=== PATIENT | female | born 1970 | race Two or more races ===

== ENCOUNTER → 2020-01-19 12:42 | Outpatient (REF) | payer OTHER, SELFPAY | LOC: HO.SL 12:42 | PROVIDERS: PCP Internal Medicine; Visit Provider Internal Medicine | DX: R40.0 Somnolence (principal); R53.83 Other fatigue | CPT/HCPCS: 95806 ==

== ENCOUNTER → 2020-03-28 13:47 | Outpatient (BNVA) | payer OTHER, SELFPAY | PROVIDERS: PCP Internal Medicine; Visit Provider Nurse Practitioner | DX: Z76.89 Persons encountering health services in other specified circumstances (principal) ==

== ENCOUNTER 2020-04-11 14:21 | Outpatient (REF) | payer OTHER, SELFPAY ==
--- NOTE | 2020-04-11 14:26 | MM_ITS ---
EXAMINATION: MM SCREENING DIGITAL BREAST TOMOSYNTHESIS, BILATERAL CLINICAL INFORMATION: Screening. Asymptomatic. The lifetime risk of breast cancer based on the Tyrer-Cuzick Model is 9%. COMPARISON: Mammography: 09/10/2018, 08/28/2017, 08/20/2016 TECHNIQUE: Digital breast tomosynthesis is performed in both the craniocaudal and mediolateral oblique views along with computer-aided detection (CAD). Synthesized 2D images are generated from the tomosynthesis. Additional right CC view is provided. FINDINGS: The breasts are heterogeneously dense, which may obscure small masses (ACR BI-RADS breast composition Category c). There are no significant masses, abnormal calcifications, or other abnormalities. Breast tissue composition borders on average fibroglandular. There is no developing density. No significant changes. MM/MM tomosynthesis screening BI IMPRESSION: No mammographic evidence of malignancy. ASSESSMENT: BI-RADS 1: Negative RECOMMENDATION: Routine annual mammography screening. This patient's information was entered into a reminder system with a target due date for their next mammogram.
== END 2020-04-11 14:22 | disposition home or self-care (01) ==
LOC: HO.MAMMO 14:21
PROVIDERS: PCP Internal Medicine; Visit Provider Internal Medicine
DX: Z12.31 Encounter for screening mammogram for malignant neoplasm of breast (principal)
CPT/HCPCS: 77063; 77067

== ENCOUNTER 2020-05-16 16:50 | Emergency (ER) | payer OTHER, SELFPAY ==
[2020-05-16 19:27] VITALS: BP 148/67; PULSE 80; RESP 20; TEMP 37.7; O2SAT 97; BMI 38.4
[2020-05-16 19:42] LABS: MANUAL DIFF FLAG NO
[2020-05-16 19:44] LABS: Basophils Percent Auto 0.3 % (0-2); Eosinophils Percent Auto 0.1 % (0-4); Hematocrit 39.9 % (37-47); Hemoglobin 13.1 g/dl (12.0-16.0); Imm Gran Abs Auto 0.01 X10*3/uL (0.00-0.03); Imm Gran Pct Auto 0.1 % (0.0-0.4); Lymphocytes Absolute Auto 2.1 X10*3/uL (1.2-4.9); Lymphocytes Percent Auto 29.3 % (20-40); Mean Corpuscular HGB Conc 32.8 g/dl (31.0-35.0); Mean Corpuscular Hemoglobin 31.1 pg (27.0-33.0); Mean Corpuscular Volume 94.8 fL (80-98); Mean Platelet Volume 10.3 fL (9.4-12.3); Monocytes Absolute Auto 0.4 X10*3/uL (0.1-1.2); Monocytes Percent Auto 5.7 % (2-11); Neutrophils Absolute Auto 4.5 X10*3/uL (2.0-8.3); Neutrophils Percent Auto 64.5 % (45-73); Platelet Count 222 X10*3/uL (160-400); Red Blood Count 4.21 X10*6/uL (4.20-5.50); Red Cell Distribution Width 12.5 % (11.0-16.0)
[2020-05-16 20:11] LABS: Glucose Urine UA NEG (NEG); Leukocyte Esterase Urine NEG (NEG); Nitrite Urine NEG (NEG); Specific Gravity - Urine >= 1.030 (1.005-1.025); Urine Blood NEG (NEG); Urine Ketones NEG (NEG); Urine Protein NEG (NEG-TRACE)
[2020-05-16 20:12] LABS: Appearance Urine HAZY; Color Urine YELLOW
[2020-05-16 20:13] LABS: Anion Gap 13 (12-20); Blood Urea Nitrogen 7 mg/dL (9-16); Calcium 8.6 mg/dL (8.4-10.2); Carbon Dioxide 27 mmol/L (22-29); Chloride 105 mmol/L (96-108); Creatinine Clr Calc Pharmacy 97.2; Estimated Glomerular Filt Rate > 60; Glucose Random 96 mg/dL (60-115); Potassium 3.7 mmol/L (3.3-5.1); Sodium 141 mmol/L (135-145)
--- NOTE | 2020-05-16 21:48 | ED_ITS ---
HPI - Headache General Chief Complaint: Headache Stated Complaint: headache Source: patient Mode of arrival: ambulatory Limitations: language barrier History of Present Illness HPI Narrative: 50-year-old female with past medical history of depression, anxiety, insomnia, GERD, hypercholesterolemia, IBS, somnolence, presents 3 weeks of headache, neck pain, and eye pain. States that this is the worst headache of her life, and the medications she has home not helped her she does take Klonopin, dicyclomine gabapentin, sumatriptan, and Topamax. She did not report any other symptoms. MD elicited complaint: headache and migraine Pertinent past history: migraines Onset (ago): week(s) (3) Onset description: gradually Location: down into neck Severity: severe Pain scale (0-10): 10 Quality & Timing: throbbing, steady, constant, progressively worsening, different than previous headaches and worst headache of life Exacerbating factors: exertion, movement of head/neck, light and noise Relieving factors: nothing Associated symptoms: neck stiffness, photophobia, sensitivity to sound, eye pain and weakness Treatments prior to arrival: acetaminophen, ibuprofen, prescription analgesic and migraine medication Related Data Home Medications Medication Instructions Recorded Confirmed clonazepam 1 mg tablet 1 mg PO BID PRN 04/04/20 04/04/20 duloxetine 60 mg capsule,delayed 60 mg PO QAM 04/04/20 04/04/20 release gabapentin 100 mg capsule 100 mg PO TID 04/04/20 04/04/20 ibuprofen 800 mg tablet 800 mg PO TID PRN tab 04/04/20 04/04/20 imipramine HCl 10 mg tablet 10 mg PO BEDTIME 04/04/20 04/04/20 oxybutynin chloride 10 mg 10 mg PO DAILY 04/04/20 04/04/20 tablet,extended release 24 hr sumatriptan succinate 100 mg tablet 100 mg PO PRN tab 04/04/20 04/04/20 topiramate 100 mg tablet 100 mg PO BEDTIME tab 04/04/20 04/04/20 trazodone 100 mg tablet 100 mg PO BEDTIME 04/04/20 04/04/20 Previous Rx's Medication Instructions Recorded dicyclomine 20 mg tablet 20 mg PO QID 90 Days #360 tab 02/17/20 dexlansoprazole 60 mg 60 mg PO DAILY 30 Days #30 cap 03/28/20 capsule,biphase delayed release loperamide 2 mg capsule 2 mg PO QID PRN #90 cap 03/28/20 simethicone 180 mg capsule 180 mg PO QID 30 Days #120 cap 03/28/20 sucralfate 1 gram tablet 2 g PO BEDTIME #60 tab 04/03/20 baclofen 20 mg tablet 20 mg PO TID PRN 30 Days #90 tab 04/04/20 cholecalciferol (vitamin D3) 25 25 mcg PO DAILY 90 Days #90 cap 04/04/20 mcg (1,000 unit) capsule meloxicam 15 mg tablet 15 mg PO DAILY PRN #30 tab 04/08/20 titmhuhgpo-xiruhgnfyjrmc-yxtg 1 cap PO Q8H PRN #7 cap 05/16/20 [Fioricet] Allergies Allergy/AdvReac Type Severity Reaction Status Date / Time morphine [MORPHINE] Allergy Intermediate TACHYCARDIA Verified 05/16/20 19:27 codeine [Tylenol-Codeine] Allergy Unknown with Verified 05/16/20 19:27 tylenol oxycodone [Percocet] Allergy Unknown unknown Verified 05/16/20 19:27 From PERCOCET AdvReac Mild STOMACH Uncoded 04/04/20 14:44 UPSET From Tylenol-Codeine #3 AdvReac Mild STOMACH Uncoded 04/04/20 14:44 UPSET Review of Systems Review of Systems: Constitutional: Positive headache, No Fever, no Chills, positive fatigue, positive Malaise ENT/Mouth: Known sore throat, no runny nose Eyes: No Discharge Cardiovascular: No Chest Pain, No SOB Respiratory: No Cough, No Sputum, No Wheezing, No Smoke Exposure, No Dyspnea Gastrointestinal: No Nausea, No Vomiting, No Diarrhea Genitourinary: no irregular bleeding, No Dysuria, No Urinary Frequency, No Hematuria, No Urinary Incontinence, No Urgency, No Flank Pain, Musculoskeletal: positive Myalgia Skin: No rash Neuro: Positive Headache Yes all other systems are reviewed and are negative PMFSH Past Medical History Attestation statement: The following information was validated with the patient. Source: old records reviewed Medical History Allergic rhinitis Anxiety Bilateral low back pain without sciatica Carpal tunnel syndrome Daytime somnolence Depression GERD without esophagitis Insomnia Obesity (BMI 30-39.9) Pure hypercholesterolemia Vitamin D deficiency Surgical History History of cholecystectomy History of esophagogastroduodenoscopy Family History Family History Mother No problems noted. Maternal Aunt Breast cancer Social History Social History Alcohol intake: current Alcohol intake frequency: does not drink Smoking Status: Never smoker Advance Directives: No Advance Directives Information Provided: No Physical Exam Vital Signs: Vital Signs: Last Vital Signs Temp 98.8 F 05/16/20 22:00 Pulse 75 05/16/20 22:00 Resp 17 05/16/20 22:00 BP 119/76 05/16/20 22:00 Pulse Ox 97 05/16/20 19:27 Body Mass Index 38.4 Appearance: Alert. Oriented X3. Moderate distress. Eyes: PERRLA, EOMI, photophobic ENT: Pharynx normal. Cranial nerves 2-12 intact Neck: Normal inspection. Neck supple. Tender to palpation to the cervical spine and trapezius bilaterally CVS: Normal heart rate and rhythm. Pulses normal. Respiratory: No respiratory distress. Breath sounds normal. Abdomen: Soft and nontender. Skin: Skin warm and dry. Normal skin color. Normal skin turgor. Extremities: No lower extremity edema. Strength 5/5 to all extremities, pulses equal, no edema, brisk capillary refill Neuro: No motor deficit. No sensory deficit. No focal neural deficits Course Course Course Narrative: 50-year-old female with past medical history depression, anxiety insomnia, GERD, hyperlipidemia, irritable bowel disease presents with 3 weeks of progressively worsening headache that has not been resolved with medications that have been prescribed to her. She does complain of eye pain, neck pain, photophobia and nausea. As this is the worst headache of her life, we will order CT scan and neck, and COVID swab. Labs are unremarkable. No indication of meningitis, negative Kernig and Brudzinski sign. Afebrile. COVID test is positive. Patient states headache is better with Fioricet. Plan of care is to discharge home with Fioricet and supportive measures for COVID-19. Patient verbalized understanding of and agrees to plan of care discharge home. americanization teacher utilized for all correspondence. Google translate utilized for discharge instructions. MDM - Headache MDM Narrative Medical decision making narrative: Influenza, COVID-19 Differential Diagnosis Differential diagnosis: Likely migraine, tension headache, subarachnoid hemorrhage, headache, meningitis and sinusitis Medical Records Attestation: I reviewed the patient's medical records. Lab Data Attestation: I reviewed the patient's lab results. Result diagrams: 05/16/20 19:36 05/16/20 19:36 Labs: Lab Results 05/16/20 05/16/20 05/16/20 Range/Units 19:36 19:36 19:36 WBC 7.0 (4.8-10.8) X10*3/uL RBC 4.21 (4.20-5.50) X10*6/uL Hgb 13.1 (12.0-16.0) g/dl Hct 39.9 (37-47) % MCV 94.8 (80-98) fL MCH 31.1 (27.0-33.0) pg MCHC 32.8 (31.0-35.0) g/dl RDW 12.5 (11.0-16.0) % Plt Count 222 (160-400) X10*3/uL MPV 10.3 (9.4-12.3) fL Immature Gran % (Auto) 0.1 (0.0-0.4) % Neut % (Auto) 64.5 (45-73) % Lymph % (Auto) 29.3 (20-40) % Crawford % (Auto) 5.7 (2-11) % Eos % (Auto) 0.1 (0-4) % Baso % (Auto) 0.3 (0-2) % Lymph # (Auto) 2.1 (1.2-4.9) X10*3/uL Crawford # (Auto) 0.4 (0.1-1.2) X10*3/uL Eos # (Auto) 0.0 (0.0-0.4) X10*3/uL Baso # (Auto) 0.0 (0.0-0.2) X10*3/uL Abs Immat Gran (auto) 0.01 (0.00-0.03) X10*3/uL Absolute Neuts (auto) 4.5 (2.0-8.3) X10*3/uL Absolute Nucleated RBC 0.000 (0.0-0.012) X10*3/uL Nucleated RBC % (auto) 0.0 (0.0-0.2) /100WBC Hold Blue Top SEE NOTE Sodium 141 (135-145) mmol/L Potassium 3.7 (3.3-5.1) mmol/L Chloride 105 (96-108) mmol/L Carbon Dioxide 27 (22-29) mmol/L Anion Gap 13 (12-20) BUN 7 L (9-16) mg/dL Creatinine 0.77 (0.5-1.4) mg/dL Estim Creat Clear Calc 97.2 Estimated GFR > 60 Random Glucose 96 (60-115) mg/dL Calcium 8.6 (8.4-10.2) mg/dL Urine Color Urine Appearance Urine pH (5.0-8.0) Ur Specific [place] (1.005-1.025) Urine Protein (NEG-TRACE) MG/DL Urine Glucose (UA) (NEG) MG/DL Urine Ketones (NEG) MG/DL Urine Blood (NEG) Urine Nitrite (NEG) Ur Leukocyte Esterase (NEG) Coronavirus (PCR) (Negative) Influenza Type A (PCR) (Negative) Influenza Type B (PCR) (Negative) RSV RNA Qual (PCR) (Negative) 05/16/20 05/16/20 Range/Units 19:51 22:25 WBC (4.8-10.8) X10*3/uL RBC (4.20-5.50) X10*6/uL Hgb (12.0-16.0) g/dl Hct (37-47) % MCV (80-98) fL MCH (27.0-33.0) pg MCHC (31.0-35.0) g/dl RDW (11.0-16.0) % Plt Count (160-400) X10*3/uL MPV (9.4-12.3) fL Immature Gran % (Auto) (0.0-0.4) % Neut % (Auto) (45-73) % Lymph % (Auto) (20-40) % Crawford % (Auto) (2-11) % Eos % (Auto) (0-4) % Baso % (Auto) (0-2) % Lymph # (Auto) (1.2-4.9) X10*3/uL Crawford # (Auto) (0.1-1.2) X10*3/uL Eos # (Auto) (0.0-0.4) X10*3/uL Baso # (Auto) (0.0-0.2) X10*3/uL Abs Immat Gran (auto) (0.00-0.03) X10*3/uL Absolute Neuts (auto) (2.0-8.3) X10*3/uL Absolute Nucleated RBC (0.0-0.012) X10*3/uL Nucleated RBC % (auto) (0.0-0.2) /100WBC Hold Blue Top Sodium (135-145) mmol/L Potassium (3.3-5.1) mmol/L Chloride (96-108) mmol/L Carbon Dioxide (22-29) mmol/L Anion Gap (12-20) BUN (9-16) mg/dL Creatinine (0.5-1.4) mg/dL Estim Creat Clear Calc Estimated GFR Random Glucose (60-115) mg/dL Calcium (8.4-10.2) mg/dL Urine Color YELLOW Urine Appearance HAZY Urine pH 5.0 (5.0-8.0) Ur Specific [place] >= 1.030 H (1.005-1.025) Urine Protein NEG (NEG-TRACE) MG/DL Urine Glucose (UA) NEG (NEG) MG/DL Urine Ketones NEG (NEG) MG/DL Urine Blood NEG (NEG) Urine Nitrite NEG (NEG) Ur Leukocyte Esterase NEG (NEG) Coronavirus (PCR) POSITIVE A (Negative) Influenza Type A (PCR) NEGATIVE (Negative) Influenza Type B (PCR) NEGATIVE (Negative) RSV RNA Qual (PCR) NEGATIVE (Negative) Imaging Data CT scan of head and neck: Attestation: I personally reviewed and interpreted this imaging study as follows: Radiologist's impression: EXAMINATION: CT HEAD WITHOUT CONTRAST CT CERVICAL SPINE WITHOUT CONTRAST CLINICAL INFORMATION: Headache for 2 weeks. Worst headache ever. Neck pain for 4 weeks. COMPARISON: CT head 04/22/2011 TECHNIQUE: Imaging was performed from the skull base to vertex without intravenous administration of contrast. In addition, helical noncontrast CT imaging was acquired through the cervical spine and source images were reviewed along with axial reconstructions and sagittal and coronal MPRs. [This CT examination was performed using dose optimization techniques as appropriate, variously including the following: *Automated exposure control *Adjustment of mA and/or kV according to patient size (this includes techniques or standardized protocols for targeted exams where dose is matched to indication/reason for exam; i.e. extremities or head) *Use of iterative reconstruction technique] DLP: 1187 mGy-cm FINDINGS: HEAD: No intracranial mass, hemorrhage, or midline shift is visualized. The ventricles and sulci are age-appropriate. No extra-axial collections are identified. The paranasal sinuses and mastoid air cells are well aerated. CERVICAL SPINE: There is no evidence of acute cervical spine fracture. Vertebral bodies remain normal in height. Cervical vertebrae have normal alignment. There is degenerative cervical disc height narrowing with anterior and posterior vertebral endplate spur C5-C6. The remainder the cervical disc heights are maintained. Facet joints are normal. No pre- or paravertebral soft tissue abnormality is identified. Limited assessment of the lung apices is unremarkable. CT/CT head/brain wo con IMPRESSION: 1. No acute intracranial pathology. 2. No CT evidence of acute cervical spine fracture or traumatic subluxation Discharge Plan Discharge Clinical Impression: Headache, COVID-19 Patient Disposition: Home, Self-Care Instructions: Acute Headache (ED), COVID-19 (Coronavirus Disease 2019) (ED) Additional Instructions: Se le evalu? para el dolor de morales intratable y el layla. La tomograf?a computarizada de la morales y el layla es negativa para los hallazgos agudos que requieren pastora intervenci?n emergente. Segura dado positivo en COVID-19. Por favor, mantenga el aislamiento social seg?n las pautas estatales y federales. Es sandoval responsabilidad mantener estas pautas. Le recetamos a Fioricet para jose de morales. Por favor, tome alex medicamento zoe se indica. Homero por elegir alex departamento de emergencias para la evaluaci?n. Por favor, donna un seguimiento con el m?dico de atenci?n primaria seg?n sea nece sario. Regrese al servicio de urgencias para cualquier s?ntoma nuevo, preocupante o que empeore. You were evaluated for intractable headache and neck pain. CT scan of head and neck are negative for acute findings requiring emergent intervention. You tested positive for COVID-19. Please maintain social isolation per State and Federal guidelines. Is your responsibility to maintain these guidelines. We prescribed Fioricet for headaches. Please take this medication as directed. Thank you for choosing this emergency department for evaluation. Please follow-up with primary care physician as needed. Return to the emergency department for any new, concerning, or worsening symptoms. Prescriptions: New vtqyqaxyma-gqzpogklkxpfu-ldey [Fioricet] 50-300-40 mg capsule 1 cap PO Q8H PRN (Reason: pain) Qty: 7 RF: 0 No Action dicyclomine 20 mg tablet 20 mg PO QID 90 Days Qty: 360 RF: 1 sucralfate 1 gram tablet 2 g PO BEDTIME Qty: 60 RF: 5 meloxicam 15 mg tablet 15 mg PO DAILY PRN (Reason: for pain) Qty: 30 RF: 2 duloxetine 60 mg capsule,delayed release(DR/EC) 60 mg PO QAM RF: 0 gabapentin 100 mg capsule 100 mg PO TID RF: 0 trazodone 100 mg tablet 100 mg PO BEDTIME RF: 0 oxybutynin chloride 10 mg tablet extended release 24hr 10 mg PO DAILY RF: 0 clonazepam 1 mg tablet 1 mg PO BID PRNRF: 0 imipramine HCl 10 mg tablet 10 mg PO BEDTIME RF: 0 ibuprofen 800 mg tablet 800 mg PO TID PRN (Reason: pain) RF: 0 topiramate 100 mg tablet 100 mg PO BEDTIME RF: 0 sumatriptan succinate 100 mg tablet 100 mg PO PRN (Reason: migraine headache) RF: 0 cholecalciferol (vitamin D3) 25 mcg (1,000 unit) capsule 25 mcg PO DAILY 90 Days Qty: 90 RF: 3 baclofen 20 mg tablet 20 mg PO TID PRN (Reason: muscle spasm/back pain) 30 Days Qty: 90 RF: 3 loperamide [Anti-Diarrheal (loperamide)] 2 mg capsule 2 mg PO QID PRN (Reason: loose stool) Qty: 90 RF: 6 simethicone 180 mg capsule 180 mg PO QID 30 Days Qty: 120 RF: 3 Dexilant 60 mg capsule,biphase delayed releas 60 mg PO DAILY 30 Days Qty: 30 RF: 6 Interventions: ED Discharge Assessment Last Done: 05/16/20 23:49 Discharge Date/Time: 05/16/20 23:53 Print Language: [place]araguan
[2020-05-16 22:00] VITALS: BP 119/76; PULSE 75; RESP 17; TEMP 37.1
--- NOTE | 2020-05-16 22:10 | CT_ITS ---
EXAMINATION: CT HEAD WITHOUT CONTRAST CT CERVICAL SPINE WITHOUT CONTRAST CLINICAL INFORMATION: Headache for 2 weeks. Worst headache ever. Neck pain for 4 weeks. COMPARISON: CT head 04/22/2011 TECHNIQUE: Imaging was performed from the skull base to vertex without intravenous administration of contrast. In addition, helical noncontrast CT imaging was acquired through the cervical spine and source images were reviewed along with axial reconstructions and sagittal and coronal MPRs. [This CT examination was performed using dose optimization techniques as appropriate, variously including the following: *Automated exposure control *Adjustment of mA and/or kV according to patient size (this includes techniques or standardized protocols for targeted exams where dose is matched to indication/reason for exam; i.e. extremities or head) *Use of iterative reconstruction technique] DLP: 1187 mGy-cm FINDINGS: HEAD: No intracranial mass, hemorrhage, or midline shift is visualized. The ventricles and sulci are age-appropriate. No extra-axial collections are identified. The paranasal sinuses and mastoid air cells are well aerated. CERVICAL SPINE: There is no evidence of acute cervical spine fracture. Vertebral bodies remain normal in height. Cervical vertebrae have normal alignment. There is degenerative cervical disc height narrowing with anterior and posterior vertebral endplate spur C5-C6. The remainder the cervical disc heights are maintained. Facet joints are normal. No pre- or paravertebral soft tissue abnormality is identified. Limited assessment of the lung apices is unremarkable. CT/CT cervical spine wo con IMPRESSION: 1. No acute intracranial pathology. 2. No CT evidence of acute cervical spine fracture or traumatic subluxation
[2020-05-16] MEDS: Butalb/Acetamin/Caff 50/325/40 TABLET 1 TAB PO (22:55)
[2020-05-16 23:11] LABS: Influenza A PCR NEGATIVE (Negative); Influenza B PCR NEGATIVE (Negative); Resp Syncy Virus RNA Qual PCR NEGATIVE (Negative)
[2020-05-16 23:22] LABS: SARS COV2 PCR INHOUSE POSITIVE (Negative)
== END 2020-05-16 23:53 | disposition home or self-care (01) ==
PROVIDERS: Nurse Practitioner Family; Emergency Provider Emergency Medicine; PCP Internal Medicine
DX: U07.1 COVID-19 (principal); R51.9 Headache, unspecified
CPT/HCPCS: 0241U; 36415; 70450; 72125; 80048; 81003; 85025; 99283; 99284

== ENCOUNTER 2020-06-26 12:24 | Outpatient (REF) | payer OTHER, SELFPAY ==
[2020-06-26 13:25] LABS: MANUAL DIFF FLAG NO
[2020-06-26 13:33] LABS: Basophils Absolute Auto 0.1 X10*3/uL (0.0-0.2); Basophils Percent Auto 0.7 % (0-2); Eosinophils Absolute Auto 0.2 X10*3/uL (0.0-0.4); Eosinophils Percent Auto 2.4 % (0-4); Hematocrit 39.6 % (37-47); Hemoglobin 12.5 g/dl (12.0-16.0); Imm Gran Abs Auto 0.02 X10*3/uL (0.00-0.03); Imm Gran Pct Auto 0.2 % (0.0-0.4); Lymphocytes Absolute Auto 3.2 X10*3/uL (1.2-4.9); Lymphocytes Percent Auto 39.1 % (20-40); Mean Corpuscular HGB Conc 31.6 g/dl (31.0-35.0); Mean Corpuscular Hemoglobin 29.9 pg (27.0-33.0); Mean Corpuscular Volume 94.7 fL (80-98); Monocytes Absolute Auto 0.6 X10*3/uL (0.1-1.2); Monocytes Percent Auto 7.1 % (2-11); Neutrophils Absolute Auto 4.1 X10*3/uL (2.0-8.3); Neutrophils Percent Auto 50.5 % (45-73); Platelet Count 301 X10*3/uL (160-400); Red Blood Count 4.18 X10*6/uL (4.20-5.50); Red Cell Distribution Width 13.3 % (11.0-16.0); White Blood Count 8.2 X10*3/uL (4.8-10.8)
[2020-06-26 14:02] LABS: Alanine Aminotransferase 14 U/L (0-31); Albumin Level 4.2 g/dL (3.5-5.0); Alkaline Phosphatase 57 U/L (39-117); Anion Gap 14 (12-20); Aspartate Amino Transferase 22 U/L (5-31); Bilirubin Total 0.6 mg/dL (0.0-1.0); Blood Urea Nitrogen 10 mg/dL (9-16); Calcium 9.4 mg/dL (8.4-10.2); Carbon Dioxide 26 mmol/L (22-29); Chloride 106 mmol/L (96-108); Cholesterol 255 mg/dL; Estimated Glomerular Filt Rate > 60; Glucose Fasting 83 mg/dL (60-99); HDL Cholesterol 52 mg/dL; LDL Cholesterol Calculated 163 mg/dl; Potassium 4.3 mmol/L (3.3-5.1); Sodium 142 mmol/L (135-145); Total Protein 7.7 g/dL (6.5-8.0); Triglycerides 203 mg/dL
[2020-06-26 14:16] LABS: Glucose Urine UA NEG (NEG); Leukocyte Esterase Urine 1+ (NEG); Nitrite Urine NEG (NEG); Specific Gravity - Urine 1.015 (1.005-1.025); UACC Culture Trigger YES; Urine Blood NEG (NEG); Urine Ketones NEG (NEG); Urine Protein NEG (NEG-TRACE)
[2020-06-26 14:18] LABS: Appearance Urine CLOUDY; Color Urine YELLOW
[2020-06-26 14:22] LABS: TSH reflex Free T4 2.21 uIU/mL (0.32-4.0); Vitamin D 25-OH Total 23.3 ng/mL (>30)
[2020-06-26 14:38] LABS: Bacteria Urine 1+ /LPF; RBC Urine 0-2 /HPF (0); Squamous Epithelial Cell Urine 3+ /LPF
== END 2020-06-26 12:25 | disposition home or self-care (01) ==
LOC: HO.LAB 12:24
PROVIDERS: PCP Internal Medicine; Visit Provider Internal Medicine
DX: J30.9 Allergic rhinitis, unspecified (principal); K21.9 Gastro-esophageal reflux disease without esophagitis; K58.0 Irritable bowel syndrome with diarrhea; E78.00 Pure hypercholesterolemia, unspecified; E66.9 Obesity, unspecified; E55.9 Vitamin D deficiency, unspecified; M54.5 Low back pain
CPT/HCPCS: 36415; 80053; 80061; 81001; 81003; 82306; 84443; 85025; 87086

== ENCOUNTER → 2020-09-27 09:26 | Outpatient (BNVA) | payer OTHER, SELFPAY | PROVIDERS: PCP Internal Medicine; Visit Provider Nurse Practitioner | DX: K58.0 Irritable bowel syndrome with diarrhea (principal); K21.9 Gastro-esophageal reflux disease without esophagitis ==

== ENCOUNTER 2020-11-17 18:03 | Emergency (ER) | payer OTHER, SELFPAY ==
[2020-11-17 18:11] VITALS: BP 133/70; PULSE 90; RESP 20; TEMP 37.2; O2SAT 96; BMI 40.2
--- NOTE | 2020-11-17 18:27 | ED_ITS ---
HPI - Dizziness General Chief Complaint: Syncope Stated Complaint: syncope Time Seen by Provider: 11/17/20 18:06 Source: patient Mode of arrival: EMS Limitations: no limitations and language barrier History of Present Illness HPI Narrative: Patient history of anxiety and depression was sitting had near- syncope episode season dizzy but she tearful when she came to the ER denying any other complaints patient with flat expressions not expressing any anxiety or depression not suicidal speaking only few words Related Data Home Medications Medication Instructions Recorded Confirmed clonazepam 1 mg tablet 1 mg PO BID PRN 04/04/20 06/28/20 duloxetine 60 mg capsule,delayed 60 mg PO QAM 04/04/20 06/28/20 release gabapentin 100 mg capsule 100 mg PO TID 04/04/20 06/28/20 ibuprofen 800 mg tablet 800 mg PO TID PRN tab 04/04/20 06/28/20 oxybutynin chloride 10 mg 10 mg PO DAILY 04/04/20 06/28/20 tablet,extended release 24 hr sumatriptan succinate 100 mg tablet 100 mg PO PRN tab 04/04/20 06/28/20 topiramate 100 mg tablet 100 mg PO BEDTIME tab 04/04/20 06/28/20 trazodone 100 mg tablet 100 mg PO BEDTIME 04/04/20 06/28/20 Previous Rx's Medication Instructions Recorded cholecalciferol (vitamin D3) 25 25 mcg PO DAILY 90 Days #90 cap 04/04/20 mcg (1,000 unit) capsule dtiowxhufa-jugrbjvogical-nihcayhb 1 cap PO Q8H PRN 30 Days #90 cap 05/25/20 50 mg-300 mg-40 mg capsule (Fioricet) ondansetron 4 mg disintegrating 4 mg PO Q8H PRN 10 Days #30 tab 05/25/20 tablet dicyclomine 20 mg tablet 20 mg PO QID 90 Days #360 tab 06/28/20 meloxicam 15 mg tablet 15 mg PO DAILY PRN #30 tab 06/28/20 baclofen 20 mg tablet 20 mg PO TID PRN #270 tab 09/02/20 dexlansoprazole 60 mg 60 mg PO DAILY 30 Days #30 cap 09/27/20 capsule,biphase delayed release (Dexilant) imipramine HCl 10 mg tablet 10 mg PO BEDTIME 30 Days #30 tab 06/17/21 loperamide 2 mg capsule 2 mg PO QID PRN #90 cap 09/27/20 (Anti-Diarrheal (loperamide)) simethicone 180 mg capsule 180 mg PO QID 30 Days #120 cap 09/27/20 sucralfate 1 gram tablet 2 g PO BEDTIME #60 tab 09/27/20 calcium polycarbophil 625 mg 1,250 mg PO BID 30 Days #120 tab 10/19/20 tablet (Fiber Laxative (calcium polycarbophil)) Allergies Allergy/AdvReac Type Severity Reaction Status Date / Time morphine [MORPHINE] Allergy Intermediate TACHYCARDIA Verified 09/27/20 09:27 codeine [Tylenol-Codeine] Allergy Unknown with Verified 09/27/20 09:27 tylenol oxycodone [Percocet] Allergy Unknown unknown Verified 09/27/20 09:27 From PERCOCET AdvReac Mild STOMACH Uncoded 06/28/20 11:51 UPSET From Tylenol-Codeine #3 AdvReac Mild STOMACH Uncoded 06/28/20 11:51 UPSET Review of Systems Review of Systems: Yes all other systems are reviewed and are negative [facility] Past Medical History Medical History Allergic rhinitis Anxiety Bilateral low back pain without sciatica Carpal tunnel syndrome Daytime somnolence Depression GERD without esophagitis Insomnia Obesity (BMI 30-39.9) Pure hypercholesterolemia Vitamin D deficiency Surgical History History of cholecystectomy History of esophagogastroduodenoscopy Family History Family History Mother No problems noted. Maternal Aunt Breast cancer Social History Social History Alcohol intake: current Alcohol intake frequency: does not drink Advance Directives: No Advance Directives Information Provided: No Physical Exam Vital Signs: Vital Signs: Last Vital Signs Temp 99.0 F 11/17/20 18:11 Pulse 90 11/17/20 18:11 Resp 20 11/17/20 18:11 BP 133/70 11/17/20 18:11 Pulse Ox 96 11/17/20 18:11 Body Mass Index 40.2 Appearance: Alert. Oriented X3. No acute distress. Eyes: PERRLA, No Nystagmus tearful ENT: Pharynx normal. Oral Mucosa moist Neck: Normal inspection. Neck supple. CVS: Normal heart rate and rhythm. Pulses normal. Respiratory: No respiratory distress. Equal air entry bilateral, no wheezing/rales/rhonchi Abdomen: Soft and nontender. Bowel sounds are present, no mass palpable, no CVA tenderness Skin: Skin warm and dry. Normal skin color. Normal skin turgor. Extremities: No lower extremity edema. No calf tenderness Neuro: Oriented X 3. No motor deficit. No sensory deficit.No cerebellar signs , cranial nerves II-XII intact MDM - Dizziness Lab Data Attestation: I reviewed the patient's lab results. ECG Data Attestation: I personally reviewed and interpreted this ECG as follows: Interpretation: Normal sinus rhythm heart rate 87 beats per minute normal axis normal intervals no acute ST wave changes impression normal EKG Discharge Plan Discharge Clinical Impression: Dizziness Patient Disposition: Home, Self-Care Instructions: Dizziness (ED) Additional Instructions: Drink plenty of fluids take medication for anxiety and follow with PCP Prescriptions: No Action eyznwktbuw-fpittirazkypv-slcn [Fioricet] 50-300-40 mg capsule 1 cap PO Q8H PRN (Reason: headaches) 30 Days Qty: 90 RF: 0 ondansetron 4 mg tablet,disintegrating 4 mg PO Q8H PRN (Reason: nausea and vomiting) 10 Days Qty: 30 RF: 0 baclofen 20 mg tablet 20 mg PO TID PRN (Reason: for muscle spasm) Qty: 270 RF: 1 calcium polycarbophil [Fiber Laxative (ca polycarbo)] 625 mg tablet 1,250 mg PO BID 30 Days Qty: 120 RF: 6 duloxetine 60 mg capsule,delayed release(DR/EC) 60 mg PO QAM RF: 0 gabapentin 100 mg capsule 100 mg PO TID RF: 0 trazodone 100 mg tablet 100 mg PO BEDTIME RF: 0 oxybutynin chloride 10 mg tablet extended release 24hr 10 mg PO DAILY RF: 0 clonazepam 1 mg tablet 1 mg PO BID PRNRF: 0 ibuprofen 800 mg tablet 800 mg PO TID PRN (Reason: pain) RF: 0 topiramate 100 mg tablet 100 mg PO BEDTIME RF: 0 sumatriptan succinate 100 mg tablet 100 mg PO PRN (Reason: migraine headache) RF: 0 cholecalciferol (vitamin D3) 25 mcg (1,000 unit) capsule 25 mcg PO DAILY 90 Days Qty: 90 RF: 3 dicyclomine 20 mg tablet 20 mg PO QID 90 Days Qty: 360 RF: 1 meloxicam 15 mg tablet 15 mg PO DAILY PRN (Reason: for pain) Qty: 30 RF: 2 Dexilant 60 mg capsule,biphase delayed releas 60 mg PO DAILY 30 Days Qty: 30 RF: 6 imipramine HCl 10 mg tablet 10 mg PO BEDTIME 30 Days Qty: 30 RF: 6 loperamide [Anti-Diarrheal (loperamide)] 2 mg capsule 2 mg PO QID PRN (Reason: loose stool) Qty: 90 RF: 6 simethicone 180 mg capsule 180 mg PO QID 30 Days Qty: 120 RF: 3 sucralfate 1 gram tablet 2 g PO BEDTIME Qty: 60 RF: 6
--- NOTE | 2020-11-17 18:27 | ECG_ITS ---
Test Reason : DIZZINESS Blood Pressure : / mmHG Vent. Rate : 087 BPM Atrial Rate : 087 BPM P-R Int : 160 ms QRS Dur : 092 ms QT Int : 378 ms P-R-T Axes : 043 022 020 degrees QTc Int : 454 ms Normal sinus rhythm Normal ECG When compared with ECG of 05-SEP-2016 18:28, No significant change was found Referred By: Mane Martinez Electronically Signed By:Pablo Miller
[2020-11-17] MEDS: 0.9 % Sodium Chloride 1,000 ML 999 ML IVCONT (18:33)
[2020-11-17] MEDS: LORazepam 2 MG/ML VIAL 1 MG IVPUSH (18:39)
--- NOTE | 2020-11-17 19:21 | PC.NURSE ---
Call Erin [phone] with updates when available.
[2020-11-17 20:00] VITALS: BP 120/68; PULSE 64; RESP 18; O2SAT 98
== END 2020-11-17 21:03 | disposition home or self-care (01) ==
PROVIDERS: Emergency Provider Internal Medicine; PCP Internal Medicine
DX: R42 Dizziness and giddiness (principal); F41.9 Anxiety disorder, unspecified; Z79.899 Other long term (current) drug therapy
CPT/HCPCS: 93005; 96361; 96374; 99284; J2060

== ENCOUNTER 2020-11-22 11:45 | Outpatient (REF) | payer OTHER, SELFPAY ==
[2020-11-22 12:35] LABS: MANUAL DIFF FLAG NO
[2020-11-22 12:43] LABS: Basophils Absolute Auto 0.1 X10*3/uL (0.0-0.2); Basophils Percent Auto 0.6 % (0-2); Eosinophils Absolute Auto 0.1 X10*3/uL (0.0-0.4); Eosinophils Percent Auto 1.4 % (0-4); Hematocrit 37.4 % (37-47); Imm Gran Abs Auto 0.03 X10*3/uL (0.00-0.03); Imm Gran Pct Auto 0.4 % (0.0-0.4); Lymphocytes Absolute Auto 3.3 X10*3/uL (1.2-4.9); Lymphocytes Percent Auto 41.5 % (20-40); Mean Corpuscular HGB Conc 32.1 g/dl (31.0-35.0); Mean Corpuscular Hemoglobin 30.2 pg (27.0-33.0); Mean Platelet Volume 11.2 fL (9.4-12.3); Monocytes Absolute Auto 0.6 X10*3/uL (0.1-1.2); Neutrophils Absolute Auto 3.9 X10*3/uL (2.0-8.3); Neutrophils Percent Auto 49.1 % (45-73); Platelet Count 300 X10*3/uL (160-400); Red Blood Count 3.98 X10*6/uL (4.20-5.50); Red Cell Distribution Width 12.4 % (11.0-16.0)
[2020-11-22 13:10] LABS: Alanine Aminotransferase 12 U/L (0-31); Albumin Level 4.3 g/dL (3.5-5.0); Alkaline Phosphatase 62 U/L (39-117); Anion Gap 11 (12-20); Aspartate Amino Transferase 14 U/L (5-31); Bilirubin Total 0.5 mg/dL (0.0-1.0); Blood Urea Nitrogen 11 mg/dL (9-16); Calcium 9.3 mg/dL (8.4-10.2); Carbon Dioxide 26 mmol/L (22-29); Chloride 106 mmol/L (96-108); Cholesterol 213 mg/dL; Estimated Glomerular Filt Rate > 60; Glucose Fasting 84 mg/dL (60-99); HDL Cholesterol 49 mg/dL; LDL Cholesterol Calculated 135 mg/dl; Potassium 4.2 mmol/L (3.3-5.1); Sodium 139 mmol/L (135-145); Total Protein 7.4 g/dL (6.5-8.0); Triglycerides 147 mg/dL
[2020-11-22 13:35] LABS: TSH reflex Free T4 1.54 uIU/mL (0.32-4.0)
== END 2020-11-22 11:46 | disposition home or self-care (01) ==
LOC: HO.LAB 11:45
PROVIDERS: PCP Internal Medicine; Visit Provider Internal Medicine
DX: E78.00 Pure hypercholesterolemia, unspecified (principal); E66.9 Obesity, unspecified; K58.0 Irritable bowel syndrome with diarrhea; J30.9 Allergic rhinitis, unspecified; K21.9 Gastro-esophageal reflux disease without esophagitis
CPT/HCPCS: 36415; 80053; 80061; 84443; 85025

== ENCOUNTER 2021-01-04 08:24 | Outpatient (REF) | payer OTHER, SELFPAY ==
--- NOTE | ~2021-01-04 | XR_ITS ---
EXAMINATION: X-RAY RIGHT KNEE X-RAY BILATERAL STANDING AP VIEW OF BOTH KNEES CLINICAL INFORMATION: Pain. COMPARISON: Radiograph of the left knee dated from 02/17/2018. TECHNIQUE: Lateral and sunrise views of the right knee. AP standing view of both knees. FINDINGS: No evidence of acute fractures or malalignment. There is mild disc space narrowing in the medial compartment of both knees with subcortical sclerosis. No chondrocalcinosis or erosions. In the lateral view there is a small joint effusion in the right knee. XR/XR knee RT 2V IMPRESSION: Mild degenerative osteoarthritis in both knees. Small joint effusion in the right knee. No acute fractures.
--- NOTE | ~2021-01-04 | XR_ITS ---
EXAMINATION: X-RAY RIGHT KNEE X-RAY BILATERAL STANDING AP VIEW OF BOTH KNEES CLINICAL INFORMATION: Pain. COMPARISON: Radiograph of the left knee dated from 02/17/2018. TECHNIQUE: Lateral and sunrise views of the right knee. AP standing view of both knees. FINDINGS: No evidence of acute fractures or malalignment. There is mild disc space narrowing in the medial compartment of both knees with subcortical sclerosis. No chondrocalcinosis or erosions. In the lateral view there is a small joint effusion in the right knee. XR/XR knee standing BI IMPRESSION: Mild degenerative osteoarthritis in both knees. Small joint effusion in the right knee. No acute fractures.
== END 2021-01-04 08:25 | disposition home or self-care (01) ==
LOC: HO.HOSX 08:24
PROVIDERS: Visit Provider Physician Assistant
DX: M54.16 Radiculopathy, lumbar region (principal); M25.561 Pain in right knee
CPT/HCPCS: 73560; 73565; 99202

== ENCOUNTER → 2021-02-04 11:28 | Outpatient (BNVA) | payer OTHER, SELFPAY | PROVIDERS: PCP Internal Medicine; Visit Provider Anesthesiology | DX: M54.16 Radiculopathy, lumbar region (principal); M47.816 Spondylosis without myelopathy or radiculopathy, lumbar region; E78.00 Pure hypercholesterolemia, unspecified; E55.9 Vitamin D deficiency, unspecified; E66.9 Obesity, unspecified; R40.0 Somnolence; Z68.38 Body mass index [BMI] 38.0-38.9, adult; Z88.6 Allergy status to analgesic agent; Z88.5 Allergy status to narcotic agent | CPT/HCPCS: 99212 ==

== ENCOUNTER 2021-02-08 09:45 | Outpatient (REF) | payer OTHER, SELFPAY ==
--- NOTE | ~2021-02-08 | MR_ITS ---
EXAMINATION: MR BRAIN WITHOUT AND WITH CONTRAST CLINICAL INFORMATION: Brain lesion. COMPARISON: CT head from 05/16/2020. Brain MRI from 12/16/2012. TECHNIQUE: MRI of the brain was obtained using routine sequences without and following the administration of 10 mL of Gadavist intravenous contrast. FINDINGS: No focal restricted diffusion is demonstrated to suggest acute or subacute cerebral ischemia. No evidence of acute or chronic hemorrhagic products on heme-sensitive imaging. Mild nonspecific scattered periventricular and deep white matter T2 FLAIR hyperintensities. 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 Otherwise, the ventricles are normal in morphology and size. No abnormal mass effect. No midline shift. The sella turcica is mildly expanded with flattening of the pituitary gland. The cerebellar tonsils are positioned at the level the foramen magnum. Normal arterial and venous vascular flow voids are present. No abnormal contrast enhancement. Normal, homogeneous marrow signal. Prominent mucosal thickening of the paranasal sinuses. Multiple mucus retention cyst within the left greater than right maxillary sinuses. No signal abnormalities within the mastoids. MR/MR head/brain wo/w con IMPRESSION: 1. No acute intracranial abnormalities. No abnormal intracranial enhancement. 2. Mild nonspecific white matter changes, similar in distribution and degree compared to 2013. 3. Prominent sinonasal mucosal disease.
== END 2021-02-08 09:46 | disposition home or self-care (01) ==
LOC: HO.MRI 09:45
PROVIDERS: Visit Provider Psychiatry & Neurology Neurology
DX: G93.9 Disorder of brain, unspecified (principal)
CPT/HCPCS: 70553; A9585

== ENCOUNTER → 2021-02-11 13:29 | Outpatient (BNVA) | payer OTHER, SELFPAY | PROVIDERS: PCP Internal Medicine; Referring Provider Internal Medicine; Visit Provider Nurse Practitioner | DX: K58.0 Irritable bowel syndrome with diarrhea (principal); K21.9 Gastro-esophageal reflux disease without esophagitis; R10.13 Epigastric pain | CPT/HCPCS: 99212 ==

== ENCOUNTER 2021-02-22 09:41 | Outpatient (REF) | payer OTHER, SELFPAY ==
--- NOTE | ~2021-02-22 | MR_ITS ---
EXAMINATION: MR LUMBAR SPINE WITHOUT CONTRAST CLINICAL INFORMATION: Bilateral foot pain. Low back pain. COMPARISON: X-ray dated 04/24/2014. TECHNIQUE: MRI of the lumbar spine was obtained using routine sequences without contrast. FINDINGS: VERTEBRAL BODIES AND PARASPINAL STRUCTURES: The marrow signal is within normal limits. No compression fractures or subluxations identified. No marrow or soft tissue edema is seen. The paraspinal soft tissues appear normal. The imaged bony pelvis is unremarkable. Rightward curvature of the lumbar spine evident. CONUS MEDULLARIS AND CAUDA EQUINA: Normal, terminating at the level of T12. No lower cord signal abnormality is seen. The cauda equina nerve roots are normal. SPINAL LEVELS: T12-L1: Minimal annular bulge and anterior endplate spurring without central canal stenosis or foraminal narrowing. L1-L2: Mild disc bulge and mild facet arthropathy without central canal stenosis or foraminal narrowing. L2-L3: Well-hydrated normal appearance of the disc. Mild facet arthropathy. No central canal stenosis or foraminal narrowing. L3-L4: Very mild disc bulge and facet arthropathy without central canal stenosis or foraminal encroachment. L4-L5: No disc pathology. Mild facet arthropathy. Patent foramina. L5-S1: Minimal annular bulge and mild facet arthropathy. MR/MR lumbar spine wo con IMPRESSION: Very mild lumbar spondylosis. No focal disc protrusion. No distal cord or conus tip abnormality. Rightward curvature of the upper lumbar spine.
== END 2021-02-22 09:42 | disposition home or self-care (01) ==
LOC: HO.MRI 09:41
PROVIDERS: Visit Provider Anesthesiology
DX: M47.816 Spondylosis without myelopathy or radiculopathy, lumbar region (principal); M54.16 Radiculopathy, lumbar region
CPT/HCPCS: 72148

== ENCOUNTER 2021-02-25 08:35 | Outpatient (REF) | payer OTHER, SELFPAY ==
[2021-02-25 13:41] LABS: CT PCR NOT DETECTED (Not Detect.); NG PCR NOT DETECTED (Not Detect.)
[2021-02-26 09:16] LABS: BV Int Neg Control Negative (Negative); BV Int Pos Control Positive (Positive)
== END 2021-02-25 08:36 | disposition home or self-care (01) ==
LOC: HO.LAB 08:35
PROVIDERS: PCP Internal Medicine; Visit Provider Advanced Practice Midwife
DX: Z01.419 Encounter for gynecological examination (general) (routine) without abnormal findings (principal); R10.2 Pelvic and perineal pain; N89.8 Other specified noninflammatory disorders of vagina; Z20.2 Contact with and (suspected) exposure to infections with a predominantly sexual mode of transmission
CPT/HCPCS: 87480; 87491; 87510; 87591; 87660; 99212

== ENCOUNTER → 2021-03-11 13:07 | Outpatient (BNVA) | payer OTHER, SELFPAY | PROVIDERS: PCP Internal Medicine; Visit Provider Physician Assistant | DX: M54.16 Radiculopathy, lumbar region (principal) | CPT/HCPCS: 99212 ==

== ENCOUNTER → 2021-03-13 15:07 | Outpatient (BNVA) | payer OTHER, SELFPAY | PROVIDERS: PCP Internal Medicine; Visit Provider Anesthesiology | DX: M54.16 Radiculopathy, lumbar region (principal); M47.816 Spondylosis without myelopathy or radiculopathy, lumbar region | CPT/HCPCS: 99212 ==

== ENCOUNTER → 2021-03-19 10:06 | Outpatient (BNVA) | payer OTHER, SELFPAY | PROVIDERS: PCP Internal Medicine; Visit Provider Advanced Practice Midwife ==

== ENCOUNTER 2021-04-18 11:16 | Outpatient (REF) | payer OTHER, SELFPAY ==
--- NOTE | ~2021-04-18 | US_ITS ---
EXAMINATION: US PELVIS CLINICAL INFORMATION: Acute vaginitis, pelvic pain. History of hysterectomy. COMPARISON: 08/20/2016 pelvic ultrasound TECHNIQUE: Ultrasound of the pelvis is performed using both transabdominal and transvaginal transducers along with Doppler. Transvaginal imaging is performed due to inadequate visualization transabdominally. FINDINGS: Uterus: Hysterectomy. Nabothian cysts in the cervix. Adnexa: The right ovary is not seen. The left ovary is not seen. A 1.9 x 1.4 x 1.6 cm elongated anechoic cystic structure is seen in the region of the right adnexum. A 6.7 x 2.9 x 2.8 cm elongated anechoic cystic structures seen in the region of the left adnexum. US/US pelvic and transvaginal IMPRESSION: Hysterectomy. Neither ovary is seen discretely. Elongated cystic structures in the adnexal regions bilaterally, left greater than right may reflect hydrosalpinx.
== END 2021-04-18 11:17 | disposition home or self-care (01) ==
LOC: HO.US 11:16
PROVIDERS: Visit Provider Advanced Practice Midwife
DX: R10.2 Pelvic and perineal pain (principal); B96.89 Other specified bacterial agents as the cause of diseases classified elsewhere; N76.0 Acute vaginitis; Z90.711 Acquired absence of uterus with remaining cervical stump
CPT/HCPCS: 76830; 76856

== ENCOUNTER → 2021-04-23 10:07 | Outpatient (BNVA) | payer OTHER, SELFPAY | PROVIDERS: PCP Internal Medicine; Visit Provider Advanced Practice Midwife ==

== ENCOUNTER 2021-04-25 09:55 | Outpatient (REF) | payer OTHER, SELFPAY ==
[2021-04-26 14:20] LABS: BV Int Neg Control Negative (Negative); BV Int Pos Control Positive (Positive)
[2021-04-26 14:41] LABS: CT PCR NOT DETECTED (Not Detect.); NG PCR NOT DETECTED (Not Detect.)
== END 2021-04-25 09:56 | disposition home or self-care (01) ==
LOC: HO.LAB 09:55
PROVIDERS: Visit Provider Advanced Practice Midwife
DX: N89.8 Other specified noninflammatory disorders of vagina (principal); B37.3 Candidiasis of vulva and vagina; Z20.2 Contact with and (suspected) exposure to infections with a predominantly sexual mode of transmission
CPT/HCPCS: 87480; 87491; 87510; 87591; 87660; 99212

== ENCOUNTER 2021-04-30 | Outpatient (REF) | payer OTHER, SELFPAY | END 2021-04-30 00:01 | LOC: CF | PROVIDERS: PCP Internal Medicine; Visit Provider Nurse Practitioner Family | DX: R40.0 Somnolence (principal); E66.9 Obesity, unspecified; G47.00 Insomnia, unspecified | CPT/HCPCS: 99202 ==

== ENCOUNTER 2021-05-03 09:41 | Outpatient (REF) | payer OTHER, SELFPAY ==
[2021-05-03 09:53] LABS: MANUAL DIFF FLAG NO
[2021-05-03 10:33] LABS: Basophils Absolute Auto 0.1 X10*3/uL (0.0-0.2); Basophils Percent Auto 0.7 % (0-2); Eosinophils Absolute Auto 0.1 X10*3/uL (0.0-0.4); Eosinophils Percent Auto 1.4 % (0-4); Hematocrit 38.1 % (37.0-47.0); Hemoglobin 12.5 g/dl (12.0-16.0); Imm Gran Abs Auto 0.04 X10*3/uL (0.00-0.03); Imm Gran Pct Auto 0.5 % (0.0-0.4); Lymphocytes Absolute Auto 2.8 X10*3/uL (1.2-4.9); Lymphocytes Percent Auto 33.2 % (20-40); Mean Corpuscular HGB Conc 32.8 g/dl (31.0-35.0); Mean Corpuscular Hemoglobin 30.7 pg (27.0-33.0); Mean Corpuscular Volume 93.6 fL (80.0-98.0); Mean Platelet Volume 10.7 fL (9.4-12.3); Monocytes Absolute Auto 0.5 X10*3/uL (0.1-1.2); Monocytes Percent Auto 5.6 % (2-11); Neutrophils Percent Auto 58.6 % (45-73); Platelet Count 292 X10*3/uL (160-400); Red Blood Count 4.07 X10*6/uL (4.20-5.50); Red Cell Distribution Width 12.6 % (11.0-16.0); White Blood Count 8.6 X10*3/uL (4.8-10.8)
[2021-05-03 10:44] LABS: Appearance Urine CLEAR; Color Urine STRAW; Glucose Urine UA 100 MG/DL (NEG); Leukocyte Esterase Urine TRACE (NEG); Nitrite Urine NEG (NEG); PH 5.5 (5.0-8.0); Specific Gravity - Urine <= 1.005 (1.005-1.025); UACC Culture Trigger YES; Urine Blood NEG (NEG); Urine Ketones NEG (NEG); Urine Protein NEG (NEG-TRACE)
[2021-05-03 11:05] LABS: Bacteria Urine TRACE /LPF; RBC Urine 0-2 /HPF (0); Squamous Epithelial Cell Urine 2+ /LPF
[2021-05-03 11:46] LABS: Alanine Aminotransferase 25 U/L (0-31); Albumin Level 4.3 g/dL (3.5-5.0); Alkaline Phosphatase 66 U/L (39-117); Anion Gap 12 (12-20); Aspartate Amino Transferase 21 U/L (5-31); Bilirubin Total 0.3 mg/dL (0.0-1.0); Blood Urea Nitrogen 11 mg/dL (9-16); Calcium 9.7 mg/dL (8.4-10.2); Carbon Dioxide 30 mmol/L (22-29); Chloride 103 mmol/L (96-108); Cholesterol 248 mg/dL; Estimated Glomerular Filt Rate > 60; Glucose Fasting 90 mg/dL (60-99); HDL Cholesterol 57 mg/dL; LDL Cholesterol Calculated 150 mg/dl; Potassium 4.3 mmol/L (3.3-5.1); Sodium 141 mmol/L (135-145); Total Protein 7.4 g/dL (6.5-8.0); Triglycerides 206 mg/dL
[2021-05-03 12:25] LABS: TSH reflex Free T4 2.14 uIU/mL (0.32-4.0); Vitamin D 25-OH Total 20.6 ng/mL (>30)
== END 2021-05-03 09:42 | disposition home or self-care (01) ==
LOC: HO.LAB 09:41
PROVIDERS: PCP Internal Medicine; Visit Provider Internal Medicine
DX: I10 Essential (primary) hypertension (principal); E78.00 Pure hypercholesterolemia, unspecified; E55.9 Vitamin D deficiency, unspecified
CPT/HCPCS: 36415; 80053; 80061; 81001; 82306; 84443; 85025; 87086

== ENCOUNTER → 2021-06-13 10:24 | Outpatient (BNVA) | payer OTHER, SELFPAY | PROVIDERS: PCP Internal Medicine; Referring Provider Internal Medicine; Visit Provider Nurse Practitioner | DX: K21.9 Gastro-esophageal reflux disease without esophagitis (principal); K58.0 Irritable bowel syndrome with diarrhea; R10.13 Epigastric pain | CPT/HCPCS: 99212 ==

== ENCOUNTER 2021-06-17 11:30 | Outpatient (REF) | payer OTHER, SELFPAY | END 2021-06-17 11:31 | disposition home or self-care (01) | LOC: HO.LNP 11:30 | PROVIDERS: Visit Provider Nurse Practitioner | DX: R10.13 Epigastric pain (principal) | CPT/HCPCS: 87338 ==

== ENCOUNTER → 2021-06-21 20:41 | Outpatient (REF) | payer OTHER, SELFPAY | LOC: HO.SL 20:41 | PROVIDERS: Visit Provider Nurse Practitioner Family | DX: G47.00 Insomnia, unspecified (principal); G47.9 Sleep disorder, unspecified; R06.83 Snoring; R40.0 Somnolence; E66.9 Obesity, unspecified | CPT/HCPCS: 95810 ==

== ENCOUNTER → 2021-07-05 11:40 | Outpatient (BNVA) | payer OTHER, SELFPAY | PROVIDERS: PCP Internal Medicine; Referring Provider Internal Medicine; Visit Provider Nurse Practitioner | DX: K21.9 Gastro-esophageal reflux disease without esophagitis (principal); K58.0 Irritable bowel syndrome with diarrhea | CPT/HCPCS: 99212 ==

== ENCOUNTER → 2021-08-13 09:48 | Outpatient (BNVA) | payer OTHER, SELFPAY | PROVIDERS: PCP Internal Medicine; Visit Provider Nurse Practitioner Family | DX: G47.33 Obstructive sleep apnea (adult) (pediatric) (principal); R40.0 Somnolence; G43.909 Migraine, unspecified, not intractable, without status migrainosus; Z79.899 Other long term (current) drug therapy | CPT/HCPCS: 99212 ==

== ENCOUNTER 2021-08-15 11:46 | Day surgery (SDC) | payer OTHER, SELFPAY ==
[2021-08-09 12:03] VITALS: BMI 39.3
--- NOTE | 2021-08-14 12:56 | P.CONAN_ITS ---
Documented by User: Any Linares NP 08/14/21 12:57 HPI - Anesthesia Eval Consult details Narrative: 51yo F for Upper Endoscopy PMFSH Active Problems Active Problems: All Active Problems (Updated 08/13/21 @ 10:38 by SOLIS Rubio) Mild obstructive sleep apnea (Acute) GERD (gastroesophageal reflux disease) (Acute) Irritable bowel syndrome with diarrhea (Acute) COVID-19 (Acute) Lumbar radiculopathy (Acute) Inflammatory lesion of eyelid (Acute) Epigastric pain (Acute) Pelvic pain (Acute) Problematic vaginal discharge (Acute) Potential exposure to STD (Acute) History of hysterectomy, supracervical (Acute) Bacterial vaginosis (Acute) Vaginal irritation (Acute) Yeast infection involving the vagina and surrounding area (Acute) Sleep disorder, unspecified (Acute) Migraine (Acute) Lumbar spondylosis (Acute) Spondylosis of lumbar spine (Acute) Daytime somnolence (Acute) Obesity (BMI 30-39.9) (Acute) Depression (Acute) Anxiety (Acute) Insomnia (Acute) Vitamin D deficiency (Acute) Carpal tunnel syndrome (Acute) Bilateral low back pain without sciatica (Acute) Allergic rhinitis (Acute) Pure hypercholesterolemia (Acute) Past Medical History Medical History (Updated 08/13/21 @ 10:38 by SOLIS Rubio) Allergic rhinitis Anxiety Bilateral low back pain without sciatica Carpal tunnel syndrome Daytime somnolence Depression GERD without esophagitis Insomnia Lumbar spondylosis Migraine Obesity (BMI 30-39.9) Pure hypercholesterolemia Spondylosis of lumbar spine Vitamin D deficiency Family History Family History Mother No problems noted. Maternal Aunt Breast cancer Surgical History Surgical History History of bunionectomy History of cholecystectomy History of dilatation and curettage History of esophagogastroduodenoscopy Hx of carpal tunnel repair Hx of hysterectomy Social History Social History Housing: Apartment Alcohol intake: current Alcohol intake frequency: holidays/special occasions only Patient Tobacco Use Status: Never used Tobacco Second Hand Smoke Exposure: Yes Use of substances other than those prescribed or required for medical reasons: No Are you DNR?: No Advance Directives: No Advance Directives Information Provided: Yes Recently lost weight without trying: No Nutrition Risks: No Nutritional Risk service: No Current occupational status: disabled Cognitive needs: No Hearing needs: No Vision needs: No Meds Allergies Allergy/AdvReac Type Severity Reaction Status Date / Time morphine [MORPHINE] Allergy Intermediate TACHYCARDIA Verified 08/13/21 09:50 codeine [Tylenol-Codeine] Allergy Unknown Unknown Verified 08/13/21 09:50 oxycodone [Percocet] Allergy Unknown unknown Verified 08/13/21 09:50 Home Medications Medication Instructions Recorded Confirmed Last Taken Type duloxetine 60 mg capsule,delayed 60 mg PO QAM 04/04/20 08/13/21 Unknown History release gabapentin 100 mg capsule 100 mg PO TID 04/04/20 08/13/21 Unknown History oxybutynin chloride 10 mg 10 mg PO DAILY 04/04/20 08/13/21 Unknown History tablet,extended release 24 hr sumatriptan succinate 100 mg tablet 100 mg PO ONCE tab 04/04/20 08/13/21 Unknown History trazodone 100 mg tablet 100 mg PO BEDTIME 04/04/20 08/13/21 Unknown History propranolol 20 mg tablet 20 mg PO DAILY tab 08/06/21 08/13/21 Unknown History rizatriptan 10 mg tablet 10 mg PO ONCE PRN tab 08/06/21 08/13/21 Unknown History clotrimazole 1 % vaginal cream 1 appl VAGINAL BEDTIME 08/09/21 08/13/21 Unknown History Exam Exam Date and Time: August 14, 2021 1256 Height,Weight and Vital Signs: Height 5 ft 2 in Weight 97.522 kg Pertinent Lab Results Pertinent Lab Results: Laboratory Tests 05/03/21 05/03/21 09:51 09:51 WBC 8.6 Hgb 12.5 Hct 38.1 Plt Count 292 Sodium 141 Potassium 4.3 Chloride 103 Carbon Dioxide 30 H BUN 11 Creatinine 0.76 Narrative Narrative: EKG 11/2020 Vent. Rate : 087 BPM ? ? Atrial Rate : 087 BPM ?? P-R Int : 160 ms? QRS Dur : 092 ms ? ? QT Int : 378 ms ? ? ? P-R-T Axes : 043 022 020 degrees ?? QTc Int : 454 ms ? Normal sinus rhythm Normal ECG When compared with ECG of 05-SEP-2016 18:28, No significant change was found Assessment and Plan Assessment Anesthesia Assessment: Chart Reviewed Documented by User: Mariano Hope MD 08/15/21 13:37 [facility] Past Medical History Medical History (Updated 08/13/21 @ 10:38 by SOLIS Rubio) Allergic rhinitis Anxiety Bilateral low back pain without sciatica Carpal tunnel syndrome Daytime somnolence Depression GERD without esophagitis Insomnia Lumbar spondylosis Migraine Obesity (BMI 30-39.9) Pure hypercholesterolemia Spondylosis of lumbar spine Vitamin D deficiency Functional capacity: independent ambulation Family History Family History Mother No problems noted. Maternal Aunt Breast cancer Family history of problems with anesthesia: No Surgical History Surgical History History of bunionectomy History of cholecystectomy History of dilatation and curettage History of esophagogastroduodenoscopy Hx of carpal tunnel repair Hx of hysterectomy History of Problems with Anesthesia: No Social History Social History Housing: Apartment Alcohol intake: current Alcohol intake frequency: holidays/special occasions only Patient Tobacco Use Status: Never used Tobacco Second Hand Smoke Exposure: Yes Use of substances other than those prescribed or required for medical reasons: No Are you DNR?: No Advance Directives: No Advance Directives Information Provided: Yes Recently lost weight without trying: No Nutrition Risks: No Nutritional Risk service: No Current occupational status: disabled Cognitive needs: No Hearing needs: No Vision needs: No Meds Allergies Allergy/AdvReac Type Severity Reaction Status Date / Time morphine [MORPHINE] Allergy Intermediate TACHYCARDIA Verified 08/13/21 09:50 codeine [Tylenol-Codeine] Allergy Unknown Unknown Verified 08/13/21 09:50 oxycodone [Percocet] Allergy Unknown unknown Verified 08/13/21 09:50 Home Medications Medication Instructions Recorded Confirmed Last Taken Type duloxetine 60 mg capsule,delayed 60 mg PO QAM 12/23/20 05/03/22 Unknown History release gabapentin 100 mg capsule 100 mg PO TID 04/04/20 08/13/21 Unknown History oxybutynin chloride 10 mg 10 mg PO DAILY 04/04/20 08/13/21 Unknown History tablet,extended release 24 hr sumatriptan succinate 100 mg tablet 100 mg PO ONCE tab 04/04/20 08/13/21 Unknown History trazodone 100 mg tablet 100 mg PO BEDTIME 04/04/20 08/13/21 Unknown History propranolol 20 mg tablet 20 mg PO DAILY tab 08/06/21 08/13/21 Unknown History rizatriptan 10 mg tablet 10 mg PO ONCE PRN tab 08/06/21 08/13/21 Unknown History clotrimazole 1 % vaginal cream 1 appl VAGINAL BEDTIME 08/09/21 08/13/21 Unknown History Exam Airway Mallampati Class: III TM Dist: >3cm Neck ROM: Full Denture: Upper and Lower Loose/Missing/Broken Teeth: Yes Heart: S1, S2 Lungs: b/l breath sounds Assessment and Plan Assessment Anesthesia Assessment: Anesthesia Plan Discussed Final Anesthetic Review Family History of Problems with Anesthesia: No History of Problems with Anesthesia: No NPO: Yes ASA Class: III Final Preanesthetic Review: Meds/Allgs Chart Reviewed, Consent Obtained/Reviewed and Anes Risks/Benef Reviewed Patient Risk: Intermediate Procedure Risk: Intermediate Anesthetic Plan Anesthetic Plan: MAC: Disposition: Standard PACU
--- NOTE | 2021-08-15 11:56 | P.HPSUR_ITS ---
Pre-Procedural Eval Section A Date of Service: 08/15/21 Section B Chief Complaint: reflux,epi pain Details of Present Illness: sx currently controlled Relevant Family History (Specify if Yes): No Relevant Social History: None Present Medications: see Short Stay Collaborative assessment Medical History: Significant History (Allergic rhinitis Anxiety Bilateral low back pain without sciatica Carpal tunnel syndrome Daytime somnolence Depression GERD without esophagitis Insomnia Lumbar spondylosis Migraine Obesity (BMI 30- 39.9) Pure hypercholesterolemia Spondylosis of lumbar spine Vitamin D deficiency) History of Previous Operations: Relevant previous surgery/procedure and date(s) (History of bunionectomy History of cholecystectomy History of dilatation and curettage History of esophagogastroduodenoscopy Hx of carpal tunnel repair Hx of hysterectomy) Allergies: Allergies Allergy/AdvReac Type Severity Reaction Status Date / Time morphine [MORPHINE] Allergy Intermediate TACHYCARDIA Verified 08/13/21 09:50 codeine [Tylenol-Codeine] Allergy Unknown Unknown Verified 08/13/21 09:50 oxycodone [Percocet] Allergy Unknown unknown Verified 08/13/21 09:50 Review of Systems Sugical H&P ROS: Negative: Constitution, Cardiovascular, Respiratory, Neurological, Psychiatric, Hem-Onc, Allergic/Immunologic, Gastrointestinal, Genitourinary, Musculoskeletal, Integumentary, Endocrine and Eyes/Ears/Nose/Throat Exam Surgical H&P Exam: Normal: HEENT, Normal: Heart, Normal: Lungs, Normal: Extremities, Normal: Abdomen, Normal: Skin and Normal: Neurological Plan Diagnosis/Plan: Unchanged I have reviewed the history and physical and performed a pertinent physical examination on my patient. No changes have occurred unless specified.
[2021-08-15 12:05] VITALS: BMI 38.4
[2021-08-15 12:22] VITALS: BP 141/63; PULSE 49; RESP 16; TEMP 36.2; O2SAT 98
[2021-08-15] MEDS: Lactated Ringers 1,000 ML 100 ML IVCONT (12:31)
--- NOTE | 2021-08-15 12:36 | PM.OP ---
Brief Operative Note Date of Service: 08/15/21 Pre-op diagnosis: reflux, epigastric pain Post-op diagnosis: same Procedure: see op note Surgeon: Diallo Cm MD Anesthesia: MAC Was an Seafood Harvester used for this Procedure?: No Estimated blood loss (mL): 0 Condition: stable Disposition: PACU
--- NOTE | 2021-08-15 13:15 | W.PM.OPN ---
Operative Note Operative Note Date of Service: 08/15/21 Narrative: Procedure Description: EGD Indication: GERD, epigastric pain Anesthesia: MAC FLEXIBLE TRANSORAL UPPER GASTROINTESTINAL ENDOSCOPY UPPER ENDOSCOPY Consent: Indications for the procedure and potential complications of bleeding, perforation, reaction to medications and missed diagnosis were discussed with the patient and informed consent was obtained. Instrument: Olympus GIF H 190 J mid size upper endoscope Monitoring: Vital signs and clinical assessment, continuous EKG monitoring, Pulse oximetry, Carbon Dioxide monitoring and blood pressure monitoring were done throughout the procedure. Procedure: The patient was placed in the left lateral decubitis position and pre-procedure medications were administered and a bite block was placed. The endoscope was inserted into the mouth and advanced under direct vision to the third part of duodenum. A careful inspection was made as the upper endoscope was withdrawn including a retroflexed examination of the proximal stomach; Findings and interventions are described below. Findings: Larynx:normal Esophagus: GE junction at 35 cm, diaphragm hiatus at 35 cm, irregular Z line, bx taken from GEJ and random esophagus in separate containers Stomach: streaky linear and stellate shaped erosions with erythema and swelling in the antrum . Biopsies were obtained. Grade 2 flap valve on retroflexed examination of the cardia. Duodenum: Normal bulb and descending duodenum, bx taken Intervention: Biopsies as noted above Impression/Findings: erosive gastritis PLAN: await BX check compliance with treatment plan
[2021-08-15 13:20] VITALS: BP 158/95; PULSE 103; RESP 16; TEMP 36.6; O2SAT 95
[2021-08-15 13:35] VITALS: BP 141/80; PULSE 81; RESP 16; TEMP 36.4; O2SAT 98
== END 2021-08-15 13:50 | disposition home or self-care (01) ==
PROVIDERS: PCP Internal Medicine; Visit Provider Internal Medicine Gastroenterology
PROC: 0DJ08ZZ Inspection of Upper Intestinal Tract, Via Natural or Artificial Opening Endoscopic (ICD-10-PCS; CPT 43235; principal; 2021-08-15 13:30)
DX: K21.9 Gastro-esophageal reflux disease without esophagitis (principal); K29.60 Other gastritis without bleeding; K20.80 Other esophagitis without bleeding; K44.9 Diaphragmatic hernia without obstruction or gangrene; K58.0 Irritable bowel syndrome with diarrhea; E78.00 Pure hypercholesterolemia, unspecified; E55.9 Vitamin D deficiency, unspecified; E66.9 Obesity, unspecified; J30.9 Allergic rhinitis, unspecified; R40.0 Somnolence; Z68.39 Body mass index [BMI] 39.0-39.9, adult; F41.1 Generalized anxiety disorder; Z79.899 Other long term (current) drug therapy; Z88.8 Allergy status to other drugs, medicaments and biological substances; Z90.49 Acquired absence of other specified parts of digestive tract
CPT/HCPCS: 43239; 88305; 88342; J2250; J3010

== ENCOUNTER → 2021-08-29 09:22 | Outpatient (BNVA) | payer OTHER, SELFPAY | PROVIDERS: PCP Internal Medicine; Visit Provider Nurse Practitioner | DX: K21.9 Gastro-esophageal reflux disease without esophagitis (principal); K58.0 Irritable bowel syndrome with diarrhea; K29.60 Other gastritis without bleeding | CPT/HCPCS: 99212 ==

== ENCOUNTER → 2021-09-27 09:39 | Outpatient (BNVA) | payer OTHER, SELFPAY | PROVIDERS: PCP Internal Medicine; Visit Provider Nurse Practitioner | DX: K29.60 Other gastritis without bleeding (principal); K21.9 Gastro-esophageal reflux disease without esophagitis; K58.0 Irritable bowel syndrome with diarrhea; Z79.899 Other long term (current) drug therapy | CPT/HCPCS: 99212 ==

== ENCOUNTER 2021-10-01 11:24 | Outpatient (REF) | payer OTHER, SELFPAY ==
--- NOTE | ~2021-10-01 | MM_ITS ---
EXAMINATION: MM SCREENING DIGITAL BREAST TOMOSYNTHESIS, BILATERAL CLINICAL INFORMATION: Screening. Asymptomatic. The lifetime risk of breast cancer based on the Tyrer-Cuzick Model is 6%. COMPARISON: Mammography: 04/11/2020, 09/10/2018, 08/28/2017 TECHNIQUE: Digital breast tomosynthesis is performed in both the craniocaudal and mediolateral oblique views along with computer-aided detection (CAD). Synthesized 2D images are generated from the tomosynthesis. FINDINGS: The breasts are heterogeneously dense, which may obscure small masses (ACR BI-RADS breast composition Category c). There are no significant masses, abnormal calcifications, or other abnormalities. Breast tissue composition borders on average fibroglandular. The axilla and skin contours are unremarkable. No significant changes from prior exams. MM/MM tomosynthesis screening BI IMPRESSION: No mammographic evidence of malignancy. ASSESSMENT: BI-RADS 1: Negative RECOMMENDATION: Routine annual mammography screening. This patient's information was entered into a reminder system with a target due date for their next mammogram.
== END 2021-10-01 11:25 | disposition home or self-care (01) ==
LOC: HO.MAMMO 11:24
PROVIDERS: PCP Internal Medicine; Visit Provider Internal Medicine
DX: Z12.31 Encounter for screening mammogram for malignant neoplasm of breast (principal)
CPT/HCPCS: 77063; 77067

== ENCOUNTER 2021-11-19 11:23 | Outpatient (REF) | payer OTHER, SELFPAY ==
[2021-11-20 11:52] LABS: CT PCR NOT DETECTED (Not Detect.); NG PCR NOT DETECTED (Not Detect.)
[2021-11-20 14:19] LABS: BV Int Neg Control Negative (Negative); BV Int Pos Control Positive (Positive)
[2021-11-26 06:51] LABS: HPV mRNA E6/E7 rflx Not Detected (Not Detected)
== END 2021-11-19 11:24 | disposition home or self-care (01) ==
LOC: HO.LAB 11:23
PROVIDERS: Visit Provider Advanced Practice Midwife
DX: Z01.411 Encounter for gynecological examination (general) (routine) with abnormal findings (principal); Z11.51 Encounter for screening for human papillomavirus (HPV); Z20.2 Contact with and (suspected) exposure to infections with a predominantly sexual mode of transmission; Z87.42 Personal history of other diseases of the female genital tract; Z90.711 Acquired absence of uterus with remaining cervical stump
CPT/HCPCS: 87480; 87491; 87510; 87591; 87624; 87660; 88142; 99212

== ENCOUNTER 2021-11-20 14:09 | Outpatient (REF) | payer OTHER, SELFPAY ==
[2021-11-20 15:27] LABS: Syphilis Screen Nonreactive (Nonreactive)
[2021-11-21 07:59] LABS: HBsAGNum1 1.64 S/CO (0.00-0.99); HIV AB/AG Nonreactive (Nonreactive); HIV Num 1 0.09 S/CO (0.00-0.99); ~HepC Num1 0.13 S/CO (0.00-0.79); ~Hepatitis C Antibody Nonreactive (Nonreactive)
[2021-11-21 08:59] LABS: HBsAGNum2 Nonreactive; HBsAGNum3 Nonreactive; Hepatitis B Surface Antigen NEGATIVE (Negative)
== END 2021-11-20 14:10 | disposition home or self-care (01) ==
LOC: HO.LAB 14:09
PROVIDERS: PCP Internal Medicine; Visit Provider Advanced Practice Midwife
DX: Z11.4 Encounter for screening for human immunodeficiency virus [HIV] (principal); Z20.2 Contact with and (suspected) exposure to infections with a predominantly sexual mode of transmission; Z87.42 Personal history of other diseases of the female genital tract; Z90.711 Acquired absence of uterus with remaining cervical stump
CPT/HCPCS: 36415; 86780; 86803; 87340; 87389

== ENCOUNTER 2022-01-16 08:24 | Outpatient (REF) | payer OTHER, SELFPAY ==
[2022-01-16 08:40] LABS: MANUAL DIFF FLAG NO
[2022-01-16 09:32] LABS: Basophils Absolute Auto 0.1 X10*3/uL (0.0-0.2); Basophils Percent Auto 0.6 % (0-2); Eosinophils Absolute Auto 0.2 X10*3/uL (0.0-0.4); Eosinophils Percent Auto 2.3 % (0-4); Hematocrit 38.5 % (37.0-47.0); Hemoglobin 12.4 g/dl (12.0-16.0); Imm Gran Abs Auto 0.03 X10*3/uL (0.00-0.03); Imm Gran Pct Auto 0.3 % (0.0-0.4); Lymphocytes Absolute Auto 3.4 X10*3/uL (1.2-4.9); Mean Corpuscular HGB Conc 32.2 g/dl (31.0-35.0); Mean Corpuscular Hemoglobin 29.8 pg (27.0-33.0); Mean Corpuscular Volume 92.5 fL (80.0-98.0); Mean Platelet Volume 11.2 fL (9.4-12.3); Monocytes Absolute Auto 0.5 X10*3/uL (0.1-1.2); Monocytes Percent Auto 5.4 % (2-11); Neutrophils Absolute Auto 5.7 x10*3/uL (2.0-8.3); Neutrophils Percent Auto 57.4 % (45-73); Platelet Count 336 X10*3/uL (160-400); Red Blood Count 4.16 X10*6/uL (4.20-5.50); Red Cell Distribution Width 12.8 % (11.0-16.0); White Blood Count 9.9 X10*3/uL (4.8-10.8)
[2022-01-16 09:37] LABS: Appearance Urine Clear; Color Urine Dark Yellow; Glucose Urine UA Negative (Negative); Leukocyte Esterase Urine Small (1+) (Negative); Nitrite Urine Negative (Negative); Specific Gravity - Urine 1.015 (1.005-1.025); UMIC TRIGGER UACC YES; Urine Blood Negative (Negative); Urine Ketones Negative (Negative); Urine Protein Negative (Neg-Trace)
[2022-01-16 09:39] LABS: Bacteria Urine 1+ (None Seen); Hyaline Casts Urine 0-2 /LPF (0-2); RBC Urine 0-2 /HPF (0-2); UACC Culture Trigger YES
[2022-01-16 10:20] LABS: Alanine Aminotransferase 14 U/L (0-31); Albumin Level 4.5 g/dL (3.5-5.0); Alkaline Phosphatase 66 U/L (39-117); Anion Gap 17 (12-20); Aspartate Amino Transferase 18 U/L (5-31); Bilirubin Total 0.5 mg/dL (0.0-1.0); Blood Urea Nitrogen 11 mg/dL (9-16); Calcium 9.6 mg/dL (8.4-10.2); Carbon Dioxide 27 mmol/L (22-29); Chloride 102 mmol/L (96-108); Cholesterol 221 mg/dL; Estimated Glomerular Filt Rate > 60; Glucose Fasting 89 mg/dL (60-99); HDL Cholesterol 52 mg/dL; LDL Cholesterol Calculated 129 mg/dl; Potassium 4.5 mmol/L (3.3-5.1); Sodium 141 mmol/L (135-145); Total Protein 7.7 g/dL (6.5-8.0); Triglycerides 202 mg/dL
[2022-01-16 10:48] LABS: TSH reflex Free T4 2.08 uIU/mL (0.32-4.0); Vitamin D 25-OH Total 27.7 ng/mL (>30)
== END 2022-01-16 08:25 | disposition home or self-care (01) ==
LOC: HO.LAB 08:24
PROVIDERS: PCP Internal Medicine; Visit Provider Internal Medicine
DX: I10 Essential (primary) hypertension (principal); E78.00 Pure hypercholesterolemia, unspecified; E55.9 Vitamin D deficiency, unspecified
CPT/HCPCS: 36415; 80053; 80061; 81001; 82306; 84443; 85025; 87086

== ENCOUNTER → 2022-01-22 09:31 | Outpatient (BNVA) | payer OTHER, SELFPAY | PROVIDERS: PCP Internal Medicine; Visit Provider Anesthesiology | DX: M54.16 Radiculopathy, lumbar region (principal); M47.816 Spondylosis without myelopathy or radiculopathy, lumbar region | CPT/HCPCS: 99212 ==

== ENCOUNTER 2022-02-14 12:17 | Outpatient (REF) | payer OTHER, SELFPAY ==
[2022-02-14 14:05] LABS: Appearance Urine Clear; Color Urine Dark Yellow; Glucose Urine UA Negative (Negative); Leukocyte Esterase Urine Negative (Negative); Nitrite Urine Negative (Negative); Specific Gravity - Urine 1.015 (1.005-1.025); Urine Blood Negative (Negative); Urine Ketones Negative (Negative); Urine Protein Negative (Neg-Trace)
== END 2022-02-14 12:18 | disposition home or self-care (01) ==
LOC: HO.LAB 12:17
PROVIDERS: PCP Internal Medicine; Visit Provider Nurse Practitioner
DX: R10.9 Unspecified abdominal pain (principal); K21.9 Gastro-esophageal reflux disease without esophagitis; K58.0 Irritable bowel syndrome with diarrhea; K29.60 Other gastritis without bleeding
CPT/HCPCS: 81003; 99212

== ENCOUNTER 2022-02-18 12:43 | Outpatient (REF) | payer OTHER, SELFPAY ==
[2022-02-18 14:13] LABS: CDiff Gene PCR NEGATIVE (Negative)
[2022-02-18 14:47] LABS: Adenovirus F 40/41 Not Detected (Not Detect.); Astrovirus Not Detected (Not Detect.); Campylobacter Not Detected (Not Detect.); Cryptosporidium Not Detected (Not Detect.); Cyclospora cayetanensis Not Detected (Not Detect.); E. coli EAEC Not Detected (Not Detect.); E. coli EPEC Not Detected (Not Detect.); E. coli ETEC Not Detected (Not Detect.); E. coli STEC Not Detected (Not Detect.); Entamoeba histolytica Not Detected (Not Detect.); Giardia lamblia Not Detected (Not Detect.); Norovirus GI/GII Not Detected (Not Detect.); Plesiomonas shigelloides Not Detected (Not Detect.); Rotavirus A Not Detected (Not Detect.); Salmonella Not Detected (Not Detect.); Sapovirus Not Detected (Not Detect.); Shigella sp./EIEC Not Detected (Not Detect.); Vibrio Not Detected (Not Detect.); Vibrio Cholerae Not Detected (Not Detect.); Yersinia enterocolitica Not Detected (Not Detect.)
[2022-02-24 18:11] LABS: Calprotectin, Fecal 109 mcg/g
== END 2022-02-18 12:44 | disposition home or self-care (01) ==
LOC: HO.LNP 12:43
PROVIDERS: Visit Provider Nurse Practitioner
DX: R10.13 Epigastric pain (principal); K21.9 Gastro-esophageal reflux disease without esophagitis; K58.0 Irritable bowel syndrome with diarrhea
CPT/HCPCS: 83993; 87493; 87507

== ENCOUNTER → 2022-02-28 15:21 | Outpatient (BNVA) | payer OTHER, SELFPAY | PROVIDERS: PCP Internal Medicine; Visit Provider Nurse Practitioner | DX: K58.0 Irritable bowel syndrome with diarrhea (principal); K21.9 Gastro-esophageal reflux disease without esophagitis; K29.60 Other gastritis without bleeding; R10.9 Unspecified abdominal pain | CPT/HCPCS: 99212 ==

== ENCOUNTER 2022-03-11 06:11 | Outpatient (REF) | payer OTHER, SELFPAY ==
--- NOTE | ~2022-03-11 | FL_ITS ---
EXAMINATION: XR FLUOROSCOPY WITH IMAGES CLINICAL INFORMATION: M47.816 - Spondylosis without myelopathy or radiculopathy, lumbar region COMPARISON: MR lumbar spine 02/22/2021 TECHNIQUE: Fluoroscopy Supervised By: Dr. Inocente Tran. Fluoroscopy Time: 0.5 minutes. Cumulative Dose: 27.3 mGy. DAP: 7.46 Gycm2. Images: 6. FINDINGS: There are spinal needles overlying the bilateral outer L3, L4, and L5 neural foramen. There is contrast seen in the respective nerve sheaths. Some early transforaminal epidural extension is suggested. No visible vascular communication. FL/FL guidance in treatment room IMPRESSION: Fluoroscopy for pain management procedures.
== END 2022-03-11 06:12 | disposition home or self-care (01) ==
LOC: CF 06:11
PROVIDERS: Visit Provider Anesthesiology
DX: M47.816 Spondylosis without myelopathy or radiculopathy, lumbar region (principal); M54.16 Radiculopathy, lumbar region
CPT/HCPCS: 64493; J2795

== ENCOUNTER → 2022-03-14 13:43 | Outpatient (BNVA) | payer OTHER, SELFPAY | PROVIDERS: PCP Internal Medicine; Referring Provider Internal Medicine; Visit Provider Nurse Practitioner | DX: K58.0 Irritable bowel syndrome with diarrhea (principal); K21.9 Gastro-esophageal reflux disease without esophagitis; K29.60 Other gastritis without bleeding | CPT/HCPCS: 99212 ==

== ENCOUNTER → 2022-03-19 09:29 | Outpatient (BNVA) | payer OTHER, SELFPAY | PROVIDERS: PCP Internal Medicine; Visit Provider Anesthesiology | DX: M47.26 Other spondylosis with radiculopathy, lumbar region (principal) | CPT/HCPCS: 99212 ==

== ENCOUNTER → 2022-04-11 12:58 | Outpatient (BNVA) | payer OTHER, SELFPAY | PROVIDERS: PCP Internal Medicine; Visit Provider Nurse Practitioner | DX: K58.0 Irritable bowel syndrome with diarrhea (principal); K21.9 Gastro-esophageal reflux disease without esophagitis; K29.60 Other gastritis without bleeding; R11.2 Nausea with vomiting, unspecified | CPT/HCPCS: 99212 ==

== ENCOUNTER 2022-04-22 12:19 | Day surgery (SDC) | payer OTHER, SELFPAY ==
--- NOTE | ~2022-04-22 | FL_ITS ---
EXAMINATION: XR FLUOROSCOPY WITH IMAGES CLINICAL INFORMATION: L5, L4 S1 Sprint Peripheral Nerve Stimulator COMPARISON: Fluoroscopic spot views 03/11/2022 TECHNIQUE: Fluoroscopy Supervised By: Dr. Inocente Tran. Fluoroscopy Time: 0.2 minutes. Cumulative Dose: 3.42 mGy. DAP: 0.932 Gycm2. Images: 2. FINDINGS: There are needles/electrodes overlying the left and right lamina L5. FL/FL guidance in OR IMPRESSION: Fluoroscopy for pain management procedure.
--- NOTE | 2022-04-22 11:25 | MHC.SHP ---
Pre-Procedural Eval Section A Date of Service: 04/22/22 The patient is an INPATIENT: No Changes since office visit: Yes Patient answered all questions The History & Physical has been completed within 30 days and I have reviewed it.: No Section B Chief Complaint: Spondylosis without myelopathy or radiculopathy, l Details of Present Illness: as above Relevant Family History (Specify if Yes): No Relevant Social History: None Present Medications: None Medical History: No relevant PMH History of Previous Operations: No relevant previous surgery Allergies: Allergies Allergy/AdvReac Type Severity Reaction Status Date / Time morphine [MORPHINE] Allergy Intermediate TACHYCARDIA Verified 03/19/22 09:39 codeine [Tylenol-Codeine] Allergy Unknown Unknown Verified 03/19/22 09:39 oxycodone [Percocet] Allergy Unknown unknown Verified 03/19/22 09:39 Review of Systems Sugical H&P ROS: Negative: Constitution, Cardiovascular, Respiratory, Neurological, Psychiatric, Hem-Onc, Allergic/Immunologic, Gastrointestinal, Genitourinary, Musculoskeletal, Integumentary, Endocrine and Eyes/Ears/Nose/Throat Exam Surgical H&P Exam: Normal: HEENT, Normal: Heart, Normal: Lungs, Normal: Extremities, Normal: Abdomen, Normal: Skin and Normal: Neurological Plan Diagnosis/Plan: Unchanged I have reviewed the history and physical and performed a pertinent physical examination on my patient. No changes have occurred unless specified. Time Spent With Patient Time: Total time managing care of this patient today ___5_ minutes.
[2022-04-22 12:29] VITALS: BMI 41.8
[2022-04-22 12:33] VITALS: BP 147/91; PULSE 81; RESP 16; TEMP 36.8; O2SAT 99
--- NOTE | 2022-04-22 13:26 | PM.OP ---
Brief Operative Note Date of Service: 04/22/22 Pre-op diagnosis: spondylosis lumbar spine without myelopathy or radiculopathy Post-op diagnosis: same Procedure: SPRINT PNS Implants: none permanent Surgeon: Inocente Tran MD Anesthesia: local Was an Swimming Pool Attendant used for this Procedure?: No Estimated blood loss (mL): 1 Condition: stable Disposition: PACU
--- NOTE | 2022-04-22 13:27 | W.PM.OPN ---
Operative Note Operative Note Date of Service: 04/22/22 Narrative: Percutaneous implantation of peripheral nerve stimulation Sprint system L5 bilateral. After the risks, benefits and alternatives were discussed with the patient and informed consent was obtained, patient was placed in the prone position and padded to foster comfort. Time out was performed delineating correct site and side of the procedure , name and of the patient, patient participated in time out procedure. Sterily draped C-arm was brought over the operating field and clear picture of the L5 lamina on the right was delineated on the screen. The upper central portion of the lamina was chosen as a target of the neetle tip incertion . After identifying and marking the intended target, the skin around the planned entry point and the subcutaneous tissues were injected with local anesthetic forming skin wheal.. A percutaneous sleeve and stimulating probe lead introduction system were assembled, inserted and advanced through the skin wheal to the point of interest under C-arm view in tunnel vision fashion, the introducer needle was delivered to a location in proximity to the nerve. Multiple stimulation parameters were used to deliver stimulation to the nerve in concert with stimulating at multiple positions around the nerve. Target aqusition was confirmed by patient reporting stimulation at the appropriate level. Here nerve target acquisition was confirmed noting generation of in the corresponding to the nerve being stimulated. Various electrical parameter combinations were tested, and the lead location was adjusted (physically relocated) until the patient indicated overlapping the distribution of the patient?s typical region of pain. The stimulating probe was removed from the introducer and a percutaneous lead was guided through the needle and delivered to a location in similar proximity to the nerve. Final location was verified with electrical stimulation. The introducer needle was removed, and the exposed end of the percutaneous lead was attached to an external stimulator unit. After that the procedure was repeated in the mirroring fashion at left L5 level. At the end of the case various electrical parameter combinations were again tested until the patient indicated paresthesia or muscle tension overlapping the distribution of the patient?s typical region of pain. After confirming that lead impedance was in the normal range, the external unit was detached, the needle was removed, and the lead was anchored at the skin. The lead was threaded into the connector block and electrical continuity and desired patient response was confirmed. The connector block was attached to the external stimulator unit. The site was covered with a sterile occlusive dressing and a image was taken to document final placement. Upon completion of the procedure the patient was taken outside the OR where she recovered uneventfully she went home without immediate complications.
[2022-04-22 13:30] VITALS: BP 137/72; PULSE 70; RESP 16; TEMP 36.9; O2SAT 100
[2022-04-22 13:45] VITALS: BP 143/87; PULSE 77; RESP 16; TEMP 36.9; O2SAT 100
[2022-04-22 14:00] VITALS: BP 133/83; PULSE 75; RESP 16; TEMP 36.9; O2SAT 100
[2023-09-23 14:55] VITALS: BMI 38.4
== END 2022-04-22 14:00 | disposition home or self-care (01) ==
PROVIDERS: PCP Internal Medicine; Visit Provider Anesthesiology
PROC: (CPT 64555; principal; 2022-04-22 13:00)
DX: M47.816 Spondylosis without myelopathy or radiculopathy, lumbar region (principal); M54.50 Low back pain, unspecified; E78.00 Pure hypercholesterolemia, unspecified; E55.9 Vitamin D deficiency, unspecified
CPT/HCPCS: 64555 ×2; C1778; J2795

== ENCOUNTER → 2022-04-28 16:29 | Outpatient (BNVA) | payer OTHER, SELFPAY | PROVIDERS: PCP Internal Medicine; Visit Provider Anesthesiology | DX: M54.16 Radiculopathy, lumbar region (principal); M47.816 Spondylosis without myelopathy or radiculopathy, lumbar region | CPT/HCPCS: 99212 ==

== ENCOUNTER → 2022-04-29 08:33 | Outpatient (BNVA) | payer OTHER, SELFPAY | PROVIDERS: PCP Internal Medicine; Visit Provider Nurse Practitioner Family | DX: G47.33 Obstructive sleep apnea (adult) (pediatric) (principal); G43.909 Migraine, unspecified, not intractable, without status migrainosus | CPT/HCPCS: 99212 ==

== ENCOUNTER → 2022-05-05 13:11 | Outpatient (BNVA) | payer OTHER, SELFPAY | PROVIDERS: PCP Internal Medicine; Visit Provider Anesthesiology | DX: Z48.00 Encounter for change or removal of nonsurgical wound dressing (principal); Z96.89 Presence of other specified functional implants | CPT/HCPCS: 99211 ==

== ENCOUNTER → 2022-05-12 10:36 | Outpatient (BNVA) | payer OTHER, SELFPAY | PROVIDERS: PCP Internal Medicine; Visit Provider Anesthesiology | DX: Z13.89 Encounter for screening for other disorder (principal) ==

== ENCOUNTER → 2022-05-19 10:33 | Outpatient (BNVA) | payer OTHER, SELFPAY | PROVIDERS: PCP Internal Medicine; Visit Provider Anesthesiology | DX: Z13.89 Encounter for screening for other disorder (principal) ==

== ENCOUNTER → 2022-05-27 11:11 | Outpatient (BNVA) | payer OTHER, SELFPAY | PROVIDERS: PCP Internal Medicine; Visit Provider Anesthesiology | DX: Z97.8 Presence of other specified devices (principal) | CPT/HCPCS: 99211 ==

== ENCOUNTER → 2022-06-03 09:08 | Outpatient (BNVA) | payer OTHER, SELFPAY | PROVIDERS: PCP Internal Medicine; Visit Provider Anesthesiology | DX: Z97.8 Presence of other specified devices (principal) | CPT/HCPCS: 99211 ==

== ENCOUNTER → 2022-07-03 10:51 | Outpatient (BNVA) | payer OTHER, SELFPAY | PROVIDERS: PCP Internal Medicine; Visit Provider Nurse Practitioner | DX: K21.9 Gastro-esophageal reflux disease without esophagitis (principal); K58.0 Irritable bowel syndrome with diarrhea | CPT/HCPCS: 99212 ==

== ENCOUNTER → 2022-08-20 15:10 | Outpatient (BNVA) | payer OTHER, SELFPAY | PROVIDERS: PCP Internal Medicine; Visit Provider Anesthesiology | DX: M54.16 Radiculopathy, lumbar region (principal); M47.816 Spondylosis without myelopathy or radiculopathy, lumbar region | CPT/HCPCS: 99212 ==

== ENCOUNTER 2022-09-05 12:43 | Day surgery (SDC) | payer OTHER, SELFPAY ==
[2022-09-03 08:51] VITALS: BMI 40.2
--- NOTE | 2022-09-04 12:59 | HO.ANESPROP2 ---
Documented by User: Any Linares NP 09/04/22 13:00 HPI - Anesthesia Eval Consult details Narrative: 52yo F for Bilateral Therapeutic L3-L4-L5 Medial Branch Blocks PMFSH Active Problems Active Problems: All Active Problems (Updated 04/11/22 @ 13:49 by VASYL Potter) GERD (gastroesophageal reflux disease) (Acute) Irritable bowel syndrome with diarrhea (Acute) COVID-19 (Acute) Lumbar radiculopathy (Acute) Inflammatory lesion of eyelid (Acute) Epigastric pain (Acute) Pelvic pain (Acute) Problematic vaginal discharge (Acute) Potential exposure to STD (Acute) History of hysterectomy, supracervical (Acute) Bacterial vaginosis (Acute) Vaginal irritation (Acute) Yeast infection involving the vagina and surrounding area (Acute) Sleep disorder, unspecified (Acute) Mild obstructive sleep apnea (Acute) Erosive gastritis (Acute) Potential exposure to STD (Acute) Hx of abnormal cervical Pap smear (Acute) Abdominal pain (Acute) Nausea and vomiting (Acute) Migraine (Acute) Lumbar spondylosis (Acute) Spondylosis of lumbar spine (Acute) Daytime somnolence (Acute) Obesity (BMI 30-39.9) (Acute) Depression (Acute) Anxiety (Acute) Insomnia (Acute) Vitamin D deficiency (Acute) Carpal tunnel syndrome (Acute) Bilateral low back pain without sciatica (Acute) Allergic rhinitis (Acute) Pure hypercholesterolemia (Acute) Past Medical History Medical History Allergic rhinitis Anxiety Bilateral low back pain without sciatica Carpal tunnel syndrome Daytime somnolence Depression GERD without esophagitis Hx of sleep apnea Insomnia Lumbar spondylosis Migraine Obesity (BMI 30-39.9) Pure hypercholesterolemia Spondylosis of lumbar spine Vitamin D deficiency Family History Family History Mother No problems noted. Maternal Aunt Breast cancer Family history of problems with anesthesia: No Surgical History Surgical History History of bunionectomy History of cholecystectomy History of dilatation and curettage History of esophagogastroduodenoscopy History of surgery Hx of carpal tunnel repair Hx of hysterectomy History of Problems with Anesthesia: No Social History Social History Housing: Apartment Alcohol intake: current Alcohol intake frequency: does not drink Patient Tobacco Use Status: Never used Tobacco Second Hand Smoke Exposure: Yes service: No Current occupational status: disabled Cognitive needs: No Hearing needs: No Vision needs: No Meds Allergies Allergy/AdvReac Type Severity Reaction Status Date / Time morphine [MORPHINE] Allergy Intermediate TACHYCARDIA Verified 09/05/22 12:54 codeine [Tylenol-Codeine] Allergy Unknown Unknown Verified 09/05/22 12:54 oxycodone [Percocet] Allergy Unknown unknown Verified 09/05/22 12:54 Home Medications Medication Instructions Recorded Confirmed Last Taken Type duloxetine 60 mg capsule,delayed 60 mg PO QAM 04/04/20 09/05/22 Unknown History release gabapentin 100 mg capsule 100 mg PO TID 04/04/20 09/05/22 Unknown History oxybutynin chloride 10 mg 10 mg PO DAILY 04/04/20 09/05/22 Unknown History tablet,extended release 24 hr trazodone 100 mg tablet 100 mg PO BEDTIME 04/04/20 09/05/22 Unknown History propranolol 20 mg tablet 20 mg PO DAILY 08/06/21 09/05/22 Unknown History rizatriptan 10 mg tablet 10 mg PO ONCE PRN Migraine Headache 08/06/21 09/05/22 Unknown History mirabegron 50 mg tablet,extended 50 mg PO DAILY 03/14/22 09/05/22 Unknown History release 24 hr (Myrbetriq) cetirizine 10 mg capsule 10 mg PO DAILY PRN Allergy Symptoms 04/29/22 09/05/22 Unknown History loperamide 2 mg capsule 4 mg PO DAILY PRN loose stool 04/29/22 09/05/22 Unknown History lorazepam 1 mg tablet 2 mg PO BID PRN Anxiety 04/29/22 09/05/22 Unknown History Exam Exam Date and Time: September 04, 2022 1259 Height,Weight and Vital Signs: Height 5 ft 2 in Weight 99.79 kg Assessment and Plan Assessment Anesthesia Assessment: Chart Reviewed Final Anesthetic Review Family History of Problems with Anesthesia: No History of Problems with Anesthesia: No Documented by User: Louisa Funez MD 09/05/22 15:17 [facility] Active Problems Active Problems: All Active Problems (Updated 04/11/22 @ 13:49 by VASYL Potter) GERD (gastroesophageal reflux disease) (Acute) Irritable bowel syndrome with diarrhea (Acute) COVID-19 (Acute) Lumbar radiculopathy (Acute) Inflammatory lesion of eyelid (Acute) Epigastric pain (Acute) Pelvic pain (Acute) Problematic vaginal discharge (Acute) Potential exposure to STD (Acute) History of hysterectomy, supracervical (Acute) Bacterial vaginosis (Acute) Vaginal irritation (Acute) Yeast infection involving the vagina and surrounding area (Acute) Sleep disorder, unspecified (Acute) Obstructive sleep apnea (Acute). Uses CPAP machine Erosive gastritis (Acute) Potential exposure to STD (Acute) Hx of abnormal cervical Pap smear (Acute) Abdominal pain (Acute) Nausea and vomiting (Acute) Migraine (Acute) Lumbar spondylosis (Acute) Spondylosis of lumbar spine (Acute) Daytime somnolence (Acute) Obesity (BMI 30-39.9) (Acute) Depression (Acute) Anxiety (Acute) Insomnia (Acute) Vitamin D deficiency (Acute) Carpal tunnel syndrome (Acute) Bilateral low back pain without sciatica (Acute) Allergic rhinitis (Acute) Pure hypercholesterolemia (Acute) Increased BMI Past Medical History Medical History Allergic rhinitis Anxiety Bilateral low back pain without sciatica Carpal tunnel syndrome Daytime somnolence Depression GERD without esophagitis Hx of sleep apnea Insomnia Lumbar spondylosis Migraine Obesity (BMI 30-39.9) Pure hypercholesterolemia Spondylosis of lumbar spine Vitamin D deficiency Family History Family History Mother No problems noted. Maternal Aunt Breast cancer Surgical History Surgical History History of bunionectomy History of cholecystectomy History of dilatation and curettage History of esophagogastroduodenoscopy History of surgery Hx of carpal tunnel repair Hx of hysterectomy Social History Social History Housing: Apartment Alcohol intake: current Alcohol intake frequency: does not drink Patient Tobacco Use Status: Never used Tobacco Second Hand Smoke Exposure: Yes service: No Current occupational status: disabled Cognitive needs: No Hearing needs: No Vision needs: No Meds Allergies Allergy/AdvReac Type Severity Reaction Status Date / Time morphine [MORPHINE] Allergy Intermediate TACHYCARDIA Verified 09/05/22 12:54 codeine [Tylenol-Codeine] Allergy Unknown Unknown Verified 09/05/22 12:54 oxycodone [Percocet] Allergy Unknown unknown Verified 09/05/22 12:54 Home Medications Medication Instructions Recorded Confirmed Last Taken Type duloxetine 60 mg capsule,delayed 60 mg PO QAM 04/04/20 09/05/22 Unknown History release gabapentin 100 mg capsule 100 mg PO TID 04/04/20 09/05/22 Unknown History oxybutynin chloride 10 mg 10 mg PO DAILY 04/04/20 09/05/22 Unknown History tablet,extended release 24 hr trazodone 100 mg tablet 100 mg PO BEDTIME 04/04/20 09/05/22 Unknown History propranolol 20 mg tablet 20 mg PO DAILY 08/06/21 09/05/22 Unknown History rizatriptan 10 mg tablet 10 mg PO ONCE PRN Migraine Headache 08/06/21 09/05/22 Unknown History mirabegron 50 mg tablet,extended 50 mg PO DAILY 03/14/22 09/05/22 Unknown History release 24 hr (Myrbetriq) cetirizine 10 mg capsule 10 mg PO DAILY PRN Allergy Symptoms 04/29/22 09/05/22 Unknown History loperamide 2 mg capsule 4 mg PO DAILY PRN loose stool 04/29/22 09/05/22 Unknown History lorazepam 1 mg tablet 2 mg PO BID PRN Anxiety 04/29/22 09/05/22 Unknown History Exam Height,Weight and Vital Signs: Height 5 ft 2 in Weight 99.79 kg Vital Signs Temp Pulse Resp BP Pulse Ox O2 Del Method 97.7 F 62 16 144/63 H 96 Room Air 09/05/22 13:00 09/05/22 13:00 09/05/22 13:00 09/05/22 13:00 09/05/22 13:00 09/05/22 13:00 Airway Mallampati Class: II TM Dist: >3cm Neck ROM: Full Denture: Upper and Lower Heart: RRR Lungs: CTAB Assessment and Plan Assessment Anesthesia Assessment: Anesthesia Plan Discussed Final Anesthetic Review NPO: Yes ASA Class: III Final Preanesthetic Review: No Changes in Pt Med Stat, Meds/Allgs Chart Reviewed, Consent Obtained/Reviewed and Anes Risks/Benef Reviewed Patient Risk: Intermediate Procedure Risk: Low Assessment/Block/Sedation in SS: Assess/Block/Sedation-SS Anesthetic Plan Anesthetic Plan: MAC: Disposition: Standard PACU
--- NOTE | ~2022-09-05 | FL_ITS ---
EXAMINATION: XR FLUOROSCOPY WITH IMAGES CLINICAL INFORMATION: Medial branch block, pain management COMPARISON: MR lumbar spine 02/22/2021. TECHNIQUE: Fluoroscopy Supervised By: Dr. Inocente Tran. Fluoroscopy Time: 0.5 minutes. Cumulative Dose: 9.91 mGy. DAP: 2.70 Gycm2. Images: 7. FINDINGS: There are spinal needles overlying the bilateral outer L3, L4, and L5 neural foramen. There is contrast seen in the respective nerve sheaths. Some early transforaminal epidural extension is suggested. No visible vascular communication. FL/FL guidance in OR IMPRESSION: Fluoroscopy for pain management procedures.
[2022-09-05 13:00] VITALS: BP 144/63; PULSE 62; RESP 16; TEMP 36.5; O2SAT 96
[2022-09-05] MEDS: Lactated Ringers 1,000 ML 100 ML IVCONT (13:16)
[2022-09-05 14:28] VITALS: BP 152/77; PULSE 63; RESP 16; TEMP 37; O2SAT 99
--- NOTE | 2022-09-05 14:34 | W.PM.OPN ---
Operative Note Operative Note Date of Service: 09/05/22 Narrative: therapeutic lumbar bilateral MBB. Informed consent was explained to the patient. All questions were explained and? answered.? The patient was taken inside the operating room where he was positioned prone on the operating table.? Time-out was performed delineating correct site, side, the nature of the procedure, patient's allergy, preoperative antibiotic if needed.? All operating room staff was participating in OR time-out procedure. [place] [employer] monitors were applied and patient was sedated. The lower back was prepped with ChloraPrep and draped with sterile towels.? Sterilely draped C-arm was brought over the operating field and sq picture of L4-and L5 vertebra and S1 AREA were delineated on the screen.? Point of interest were delineated as connection of superior articular process of L4 and L5 vertebra bilaterally with corresponding transverse processes as well as connection of the sacral alae bilaterally with superior articular process of S1.? The projection of the point of interest to the skin were injected with the small amount of local anesthetic lidocaine 2% 1-1.5 cc.? After that 22 gauge 3-1/2 inch spinal needle was driven sequentially to the points of interest in tunnel vision fashion. After needles gently contacted the bone at the point of interests the needle was injected with small amount of the contrast.? The injection of the contrast did not demonstrate any intravascular or intrathecal spread of the contrast.? After that injection of the? ropivacaine 0.5%-1cc Mixed with Kenalog was performed at each needle location.? total dose of Kenalog was 80 mg. Upon completion of the injections? needle was? removed and sterile Band-Aids were applied.? The? patient was? taken outside of the operating room to recovery room where she recovered uneventfully.?
--- NOTE | 2022-09-05 14:36 | P.BOP_ITS ---
Brief Operative Note Date of Service: 09/05/22 Pre-op diagnosis: Spondylosis lumbar without myelopathy or radiculopathy Post-op diagnosis: same Procedure: bilateral L3 L4 dorsal ramus L5 therapeutic medial branch block Surgeon: Inocente Tran MD Was an Threading Machine Feeder Automatic used for this Procedure?: No Estimated blood loss (mL): 1 Condition: stable Disposition: PACU
[2022-09-05 14:43] VITALS: BP 141/68; PULSE 60; RESP 14; TEMP 36.3; O2SAT 98
--- NOTE | 2022-09-05 15:03 | PC.NURSE ---
Pt declined interprter for dc teaching
== END 2022-09-05 15:02 | disposition home or self-care (01) ==
PROVIDERS: PCP Internal Medicine; Visit Provider Anesthesiology
PROC: (CPT 64493; principal; 2022-09-05 14:00)
DX: M47.816 Spondylosis without myelopathy or radiculopathy, lumbar region (principal); M54.16 Radiculopathy, lumbar region; M54.50 Low back pain, unspecified; E66.9 Obesity, unspecified; Z68.41 Body mass index [BMI] 40.0-44.9, adult; R40.0 Somnolence; J30.9 Allergic rhinitis, unspecified; G43.909 Migraine, unspecified, not intractable, without status migrainosus; E78.00 Pure hypercholesterolemia, unspecified; E55.9 Vitamin D deficiency, unspecified; F32.A Depression, unspecified; F41.1 Generalized anxiety disorder; Z88.8 Allergy status to other drugs, medicaments and biological substances; Z98.890 Other specified postprocedural states; Z87.891 Personal history of nicotine dependence
CPT/HCPCS: 64493; 64494; J2250; J2795; J3010; J3301; Q9967

== ENCOUNTER → 2022-10-03 10:44 | Outpatient (BNVA) | payer OTHER, SELFPAY | LOC: CF 11:38 | PROVIDERS: PCP Internal Medicine; Visit Provider Nurse Practitioner | DX: Z01.818 Encounter for other preprocedural examination (principal); K21.9 Gastro-esophageal reflux disease without esophagitis; K58.0 Irritable bowel syndrome with diarrhea | CPT/HCPCS: 99212 ==

== ENCOUNTER 2022-10-13 09:28 | Outpatient (REF) | payer OTHER, SELFPAY ==
--- NOTE | ~2022-10-13 | MM_ITS ---
EXAMINATION: MM SCREENING DIGITAL BREAST TOMOSYNTHESIS, BILATERAL CLINICAL INFORMATION: Screening. Asymptomatic. The lifetime risk of breast cancer based on the Tyrer-Cuzick Model is 6%. COMPARISON: Mammography: This study is compared to prior mammograms dating back to 2018. TECHNIQUE: Digital breast tomosynthesis is performed in both the craniocaudal and mediolateral oblique views along with computer-aided detection (CAD). Synthesized 2D images are generated from the tomosynthesis. FINDINGS: The breasts are heterogeneously dense, which may obscure small masses (ACR BI-RADS breast composition Category c). There are no significant masses, abnormal calcifications, or other abnormalities. MM/MM tomosynthesis screening BI IMPRESSION: No mammographic evidence of malignancy. ASSESSMENT: BI-RADS BI-RADS 1 - Negative RECOMMENDATION: Routine annual mammography screening. 1 year F/U This patient's information was entered into a reminder system with a target due date for their next mammogram.
== END 2022-10-13 09:29 | disposition home or self-care (01) ==
LOC: HO.MAMMO 09:28
PROVIDERS: PCP Internal Medicine; Visit Provider Internal Medicine
DX: Z12.31 Encounter for screening mammogram for malignant neoplasm of breast (principal)
CPT/HCPCS: 77063; 77067

== ENCOUNTER → 2022-10-13 09:45 | Outpatient (BNV) | payer OTHER, SELFPAY | PROVIDERS: PCP Internal Medicine; Visit Provider Radiology Diagnostic Radiology | DX: Z12.31 Encounter for screening mammogram for malignant neoplasm of breast (principal) | CPT/HCPCS: 77063; 77067 ==

== ENCOUNTER → 2022-10-15 10:31 | Outpatient (BNVA) | payer OTHER, SELFPAY | PROVIDERS: PCP Internal Medicine; Visit Provider Anesthesiology | DX: M54.16 Radiculopathy, lumbar region (principal); M47.816 Spondylosis without myelopathy or radiculopathy, lumbar region | CPT/HCPCS: 99212 ==

== ENCOUNTER 2022-10-22 13:39 | Outpatient (REF) | payer OTHER, SELFPAY ==
[2022-10-23 11:08] LABS: CT PCR NOT DETECTED (Not Detect.); NG PCR NOT DETECTED (Not Detect.)
[2022-10-23 12:38] LABS: BV Int Neg Control Negative (Negative); BV Int Pos Control Positive (Positive)
== END 2022-10-22 13:40 | disposition home or self-care (01) ==
LOC: HO.LNP 13:39
PROVIDERS: PCP Internal Medicine; Visit Provider Advanced Practice Midwife
DX: Z01.419 Encounter for gynecological examination (general) (routine) without abnormal findings (principal); K58.0 Irritable bowel syndrome with diarrhea; B37.31 Acute candidiasis of vulva and vagina; L25.8 Unspecified contact dermatitis due to other agents; R33.9 Retention of urine, unspecified; E66.9 Obesity, unspecified; Z90.711 Acquired absence of uterus with remaining cervical stump; Z87.42 Personal history of other diseases of the female genital tract; Z79.899 Other long term (current) drug therapy; Z20.2 Contact with and (suspected) exposure to infections with a predominantly sexual mode of transmission
CPT/HCPCS: 0353U; 87480; 87510; 87660

== ENCOUNTER 2022-10-28 09:26 | Outpatient (AMB) | payer OTHER, SELFPAY ==
--- NOTE | 2022-10-28 09:27 | A.OFFVIS_ITS ---
Intake Vital Signs 10/28/22 09:28 Height 5 ft 2 in Weight 211 lb 4 oz BMI 38.6 BP 126/78 Blood Pressure Location Lt brachial Position Sitting Pulse 70 Pulse Source Pulse Oximeter Pulse Oximetry (%) 98 Oxygen Delivery Method Room Air Intake Visit Reasons: 6 mnts f/u appt Intake Note: pt is here for 6 month f/i for migraines and FAHAD, patient states she is doing a little better and has been using cpap Pharmacy Technician Trainee Required: Yes Pharmacy Technician Trainee Name: [id number] Information Interpreted: non-clinical & clinical Accompanied by: Self / Same As Patient Allergies morphine [MORPHINE] Allergy (Intermediate, Verified 10/28/22 09:27) TACHYCARDIA codeine [Tylenol-Codeine] Allergy (Unknown, Verified 10/28/22 09:27) Unknown oxycodone [Percocet] Allergy (Unknown, Verified 10/28/22 09:27) unknown Medication List - Last Reconciled 10/28/22 by SOLIS Rubio alosetron (Lotronex) 0.5 mg PO BID baclofen 20 mg PO TID PRN calcium polycarbophil (Fiber Laxative (calcium polycarbophil)) 1,250 mg (2 x 625 mg) PO BID 30 days cetirizine 10 mg PO DAILY PRN cholecalciferol (vitamin D3) 25 mcg PO DAILY 90 days clotrimazole-betamethasone 1-0.05 % 1 appl topical BID 2 weeks duloxetine 60 mg PO QAM famotidine 40 mg PO BID gabapentin 100 mg PO TID ibuprofen 800 mg PO TID PRN loperamide 4 mg PO DAILY PRN lorazepam 2 mg PO BID PRN magnesium oxide 400 mg PO DAILY 30 days metoclopramide HCl 5 mg PO QIDACHS metronidazole 500 mg PO BID 7 days mirabegron ER (Myrbetriq) 50 mg PO DAILY oxybutynin chloride ER 10 mg PO DAILY promethazine 25 mg PO DAILY PRN propranolol 20 mg PO DAILY rabeprazole (AcipHex) 20 mg PO DAILY 90 days riboflavin (vitamin B2) 400 mg PO DAILY 30 days rizatriptan 10 mg PO ONCE PRN simethicone 180 mg PO TID 90 days sucralfate 2 grams (2 x 1 gram) PO BEDTIME trazodone 100 mg PO BEDTIME triamcinolone acetonide intranasal Do you need a note to return to daycare/school/sports/work: Yes HPI HPI Comments History of Present Illness Details 52-yr-old female presents for f/u visit. Pt denies any significant interval medical changes. Pt reports she tries to use her APAP nightly, however she is prone to sinus congestion. Her mask also sometimes moves and slips which is bothersome. She is treated for sinus s/s/- has Flonase, Zyrtec- per pt managed by Dr Pedraza at [facility]. Her 90 day PAP compliance shows: APAP 5-09olH41, 65.6% usage > 4 hrs, avergae use on days used 7 hrs 25 min, residual AHI 0.5/hr. Pt reports her migraines are well-controlled. Toelrating, mag, B2, Propranolol. Using Rizatriptan- which helps. [facility] Medical History Allergic rhinitis Anxiety Bilateral low back pain without sciatica Carpal tunnel syndrome Daytime somnolence Depression GERD without esophagitis Hx of sleep apnea Insomnia Lumbar spondylosis Migraine Obesity (BMI 30-39.9) Pure hypercholesterolemia Spondylosis of lumbar spine Vitamin D deficiency Surgical History History of bunionectomy History of cholecystectomy History of dilatation and curettage History of esophagogastroduodenoscopy History of surgery Hx of carpal tunnel repair Hx of hysterectomy Hx of tubal ligation Family History Mother No problems noted. Maternal Aunt Breast cancer Social History Housing: Apartment Alcohol intake: current Alcohol intake frequency: does not drink Patient Tobacco Use Status: Never used Tobacco Second Hand Smoke Exposure: Yes service: No Current occupational status: disabled Cognitive needs: No Hearing needs: No Vision needs: No Female Reproductive History Menstrual Age of Menarche: 16 Review of Systems Const All systems reviewed & are unremarkable except as noted in HPI and below Physical Exam Vital Signs: Last Vital Signs Pulse 70 10/28/22 09:28 BP 126/78 10/28/22 09:28 Pulse Ox 98 10/28/22 09:28 Oxygen Delivery Method Room Air 10/28/22 09:28 BMI result Body Mass Index 38.6 Const General: cooperative and no acute distress Orientation/consciousness: patient oriented x3 HEENT Head: Yes normocephalic Resp Effort & Inspection: normal respiratory effort and able to speak in complete sentences Neuro General: patient oriented x3, gait normal and CN's II-XI intact bilaterally Cognition (Neuro): normal cognition Motor exam (neuro): 5/5 motor strength present throughout Psych Appearance: grossly normal Mental Status: mental status grossly normal Speech and movement: Normal speech and movement present Affect: normal affect Attitude: cooperative Thought process: Normal thought process present Thought content: Normal thought content present Insight: Good insight present (Psych) Judgement: Good judgement present (Psych) Assessment & Plan Assessment & Plan (1) Mild obstructive sleep apnea: Code(s): G47.33 - Obstructive sleep apnea (adult) (pediatric) (2) Migraine: Comment: taking propranolol for migraine prophylaxis Code(s): G43.909 - Migraine, unspecified, not intractable, without status migrainosus Qualifiers: Intractability: not intractable Migraine type: unspecified Status migrainosus presence: without status migrainosus Qualified Code(s): G43.909 - Migraine, unspecified, not intractable, without status migrainosus Plan For FAHAD- Continue Esther APAP 5-20 cmH2O. Pt encouraged to try saline nasal rinse- such as Neti-Pot- info given to tp. Xylimelts prn for dry nose/mouth. Hang tubing up in am- to allow any residual water to drain. Will request new mask fitting. Clean machine and supplies routinely. For migraines and headaches- Continue Riboflavin and Magnesium Continue Propranolol. Continue Rizatriptan prn. Coding Level of Care Code Est Pt Level 4 (06129) Diagnoses Mild obstructive sleep apnea G47.33 Migraine G43.909 Intractability: not intractable Migraine type: unspecified Status migrainosus presence: without status migrainosus
[2022-10-28 09:28] VITALS: BP 126/78; PULSE 70; O2SAT 98; BMI 38.6
== END 2022-10-28 09:55 | disposition home or self-care (01) ==
PROVIDERS: Visit Provider Nurse Practitioner Family
DX: G47.33 Obstructive sleep apnea (adult) (pediatric) (principal); G43.909 Migraine, unspecified, not intractable, without status migrainosus
CPT/HCPCS: 99214

== ENCOUNTER → 2022-10-28 09:26 | Outpatient (BNVA) | payer OTHER, SELFPAY | PROVIDERS: Visit Provider Nurse Practitioner Family | DX: G47.33 Obstructive sleep apnea (adult) (pediatric) (principal); G43.909 Migraine, unspecified, not intractable, without status migrainosus | CPT/HCPCS: 99212 ==

== ENCOUNTER 2022-11-11 10:30 | Outpatient (REF) | payer OTHER, SELFPAY ==
[2022-11-11 12:25] LABS: HBsAGNum1 0.37 S/CO (0.00-0.99); HIV AB/AG Nonreactive (Nonreactive); HIV Num 1 0.05 S/CO (0.00-0.99); Hepatitis B Surface Antigen Negative (Negative); ~HepC Num1 0.15 S/CO (0.00-0.79); ~Hepatitis C Antibody Nonreactive (Nonreactive)
[2022-11-12 04:22] LABS: Syphilis Screen Nonreactive (Nonreactive)
== END 2022-11-11 10:31 | disposition home or self-care (01) ==
LOC: HO.LAB 10:30
PROVIDERS: Absent Provider Advanced Practice Midwife; PCP Internal Medicine; Visit Provider Internal Medicine
DX: Z20.2 Contact with and (suspected) exposure to infections with a predominantly sexual mode of transmission (principal)
CPT/HCPCS: 36415; 86780; 86803; 87340; 87389

== ENCOUNTER 2022-11-18 07:24 | Emergency (ER) | payer OTHER, SELFPAY ==
[2022-11-18 07:30] VITALS: BP 153/85; PULSE 61; RESP 18; TEMP 36.7; O2SAT 97; BMI 38.4
--- NOTE | 2022-11-18 09:06 | ED.BACK ---
HPI - Back Pain/Injury General Chief Complaint: Back Pain/Injury Stated Complaint: Neck Back Pain No Injury Time Seen by Provider: 11/18/22 09:05 Source: patient, RN notes reviewed and old records reviewed Mode of arrival: ambulatory History of Present Illness HPI Narrative: 52-year-old female with a past medical history of obesity, GERD, IBS, FAHAD, gastritis, presenting to the ED c/o right-sided neck pain radiating to upper back since Thursday morning. Admits woke up with pain. Admits to heavy lifting on Thursday preceding symptoms, denies direct injury/trauma or fall, radiation of pain down upper or lower extremities, numbness/tingling, weakness, CP/SOB, headache, dizziness, incontinence. Initially should Motrin for pain, denies taking anything today Related Data Home Medications Medication Instructions Recorded Confirmed duloxetine 60 mg capsule,delayed 60 mg PO QAM 04/04/20 10/28/22 release gabapentin 100 mg capsule 100 mg PO TID 04/04/20 10/28/22 oxybutynin chloride 10 mg 10 mg PO DAILY 04/04/20 10/28/22 tablet,extended release 24 hr trazodone 100 mg tablet 100 mg PO BEDTIME 04/04/20 10/28/22 rizatriptan 10 mg tablet 10 mg PO ONCE PRN Migraine Headache 08/06/21 10/28/22 mirabegron 50 mg tablet,extended 50 mg PO DAILY 03/14/22 10/28/22 release 24 hr (Myrbetriq) cetirizine 10 mg capsule 10 mg PO DAILY PRN Allergy Symptoms 04/29/22 10/28/22 loperamide 2 mg capsule 4 mg PO DAILY PRN loose stool 04/29/22 10/28/22 lorazepam 1 mg tablet 2 mg PO BID PRN Anxiety 04/29/22 10/28/22 promethazine 25 mg tablet 25 mg PO DAILY PRN nausea 10/22/22 10/28/22 triamcinolone acetonide 55 mcg intranasal 10/22/22 10/28/22 nasal spray aerosol Previous Rx's Medication Instructions Recorded cholecalciferol (vitamin D3) 25 25 mcg PO DAILY 90 days #90 caps 01/20/22 mcg (1,000 unit) capsule alosetron 0.5 mg tablet (Lotronex) 0.5 mg PO BID #60 tabs 03/14/22 magnesium oxide 400 mg (241.3 mg 400 mg PO DAILY 30 days #30 tabs 03/25/22 magnesium) tablet riboflavin (vitamin B2) 400 mg 400 mg PO DAILY 30 days #30 tabs 03/25/22 tablet famotidine 40 mg tablet 40 mg PO BID #180 tabs 07/03/22 propranolol 20 mg tablet 20 mg PO DAILY #90 tabs 09/09/22 metoclopramide HCl 5 mg tablet 5 mg PO QIDACHS #360 tabs 10/03/22 rabeprazole 20 mg tablet,delayed 20 mg PO DAILY 90 days #90 tabs 10/03/22 release (AcipHex) simethicone 180 mg capsule 180 mg PO TID 90 days #270 caps 10/03/22 clotrimazole-betamethasone 1 1 appl topical BID 2 weeks #45 10/22/22 %-0.05 % topical cream grams metronidazole 500 mg tablet 500 mg PO BID 7 days #14 tabs 10/27/22 baclofen 20 mg tablet 20 mg PO TID PRN for muscle spasm 11/07/22 #270 tabs calcium polycarbophil 625 mg 1,250 mg PO BID 30 days #120 tabs 11/07/22 tablet (Fiber Laxative (calcium polycarbophil)) ibuprofen 800 mg tablet 800 mg PO TID PRN for pain #90 tabs 11/07/22 acetaminophen 500 mg tablet 500 mg PO Q6H PRN fever or pain 11/18/22 (Tylenol Extra Strength) #14 tabs cyclobenzaprine 5 mg tablet 5 mg PO Q8H PRN pain (scale score 11/18/22 7-10) 5 days #14 tabs lidocaine 5 % topical patch 1 patch topical DAILY PRN pain #30 11/18/22 (Lidoderm) ea naproxen 500 mg tablet 500 mg PO BID PRN pain 10 days #20 11/18/22 tabs sucralfate 1 gram tablet 2 g PO BEDTIME #180 tabs 11/18/22 Allergies Allergy/AdvReac Type Severity Reaction Status Date / Time morphine [MORPHINE] Allergy Intermediate TACHYCARDIA Verified 10/28/22 09:27 codeine [Tylenol-Codeine] Allergy Unknown Unknown Verified 10/28/22 09:27 oxycodone [Percocet] Allergy Unknown unknown Verified 10/28/22 09:27 Review of Systems Review of Systems: Constitutional: No Fever, No Chills ENT/Mouth: No Ear Pain, No sore throat, No Rhinorrhea, No Swallowing Difficulty Cardiovascular: No Chest Pain, No SOB Respiratory: No Cough Gastrointestinal: No Nausea, No Vomiting, No Diarrhea, No Constipation, No Abdominal pain Genitourinary: No Dysuria, No Hematuria, No Urinary Incontinence/retention Musculoskeletal: +joint pain, No Myalgias, No Joint Swelling Skin: No Skin Lesions, No rash Neuro: No Weakness, No Numbness, No Paresthesias Yes all other systems are reviewed and are negative Constitutional: Constitutional: Reports as per [facility] Past Medical History Attestation statement: The following information was validated with the patient. Source: old records reviewed Medical History Allergic rhinitis Anxiety Bilateral low back pain without sciatica Carpal tunnel syndrome Daytime somnolence Depression GERD without esophagitis Hx of sleep apnea Insomnia Lumbar spondylosis Migraine Obesity (BMI 30-39.9) Pure hypercholesterolemia Spondylosis of lumbar spine Vitamin D deficiency Surgical History History of bunionectomy History of cholecystectomy History of dilatation and curettage History of esophagogastroduodenoscopy History of surgery Hx of carpal tunnel repair Hx of hysterectomy Hx of tubal ligation Family History Family History Mother No problems noted. Maternal Aunt Breast cancer Social History Social History Housing: Apartment Alcohol intake: current Alcohol intake frequency: does not drink Patient Tobacco Use Status: Never used Tobacco Second Hand Smoke Exposure: Yes Advance Directives: No service: No Current occupational status: disabled Cognitive needs: No Hearing needs: No Vision needs: No Physical Exam Vital Signs: Vital Signs: Last Vital Signs Temp 98.0 F 11/18/22 07:30 Pulse 61 11/18/22 07:30 Resp 18 11/18/22 07:30 BP 153/85 H 11/18/22 07:30 Pulse Ox 97 11/18/22 07:30 O2 Del Method Room Air 08/08/23 07:30 BMI result Body Mass Index 38.4 Const: General: cooperative, healthy appearing, no acute distress, alert and awake Orientation/consciousness: patient oriented x3 Limitations: no limitations HEENT: Head: Yes normal to inspection and Yes atraumatic Ears: hearing grossly normal bilaterally, external ears normal, TM's normal bilaterally and mastoids normal General nose exam: Normal external nose present Face and sinus: Yes normal facial exam Mouth: Normal oral and palatal mucosa present Eyes: General: appearance normal, both eyes and all related structures Pupils: Equal, round and reactive pupils present EOM: EOMs intact bilaterally Neck: Other: No midline cervical spinous tenderness. + right-sided paraspinal tenderness/palpable muscle spasming extending to right trapezius muscle. Pain elicited with leftward movement of neck Neck: Yes normal visual inspection, Yes no meningeal signs and No anterior neck swelling Chest: Chest palpation & inspection: normal inspection of the chest Resp: Effort & Inspection: normal respiratory effort and no respiratory distress Cardio: Rate: regular rate Heart sounds: S1 normal heart sound present and S2 normal heart sound present Peripheral pulses: Peripheral pulses 2+ throughout : General: Yes no CVA tenderness Back/Spine/Pelvis: Other: No midline cervical/thoracic/lumbar spinous tenderness/step-off or deformity Back: no CVA tenderness Skin: Rashes: no rashes Wounds: no wounds Neuro: General: patient oriented x3, gait normal, tone normal, moves all extremities, no meningeal signs, no focal motor deficits and CN's II-XI intact bilaterally Cranial nerves: Yes CN's II-XII intact bilaterally and Yes Equal, round and reactive pupils present Gait exam (Neuro): Normal gait present Motor exam (neuro): 5/5 motor strength present throughout Extrem: General: Yes normal to inspection Course Course Course Narrative: -1020--patient reports symptomatic improvement after medications given in the ED Results discussed with patient including worrisome signs and symptoms and strict return precautions, and when to return to the emergency department. They verbalized understanding and feel safe for discharge at this time. Medications Administered Discontinued Medications Generic Name Dose Route Start Last Admin Trade Name Puneetq PRN Reason Stop Dose Admin Diazepam 5 mg 11/18/22 09:20 11/18/22 09:36 Diazepam 2 Mg Tablet PO 11/18/22 09:21 5 mg ONCE ONE Administration Ketorolac Tromethamine 30 mg 11/18/22 09:20 11/18/22 09:36 Ketorolac Tromethamine 30 Mg/Ml Vial IM 11/18/22 09:21 30 mg ONCE ONE Administration Lidocaine 1 patch 11/18/22 09:20 11/18/22 09:36 Lidocaine 4 % Patch Adh..Patch TRANSDERMA 11/18/22 09:21 1 patch ONCE ONE Administration Protocol Medical Decision Making Medical Decision Making MDM Narrative: 52-year-old female with a past medical history of obesity, GERD, IBS, FAHAD, gastritis, presenting to the ED c/o right-sided neck pain radiating to upper back since Thursday morning. On exam VSS, NAD, no midline cervical spinous ttp, +palpable muscle spasming, no focal neuro deficits, CN's intact, concern for MSK pain/spasming. Low suspicion for CVA/TIA, cervical dissection, cord compression/radiculopathy or ACS Plan: PO Valium, IM Toradol, Lidoderm patch, re-evaluate Please refer to course for remaining clinical decision making, interpretation of labs/imaging results, and discussions with consultants and/or family members. Differential Diagnosis Differential Diagnoses: The differential diagnosis associated with the presentation includes As above Radiology Impression Discussion of test interpretation with radiology: I have reviewed the radiologist's reading. External Record Review External record reviewed: Inpatient record, Office record, Outpatient record, Prior outpatient labs, Prior outpatient radiology, Primary care record and Outside ED record Tests considered The following testing was considered but not selected: As above Prescription Management I considered prescription management with: Pain Medication Discharge Plan Discharge Clinical Impression: Neck muscle spasm Patient Disposition: Home, Self-Care Instructions: Muscle Spasm (ED) Additional Instructions: Your pain is likely musculoskeletal Flexeril is a muscle relaxer, take at night as it makes you drowsy, do not drive, drink alcohol, or operate machinery while taking it Naproxen as an anti-inflammatory / pain medication, take with food Lidoderm patches are numbing patches, apply to painful area In addition take Tylenol at home If symptoms persist or worsen, pain becomes unbearable, you developed urinary retention or incontinence, or weakness return to the ED Es probable que sandoval dolor sea musculoesquel?jody Flexeril es un relajante muscular, t?johnny por la noche ya que te adormece, no conduzcas, bebas alcohol ni operes maquinaria mientras lo shabnam. Naproxeno zoe medicamento antiinflamatorio/analg?sico, t?hanna con alimentos Los parches de Lidoderm son parches anest?sicos, se aplican en el ?judah dolorida Adem?s cecilia Tylenol en casa Si los s?ntomas persisten o empeoran, el dolor se vuelve insoportable, desarroll? retenci?n urinaria o incontinencia, o debilidad, regrese al servicio de urgencias. Prescriptions: New acetaminophen [Tylenol Extra Strength] 500 mg tablet 500 mg PO Q6H PRN (Reason: fever or pain) Qty: 14 0RF lidocaine [Lidoderm] 5 % adhesive patch,medicated 1 patch topical DAILY MDD remove after 12 hours PRN (Reason: pain) Qty: 30 0RF Rx Instructions: leave on most painful area for up to 12 hrs naproxen 500 mg tablet 500 mg PO BID PRN (Reason: pain) 10 Days Qty: 20 0RF cyclobenzaprine 5 mg tablet 5 mg PO Q8H PRN (Reason: pain (scale score 7-10)) 5 Days Qty: 14 0RF No Action magnesium oxide 400 mg (241.3 mg magnesium) tablet 400 mg PO DAILY 30 Days Qty: 30 6RF Rx Instructions: may hold for loose stools riboflavin (vitamin B2) 400 mg tablet 400 mg PO DAILY 30 Days Qty: 30 6RF propranolol 20 mg tablet 20 mg PO DAILY Qty: 90 1RF metronidazole 500 mg tablet 500 mg PO BID 7 Days Qty: 14 0RF Rx Instructions: Take with food, Avoid alcohol and vinegar products calcium polycarbophil [Fiber Laxative (ca polycarbo)] 625 mg tablet 1,250 mg PO BID 30 Days Qty: 120 6RF baclofen 20 mg tablet 20 mg PO TID PRN (Reason: for muscle spasm) Qty: 270 1RF ibuprofen 800 mg tablet 800 mg PO TID PRN (Reason: for pain) Qty: 90 3RF sucralfate 1 gram tablet 2 g PO BEDTIME Qty: 180 0RF duloxetine 60 mg capsule,delayed release(DR/EC) 60 mg PO QAM gabapentin 100 mg capsule 100 mg PO TID trazodone 100 mg tablet 100 mg PO BEDTIME oxybutynin chloride 10 mg tablet extended release 24hr 10 mg PO DAILY cholecalciferol (vitamin D3) 25 mcg (1,000 unit) capsule 25 mcg PO DAILY 90 Days Qty: 90 3RF lorazepam 1 mg tablet 2 mg PO BID PRN (Reason: Anxiety) cetirizine 10 mg capsule 10 mg PO DAILY PRN (Reason: Allergy Symptoms) loperamide 2 mg capsule 4 mg PO DAILY PRN (Reason: loose stool) Myrbetriq 50 mg tablet extended release 24 hr 50 mg PO DAILY alosetron [Lotronex] 0.5 mg tablet 0.5 mg PO BID Qty: 60 3RF Hold Instructions: Doctor's Order famotidine 40 mg tablet 40 mg PO BID Qty: 180 2RF rizatriptan 10 mg tablet 10 mg PO ONCE PRN (Reason: Migraine Headache) metoclopramide HCl 5 mg tablet 5 mg PO QIDACHS Qty: 360 1RF rabeprazole [AcipHex] 20 mg tablet,delayed release (DR/EC) 20 mg PO DAILY 90 Days Qty: 90 2RF simethicone 180 mg capsule 180 mg PO TID 90 Days Qty: 270 1RF Rx Instructions: after meals promethazine 25 mg tablet 25 mg PO DAILY PRN (Reason: nausea) triamcinolone acetonide 55 mcg aerosol,spray intranasal clotrimazole-betamethasone 1-0.05 % cream 1 appl topical BID 14 Days Qty: 45 1RF Referrals: Dc Bennett MD [Primary Care Provider] - 1 week Interventions: ED Discharge Assessment Last Done: 11/18/22 10:48 Discharge Date/Time: 11/18/22 10:48 Print Language: Nauruan
[2022-11-18] MEDS: Ketorolac Tromethamine 30 MG/ML VIAL IM (09:36)
[2022-11-18] MEDS: diazePAM 2 MG TABLET 5 MG PO (09:36)
[2022-11-18] MEDS: Lidocaine 4 % Patch ADH..PATCH 1 PATCH TRANSDERMA (09:36)
== END 2022-11-18 10:48 | disposition home or self-care (01) ==
PROVIDERS: Emergency Provider Emergency Medicine; PCP Internal Medicine
DX: M54.2 Cervicalgia (principal); M54.50 Low back pain, unspecified; Z79.899 Other long term (current) drug therapy
CPT/HCPCS: 96372; 99284; J1885

== ENCOUNTER 2022-12-03 10:27 | Outpatient (AMB) | payer OTHER, SELFPAY ==
--- NOTE | 2022-12-03 10:45 | MHC.OFFVIS ---
Intake Vital Signs 12/03/22 10:50 Height 5 ft 2 in Weight 210 lb BMI 38.4 BP 140/76 H Blood Pressure Location Rt brachial Position Sitting Respiration 17 Pulse 42 L Pulse Source Pulse Oximeter Pulse Oximetry (%) 100 Oxygen Delivery Method Room Air Intake Visit Reasons: follow up to discuss RFA Intake Note: patient comes in to discuss procedure. Allergies morphine [MORPHINE] Allergy (Intermediate, Verified 12/03/22 10:50) TACHYCARDIA codeine [Tylenol-Codeine] Allergy (Unknown, Verified 12/03/22 10:50) Unknown oxycodone [Percocet] Allergy (Unknown, Verified 12/03/22 10:50) unknown HPI HPI Comments History of Present Illness Details Candelaria is very pleasant 52 years old female who is back in my office with complains on pain in lower back starting to get worse. She is suffering from spondylosis lumbar spine without myelopathy or radiculopathy. In the past she received diagnostic bilateral medial branch block L3-L4 does ramus L5 for very short but very profound pain relief. She was a subject of sprint PNS which did not help her pain. After that we decided to perform bilateral therapeutic L3-L4 dorsal ramus L5 medial branch block which resulted in 45 days of significant pain reduction. She requests me to repeat this injection. However her insurance company denied repeat of the injection. However the insurance company during the peer to peer review agree to cover the cost of the radiofrequency ablation. I invited patient today to discuss the situation : She may go for radiofrequency ablation with her insurance covering the procedure or she would need to have medial branch block therapeutic paid out of pocket. The patient decided to go for radiofrequency ablation with insurance coverage. PFS Medical History Allergic rhinitis Anxiety Bilateral low back pain without sciatica Carpal tunnel syndrome Daytime somnolence Depression GERD without esophagitis Hx of sleep apnea Insomnia Lumbar spondylosis Migraine Obesity (BMI 30-39.9) Pure hypercholesterolemia Spondylosis of lumbar spine Vitamin D deficiency Surgical History History of bunionectomy History of cholecystectomy History of dilatation and curettage History of esophagogastroduodenoscopy History of surgery Hx of carpal tunnel repair Hx of hysterectomy Hx of tubal ligation Family History Mother No problems noted. Maternal Aunt Breast cancer Social History Housing: Apartment Alcohol intake: current Alcohol intake frequency: does not drink Patient Tobacco Use Status: Never used Tobacco Second Hand Smoke Exposure: Yes service: No Current occupational status: disabled Cognitive needs: No Hearing needs: No Vision needs: No Female Reproductive History Menstrual Age of Menarche: 16 Review of Systems Const All systems reviewed & are unremarkable except as noted in HPI and below ENT Reports Normal hearing present Neuro Reports Normal hearing present and Denies Abnormal speech present Physical Exam Vital Signs: Last Vital Signs Pulse 42 L 12/03/22 10:50 Resp 17 12/03/22 10:50 BP 140/76 H 12/03/22 10:50 Pulse Ox 100 12/03/22 10:50 Oxygen Delivery Method Room Air 12/03/22 10:50 BMI result Body Mass Index 38.4 Const General: cooperative, no acute distress, well developed and well groomed Nutritional Appearance: well nourished and obese Orientation/consciousness: oriented to person, oriented to place and oriented to time Limitations: language barrier HEENT Head: Yes normocephalic and Yes atraumatic Eyes General: appearance normal, both eyes and all related structures Pupils: Equal, round and reactive pupils present Neck Neck: Yes normal visual inspection and Yes no lymphadenopathy Thyroid: Thyroid normal Resp Effort & Inspection: normal respiratory effort and able to speak in complete sentences Auscultation: clear to auscultation bilaterally Cardio Rate: regular rate Rhythm: regular rhythm Heart sounds: Normal, physiologic split S2 sound present Peripheral pulses: radial pulses present and posterior tibial pulses present GI Inspection: No distended, Yes Abdominal panniculus present and Yes obesity Palpation (GI): Soft to palpation, nontender, no guarding, not rigid and No hepatosplenomegaly present Percussion: Yes normal to percussion Auscultation: normal bowel sounds Rectal Exam - Female: deferred Skin General skin exam: no rashes or lesions noted, turgor normal, skin not dry, no jaundice, No spider nevi and no striae Rashes: no rashes Nails: normal Neuro General: oriented to person, oriented to place and oriented to time Cranial nerves: Yes Equal, round and reactive pupils present and Yes Normal hearing present Speech: No Abnormal speech present Extrem General: Yes normal to inspection, No clubbing, No cyanosis and No edema Psych Appearance: grossly normal and well kempt Mental Status: mental status grossly normal Speech and movement: Normal speech and movement present Affect: normal affect Attitude: cooperative Thought process: Normal thought process present and not confabulating Thought content: Normal thought content present Insight: Limited insight present (Psych) Judgement: Limited judgement present (Psych) Assessment & Plan Assessment & Plan (1) Lumbar radiculopathy: Code(s): M54.16 - Radiculopathy, lumbar region (2) Spondylosis of lumbar spine: Code(s): M47.816 - Spondylosis without myelopathy or radiculopathy, lumbar region Plan MRI of this patient is positive for arthritis and some disc bulging on physical exam Sadiq test is negative and all these signs are pointing to facet joint arthropathy. diagnostic medial branch block resulted in mild soreness in the skin injections side however she reported 100% pain improvement postoperatively. Her pain improvement lasted for about 6 hours. She went for PNS sprint but it did not work for the patient. She reported no pain improvement on this procedure. She went for therapeutic medial branch block and received 45 days of pain improvement. She wanted to repeat this procedure however her insurance company denied coverage. The insurance wanted us to perform RFA. I will schedule her for L3-L4 does ramus L5 bilateral radiofrequency ablation. Coding Level of Care Code Est Pt Level 3 (40032) Diagnoses Lumbar radiculopathy M54.16 Spondylosis of lumbar spine M47.816
[2022-12-03 10:50] VITALS: BP 140/76; PULSE 42; RESP 17; O2SAT 100; BMI 38.4
== END 2022-12-03 11:05 | disposition home or self-care (01) ==
PROVIDERS: PCP Internal Medicine; Visit Provider Anesthesiology
DX: M54.16 Radiculopathy, lumbar region (principal); M47.816 Spondylosis without myelopathy or radiculopathy, lumbar region
CPT/HCPCS: 99213

== ENCOUNTER → 2022-12-03 10:27 | Outpatient (BNVA) | payer OTHER, SELFPAY | PROVIDERS: PCP Internal Medicine; Visit Provider Anesthesiology | DX: M54.16 Radiculopathy, lumbar region (principal); M47.816 Spondylosis without myelopathy or radiculopathy, lumbar region | CPT/HCPCS: 99212 ==

== ENCOUNTER 2022-12-20 13:37 | Emergency (ER) | payer OTHER, SELFPAY ==
--- NOTE | ~2022-12-20 | CT_ITS ---
EXAMINATION: CT CERVICAL SPINE WITHOUT CONTRAST; UNENHANCED CT OF THE HEAD. CLINICAL INFORMATION: Headache. Neck pain. COMPARISON: MRI brain 02/08/2021. CT head and cervical spine 05/16/2020. TECHNIQUE: Routine unenhanced CT of the head with multiple coronal and sagittal reformatted images; routine unenhanced CT of the cervical spine with multiple coronal and sagittal reformatted images. This CT examination was performed using dose optimization techniques as appropriate, variously including the following: *Automated exposure control *Adjustment of mA and/or kV according to patient size (this includes techniques or standardized protocols for targeted exams where dose is matched to indication/reason for exam; i.e. extremities or head) *Use of iterative reconstruction technique DLP: 1086 mGy-cm FINDINGS: CT head: No intracranial hemorrhage, tumors or acute infarcts noted. 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 Hyperostosis frontalis interna is noted. The orbits and globes are normal in appearance. Mild mucosal thickening is noted within the visualized components of the left right maxillary sinuses decreased in prominence compared with 02/08/2021 CT cervical spine: No fractures or acute appearing subluxations are noted. Moderate endplate osteophytosis and intervertebral disc space narrowing is present at C5-C6. No prevertebral fluid collections or soft tissue inflammatory changes noted. The visualized lung apices are clear. CT/CT head/brain wo IV con IMPRESSION: CT head: *No acute intercranial abnormalities. CT cervical spine: *No acute abnormalities. *Chronic spondylosis at C5-C6.
--- NOTE | ~2022-12-20 | CT_ITS ---
EXAMINATION: CT CERVICAL SPINE WITHOUT CONTRAST; UNENHANCED CT OF THE HEAD. CLINICAL INFORMATION: Headache. Neck pain. COMPARISON: MRI brain 02/08/2021. CT head and cervical spine 05/16/2020. TECHNIQUE: Routine unenhanced CT of the head with multiple coronal and sagittal reformatted images; routine unenhanced CT of the cervical spine with multiple coronal and sagittal reformatted images. This CT examination was performed using dose optimization techniques as appropriate, variously including the following: *Automated exposure control *Adjustment of mA and/or kV according to patient size (this includes techniques or standardized protocols for targeted exams where dose is matched to indication/reason for exam; i.e. extremities or head) *Use of iterative reconstruction technique DLP: 1086 mGy-cm FINDINGS: CT head: No intracranial hemorrhage, tumors or acute infarcts noted. 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 Hyperostosis frontalis interna is noted. The orbits and globes are normal in appearance. Mild mucosal thickening is noted within the visualized components of the left right maxillary sinuses decreased in prominence compared with 02/08/2021 CT cervical spine: No fractures or acute appearing subluxations are noted. Moderate endplate osteophytosis and intervertebral disc space narrowing is present at C5-C6. No prevertebral fluid collections or soft tissue inflammatory changes noted. The visualized lung apices are clear. CT/CT cervical spine wo IV con IMPRESSION: CT head: *No acute intercranial abnormalities. CT cervical spine: *No acute abnormalities. *Chronic spondylosis at C5-C6.
[2022-12-20 14:46] VITALS: BP 151/75; PULSE 57; RESP 19; TEMP 36.6; O2SAT 98; BMI 39.1
--- NOTE | 2022-12-20 14:48 | ED.GENADULT ---
HPI - General Adult General Stated complaint: back of head pain Related Data Home Medications Medication Instructions Recorded Confirmed duloxetine 60 mg capsule,delayed 60 mg PO QAM 04/04/20 10/28/22 release gabapentin 100 mg capsule 100 mg PO TID 04/04/20 10/28/22 oxybutynin chloride 10 mg 10 mg PO DAILY 04/04/20 10/28/22 tablet,extended release 24 hr trazodone 100 mg tablet 100 mg PO BEDTIME 04/04/20 10/28/22 rizatriptan 10 mg tablet 10 mg PO ONCE PRN Migraine Headache 08/06/21 10/28/22 mirabegron 50 mg tablet,extended 50 mg PO DAILY 03/14/22 10/28/22 release 24 hr (Myrbetriq) cetirizine 10 mg capsule 10 mg PO DAILY PRN Allergy Symptoms 04/29/22 10/28/22 loperamide 2 mg capsule 4 mg PO DAILY PRN loose stool 04/29/22 10/28/22 lorazepam 1 mg tablet 2 mg PO BID PRN Anxiety 04/29/22 10/28/22 promethazine 25 mg tablet 25 mg PO DAILY PRN nausea 10/22/22 10/28/22 triamcinolone acetonide 55 mcg intranasal 10/22/22 10/28/22 nasal spray aerosol Previous Rx's Medication Instructions Recorded alosetron 0.5 mg tablet (Lotronex) 0.5 mg PO BID #60 tabs 03/14/22 riboflavin (vitamin B2) 400 mg 400 mg PO DAILY 30 days #30 tabs 03/25/22 tablet famotidine 40 mg tablet 40 mg PO BID #180 tabs 07/03/22 metoclopramide HCl 5 mg tablet 5 mg PO QIDACHS #360 tabs 10/03/22 rabeprazole 20 mg tablet,delayed 20 mg PO DAILY 90 days #90 tabs 10/03/22 release (AcipHex) simethicone 180 mg capsule 180 mg PO TID 90 days #270 caps 10/03/22 clotrimazole-betamethasone 1 1 appl topical BID 2 weeks #45 10/22/22 %-0.05 % topical cream grams metronidazole 500 mg tablet 500 mg PO BID 7 days #14 tabs 10/27/22 baclofen 20 mg tablet 20 mg PO TID PRN for muscle spasm 11/07/22 #270 tabs calcium polycarbophil 625 mg 1,250 mg (2 x 625 mg) PO BID 30 11/07/22 tablet (Fiber Laxative (calcium days #120 tabs polycarbophil)) ibuprofen 800 mg tablet 800 mg PO TID PRN for pain #90 tabs 11/07/22 acetaminophen 500 mg tablet 500 mg PO Q6H PRN fever or pain 11/18/22 (Tylenol Extra Strength) #14 tabs cyclobenzaprine 5 mg tablet 5 mg PO Q8H PRN pain (scale score 11/18/22 7-10) 5 days #14 tabs lidocaine 5 % topical patch 1 patch topical DAILY PRN pain #30 11/18/22 (Lidoderm) ea naproxen 500 mg tablet 500 mg PO BID PRN pain 10 days #20 11/18/22 tabs sucralfate 1 gram tablet 2 g (2 x 1 gram) PO BEDTIME #180 11/18/22 tabs propranolol 20 mg tablet 20 mg PO DAILY #90 tabs 11/25/22 magnesium oxide 400 mg (241.3 mg 400 mg PO DAILY 30 days #30 tabs 11/28/22 magnesium) tablet cholecalciferol (vitamin D3) 25 25 mcg PO DAILY 90 days #90 caps 12/05/22 mcg (1,000 unit) capsule Allergies Allergy/AdvReac Type Severity Reaction Status Date / Time morphine [MORPHINE] Allergy Intermediate TACHYCARDIA Verified 12/20/22 14:46 codeine [Tylenol-Codeine] Allergy Unknown Unknown Verified 12/20/22 14:46 oxycodone [Percocet] Allergy Unknown unknown Verified 12/20/22 14:46 [facility] Past Medical History Medical History Allergic rhinitis Anxiety Bilateral low back pain without sciatica Carpal tunnel syndrome Daytime somnolence Depression GERD without esophagitis Hx of sleep apnea Insomnia Lumbar spondylosis Migraine Obesity (BMI 30-39.9) Pure hypercholesterolemia Spondylosis of lumbar spine Vitamin D deficiency Surgical History History of bunionectomy History of cholecystectomy History of dilatation and curettage History of esophagogastroduodenoscopy History of surgery Hx of carpal tunnel repair Hx of hysterectomy Hx of tubal ligation Family History Family History Mother No problems noted. Maternal Aunt Breast cancer Social History Social History Housing: Apartment Alcohol intake: current Alcohol intake frequency: does not drink Patient Tobacco Use Status: Never used Tobacco Second Hand Smoke Exposure: Yes service: No Current occupational status: disabled Cognitive needs: No Hearing needs: No Vision needs: No Course Course Course Narrative: Patient complains of pain in the back of her neck and some pain in her back as well, no injury and it is been hurting for several days, no numbness no weakness, no headache now This rapid medical exam in triage, pending full evaluation by ER provider for full H and P and dispo Discharge Plan Discharge Prescriptions: No Action riboflavin (vitamin B2) 400 mg tablet 400 mg PO DAILY 30 Days Qty: 30 6RF metronidazole 500 mg tablet 500 mg PO BID 7 Days Qty: 14 0RF Rx Instructions: Take with food, Avoid alcohol and vinegar products calcium polycarbophil [Fiber Laxative (ca polycarbo)] 625 mg tablet 1,250 mg PO BID 30 Days Qty: 120 6RF baclofen 20 mg tablet 20 mg PO TID PRN (Reason: for muscle spasm) Qty: 270 1RF ibuprofen 800 mg tablet 800 mg PO TID PRN (Reason: for pain) Qty: 90 3RF sucralfate 1 gram tablet 2 g PO BEDTIME Qty: 180 0RF propranolol 20 mg tablet 20 mg PO DAILY Qty: 90 1RF magnesium oxide 400 mg (241.3 mg magnesium) tablet 400 mg PO DAILY 30 Days Qty: 30 6RF Rx Instructions: may hold for loose stools cholecalciferol (vitamin D3) 25 mcg (1,000 unit) capsule 25 mcg PO DAILY 90 Days Qty: 90 3RF acetaminophen [Tylenol Extra Strength] 500 mg tablet 500 mg PO Q6H PRN (Reason: fever or pain) Qty: 14 0RF lidocaine [Lidoderm] 5 % adhesive patch,medicated 1 patch topical DAILY MDD remove after 12 hours PRN (Reason: pain) Qty: 30 0RF Rx Instructions: leave on most painful area for up to 12 hrs naproxen 500 mg tablet 500 mg PO BID PRN (Reason: pain) 10 Days Qty: 20 0RF cyclobenzaprine 5 mg tablet 5 mg PO Q8H PRN (Reason: pain (scale score 7-10)) 5 Days Qty: 14 0RF duloxetine 60 mg capsule,delayed release(DR/EC) 60 mg PO QAM gabapentin 100 mg capsule 100 mg PO TID trazodone 100 mg tablet 100 mg PO BEDTIME oxybutynin chloride 10 mg tablet extended release 24hr 10 mg PO DAILY lorazepam 1 mg tablet 2 mg PO BID PRN (Reason: Anxiety) cetirizine 10 mg capsule 10 mg PO DAILY PRN (Reason: Allergy Symptoms) loperamide 2 mg capsule 4 mg PO DAILY PRN (Reason: loose stool) Myrbetriq 50 mg tablet extended release 24 hr 50 mg PO DAILY alosetron [Lotronex] 0.5 mg tablet 0.5 mg PO BID Qty: 60 3RF Hold Instructions: Doctor's Order famotidine 40 mg tablet 40 mg PO BID Qty: 180 2RF rizatriptan 10 mg tablet 10 mg PO ONCE PRN (Reason: Migraine Headache) metoclopramide HCl 5 mg tablet 5 mg PO QIDACHS Qty: 360 1RF rabeprazole [AcipHex] 20 mg tablet,delayed release (DR/EC) 20 mg PO DAILY 90 Days Qty: 90 2RF simethicone 180 mg capsule 180 mg PO TID 90 Days Qty: 270 1RF Rx Instructions: after meals promethazine 25 mg tablet 25 mg PO DAILY PRN (Reason: nausea) triamcinolone acetonide 55 mcg aerosol,spray intranasal clotrimazole-betamethasone 1-0.05 % cream 1 appl topical BID 14 Days Qty: 45 1RF
[2022-12-20 18:46] VITALS: BP 146/61; PULSE 45; RESP 14; O2SAT 99
--- NOTE | 2022-12-20 19:07 | ECG_ITS ---
Test Reason : HEADACHE Blood Pressure : / mmHG Vent. Rate : 043 BPM Atrial Rate : 043 BPM P-R Int : 154 ms QRS Dur : 078 ms QT Int : 464 ms P-R-T Axes : 032 040 031 degrees QTc Int : 392 ms Marked sinus bradycardia Abnormal ECG When compared with ECG of 17-NOV-2020 18:38, Vent. rate has decreased BY 44 BPM QT has shortened Referred By: Generic ED Physician Electronically Signed By:DAIANA FORD
[2022-12-20 19:08] VITALS: TEMP 36.9
--- NOTE | 2022-12-20 19:20 | PC.NURSE ---
Pt c/o 9/10 headache(back of head/R-side) and neck pain and leg soreness and nausea. No sensitivity to light or sound. HR 40's , all other VSS. Discussed with Natalia SHANNON. Ordered EKG, CBC, CMP, RPP and UA.
[2022-12-20 19:24] LABS: Hemoglobin 13.9 g/dl (12.0-16.0); Mean Corpuscular HGB Conc 33.1 g/dl (31.0-35.0); Mean Corpuscular Hemoglobin 30.4 pg (27.0-33.0); Mean Corpuscular Volume 91.9 fL (80.0-98.0); Platelet Count 292 X10*3/uL (160-400); Red Blood Count 4.57 X10*6/uL (4.20-5.50); Red Cell Distribution Width 12.9 % (11.0-16.0)
[2022-12-20 19:43] LABS: Alanine Aminotransferase 14 U/L (0-31); Albumin Level 4.5 g/dL (3.5-5.0); Alkaline Phosphatase 62 U/L (39-117); Anion Gap 16 (12-20); Aspartate Amino Transferase 19 U/L (5-31); Bilirubin Total 0.5 mg/dL (0.0-1.0); Blood Urea Nitrogen 6 mg/dL (9-16); Calcium 9.9 mg/dL (8.4-10.2); Carbon Dioxide 24 mmol/L (22-29); Chloride 105 mmol/L (96-108); Creatinine Clr Calc Pharmacy 90.3; Estimated Glomerular Filt Rate > 60; Glucose Random 87 mg/dL (60-115); Sodium 141 mmol/L (135-145); Total Protein 8.1 g/dL (6.5-8.0)
[2022-12-20 20:00] VITALS: BP 151/66; PULSE 46; RESP 14; TEMP 36.9; O2SAT 100
--- NOTE | 2022-12-20 20:33 | ED.HA ---
HPI - Headache General Chief Complaint: Headache Stated Complaint: back of head pain Time Seen by Provider: 12/20/22 19:26 History of Present Illness HPI Narrative: Patient is a 52-year-old female presents today with having headache mainly on the right side. The pain is dull. It is associated with nausea. Been ongoing for about a week. History of migraine in the past. There is no focal weakness. No chest pain or diaphoresis. Patient is from home. Is associated with nausea. Related Data Home Medications Medication Instructions Recorded Confirmed duloxetine 60 mg capsule,delayed 60 mg PO QAM 04/04/20 10/28/22 release gabapentin 100 mg capsule 100 mg PO TID 04/04/20 10/28/22 oxybutynin chloride 10 mg 10 mg PO DAILY 04/04/20 10/28/22 tablet,extended release 24 hr trazodone 100 mg tablet 100 mg PO BEDTIME 04/04/20 10/28/22 rizatriptan 10 mg tablet 10 mg PO ONCE PRN Migraine Headache 08/06/21 10/28/22 mirabegron 50 mg tablet,extended 50 mg PO DAILY 03/14/22 10/28/22 release 24 hr (Myrbetriq) cetirizine 10 mg capsule 10 mg PO DAILY PRN Allergy Symptoms 04/29/22 10/28/22 loperamide 2 mg capsule 4 mg PO DAILY PRN loose stool 04/29/22 10/28/22 lorazepam 1 mg tablet 2 mg PO BID PRN Anxiety 04/29/22 10/28/22 promethazine 25 mg tablet 25 mg PO DAILY PRN nausea 10/22/22 10/28/22 triamcinolone acetonide 55 mcg intranasal 10/22/22 10/28/22 nasal spray aerosol Previous Rx's Medication Instructions Recorded alosetron 0.5 mg tablet (Lotronex) 0.5 mg PO BID #60 tabs 03/14/22 riboflavin (vitamin B2) 400 mg 400 mg PO DAILY 30 days #30 tabs 03/25/22 tablet famotidine 40 mg tablet 40 mg PO BID #180 tabs 07/03/22 metoclopramide HCl 5 mg tablet 5 mg PO QIDACHS #360 tabs 10/03/22 rabeprazole 20 mg tablet,delayed 20 mg PO DAILY 90 days #90 tabs 10/03/22 release (AcipHex) simethicone 180 mg capsule 180 mg PO TID 90 days #270 caps 10/03/22 clotrimazole-betamethasone 1 1 appl topical BID 2 weeks #45 10/22/22 %-0.05 % topical cream grams metronidazole 500 mg tablet 500 mg PO BID 7 days #14 tabs 10/27/22 baclofen 20 mg tablet 20 mg PO TID PRN for muscle spasm 11/07/22 #270 tabs calcium polycarbophil 625 mg 1,250 mg (2 x 625 mg) PO BID 30 11/07/22 tablet (Fiber Laxative (calcium days #120 tabs polycarbophil)) ibuprofen 800 mg tablet 800 mg PO TID PRN for pain #90 tabs 11/07/22 acetaminophen 500 mg tablet 500 mg PO Q6H PRN fever or pain 11/18/22 (Tylenol Extra Strength) #14 tabs cyclobenzaprine 5 mg tablet 5 mg PO Q8H PRN pain (scale score 11/18/22 7-10) 5 days #14 tabs lidocaine 5 % topical patch 1 patch topical DAILY PRN pain #30 11/18/22 (Lidoderm) ea naproxen 500 mg tablet 500 mg PO BID PRN pain 10 days #20 11/18/22 tabs sucralfate 1 gram tablet 2 g (2 x 1 gram) PO BEDTIME #180 11/18/22 tabs propranolol 20 mg tablet 20 mg PO DAILY #90 tabs 11/25/22 magnesium oxide 400 mg (241.3 mg 400 mg PO DAILY 30 days #30 tabs 11/28/22 magnesium) tablet cholecalciferol (vitamin D3) 25 25 mcg PO DAILY 90 days #90 caps 12/05/22 mcg (1,000 unit) capsule ibuprofen 400 mg tablet 400 mg PO Q6H PRN pain #20 tabs 12/20/22 ondansetron 4 mg disintegrating 4 mg PO TID PRN nausea and 12/20/22 tablet vomiting 5 days #10 tabs Allergies Allergy/AdvReac Type Severity Reaction Status Date / Time morphine [MORPHINE] Allergy Intermediate TACHYCARDIA Verified 12/20/22 14:46 codeine [Tylenol-Codeine] Allergy Unknown Unknown Verified 12/20/22 14:46 oxycodone [Percocet] Allergy Unknown unknown Verified 12/20/22 14:46 Review of Systems Review of Systems: Positive headache Positive nausea No focal weakness No fever Symptoms ongoing for 1 week [facility] Past Medical History Medical History Hx of sleep apnea Migraine Lumbar spondylosis Spondylosis of lumbar spine Daytime somnolence Obesity (BMI 30-39.9) Depression Anxiety Insomnia Vitamin D deficiency Carpal tunnel syndrome Bilateral low back pain without sciatica GERD without esophagitis Allergic rhinitis Pure hypercholesterolemia Surgical History Hx of tubal ligation History of surgery History of dilatation and curettage Hx of hysterectomy History of bunionectomy Hx of carpal tunnel repair History of esophagogastroduodenoscopy History of cholecystectomy Family History Family History Mother No problems noted. Maternal Aunt Breast cancer Social History Social History Housing: Apartment Alcohol intake: never Patient Tobacco Use Status: Never used Tobacco Smoked in Last 30 Days: No Second Hand Smoke Exposure: Yes Use of substances other than those prescribed or required for medical reasons: No Advance Directives: No Advance Directives Information Provided: No Patient : No service: No Current occupational status: disabled Cognitive needs: No Hearing needs: No Vision needs: No Physical Exam Vital Signs: Vital Signs: Last Vital Signs Temp 97.7 F 12/20/22 22:00 Pulse 53 12/20/22 22:00 Resp 20 12/20/22 22:00 BP 127/53 L 12/20/22 22:00 Pulse Ox 97 12/20/22 22:00 O2 Del Method Room Air 12/20/22 22:00 BMI result Body Mass Index 39.1 Appearance: Alert. Oriented X3. No acute distress. Eyes: Pupils equal, round and reactive to light. ENT: Pharynx normal. Neck: Normal inspection. Neck supple. No lymph nodes noted. No crepitus CVS: Normal heart rate and rhythm. Pulses normal. Normal S1 and S2 Respiratory: No respiratory distress. Breath sounds normal. No Wheezing. No rales Abdomen: Soft and nontender. No rigidity. No distention. good BS x4 Skin: Skin warm and dry. Normal skin color. Normal skin turgor. Extremities: No lower extremity edema. Neurovascular intact to all extremities. No Lacerations. No Rash Neuro: Oriented X 3. No motor deficit. No sensory deficit. Moving all extermities. No slurred speech Medications Administered Discontinued Medications Generic Name Dose Route Start Last Admin Trade Name Kassidy PRN Reason Stop Dose Admin Diphenhydramine HCl 50 mg 12/20/22 20:30 12/20/22 21:08 Diphenhydramine Hcl 50 Mg/Ml Vial IVPUSH 12/20/22 20:31 50 mg ONCE ONE Administration Ketorolac Tromethamine 15 mg 12/20/22 20:30 12/20/22 21:08 Ketorolac Tromethamine 15 Mg/Ml Vial IVPUSH 12/20/22 20:31 15 mg ONCE ONE Administration Prochlorperazine Edisylate 10 mg 12/20/22 20:30 12/20/22 21:08 Prochlorperazine Edisylate 10 Mg/2 Ml Vial IVPUSH 12/20/22 20:31 10 mg ONCE ONE Administration Medical Decision Making Medical Decision Making MDM Narrative: Positive headache mainly on the right side radiates down to the neck. Worsened with light. There is no fever no chills no focal weakness. Has a history of migraine very similar to previous bouts of migraine. Patient given migraine treatment including Compazine, Benadryl, Toradol with good resolution of symptoms. Patient states that her symptom is much improved. Will discharge patient home. Initially patient insisted on getting a CT scan of the head. Explained to patient the risk benefit of getting a CT. Patient did not feel comfortable without getting a CT scan. A CT head was done it was grossly negative for any acute evidence of fractured no acute bleed. [place] patient's risk of bleed is very low. Differential Diagnosis Differential Diagnoses: The differential diagnosis associated with the presentation includes Intracranial bleed, intracranial mass, migraine Admission/Observation Consideration of admission/observation: Escalation of care including admission/observation considered Symptoms much improved no need for admission Lab Data MDM Lab Attestation statement: I reviewed the patient's lab results. 12/20/22 19:17 12/20/22 19:17 Labs: Lab Results 12/20/22 12/20/22 12/20/22 Range/Units 19:17 20:22 20:45 WBC 15.0 H (4.8-10.8) X10*3/uL RBC 4.57 (4.20-5.50) X10*6/uL Hgb 13.9 (12.0-16.0) g/dl Hct 42.0 (37.0-47.0) % MCV 91.9 (80.0-98.0) fL MCH 30.4 (27.0-33.0) pg MCHC 33.1 (31.0-35.0) g/dl RDW 12.9 (11.0-16.0) % Plt Count 292 (160-400) X10*3/uL MPV 11.0 (9.4-12.3) fL Absolute Nucleated RBC 0.000 (0.0-0.012) X10*3/uL Nucleated RBC % (auto) 0.0 (0.0-0.2) /100WBC Sodium 141 (135-145) mmol/L Potassium 4.0 (3.3-5.1) mmol/L Chloride 105 (96-108) mmol/L Carbon Dioxide 24 (22-29) mmol/L Anion Gap 16 (12-20) BUN 6 L (9-16) mg/dL Creatinine 0.81 (0.5-1.4) mg/dL Estim Creat Clear Calc 90.3 Estimated GFR > 60 Random Glucose 87 (60-115) mg/dL Calcium 9.9 (8.4-10.2) mg/dL Total Bilirubin 0.5 (0.0-1.0) mg/dL AST 19 (5-31) U/L ALT 14 (0-31) U/L Alkaline Phosphatase 62 (39-117) U/L Total Protein 8.1 H (6.5-8.0) g/dL Albumin 4.5 (3.5-5.0) g/dL Beta HCG, Quant < 2 mIU/mL Urine Color Yellow Urine Appearance Cloudy Urine pH 5.5 (5.0-9.0) Ur Specific [place] 1.015 (1.005-1.025) Urine Protein Negative (Neg-Trace) mg/dL Urine Glucose (UA) Negative (Negative) mg/dL Urine Ketones Negative (Negative) mg/dL Urine Blood Negative (Negative) Urine Nitrite Negative (Negative) Ur Leukocyte Esterase Small (1+) H (Negative) Urine RBC 0-2 (0-2) /HPF Urine WBC 11-20 H (0-5) /HPF Ur Squamous Epith Cells 11-20 (0-2) /HPF Urine Bacteria 1+ (None Seen) Hyaline Casts 0-2 (0-2) /LPF COVID-19 (RADHA) Negative (Negative) COVID-19 Clin Com See Note Independent Interpretation I performed an independent interpretation of an: CT Scan Interpretation: CT scan of the head was grossly negative for any acute evidence of bleeding Radiology Impression Discussion of test interpretation with radiology: I have reviewed the radiologist's reading. External Record Review External record reviewed: Inpatient record Chronic Conditions Migraine Discharge Plan Discharge Clinical Impression: Migraine Patient Disposition: Home, Self-Care Instructions: Migraine Headache (ED) Prescriptions: New ibuprofen 400 mg tablet 400 mg PO Q6H PRN (Reason: pain) Qty: 20 0RF ondansetron 4 mg tablet,disintegrating 4 mg PO TID PRN (Reason: nausea and vomiting) 5 Days Qty: 10 0RF No Action riboflavin (vitamin B2) 400 mg tablet 400 mg PO DAILY 30 Days Qty: 30 6RF metronidazole 500 mg tablet 500 mg PO BID 7 Days Qty: 14 0RF Rx Instructions: Take with food, Avoid alcohol and vinegar products calcium polycarbophil [Fiber Laxative (ca polycarbo)] 625 mg tablet 1,250 mg PO BID 30 Days Qty: 120 6RF baclofen 20 mg tablet 20 mg PO TID PRN (Reason: for muscle spasm) Qty: 270 1RF ibuprofen 800 mg tablet 800 mg PO TID PRN (Reason: for pain) Qty: 90 3RF sucralfate 1 gram tablet 2 g PO BEDTIME Qty: 180 0RF propranolol 20 mg tablet 20 mg PO DAILY Qty: 90 1RF magnesium oxide 400 mg (241.3 mg magnesium) tablet 400 mg PO DAILY 30 Days Qty: 30 6RF Rx Instructions: may hold for loose stools cholecalciferol (vitamin D3) 25 mcg (1,000 unit) capsule 25 mcg PO DAILY 90 Days Qty: 90 3RF acetaminophen [Tylenol Extra Strength] 500 mg tablet 500 mg PO Q6H PRN (Reason: fever or pain) Qty: 14 0RF lidocaine [Lidoderm] 5 % adhesive patch,medicated 1 patch topical DAILY MDD remove after 12 hours PRN (Reason: pain) Qty: 30 0RF Rx Instructions: leave on most painful area for up to 12 hrs naproxen 500 mg tablet 500 mg PO BID PRN (Reason: pain) 10 Days Qty: 20 0RF cyclobenzaprine 5 mg tablet 5 mg PO Q8H PRN (Reason: pain (scale score 7-10)) 5 Days Qty: 14 0RF duloxetine 60 mg capsule,delayed release(DR/EC) 60 mg PO QAM gabapentin 100 mg capsule 100 mg PO TID trazodone 100 mg tablet 100 mg PO BEDTIME oxybutynin chloride 10 mg tablet extended release 24hr 10 mg PO DAILY lorazepam 1 mg tablet 2 mg PO BID PRN (Reason: Anxiety) cetirizine 10 mg capsule 10 mg PO DAILY PRN (Reason: Allergy Symptoms) loperamide 2 mg capsule 4 mg PO DAILY PRN (Reason: loose stool) Myrbetriq 50 mg tablet extended release 24 hr 50 mg PO DAILY alosetron [Lotronex] 0.5 mg tablet 0.5 mg PO BID Qty: 60 3RF Hold Instructions: Doctor's Order famotidine 40 mg tablet 40 mg PO BID Qty: 180 2RF rizatriptan 10 mg tablet 10 mg PO ONCE PRN (Reason: Migraine Headache) metoclopramide HCl 5 mg tablet 5 mg PO QIDACHS Qty: 360 1RF rabeprazole [AcipHex] 20 mg tablet,delayed release (DR/EC) 20 mg PO DAILY 90 Days Qty: 90 2RF simethicone 180 mg capsule 180 mg PO TID 90 Days Qty: 270 1RF Rx Instructions: after meals promethazine 25 mg tablet 25 mg PO DAILY PRN (Reason: nausea) triamcinolone acetonide 55 mcg aerosol,spray intranasal clotrimazole-betamethasone 1-0.05 % cream 1 appl topical BID 14 Days Qty: 45 1RF Referrals: Dc Bennett MD [Primary Care Provider] - Print Language: Lithuanian
--- NOTE | 2022-12-20 20:51 | PC.NURSE ---
Pt in CT
[2022-12-20 21:04] LABS: COVID-19 Test Negative (Negative); IDNOW Serial# BCCEAD1C
[2022-12-20 21:08] LABS: Appearance Urine Cloudy; Color Urine Yellow; Glucose Urine UA Negative (Negative); Leukocyte Esterase Urine Small (1+) (Negative); Nitrite Urine Negative (Negative); PH 5.5 (5.0-9.0); Specific Gravity - Urine 1.015 (1.005-1.025); UMIC TRIGGER UACC YES; Urine Blood Negative (Negative); Urine Ketones Negative (Negative); Urine Protein Negative (Neg-Trace)
[2022-12-20] MEDS: Prochlorperazine Edisylate 10 MG/2 ML VIAL IVPUSH (21:08)
[2022-12-20] MEDS: diphenhydrAMINE HCL 50 MG/ML VIAL IVPUSH (21:08)
[2022-12-20] MEDS: Ketorolac Tromethamine 15 MG/ML VIAL IVPUSH (21:08)
[2022-12-20 21:13] LABS: Bacteria Urine 1+ (None Seen); Hyaline Casts Urine 0-2 /LPF (0-2); RBC Urine 0-2 /HPF (0-2); UACC Culture Trigger YES
[2022-12-20 21:30] LABS: HCG Quantitative < 2 mIU/mL
[2022-12-20 22:00] VITALS: BP 127/53; PULSE 53; RESP 20; TEMP 36.5; O2SAT 97
[2022-12-20 23:40] VITALS: BP 116/49; PULSE 56; RESP 18; TEMP 36.4; O2SAT 97
[2022-12-21 09:20] LABS: Adenovirus PCR Not Detected (Not Detect.); Bordetella parapertussis PCR Not Detected (Not Detect.); Bordetella pertussis PCR Not Detected (Not Detect.); Chlamydia pneumoniae PCR Not Detected (Not Detect.); Coronavirus 229E PCR Not Detected (Not Detect.); Coronavirus HKU1 PCR Not Detected (Not Detect.); Coronavirus NL63 PCR Not Detected (Not Detect.); Coronavirus OC43 PCR Not Detected (Not Detect.); Human metapneumovirus PCR Not Detected (Not Detect.); Influenza A PCR Not Detected (Not Detect.); Influenza B PCR Not Detected (Not Detect.); Mycoplasma pneumoniae PCR Not Detected (Not Detect.); Parainfluenza 1 PCR Not Detected (Not Detect.); Parainfluenza 2 PCR Not Detected (Not Detect.); Parainfluenza 3 PCR Not Detected (Not Detect.); Parainfluenza 4 PCR Not Detected (Not Detect.); RSV PCR Not Detected (Not Detect.); Rhino/Enterovirus PCR Not Detected (Not Detect.); SARS-CoV-2 PCR Not Detected (Not Detect.)
== END 2022-12-20 23:41 | disposition home or self-care (01) ==
PROVIDERS: Emergency Provider Emergency Medicine Emergency Medical Services; PCP Internal Medicine
DX: G43.909 Migraine, unspecified, not intractable, without status migrainosus (principal); E78.00 Pure hypercholesterolemia, unspecified; Z79.899 Other long term (current) drug therapy; Z20.822 Contact with and (suspected) exposure to COVID-19
CPT/HCPCS: 36415; 70450; 72125; 80053; 81001; 84702; 85027; 87086; 87633; 87635; 93005; 96374; 96375; 99284; 99285; J1200; J1885

== ENCOUNTER 2022-12-24 13:32 | Outpatient (AMB) | payer OTHER, SELFPAY ==
--- NOTE | 2022-12-24 13:35 | A.OFFPC_ITS ---
Vital Signs 12/24/22 13:36 Height 5 ft 2 in Weight 210 lb BMI 38.4 BP 130/82 Blood Pressure Location Lt brachial Position Sitting Intake Visit Reasons: patient requested physical appointment Intake Note: patient here for a physical exam [employer] Required: Yes [employer] Language: Chinese Accompanied by: Self / Same As Patient Allergies morphine [MORPHINE] Allergy (Intermediate, Verified 12/24/22 14:59) TACHYCARDIA codeine [Tylenol-Codeine] Allergy (Unknown, Verified 12/24/22 14:59) Unknown oxycodone [Percocet] Allergy (Unknown, Verified 12/24/22 14:59) unknown Medication List - Last Reconciled 12/24/22 by Dc Bennett MD acetaminophen (Tylenol Extra Strength) 500 mg PO Q6H PRN alosetron (Lotronex) 0.5 mg PO BID calcium polycarbophil (Fiber Laxative (calcium polycarbophil)) 1,250 mg (2 x 625 mg) PO BID 30 days cetirizine 10 mg PO DAILY PRN cholecalciferol (vitamin D3) 25 mcg PO DAILY 90 days clotrimazole-betamethasone 1-0.05 % 1 appl topical BID 2 weeks cyclobenzaprine 5 mg PO Q8H PRN 5 days duloxetine 60 mg PO QAM famotidine 40 mg PO BID gabapentin 100 mg PO TID ibuprofen 800 mg PO TID PRN lidocaine 5% (Lidoderm) 1 patch topical DAILY PRN MDD remove after 12 hours loperamide 4 mg PO DAILY PRN lorazepam 2 mg PO BID PRN magnesium oxide 400 mg PO DAILY 30 days methocarbamol 500 mg PO TID PRN metoclopramide HCl 5 mg PO QIDACHS mirabegron ER (Myrbetriq) 50 mg PO DAILY naproxen 500 mg PO BID PRN 10 days ondansetron 4 mg PO TID PRN 5 days oxybutynin chloride ER 10 mg PO DAILY promethazine 25 mg PO DAILY PRN propranolol 20 mg PO DAILY rabeprazole (AcipHex) 20 mg PO DAILY 90 days riboflavin (vitamin B2) 400 mg PO DAILY 30 days rizatriptan 10 mg PO ONCE PRN simethicone 180 mg PO TID 90 days sucralfate 2 grams (2 x 1 gram) PO BEDTIME trazodone 100 mg PO BEDTIME triamcinolone acetonide intranasal Tobacco use date assessed: 12/24/22 Dental Screening Dental Screen Date: 12/24/22 Did you have a dental visit in the last 12 months?: No Did you have a dental problem in the last 6 months where you did not have access to dental care?: No Was dental information given to patient?: Patient has dentist HPI patient requested physical appointment HPI Details Patient comes in today for her annual physical examination States that she is still experiencing increased pain over her lower back Is currently waiting for Dr. Tran to schedule her surgery for RFA ablation Feels that her Baclofen is no longer helping with her pain and would like to try something different Adds that she needs a letter from us to housing to help her in her request to move into a first floor apartment due to her lower back issues Patient also went to the ER a few days ago for increasing headaches - relates that she had some labs done while she was there States that she has been using her CPAP device when sleeping at night for a while now but notes that she still wakes up feeling fatigued and exhausted She denies any headaches or dizziness lately Denies any chest pains, no increased shortness of breath Nausea/vomiting, no abdominal pain No change in bowel habits noted Denies any acute urinary symptoms Needs her Propranolol Rx refilled Had her follow up labs done a few days ago but these were non-fasting labs and did not include her fasting lipids She is currently awaiting scheduling for her colonoscopy Is 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-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 and is scheduled to have these done again next year in October 2023 [facility] Medical History Hx of sleep apnea Migraine Lumbar spondylosis Spondylosis of lumbar spine Daytime somnolence Obesity (BMI 30-39.9) Depression Anxiety Insomnia Vitamin D deficiency Carpal tunnel syndrome Bilateral low back pain without sciatica GERD without esophagitis Allergic rhinitis Pure hypercholesterolemia Surgical History Hx of tubal ligation History of surgery History of dilatation and curettage Hx of hysterectomy History of bunionectomy Hx of carpal tunnel repair History of esophagogastroduodenoscopy History of cholecystectomy Family History Mother No problems noted. Maternal Aunt Breast cancer Social History Housing: Apartment Alcohol intake: never Patient Tobacco Use Status: Never used Tobacco e-Cigarette/Vaping Use: Never Used Second Hand Smoke Exposure: Yes service: No Current occupational status: disabled Cognitive needs: No Hearing needs: No Vision needs: No Female Reproductive History Menstrual Age of Menarche: 16 Questionnaire PHQ-9 Over the last 2 weeks, how often have you been bothered by any of the following problems? 1. Little interest or pleasure in doing things: not at all 2. Feeling down, depressed, or hopeless: not at all 3. Trouble falling or staying asleep, or sleeping too much: not at all 4. Feeling tired or having little energy: not at all 5. Poor appetite or overeating: not at all 6. Feeling bad about yourself - or that you are a failure or have let yourself or your family down: not at all 7. Trouble concentrating on things, such as reading the newspaper or watching television: not at all 8. Moving or speaking so slowly that other people could have noticed. Or the opposite - being so fidgety or restless that you have been moving around a lot more than usual: not at all 9. Thoughts that you would be better off or of hurting yourself in some way: not at all Total score: 0 Depression Screening Interpretation: Negative 67596 - PHQ-9 Billing: Yes Source: Developed by Drs. Brett Bocanegra, Cheryl Elias, Akira Trevino and colleagues, with an educational shiloh from [employer]. Thrive Questionnaire Date Thrive assessed: 12/24/22 I am a: Patient What is your living situation today?: I have a steady place to live Within the past 12 months, did the food you bought not last and you didn't have the money to get more?: Never true Within the past 12 months, did you worry whether your food would run out before you got money to buy more?: Never true Do you have trouble paying for medicines?: No Do you have trouble getting transportation to medical appointments?: No Do you have trouble paying your heating and electricity bill?: No Do you have trouble taking care of your child, family member or friend?: No Do you have trouble with day-to-day activities such as bathing, preparing meals, shopping, managing finances, etc.?: No Are you currently unemployed and looking for a job?: No Are you interested in more education?: No Please select the resources that you would like help with: None Currently or been in a relationship where the following occur: no concerns reported AUDIT C Alcohol Use Questionnaire (AUDIT-C) 1. How often do you have a drink containing alcohol?: Monthly or less 2. How many drinks containing alcohol do you have on a typical day when you are drinking?: 1 or 2 3. How often do you have six or more drinks on one occasion?: Never Total Score: 1 Score Reviewed/Action Taken: Yes REI-7 AMB Questionnaire REI-7 Date REI - 7 assessed: 12/24/22 Feeling nervous, anxious, or on edge: 0 = Not at all Not being able to stop or control worryin = Not at all Worrying too much about different things: 0 = Not at all Trouble relaxin = Not at all Being so restless that it is hard to sit still: 0 = Not at all Becoming easily annoyed or irritable: 0 = Not at all Feeling afraid as if something awful might happen: 0 = Not at all Total REI-7 score (0-4 normal; 5-9 mild; 10-14 moderate; 15-21 severe): 0 Source: Developed by Drs. Brett Bocanegra, Cheryl Elias, Akira Trevino and colleagues, with an educational shiloh from [employer]. Review of Systems Const All systems reviewed & are unremarkable except as noted in HPI and below Denies chills, Reports fatigue, Denies fever(s), Denies headache(s) and Denies malaise Eyes Denies blurry vision, Denies change in vision, Denies irritation and Denies itchy eyes ENT Denies dysphagia, Denies dizziness, Denies otalgia, Denies headache(s), Denies nasal congestion, Denies neck pain, Denies odynophagia, Denies sinus pain and Denies sore throat Card Denies chest pain, Denies rapid heart rate, Denies irregular heart rhythm, Denies palpitations and Denies dyspnea Resp Denies chest congestion, Denies cough, Denies dyspnea and Denies wheezing GI Denies abdominal pain, Denies bloating, Denies constipation, Denies dysphagia, Denies heartburn, Denies diarrhea, Denies nausea, Denies odynophagia and Denies vomiting Denies hematuria, Denies urinary frequency, Denies dysuria, Denies urinary incontinence and Denies urinary urgency Musc Reports back pain (increased, over the lower back), Denies arthralgias, Denies joint swelling, Denies muscle weakness and Denies neck pain Skin/Breast Denies breast pain, Denies breast mass, Denies change in pigmentation, Denies lesions, Denies rash and Denies unusual bruising Neuro Denies dizziness, Denies headache(s) and Denies paresthesias Psych Denies anxiety and Denies depression Endo Reports fatigue and Denies palpitations Jorge/Lymph Denies easy bruising Aller/Immun Denies itchy eyes and Denies wheezing Physical exam (Primary Care) Vital Signs: Last Vital Signs BP 130/82 12/24/22 13:36 BMI result Body Mass Index 38.4 Tobacco/Smoking Status: Tobacco use Status Tobacco use date assessed 12/24/22 12/24/22 13:42 Patient Tobacco Use Status Never used Tobacco 12/24/22 13:42 e-Cigarette/Vaping Use Never Used 12/24/22 13:42 PHQ-9: PHQ-9 Score PHQ-9: Total score 0 12/24/22 14:50 Depression Screening Interpretation: Negative Thrive Assessment: Date of Thrive Assessment Date Thrive assessed 12/24/22 12/24/22 13:42 Currently or been in a relationship where the following occur: no concerns reported Const General: no acute distress and alert Orientation/consciousness: patient oriented x3 HENMT Head: Yes normocephalic and Yes atraumatic Ears: TM's normal bilaterally and EAC's normal General nose exam: No nasal discharge present Face and sinus: Yes normal facial exam and Yes sinuses nontender Teeth and gingiva: dentition normal Throat: Yes posterior oropharynx normal and Yes tonsils normal (no TP congestion) Eyes Eyelids: Yes eyelids normal Conjunctivae: conjunctivae normal Pupils: Equal, round and reactive pupils present EOM: EOMs intact bilaterally Neck Neck: Yes no lymphadenopathy and Yes supple Thyroid: Thyroid normal Resp Auscultation: clear to auscultation bilaterally, no rales and no wheezes Cardio Rate: regular rate Rhythm: regular rhythm Heart sounds: no murmurs GI Palpation (GI): Soft to palpation, nontender and No hepatosplenomegaly present Auscultation: normal bowel sounds General: Yes no CVA tenderness Back/Spine/Pelvis Back: no CVA tenderness Thoracic/Lumbar Spine: lumbar spinal tenderness Skin Lesions: no lesions Rashes: no rashes Neuro General: patient oriented x3, moves all extremities, no focal motor deficits and CN's II-XI intact bilaterally Cranial nerves: Yes Equal, round and reactive pupils present Cognition (Neuro): normal cognition Gait exam (Neuro): Normal gait present Extrem General: Yes no clubbing, cyanosis or edema Results Reviewed Results Reviewed: Laboratory Tests 12/20/22 12/20/22 12/20/22 19:17 19:17 20:22 WBC 15.0 H Hgb 13.9 Hct 42.0 Plt Count 292 Sodium 141 Potassium 4.0 Creatinine 0.81 Estimated GFR > 60 Random Glucose 87 Calcium 9.9 AST 19 ALT 14 Total Protein 8.1 H Ur Specific [place] 1.015 Urine Protein Negative Urine Glucose (UA) Negative Urine Blood 12/20/22 20:22 WBC Hgb Hct Plt Count Sodium Potassium Creatinine Estimated GFR Random Glucose Calcium AST ALT Total Protein Ur Specific [place] Urine Protein Urine Glucose (UA) Urine Blood Negative Assessment and Plan Assessment & Plan (1) Annual physical exam: Code(s): Z00.00 - Encounter for general adult medical examination without abnormal findings Plan: Results of her labs done a few days ago reviewed and discussed with patient but these were not fasting She is currently awaiting scheduling for her screening colonoscopy She is up-to-date with her annual mammogram - was last done in October 2022 She is also 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 and is scheduled to have these rechecked in October 2023 (2) Pure hypercholesterolemia: Code(s): E78.00 - Pure hypercholesterolemia, unspecified Plan: Reinforced low cholesterol diet Advised to continue working on lowering / improving her cholesterol numbers and she can avoid having to go on cholesterol-lowering medications if she continues to show improvement Will recheck her labs and fasting lipids in 3 months for follow up (3) Migraine: Comment: taking propranolol for migraine prophylaxis Code(s): G43.909 - Migraine, unspecified, not intractable, without status migrainosus Qualifiers: Migraine type: unspecified Status migrainosus presence: without status migrainosus Intractability: not intractable Qualified Code(s): G43.909 - Migraine, unspecified, not intractable, without status migrainosus Plan: Continue Fioricet 50-300-40 mg every 8 hours PRN and Propranolol 20 mg QD Follow up with neurology (Dr. Maradiaga) as scheduled (4) Irritable bowel syndrome with diarrhea: Code(s): K58.0 - Irritable bowel syndrome with diarrhea Plan: Continue Dicyclomine 20 mg QID PRN (Rx refilled), Loperamide 2 mg QID PRN and Fiber Laxative 625 mg QID PRN Follow up with GI as scheduled (5) GERD (gastroesophageal reflux disease): Code(s): K21.9 - Gastro-esophageal reflux disease without esophagitis Qualifiers: Esophagitis presence: without esophagitis Qualified Code(s): K21.9 - Gastro-esophageal reflux disease without esophagitis Plan: Dietary restrictions reinforced Continue Dexilant 60 mg QD Follow up with GI as scheduled (6) Allergic rhinitis: Comment: Allergy testing done at Dr. Pedraza's office in 2019 revealed that patient is allergic to cats and dust mites Code(s): J30.9 - Allergic rhinitis, unspecified Qualifiers: Allergic rhinitis seasonality: unspecified Allergic rhinitis trigger: unspecified Qualified Code(s): J30.9 - Allergic rhinitis, unspecified Plan: Continue Cetirizine 10 mg QD PRN and Fluticasone nasal spray QD PRN (7) Lumbar spondylosis: Comment: (+) scoliosis Code(s): M47.816 - Spondylosis without myelopathy or radiculopathy, lumbar region Plan: Her low back pain is most likely also partly related to her scoliosis Continue Meloxicam 15 mg QD with food PRN States that her Baclofen does not seem to be helping her much lately - will try switching these to Methocarbamol 500 mg TID PRN Follow up with pain management as scheduled (8) Carpal tunnel syndrome: Comment: S/P CTS surgery bilaterally Code(s): G56.00 - Carpal tunnel syndrome, unspecified upper limb Qualifiers: Laterality: bilateral Qualified Code(s): G56.03 - Carpal tunnel syndrome, bilateral upper limbs Plan: Encouraged to continue wearing her wrist braces to help minimize and manage her symptoms Follow up with orthopedics as scheduled or as needed (9) Vitamin D deficiency: Code(s): E55.9 - Vitamin D deficiency, unspecified Plan: Continue Vitamin D3 1000 units QD (10) Insomnia: Code(s): G47.00 - Insomnia, unspecified Qualifiers: Insomnia type: unspecified Qualified Code(s): G47.00 - Insomnia, unspecified Plan: Sleep hygiene reinforced Continue Trazodone 100 mg once a day at bedtime PRN (11) Anxiety: Code(s): F41.9 - Anxiety disorder, unspecified Plan: Continue Lorazepam 0.5 mg twice a day as needed (12) Depression: Code(s): F32.9 - Major depressive disorder, single episode, unspecified Qualifiers: Active/Remission status: currently active Depression Type: major depressive disorder Major depression episode severity: unspecified Major depression recurrence: recurrent Qualified Code(s): F33.9 - Major depressive disorder, recurrent, unspecified Plan: Continue Sertraline 100 mg once a day Follow-up with Psychiatry as scheduled (13) Obesity (BMI 30-39.9): Code(s): E66.9 - Obesity, unspecified Plan: Reinforced diet/exercise as tolerated/lose weight Plan Follow up in 3 months Orders: Orders Complete Blood Count Auto Diff 3 Months I10 - Essential (primary) hypertension UA CC w/rflx Micro + Cult 3 Months R30.0 - Dysuria Vitamin D 25-OH Total 3 Months E55.9 - Vitamin D deficiency, unspecified Comprehensive [place]. Panel Fast 3 Months E78.00 - Pure hypercholesterolemia, unspecified Lipid Panel 3 Months E78.00 - Pure hypercholesterolemia, unspecified TSH reflex Free T4 3 Months E78.00 - Pure hypercholesterolemia, unspecified Medications: New methocarbamol 500 mg PO TID PRN 90 tabs 0RF muscle spasms / pain Refilled propranolol 20 mg PO DAILY 90 tabs 1RF Discontinued baclofen Discontinued Reason: Doctor's Order 20 mg PO TID PRN 270 tabs 1RF for muscle spasm M54.5 - Low back pain Coding Level of Care Code Est Pt Prev Care 40-64y(82957) Diagnoses Annual physical exam Z00.00 Pure hypercholesterolemia E78.00 Migraine without status migrainosus, not intractable, unspecified migraine type G43.909 Migraine type: unspecified Status migrainosus presence: without status migrainosus Intractability: not intractable Irritable bowel syndrome with diarrhea K58.0 Gastroesophageal reflux disease without esophagitis K21.9 Esophagitis presence: without esophagitis Allergic rhinitis, unspecified seasonality, unspecified trigger J30.9 Allergic rhinitis seasonality: unspecified Allergic rhinitis trigger: unspecified Lumbar spondylosis M47.816 Bilateral carpal tunnel syndrome G56.03 Laterality: bilateral Vitamin D deficiency E55.9 Insomnia, unspecified type G47.00 Insomnia type: unspecified Anxiety F41.9 Episode of recurrent major depressive disorder, unspecified depression episode severity F33.9 Active/Remission status: currently active Depression Type: major depressive disorder Major depression episode severity: unspecified Major depression recurrence: recurrent Obesity (BMI 30-39.9) E66.9
[2022-12-24 13:36] VITALS: BP 130/82; BMI 38.4
== END 2022-12-24 14:58 | disposition home or self-care (01) ==
PROVIDERS: PCP Internal Medicine; Visit Provider Internal Medicine
DX: Z00.00 Encounter for general adult medical examination without abnormal findings (principal); G43.909 Migraine, unspecified, not intractable, without status migrainosus; K58.0 Irritable bowel syndrome with diarrhea; K21.9 Gastro-esophageal reflux disease without esophagitis; E55.9 Vitamin D deficiency, unspecified; F41.9 Anxiety disorder, unspecified; F33.9 Major depressive disorder, recurrent, unspecified; E78.00 Pure hypercholesterolemia, unspecified; J30.9 Allergic rhinitis, unspecified; M47.816 Spondylosis without myelopathy or radiculopathy, lumbar region; G56.03 Carpal tunnel syndrome, bilateral upper limbs; G47.00 Insomnia, unspecified
CPT/HCPCS: 99396

== ENCOUNTER 2023-02-18 09:55 | Outpatient (AMB) | payer OTHER, SELFPAY ==
[2023-02-18 10:02] VITALS: BP 117/59; PULSE 59; BMI 38.6
--- NOTE | 2023-02-18 10:02 | MHC.OFFVIS ---
Intake Vital Signs 02/18/23 10:02 Height 5 ft 2 in Weight 211 lb 3.245 oz BMI 38.6 BP 117/59 L Blood Pressure Location Lt brachial Position Sitting Pulse 59 Intake Visit Reasons: Follow up diarrhea Intake Note: Patient returns to in office visit today in follow up of diarrhea. CC: Patient reports that since Loperamide was stopped she started having diarrhea again and abdominal pain. Configuration Specialist Required: Yes Accompanied by: Self / Same As Patient Allergies morphine [MORPHINE] Allergy (Intermediate, Verified 02/18/23 10:04) TACHYCARDIA codeine [Tylenol-Codeine] Allergy (Unknown, Verified 02/18/23 10:04) Unknown oxycodone [Percocet] Allergy (Unknown, Verified 02/18/23 10:04) unknown HPI Follow up diarrhea HPI Details Assessment & Plan (1) GERD (gastroesophageal reflux disease): Code(s): K21.9 - Gastro-esophageal reflux disease without esophagitis Qualifiers: Esophagitis presence: without esophagitis Qualified Code(s): K21.9 - Gastro-esophageal reflux disease without esophagitis Plan: [place] [facility] She continues to do well. She continues on her Lotronex 0.5 along with her famotidine AcipHex with good control of her diarrhea and GERD. She is due for colonoscopy and is agreeable to getting this scheduled. She has basic labs on order from her primary care provider and he should do for her preop labs. She has FAHAD but denies any cardiac problems. There are no prior problems with anesthesia or sedation. No ID problems. She had a maternal uncle who had CRC, she does not know if her parents ever had polyps. Return office visit in 6 months and of course after the colonoscopy (2) Irritable bowel syndrome with diarrhea: Code(s): K58.0 - Irritable bowel syndrome with diarrhea (3) Pre-op examination: Code(s): Z01.818 - Encounter for other preprocedural examination Medications: Refilled metoclopramide HCl 5 mg PO QIDACHS 3 60 tabs 1RF rabeprazole (AcipH ex) 20 mg PO DAILY 90 days 90 tabs 2RF K29.60 - Other gas tritis without ble eding simethicone aft er meals 180 mg PO TID 90 days 270 caps 1RF sucralfate 2 grams (2 x 1 gra m) PO BEDTIME 180 tabs 0RF CORRESPONDENCE On 02/05/23 @ 12:18 Alicia Salhe Wrote To MaryChayito Scheduled for 02/18/23. On 02/05/23 @ 07:39 Andressa Inman Wrote To Alicia Saleh schedule f/u please as below On 02/04/23 @ 16:46 Chayito Hernandez Wrote To Andressa Inman Needs an appt. On 02/04/23 @ 15:23 Andressa Inman Wrote To MaryJuly patient states since she stopped taking the Loperamide she has been experiencing diarrhea. patient reports x4 episodes of diarrhea today alone - patient taking fiber as well but no improvement. please advise. On 02/04/23 @ 15:18 MaryJuly Wrote To Andressa Inman Yes, we do not want her taking both of these medications as a drastically increases the risk of small-bowel obstruction. I really do not want to see this refill. On 01/22/23 @ 10:38 Andressa Inman Wrote To MaryJuly It looks like you are not the original prescriber of the Loperamide unless I'm looking at the wrong thing? please advise if refill appropriate. I can send refill for Lotronex On 01/22/23 @ 10:33 Elva Teixeira Wrote To MaryJuly (2) loperamide 2 mg capsule - 4 mg PO DAILY PRN Last Rx reported: 04/29/22 [facility] alosetron 0.5 mg tablet (Lotronex) - 0.5 mg PO BID 60 tabs 3RF Last Rx written: 03/14/22 Chayito Hernandez COLONOSCOPY Scheduled 05/11 BIOPSY TODAY'S VISIT [place] [employer] She has had diarrhea since stopping the loperamide. However with conversation it seems that the message was relayed to me incorrectly and she has not taken Lotronex for many months. In fact, she felt like her diarrhea was better controlled on loperamide 2 tablets to 4 tablets a day and since this works for her it is of course fine with me as well. She continues on her AcipHex 20 mg twice a day, her metoclopramide her simethicone and her sucralfate with good control of her GI symptoms. She has her colonoscopy upcoming in April. Return office visit after the colonoscopy and in 6 months. [facility] Medical History Hx of sleep apnea Migraine Lumbar spondylosis Spondylosis of lumbar spine Daytime somnolence Obesity (BMI 30-39.9) Depression Anxiety Insomnia Vitamin D deficiency Carpal tunnel syndrome Bilateral low back pain without sciatica GERD without esophagitis Allergic rhinitis Pure hypercholesterolemia Surgical History Hx of tubal ligation History of surgery History of dilatation and curettage Hx of hysterectomy History of bunionectomy Hx of carpal tunnel repair History of esophagogastroduodenoscopy History of cholecystectomy Family History Mother No problems noted. Maternal Aunt Breast cancer Social History Housing: Apartment Alcohol intake: never Patient Tobacco Use Status: Never used Tobacco e-Cigarette/Vaping Use: Never Used Second Hand Smoke Exposure: Yes service: No Current occupational status: disabled Cognitive needs: No Hearing needs: No Vision needs: No Female Reproductive History Menstrual Age of Menarche: 16 Review of Systems Const Denies fatigue, Denies fever(s), Denies night sweats, Denies poor appetite and Denies weight loss ENT Reports Normal hearing present, Denies dental pain, Denies dysphagia, Denies hearing loss, Denies mouth pain, Denies odynophagia, Denies throat swelling, Denies tongue swelling and Reports other (Dentition adequate) Card Reports no additional complaints Resp Reports no additional complaints GI Denies abdominal pain, Denies melena, Denies bloating, Denies hematochezia, Denies constipation, Denies GI cramping, Denies dysphagia, Denies excessive flatus, Denies early satiety, Reports heartburn, Reports diarrhea, Denies nausea, Denies odynophagia, Denies vomiting and Denies hematemesis Skin/Breast Denies pruritus, Denies lesions, Denies rash and Denies jaundice Neuro Reports Normal hearing present and Denies Abnormal speech present Endo Denies fatigue Aller/Immun Denies throat swelling and Denies tongue swelling Physical Exam Vital Signs: Last Vital Signs Pulse 59 02/18/23 10:02 BP 117/59 L 02/18/23 10:02 BMI result Body Mass Index 38.6 Const General: cooperative, no acute distress, well developed and well groomed Nutritional Appearance: well nourished and obese Orientation/consciousness: oriented to person, oriented to place and oriented to time Limitations: language barrier HEENT Head: Yes normocephalic and Yes atraumatic Eyes General: appearance normal, both eyes and all related structures Pupils: Equal, round and reactive pupils present Neck Neck: Yes normal visual inspection and Yes no lymphadenopathy Thyroid: Thyroid normal Resp Effort & Inspection: normal respiratory effort and able to speak in complete sentences Auscultation: clear to auscultation bilaterally Cardio Rate: regular rate Rhythm: regular rhythm Heart sounds: Normal, physiologic split S2 sound present Peripheral pulses: radial pulses present and posterior tibial pulses present GI Inspection: No distended, Yes Abdominal panniculus present and Yes obesity Palpation (GI): Soft to palpation, nontender, no guarding, not rigid and No hepatosplenomegaly present Percussion: Yes normal to percussion Auscultation: normal bowel sounds Rectal Exam - Female: deferred Skin General skin exam: no rashes or lesions noted, turgor normal, skin not dry, no jaundice, No spider nevi and no striae Rashes: no rashes Nails: normal Neuro General: oriented to person, oriented to place and oriented to time Cranial nerves: Yes Equal, round and reactive pupils present and Yes Normal hearing present Speech: No Abnormal speech present Extrem General: Yes normal to inspection, No clubbing, No cyanosis and No edema Psych Appearance: grossly normal and well kempt Mental Status: mental status grossly normal Speech and movement: Normal speech and movement present Affect: normal affect Attitude: cooperative Thought process: Normal thought process present and not confabulating Thought content: Normal thought content present Insight: Limited insight present (Psych) Judgement: Limited judgement present (Psych) Assessment & Plan Assessment & Plan (1) Irritable bowel syndrome with diarrhea: Code(s): K58.0 - Irritable bowel syndrome with diarrhea Plan: [place] [employer] She has had diarrhea since stopping the loperamide. However with conversation it seems that the message was relayed to me incorrectly and she has not taken Lotronex for many months. In fact, she felt like her diarrhea was better controlled on loperamide 2 tablets to 4 tablets a day and since this works for her it is of course fine with me as well. She continues on her AcipHex 20 mg twice a day, her metoclopramide her simethicone and her sucralfate with good control of her GI symptoms. She has her colonoscopy upcoming in April. Return office visit after the colonoscopy and in 6 months. (2) GERD (gastroesophageal reflux disease): Code(s): K21.9 - Gastro-esophageal reflux disease without esophagitis Qualifiers: Esophagitis presence: without esophagitis Qualified Code(s): K21.9 - Gastro-esophageal reflux disease without esophagitis (3) Erosive gastritis: Code(s): K29.60 - Other gastritis without bleeding Medications: New loperamide (Imodium A-D) 4 mg (2 x 2 mg) PO BID 60 tabs 6RF K58.0 - Irritable bowel syndrome with diarrhea Refilled rabeprazole (AcipHex) 20 mg PO DAILY 90 days 90 tabs 2RF K29.60 - Other gastritis without bleeding metoclopramide HCl 5 mg PO QIDACHS 360 tabs 1RF simethicone after meals 180 mg PO TID 90 days 270 caps 1RF sucralfate 2 grams (2 x 1 gram) PO BEDTIME 180 tabs 0RF Discontinued alosetron (Lotronex) Discontinued Reason: Doctor's Order 0.5 mg PO BID 60 tabs 3RF K58.0 - Irritable bowel syndrome with diarrhea Coding Level of Care Code Est Pt Level 3 (59910) Diagnoses Irritable bowel syndrome with diarrhea K58.0 Gastroesophageal reflux disease without esophagitis K21.9 Esophagitis presence: without esophagitis Erosive gastritis K29.60
== END 2023-02-18 10:42 | disposition home or self-care (01) ==
PROVIDERS: PCP Internal Medicine; Visit Provider Nurse Practitioner
DX: K58.0 Irritable bowel syndrome with diarrhea (principal); K21.9 Gastro-esophageal reflux disease without esophagitis; K29.60 Other gastritis without bleeding
CPT/HCPCS: 99213

== ENCOUNTER → 2023-02-18 09:55 | Outpatient (BNVA) | payer OTHER, SELFPAY | PROVIDERS: PCP Internal Medicine; Visit Provider Nurse Practitioner | DX: K58.0 Irritable bowel syndrome with diarrhea (principal); K21.9 Gastro-esophageal reflux disease without esophagitis; K29.60 Other gastritis without bleeding | CPT/HCPCS: 99212 ==

== ENCOUNTER 2023-04-07 13:47 | Outpatient (AMB) | payer OTHER, SELFPAY ==
[2023-04-07 13:57] VITALS: BP 116/80; PULSE 48; O2SAT 97; BMI 39.0
--- NOTE | 2023-04-07 13:57 | MHC.PC.OV ---
Vital Signs 04/07/23 13:57 Height 5 ft 2 in Weight 213 lb 4 oz BMI 39.0 BP 116/80 Blood Pressure Location Lt brachial Position Sitting Pulse 48 L Pulse Source Pulse Oximeter Pulse Oximetry (%) 97 Oxygen Delivery Method Room Air Intake Visit Reasons: 3 month f/u Practice Manager Required: No Accompanied by: Self / Same As Patient Allergies morphine [MORPHINE] Allergy (Intermediate, Verified 05/01/23 10:52) TACHYCARDIA codeine [Tylenol-Codeine] Allergy (Unknown, Verified 05/01/23 10:52) Unknown oxycodone [Percocet] Allergy (Unknown, Verified 05/01/23 10:52) unknown Medication List - Last Reconciled 04/07/23 by Dc Bennett MD acetaminophen (Tylenol Extra Strength) 500 mg PO Q6H PRN calcium polycarbophil (Fiber Laxative (calcium polycarbophil)) 1,250 mg (2 x 625 mg) PO BID 30 days cetirizine 10 mg PO DAILY PRN cholecalciferol (vitamin D3) 25 mcg PO DAILY 90 days clotrimazole-betamethasone 1-0.05 % 1 appl topical BID 2 weeks cyclobenzaprine 5 mg PO Q8H PRN 5 days duloxetine 60 mg PO QAM famotidine 40 mg PO BID gabapentin 100 mg PO TID ibuprofen 800 mg PO TID PRN lidocaine 5% (Lidoderm) 1 patch topical DAILY PRN MDD remove after 12 hours loperamide (Imodium A-D) 4 mg (2 x 2 mg) PO BID lorazepam 2 mg PO BID PRN magnesium oxide 400 mg PO DAILY 30 days methocarbamol 500 mg PO TID PRN metoclopramide HCl 5 mg PO QIDACHS mirabegron ER (Myrbetriq) 50 mg PO DAILY naproxen 500 mg PO BID PRN 10 days ondansetron 4 mg PO TID PRN 5 days oxybutynin chloride ER 10 mg PO DAILY promethazine 25 mg PO DAILY PRN propranolol 20 mg PO DAILY rabeprazole (AcipHex) 20 mg PO DAILY 90 days riboflavin (vitamin B2) 400 mg PO DAILY 30 days rizatriptan 10 mg PO ONCE PRN simethicone 180 mg PO TID 90 days sucralfate 2 grams (2 x 1 gram) PO BEDTIME trazodone 100 mg PO BEDTIME triamcinolone acetonide intranasal Tobacco use date assessed: 04/07/23 Dental Screening Dental Screen Date: 04/07/23 Did you have a dental visit in the last 12 months?: No Did you have a dental problem in the last 6 months where you did not have access to dental care?: No Was dental information given to patient?: No HPI 3 month f/u HPI Details Patient comes in today for her follow up visit States that she is still experiencing frequent increased headaches - notes that her headaches have been occurring on a daily basis lately Relates (+) associated nausea and photophobia often with her headaches States that she is still taking her Propranolol daily but it does not seem to be working to help prevent her headaches at all Relates (+) recurrent dizziness as well lately Also notes (+) chest discomfort at times at denies any exertional chest pains; no SOB - states that she hardly does much in terms of activity or exertion due to her symptoms, including her dizziness and her low back pain, which have also been increasing lately Denies any vomiting and no change in bowel habits noted She has not been able to get her previously ordered labs done yet - states that she will try to get them done [place] [facility] Medical History Hx of sleep apnea Migraine Lumbar spondylosis Spondylosis of lumbar spine Daytime somnolence Obesity (BMI 30-39.9) Depression Anxiety Insomnia Vitamin D deficiency Carpal tunnel syndrome Bilateral low back pain without sciatica GERD without esophagitis Allergic rhinitis Pure hypercholesterolemia Surgical History Hx of tubal ligation History of surgery History of dilatation and curettage Hx of hysterectomy History of bunionectomy Hx of carpal tunnel repair History of esophagogastroduodenoscopy History of cholecystectomy Family History Mother No problems noted. Maternal Aunt Breast cancer Social History Housing: Apartment Alcohol intake: never Patient Tobacco Use Status: Never used Tobacco e-Cigarette/Vaping Use: Never Used Second Hand Smoke Exposure: Yes service: No Current occupational status: disabled Cognitive needs: No Hearing needs: No Vision needs: No Female Reproductive History Menstrual Age of Menarche: 16 Questionnaire PHQ-9 Over the last 2 weeks, how often have you been bothered by any of the following problems? 1. Little interest or pleasure in doing things: not at all 2. Feeling down, depressed, or hopeless: not at all 3. Trouble falling or staying asleep, or sleeping too much: not at all 4. Feeling tired or having little energy: not at all 5. Poor appetite or overeating: not at all 6. Feeling bad about yourself - or that you are a failure or have let yourself or your family down: not at all 7. Trouble concentrating on things, such as reading the newspaper or watching television: not at all 8. Moving or speaking so slowly that other people could have noticed. Or the opposite - being so fidgety or restless that you have been moving around a lot more than usual: not at all 9. Thoughts that you would be better off or of hurting yourself in some way: not at all Total score: 0 Depression Screening Interpretation: Negative Depression Screening Done: Yes 89572 - PHQ-9 Billing: Yes Source: Developed by Drs. Brett Bocanegra, Cheryl Elias, Akira Trevino and colleagues, with an educational shiloh from [employer]. Thrive Questionnaire Date Thrive assessed: 04/07/23 I am a: Patient What is your living situation today?: I have a steady place to live Within the past 12 months, did the food you bought not last and you didn't have the money to get more?: Never true Within the past 12 months, did you worry whether your food would run out before you got money to buy more?: Never true Do you have trouble paying for medicines?: No Do you have trouble getting transportation to medical appointments?: No Do you have trouble paying your heating and electricity bill?: No Do you have trouble taking care of your child, family member or friend?: No Do you have trouble with day-to-day activities such as bathing, preparing meals, shopping, managing finances, etc.?: No Are you currently unemployed and looking for a job?: No Are you interested in more education?: No Please select the resources that you would like help with: None Currently or been in a relationship where the following occur: no concerns reported AUDIT C Alcohol Use Questionnaire (AUDIT-C) 1. How often do you have a drink containing alcohol?: Monthly or less 2. How many drinks containing alcohol do you have on a typical day when you are drinking?: 1 or 2 3. How often do you have six or more drinks on one occasion?: Never Total Score: 1 Score Reviewed/Action Taken: Yes REI-7 AMB Questionnaire REI-7 Date REI - 7 assessed: 04/07/23 Feeling nervous, anxious, or on edge: 0 = Not at all Not being able to stop or control worryin = Not at all Worrying too much about different things: 0 = Not at all Trouble relaxin = Not at all Being so restless that it is hard to sit still: 0 = Not at all Becoming easily annoyed or irritable: 0 = Not at all Feeling afraid as if something awful might happen: 0 = Not at all Total REI-7 score (0-4 normal; 5-9 mild; 10-14 moderate; 15-21 severe): 0 Source: Developed by Drs. Brett Bocanegra, Cheryl Elias, Akira Trevino and colleagues, with an educational shiloh from [employer]. Review of Systems Const Denies chills, Reports fatigue, Denies fever(s) and Reports headache(s) (recurrent, associated with nausea and photophobia) Eyes Reports photophobia (associated with headaches) ENT Denies dysphagia, Reports dizziness (on and off), Denies otalgia, Reports headache(s) (recurrent, associated with nausea and photophobia), Denies neck pain, Denies odynophagia and Denies sore throat Card Denies chest pain (but (+) chest discomfort at times), Denies chest pain with activity, Denies rapid heart rate, Denies irregular heart rhythm, Denies palpitations and Denies dyspnea Resp Denies chest congestion, Denies cough, Denies dyspnea and Denies wheezing GI Denies abdominal pain, Denies constipation, Denies dysphagia, Denies heartburn, Denies diarrhea, Reports nausea (on and off, associated with her headaches), Denies odynophagia and Denies vomiting Denies hematuria, Denies urinary frequency, Denies dysuria, Denies urinary incontinence and Denies urinary urgency Musc Reports back pain (increased, over the lower back), Denies arthralgias and Denies neck pain Skin/Breast Denies rash Neuro Reports dizziness (on and off), Reports headache(s) (recurrent, associated with nausea and photophobia) and Denies paresthesias Psych Denies anxiety and Denies depression Endo Reports fatigue and Denies palpitations Jorge/Lymph Denies easy bruising Aller/Immun Denies wheezing Physical exam (Primary Care) Vital Signs: Last Vital Signs Pulse 48 L 04/07/23 13:57 BP 116/80 04/07/23 13:57 Pulse Ox 97 04/07/23 13:57 Oxygen Delivery Method Room Air 04/07/23 13:57 BMI result Body Mass Index 39.0 Tobacco/Smoking Status: Tobacco use Status Tobacco use date assessed 04/07/23 04/07/23 13:59 Patient Tobacco Use Status Never used Tobacco 04/07/23 13:59 e-Cigarette/Vaping Use Never Used 04/07/23 13:59 PHQ-9: PHQ-9 Score PHQ-9: Total score 0 04/07/23 14:50 Depression Screening Interpretation: Negative Thrive Assessment: Date of Thrive Assessment Date Thrive assessed 04/07/23 04/07/23 13:59 Currently or been in a relationship where the following occur: no concerns reported Const General: no acute distress and alert HENMT Ears: TM's normal bilaterally and EAC's normal Throat: Yes posterior oropharynx normal and Yes tonsils normal (no TP congestion noted) Eyes Direct Ophthalmoscopy: photophobia (associated with headaches) Neck Neck: Yes no lymphadenopathy and Yes supple Resp Auscultation: clear to auscultation bilaterally, no rales and no wheezes Cardio Rate: bradycardic Rhythm: regular rhythm Heart sounds: no murmurs GI Palpation (GI): Soft to palpation and nontender Auscultation: normal bowel sounds General: Yes no CVA tenderness Back/Spine/Pelvis Back: no CVA tenderness Skin Rashes: no rashes Extrem General: Yes no clubbing, cyanosis or edema Assessment and Plan Assessment & Plan (1) Migraine: Comment: taking propranolol for migraine prophylaxis Code(s): G43.909 - Migraine, unspecified, not intractable, without status migrainosus Qualifiers: Migraine type: unspecified Status migrainosus presence: without status migrainosus Intractability: not intractable Qualified Code(s): G43.909 - Migraine, unspecified, not intractable, without status migrainosus Plan: As she presently has bradycardia and appears to be experiencing symptoms possibly due to her bradycardia, will have patient stop taking Propranolol 20 mg QD and will instead start her on Topiramate 25 mg Q HS for headache prophylaxis Continue Fioricet 50-300-40 mg every 8 hours PRN Follow up with neurology as scheduled (2) Bradycardia: Code(s): R00.1 - Bradycardia, unspecified Plan: Is most likely due to Propranolol, which will be discontinued today She is being referred to cardiology for further evaluation and management and will also have cardiology check this out as well (3) Chest pressure: Code(s): R07.89 - Other chest pain Plan: Will refer patient to cardiology for further evaluation and management (4) Pure hypercholesterolemia: Code(s): E78.00 - Pure hypercholesterolemia, unspecified Plan: Reinforced low cholesterol diet Patient is advised to get her follow up labs done [place] (5) Irritable bowel syndrome with diarrhea: Code(s): K58.0 - Irritable bowel syndrome with diarrhea Plan: Continue Dicyclomine 20 mg QID PRN (Rx refilled), Loperamide 2 mg QID PRN and Fiber Laxative 625 mg QID PRN Follow up with GI as scheduled (6) GERD (gastroesophageal reflux disease): Code(s): K21.9 - Gastro-esophageal reflux disease without esophagitis Qualifiers: Esophagitis presence: without esophagitis Qualified Code(s): K21.9 - Gastro-esophageal reflux disease without esophagitis Plan: Dietary restrictions reinforced Continue Dexilant 60 mg QD Follow up with GI as scheduled (7) Allergic rhinitis: Comment: Allergy testing done at Dr. Pedraza's office in 2019 revealed that patient is allergic to cats and dust mites Code(s): J30.9 - Allergic rhinitis, unspecified Qualifiers: Allergic rhinitis trigger: unspecified Allergic rhinitis seasonality: unspecified Qualified Code(s): J30.9 - Allergic rhinitis, unspecified Plan: Continue Cetirizine 10 mg QD PRN and Fluticasone nasal spray QD PRN (8) Lumbar spondylosis: Comment: (+) scoliosis Code(s): M47.816 - Spondylosis without myelopathy or radiculopathy, lumbar region Plan: Her low back pain is also likely partly related to her scoliosis Continue Meloxicam 15 mg QD with food PRN and Methocarbamol 500 mg TID PRN Follow up with pain management as scheduled (9) Carpal tunnel syndrome: Comment: S/P CTS surgery bilaterally Code(s): G56.00 - Carpal tunnel syndrome, unspecified upper limb Qualifiers: Laterality: bilateral Qualified Code(s): G56.03 - Carpal tunnel syndrome, bilateral upper limbs Plan: Encouraged to continue wearing her wrist braces to help minimize and manage her symptoms Follow up with orthopedics as scheduled or as needed (10) Vitamin D deficiency: Code(s): E55.9 - Vitamin D deficiency, unspecified Plan: Continue Vitamin D3 1000 units QD (11) Insomnia: Code(s): G47.00 - Insomnia, unspecified Qualifiers: Insomnia type: unspecified Qualified Code(s): G47.00 - Insomnia, unspecified Plan: Sleep hygiene reinforced Continue Trazodone 100 mg once a day at bedtime PRN (12) Anxiety: Code(s): F41.9 - Anxiety disorder, unspecified Plan: Continue Lorazepam 0.5 mg twice a day PRN (13) Depression: Code(s): F32.9 - Major depressive disorder, single episode, unspecified Qualifiers: Depression Type: major depressive disorder Major depression recurrence: recurrent Active/Remission status: currently active Major depression episode severity: unspecified Qualified Code(s): F33.9 - Major depressive disorder, recurrent, unspecified Plan: Continue Sertraline 100 mg QD Follow-up with Psychiatry as scheduled (14) Obesity (BMI 30-39.9): Code(s): E66.9 - Obesity, unspecified Plan: Reinforced diet/exercise as tolerated/lose weight Plan Follow up in 3 months Orders: Referrals Cardiology Referral R00.1 - Bradycardia, unspecified, R07.89 - Other chest pain Medications: New topiramate 25 mg PO DAILY 30 tabs 2RF 30 days Discontinued propranolol Discontinued Reason: Doctor's Order 20 mg PO DAILY 90 tabs 1RF Coding Level of Care Code Est Pt Level 4 (27959) Diagnoses Migraine without status migrainosus, not intractable, unspecified migraine type G43.909 Migraine type: unspecified Status migrainosus presence: without status migrainosus Intractability: not intractable Bradycardia R00.1 Chest pressure R07.89 Pure hypercholesterolemia E78.00 Irritable bowel syndrome with diarrhea K58.0 Gastroesophageal reflux disease without esophagitis K21.9 Esophagitis presence: without esophagitis Allergic rhinitis, unspecified seasonality, unspecified trigger J30.9 Allergic rhinitis trigger: unspecified Allergic rhinitis seasonality: unspecified Lumbar spondylosis M47.816 Bilateral carpal tunnel syndrome G56.03 Laterality: bilateral Vitamin D deficiency E55.9 Insomnia, unspecified type G47.00 Insomnia type: unspecified Anxiety F41.9 Episode of recurrent major depressive disorder, unspecified depression episode severity F33.9 Depression Type: major depressive disorder Major depression recurrence: recurrent Active/Remission status: currently active Major depression episode severity: unspecified Obesity (BMI 30-39.9) E66.9
== END 2023-04-07 14:50 | disposition home or self-care (01) ==
PROVIDERS: PCP Internal Medicine; Visit Provider Internal Medicine
DX: G43.909 Migraine, unspecified, not intractable, without status migrainosus (principal); F33.9 Major depressive disorder, recurrent, unspecified; R00.1 Bradycardia, unspecified; R07.89 Other chest pain; E78.00 Pure hypercholesterolemia, unspecified; K58.0 Irritable bowel syndrome with diarrhea; K21.9 Gastro-esophageal reflux disease without esophagitis; J30.9 Allergic rhinitis, unspecified; M47.816 Spondylosis without myelopathy or radiculopathy, lumbar region; G56.03 Carpal tunnel syndrome, bilateral upper limbs; E55.9 Vitamin D deficiency, unspecified; G47.00 Insomnia, unspecified
CPT/HCPCS: 99214

== ENCOUNTER 2023-04-08 08:30 | Outpatient (REF) | payer OTHER, SELFPAY ==
[2023-04-08 08:46] LABS: MANUAL DIFF FLAG NO
[2023-04-08 09:12] LABS: Basophils Absolute Auto 0.1 X10*3/uL (0.0-0.2); Basophils Percent Auto 0.8 % (0-2); Eosinophils Absolute Auto 0.1 X10*3/uL (0.0-0.4); Eosinophils Percent Auto 1.1 % (0-4); Hematocrit 39.8 % (37.0-47.0); Hemoglobin 12.9 g/dl (12.0-16.0); Imm Gran Abs Auto 0.02 X10*3/uL (0.00-0.03); Imm Gran Pct Auto 0.2 % (0.0-0.4); Lymphocytes Absolute Auto 3.4 X10*3/uL (1.2-4.9); Lymphocytes Percent Auto 36.3 % (20-40); Mean Corpuscular HGB Conc 32.4 g/dl (31.0-35.0); Mean Corpuscular Hemoglobin 30.6 pg (27.0-33.0); Mean Corpuscular Volume 94.5 fL (80.0-98.0); Mean Platelet Volume 11.4 fL (9.4-12.3); Monocytes Absolute Auto 0.7 X10*3/uL (0.1-1.2); Monocytes Percent Auto 7.1 % (2-11); Neutrophils Absolute Auto 5.1 x10*3/uL (2.0-8.3); Neutrophils Percent Auto 54.5 % (45-73); Platelet Count 275 X10*3/uL (160-400); Red Blood Count 4.21 X10*6/uL (4.20-5.50); Red Cell Distribution Width 12.5 % (11.0-16.0); White Blood Count 9.3 X10*3/uL (4.8-10.8)
[2023-04-08 09:15] LABS: Appearance Urine Cloudy; Color Urine Yellow; Glucose Urine UA Negative (Negative); Leukocyte Esterase Urine Moderate (2+) (Negative); Nitrite Urine Negative (Negative); PH 5.5 (5.0-9.0); Specific Gravity - Urine 1.025 (1.005-1.025); UMIC TRIGGER UACC YES; Urine Blood Negative (Negative); Urine Ketones Trace mg/dL (Negative); Urine Protein Trace mg/dL (Neg-Trace)
[2023-04-08 09:17] LABS: Bacteria Urine 4+ (None Seen); Hyaline Casts Urine 0-2 /LPF (0-2); RBC Urine 0-2 /HPF (0-2); Squamous Epithelial Cell Urine >20 /HPF (0-2); UACC Culture Trigger YES; WBC Urine 21-50 /HPF (0-5)
[2023-04-08 09:43] LABS: Alanine Aminotransferase 11 U/L (0-31); Albumin Level 4.2 g/dL (3.5-5.0); Alkaline Phosphatase 57 U/L (39-117); Anion Gap 11 (12-20); Aspartate Amino Transferase 13 U/L (5-31); Bilirubin Total 0.5 mg/dL (0.0-1.0); Blood Urea Nitrogen 12 mg/dL (9-16); Calcium 9.4 mg/dL (8.4-10.2); Carbon Dioxide 29 mmol/L (22-29); Chloride 106 mmol/L (96-108); Cholesterol 219 mg/dL (<200); Estimated Glomerular Filt Rate > 60; Glucose Fasting 102 mg/dL (60-99); HDL Cholesterol 49 mg/dL (>40); LDL Cholesterol Calculated 137 mg/dL (<100); Sodium 142 mmol/L (135-145); Total Protein 7.4 g/dL (6.5-8.0); Triglycerides 168 mg/dL (<150)
[2023-04-08 09:58] LABS: Vitamin D 25-OH Total 29.8 ng/mL (>30)
== END 2023-04-08 08:31 | disposition home or self-care (01) ==
LOC: HO.LAB 08:30
PROVIDERS: PCP Internal Medicine; Visit Provider Internal Medicine
DX: I10 Essential (primary) hypertension (principal); E78.00 Pure hypercholesterolemia, unspecified; E55.9 Vitamin D deficiency, unspecified; R30.0 Dysuria
CPT/HCPCS: 36415; 80053; 80061; 81001; 82306; 84443; 85025; 87086

== ENCOUNTER 2023-05-01 10:40 | Outpatient (AMB) | payer OTHER, SELFPAY ==
--- NOTE | 2023-05-01 10:47 | A.OFFVIS_ITS ---
Intake Vital Signs 05/01/23 10:51 Height 5 ft 2 in Weight 214 lb BMI 39.1 BP 118/72 Blood Pressure Location Rt brachial Position Sitting Intake Visit Reasons: 6 mnts f/u appt-Confirmed Intake Note: Patient presents for 6 month follow up. I've been sleeping well with the machine, but my headaches are back and more often Allergies morphine [MORPHINE] Allergy (Intermediate, Verified 05/01/23 10:52) TACHYCARDIA codeine [Tylenol-Codeine] Allergy (Unknown, Verified 05/01/23 10:52) Unknown oxycodone [Percocet] Allergy (Unknown, Verified 05/01/23 10:52) unknown Medication List - Last Reconciled 05/01/23 by SOLIS Rubio acetaminophen (Tylenol Extra Strength) 500 mg PO Q6H PRN bisacodyl (Dulcolax (bisacodyl)) 20 mg (4 x 5 mg) PO ONCE 1 day calcium polycarbophil (Fiber Laxative (calcium polycarbophil)) 1,250 mg (2 x 625 mg) PO BID 30 days cetirizine 10 mg PO DAILY PRN cholecalciferol (vitamin D3) 25 mcg PO DAILY 90 days clotrimazole-betamethasone 1-0.05 % 1 appl topical BID 2 weeks cyclobenzaprine 5 mg PO Q8H PRN 5 days duloxetine 60 mg PO QAM famotidine 40 mg PO BID gabapentin 100 mg PO TID ibuprofen 800 mg PO TID PRN lidocaine 5% (Lidoderm) 1 patch topical DAILY PRN MDD remove after 12 hours loperamide (Imodium A-D) 4 mg (2 x 2 mg) PO BID lorazepam 2 mg PO BID PRN magnesium oxide 400 mg PO DAILY 30 days methocarbamol 500 mg PO TID PRN metoclopramide HCl 5 mg PO QIDACHS mirabegron ER (Myrbetriq) 50 mg PO DAILY naproxen 500 mg PO BID PRN 10 days ondansetron 4 mg PO TID PRN 5 days oxybutynin chloride ER 10 mg PO DAILY polyethylene glycol 3350 (Miralax) 238 grams PO ONCE 1 day promethazine 25 mg PO DAILY PRN rabeprazole (AcipHex) 20 mg PO DAILY 90 days riboflavin (vitamin B2) 400 mg PO DAILY 30 days rimegepant (Nurtec ODT) 75 mg PO ONCE PRN 30 days MDD 1 tab rizatriptan 10 mg PO ONCE PRN simethicone (Anti-Gas Ultra Strength) 180 mg PO QID sucralfate 2 grams (2 x 1 gram) PO BEDTIME topiramate 25 mg PO BID 30 days trazodone 100 mg PO BEDTIME triamcinolone acetonide intranasal HPI HPI Comments History of Present Illness Details 52-year-old female presents for f/u visi t. Pt reports she is doing well with her CPAP machine. She is sleeping well w/ device. Review of her compliance data shows consistent use greater than 4 hours per night, with residual AHI less than 3 per hour. She has been having more headaches, now every other day to every day- which lasts all day. The headache is a severe pressure headache in the frontal region and neck, a/w mild photophobia, blurry vision, more phonophobia, N/V, dizziness, tiredness, activity intolerance. This is her usual headache, but she has never had the neck pain with it before. Denies diplopia. Denies recent accident, injury, infection. She is having neck tightness. Propranolol was recently stopped due to ? bradycardia Taking topiramate 25 mg daily, does not feel it is helped much. Rizatriptan is very helpful. Taking Excedrin helps some- taking almost daily. 12/2022, CT/CT head/brain and cervical w o IV con IMPRESSION: CT head: *No acute intercranial abnormalities. CT cervical spine: *No acute abnormalities. *Chronic spondylosis at C5-C6 [facility] Medical History Hx of sleep apnea Migraine Lumbar spondylosis Spondylosis of lumbar spine Daytime somnolence Obesity (BMI 30-39.9) Depression Anxiety Insomnia Vitamin D deficiency Carpal tunnel syndrome Bilateral low back pain without sciatica GERD without esophagitis Allergic rhinitis Pure hypercholesterolemia Surgical History Hx of tubal ligation History of surgery History of dilatation and curettage Hx of hysterectomy History of bunionectomy Hx of carpal tunnel repair History of esophagogastroduodenoscopy History of cholecystectomy Family History Mother No problems noted. Maternal Aunt Breast cancer Social History Housing: Apartment Alcohol intake: never Patient Tobacco Use Status: Never used Tobacco e-Cigarette/Vaping Use: Never Used Second Hand Smoke Exposure: Yes service: No Current occupational status: disabled Cognitive needs: No Hearing needs: No Vision needs: No Female Reproductive History Menstrual Age of Menarche: 16 Physical Exam Vital Signs: Last Vital Signs BP 118/72 05/01/23 10:51 BMI result Body Mass Index 39.1 Const General: cooperative and no acute distress Orientation/consciousness: patient oriented x3 Resp Effort & Inspection: normal respiratory effort and able to speak in complete sentences Neuro General: patient oriented x3 Cranial nerves: Yes CN's II-XII intact bilaterally Cognition (Neuro): normal cognition Psych Appearance: grossly normal Mental Status: mental status grossly normal Speech and movement: Normal speech and movement present Affect: normal affect Attitude: cooperative Assessment & Plan Assessment & Plan (1) Migraine without aura: Code(s): G43.009 - Migraine without aura, not intractable, without status migrainosus (2) Mild obstructive sleep apnea: Code(s): G47.33 - Obstructive sleep apnea (adult) (pediatric) Plan For FAHAD- Continue Esther APAP 5-20 cmH2O. Xylimelts prn for dry nose/mouth. Hang tubing up in am- to allow any residual water to drain. Clean machine and supplies routinely. ? For migraines and headaches- Continue Riboflavin and Magnesium Increase Topiramate from 25mg qd to 25mg bid Stop Propranolol d/t bradycardia Trial Nurtec 75 mg ODT q.d. p.r.n., as rizatriptan is not always effective. Continue Rizatriptan prn. Reduce Excedrin use. Previous trials: Sumatriptan- lost effectiveness. Follow-up in 3-4 months or sooner as needed. Medications: New rimegepant (Nurtec ODT) 75 mg PO ONCE 30 days PRN 16 tabs 3RF migraine headache MDD 1 tab G43.009 - Migraine without aura, not intractable, without status migrainosus Changed From topiramate 25 mg PO DAILY 30 days 30 tabs 2RF To topiramate 25 mg PO BID 30 days 60 tabs 3RF Coding Level of Care Code Est Pt Level 4 (48202) Diagnoses Migraine without aura G43.009 Mild obstructive sleep apnea G47.33
[2023-05-01 10:51] VITALS: BP 118/72; BMI 39.1
== END 2023-05-01 11:54 | disposition home or self-care (01) ==
PROVIDERS: PCP Internal Medicine; Visit Provider Nurse Practitioner Family
DX: G43.009 Migraine without aura, not intractable, without status migrainosus (principal); G47.33 Obstructive sleep apnea (adult) (pediatric)
CPT/HCPCS: 99214

== ENCOUNTER → 2023-05-01 10:40 | Outpatient (BNVA) | payer OTHER, SELFPAY | PROVIDERS: PCP Internal Medicine; Visit Provider Nurse Practitioner Family | DX: G43.009 Migraine without aura, not intractable, without status migrainosus (principal); G47.33 Obstructive sleep apnea (adult) (pediatric) | CPT/HCPCS: 99212 ==

== ENCOUNTER 2023-05-25 12:38 | Outpatient (AMB) | payer OTHER, SELFPAY ==
--- NOTE | 2023-05-25 13:15 | MHC.OFFVIS ---
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 Intake Note: New patient bradycardiac and chest pain when on propranolol with topiramate its much better Glost Kiln Operator Required: Yes Glost Kiln Operator Name: Aldair christian Allergies morphine [MORPHINE] Allergy (Intermediate, Verified 05/01/23 10:52) TACHYCARDIA codeine [Tylenol-Codeine] Allergy (Unknown, Verified 05/01/23 10:52) Unknown oxycodone [Percocet] Allergy (Unknown, Verified 05/01/23 10:52) unknown Medication List - Last Reconciled 05/25/23 by Mario Cool MD acetaminophen (Tylenol Extra Strength) 500 mg PO Q6H PRN bisacodyl (Dulcolax (bisacodyl)) 20 mg (4 x 5 mg) PO ONCE 1 day calcium polycarbophil (Fiber Laxative (calcium polycarbophil)) 1,250 mg (2 x 625 mg) PO BID 30 days cetirizine 10 mg PO DAILY PRN cholecalciferol (vitamin D3) 25 mcg PO DAILY 90 days clotrimazole-betamethasone 1-0.05 % 1 appl topical BID 2 weeks cyclobenzaprine 5 mg PO Q8H PRN 5 days duloxetine 60 mg PO QAM famotidine 40 mg PO BID gabapentin 100 mg PO TID ibuprofen 800 mg PO TID PRN lidocaine 5% (Lidoderm) 1 patch topical DAILY PRN MDD remove after 12 hours loperamide (Imodium A-D) 4 mg (2 x 2 mg) PO BID lorazepam 2 mg PO BID PRN magnesium oxide 400 mg PO DAILY 30 days methocarbamol 500 mg PO TID PRN metoclopramide HCl 5 mg PO QIDACHS mirabegron ER (Myrbetriq) 50 mg PO DAILY naproxen 500 mg PO BID PRN 10 days ondansetron 4 mg PO TID PRN 5 days oxybutynin chloride ER 10 mg PO DAILY polyethylene glycol 3350 (Miralax) 238 grams PO ONCE 1 day promethazine 25 mg PO DAILY PRN rabeprazole (AcipHex) 20 mg PO DAILY 90 days riboflavin (vitamin B2) 400 mg PO DAILY 30 days rimegepant (Nurtec ODT) 75 mg PO ONCE PRN 30 days MDD 1 tab rizatriptan 10 mg PO ONCE PRN simethicone (Anti-Gas Ultra Strength) 180 mg PO QID sucralfate 2 grams (2 x 1 gram) PO BEDTIME topiramate 25 mg PO BID 30 days trazodone 100 mg PO BEDTIME triamcinolone acetonide intranasal HPI HPI Comments History of Present Illness Details Duyen was referred here for symptoms of lightheadedness and not feeling well after started propranolol therapy. At that time she was noted to have sinus bradycardia and was referred here for further cardiac evaluation. History was obtained with help of director of staff development. Since then her propranolol was discontinued and she says she has had no recurrent symptoms of feels well. Propranolol therapy was selected for migraine therapy. She is currently on Topamax. Since the switch she has no symptoms of lightheadedness, shortness of breath, chest pressure. No symptoms of palpitations, syncope. [facility] Medical History Hx of sleep apnea Migraine Lumbar spondylosis Spondylosis of lumbar spine Daytime somnolence Obesity (BMI 30-39.9) Depression Anxiety Insomnia Vitamin D deficiency Carpal tunnel syndrome Bilateral low back pain without sciatica GERD without esophagitis Allergic rhinitis Pure hypercholesterolemia Surgical History Hx of tubal ligation History of surgery History of dilatation and curettage Hx of hysterectomy History of bunionectomy Hx of carpal tunnel repair History of esophagogastroduodenoscopy History of cholecystectomy Family History Mother No problems noted. Maternal Aunt Breast cancer Social History Housing: Apartment Alcohol intake: never Patient Tobacco Use Status: Never used Tobacco e-Cigarette/Vaping Use: Never Used Second Hand Smoke Exposure: Yes service: No Current occupational status: disabled Cognitive needs: No Hearing needs: No Vision needs: No Female Reproductive History Menstrual Age of Menarche: 16 Review of Systems Const Denies chills, Denies daytime sleepiness, Denies fatigue, Denies fever(s), Denies frequent falls, Denies poor appetite, Denies snoring, Denies stops breathing during sleep, Denies weakness, Denies weight gain and Denies weight loss Eyes Denies loss of vision ENT Denies dizziness and Denies hearing loss Card Denies chest pain, Denies claudication, Denies leg edema, Denies lightheadedness, Denies palpitations, Denies dyspnea, Denies dyspnea on exertion and Denies orthopnea Resp Denies cough, Denies excessive phlegm production, Denies dyspnea, Denies dyspnea on exertion, Denies snoring and Denies wheezing GI Denies abdominal pain, Denies hematochezia, Denies change in bowel habits, Denies nausea and Denies vomiting Denies urinary frequency and Denies dysuria Musc Denies arthralgias, Denies muscle weakness, Denies numbness and Denies other (frequent falls) Skin/Breast Denies nail changes and Denies rash Neuro Denies Abnormal speech present, Denies dizziness, Denies frequent falls, Denies loss of vision, Denies memory loss, Denies numbness and Denies weakness Psych Denies depression and Denies memory loss Endo Denies fatigue and Denies palpitations Jorge/Lymph Reports easy bruising and Reports other (anemia) Aller/Immun Denies wheezing Physical Exam Vital Signs: Last Vital Signs Pulse 65 05/25/23 13:17 BP 118/70 05/25/23 13:17 BMI result Body Mass Index 38.7 Const Orientation/consciousness: patient oriented x3 HEENT Head: Yes normal to inspection Neck Neck: Yes trachea midline, Yes supple and Yes no JVD Resp Effort & Inspection: normal respiratory effort Auscultation: clear to auscultation bilaterally Cardio Jugular venous distension: no JVD Palpation: normal PMI Rate: regular rate Rhythm: regular rhythm Heart sounds: S1 normal heart sound present, S2 normal heart sound present, no click, no gallops, no murmurs and no rubs GI Auscultation: normal bowel sounds Skin General skin exam: no rashes or lesions noted Neuro General: patient oriented x3 and no focal motor deficits Speech: No Abnormal speech present Extrem General: Yes no clubbing, cyanosis or edema Office Procedures EKG Details: EKG shows normal sinus rhythm with normal EKG [id number], Complete Assessment & Plan Assessment & Plan (1) Bradycardia: Code(s): R00.1 - Bradycardia, unspecified Plan: Symptomatic bradycardia related to propranolol therapy used for migraine. Since then she has had no recurrent symptoms since stopping up propranolol therapy. Heart rate an EKG looked normal. In absence of recurrent symptoms, currently she does not require any further workup. This was discussed with her in details. She understands and agrees. Effect of propranolol therapy were discussed as well. Advised to call us if she develops recurrent symptoms that may require further workup. Continue participate in heart healthy lifestyle with weight reduction and regular physical activity. Will follow up in the clinic if need be. Thank you for allowing me to partake in the care Coding Level of Care Code New Pt Level 3 (64467) Diagnoses Bradycardia R00.1 CPT Codes EKG - CPT: [id number], Complete ([id number])
[2023-05-25 13:17] VITALS: BP 118/70; PULSE 65; BMI 38.7
== END 2023-05-25 14:45 | disposition home or self-care (01) ==
PROVIDERS: PCP Internal Medicine; Visit Provider Internal Medicine Cardiovascular Disease
DX: R00.1 Bradycardia, unspecified (principal)
CPT/HCPCS: 93010; 99203

== ENCOUNTER → 2023-05-25 12:38 | Outpatient (BNVA) | payer OTHER, SELFPAY | PROVIDERS: PCP Internal Medicine; Visit Provider Internal Medicine Cardiovascular Disease | DX: R00.1 Bradycardia, unspecified (principal) | CPT/HCPCS: 93005; 99202 ==

== ENCOUNTER 2023-07-09 10:45 | Outpatient (AMB) | payer OTHER, SELFPAY ==
--- NOTE | 2023-07-09 11:11 | A.OFFPC_ITS ---
Vital Signs 07/09/23 11:13 Height 5 ft 2 in Weight 211 lb BMI 38.6 BP 112/70 Blood Pressure Location Lt brachial Position Sitting Pulse 53 Pulse Source Pulse Oximeter Pulse Oximetry (%) 98 Oxygen Delivery Method Room Air Intake Visit Reasons: migraine, bradycardia, chronic low back pain Intake Note: Patient is here to follow up on Migraine, Bradycardia, Chronic Back pain. 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 Head [employer] Experience Strategy: Present Allergies morphine [MORPHINE] Allergy (Intermediate, Verified 11/05/23 11:56) TACHYCARDIA codeine [Tylenol-Codeine] Allergy (Unknown, Verified 11/05/23 11:56) Unknown oxycodone [Percocet] Allergy (Unknown, Verified 11/05/23 11:56) unknown Medication List - Last Reconciled 07/29/23 by Dc Bennett MD acetaminophen (Tylenol Extra Strength) 500 mg PO Q6H PRN bisacodyl (Dulcolax (bisacodyl)) 20 mg (4 x 5 mg) PO ONCE 1 day calcium polycarbophil (Fiber Laxative (calcium polycarbophil)) 1,250 mg (2 x 625 mg) PO BID 30 days cetirizine 10 mg PO DAILY PRN 90 days cholecalciferol (vitamin D3) 25 mcg PO DAILY 90 days clotrimazole-betamethasone 1-0.05 % 1 appl topical BID 2 weeks cyclobenzaprine 5 mg PO Q8H PRN 5 days duloxetine 60 mg PO QAM famotidine 40 mg PO BID fluticasone propionate 50 mcg/actuation (Allergy Relief (fluticasone)) 2 sprays intranasal DAILY PRN gabapentin 100 mg PO TID ibuprofen 800 mg PO TID PRN lidocaine 5% (Lidoderm) 1 patch topical DAILY PRN MDD remove after 12 hours loperamide 2 mg PO QID lorazepam 2 mg PO BID PRN magnesium oxide 400 mg PO DAILY 30 days methocarbamol 500 mg PO TID PRN metoclopramide HCl 5 mg PO QIDACHS mirabegron ER (Myrbetriq) 50 mg PO DAILY naproxen 500 mg PO BID PRN 10 days ondansetron 4 mg PO TID PRN 5 days oxybutynin chloride ER 10 mg PO DAILY polyethylene glycol 3350 (Miralax) 238 grams PO ONCE 1 day promethazine 25 mg PO DAILY PRN rabeprazole (AcipHex) 20 mg PO DAILY 90 days riboflavin (vitamin B2) 400 mg PO DAILY 30 days rimegepant (Nurtec ODT) 75 mg PO ONCE PRN 30 days MDD 1 tab rizatriptan 10 mg PO ONCE PRN simethicone (Anti-Gas Ultra Strength) 180 mg PO QID sucralfate 2 grams (2 x 1 gram) PO BEDTIME topiramate 25 mg PO BID 30 days trazodone 100 mg PO BEDTIME triamcinolone acetonide intranasal Tobacco use date assessed: 07/09/23 Dental Screening Dental Screen Date: 07/09/23 Did you have a dental visit in the last 12 months?: No Did you have a dental problem in the last 6 months where you did not have access to dental care?: No Was dental information given to patient?: Patient has dentist HPI migraine, bradycardia, chronic low back pain HPI Details Patient comes in today for her follow-up visit States that she has been experiencing increased nasal and sinus congestion frequently for the past couple of weeks Reports also experiencing increased watery eyes and on and off itching lately as well as frequent sneezing She denies any fever or sore throat Still has on and off headaches ( migraine) but denies any dizziness Denies any chest pains, no increased shortness of breath No nausea/vomiting, no abdominal pain No change in bowel habits noted Still has on and off low back pain but states that her current medications help keep her pain manageable She has no follow-up labs done recently [facility] Medical History (Updated 11/06/23 @ 04:04 by Dc Bennett MD) Insomnia Obesity (BMI 30-39.9) Migraine without aura Bilateral low back pain without sciatica Carpal tunnel syndrome Daytime somnolence Lumbar spondylosis Hx of abnormal cervical Pap smear Erosive gastritis Sleep disorder, unspecified Yeast infection involving the vagina and surrounding area Bacterial vaginosis Problematic vaginal discharge COVID-19 Hx of sleep apnea Depression Anxiety Vitamin D deficiency GERD without esophagitis Allergic rhinitis Pure hypercholesterolemia Surgical History H/O colonoscopy History of hysterectomy, supracervical Hx of tubal ligation History of surgery History of dilatation and curettage Hx of hysterectomy History of bunionectomy Hx of carpal tunnel repair History of esophagogastroduodenoscopy History of cholecystectomy Family History Mother No problems noted. Maternal Aunt Breast cancer Social History Housing: Apartment Alcohol intake: never Patient Tobacco Use Status: Never used Tobacco e-Cigarette/Vaping Use: Never Used Second Hand Smoke Exposure: Yes service: No Current occupational status: disabled Cognitive needs: No Hearing needs: No Vision needs: No Female Reproductive History Menstrual Age of Menarche: 16 Questionnaire PHQ-9 Over the last 2 weeks, how often have you been bothered by any of the following problems? 1. Little interest or pleasure in doing things: not at all 2. Feeling down, depressed, or hopeless: not at all 3. Trouble falling or staying asleep, or sleeping too much: not at all 4. Feeling tired or having little energy: not at all 5. Poor appetite or overeating: not at all 6. Feeling bad about yourself - or that you are a failure or have let yourself or your family down: not at all 7. Trouble concentrating on things, such as reading the newspaper or watching television: not at all 8. Moving or speaking so slowly that other people could have noticed. Or the opposite - being so fidgety or restless that you have been moving around a lot more than usual: not at all 9. Thoughts that you would be better off or of hurting yourself in some way: not at all Total score: 0 Depression Screening Interpretation: Negative Depression Screening Done: Yes 33695 - PHQ-9 Billing: Yes Source: Developed by Drs. Brett Bocanegra, Cheryl Elias, Akira Trevino and colleagues, with an educational shiloh from [employer]. Thrive Questionnaire Date Thrive assessed: 07/09/23 I am a: Patient What is your living situation today?: I have a steady place to live Within the past 12 months, did the food you bought not last and you didn't have the money to get more?: Never true Within the past 12 months, did you worry whether your food would run out before you got money to buy more?: Never true Do you have trouble paying for medicines?: No Do you have trouble getting transportation to medical appointments?: No Do you have trouble paying your heating and electricity bill?: No Do you have trouble taking care of your child, family member or friend?: No Do you have trouble with day-to-day activities such as bathing, preparing meals, shopping, managing finances, etc.?: No Are you currently unemployed and looking for a job?: No Are you interested in more education?: No Currently or been in a relationship where the following occur: no concerns reported THRIVE Score: 0 AUDIT C Alcohol Use Questionnaire (AUDIT-C) 1. How often do you have a drink containing alcohol?: Monthly or less 2. How many drinks containing alcohol do you have on a typical day when you are drinking?: 1 or 2 3. How often do you have six or more drinks on one occasion?: Never Total Score: 1 Score Reviewed/Action Taken: Yes REI-7 AMB Questionnaire REI-7 Date REI - 7 assessed: 07/09/23 Feeling nervous, anxious, or on edge: 0 = Not at all Not being able to stop or control worryin = Not at all Worrying too much about different things: 0 = Not at all Trouble relaxin = Not at all Being so restless that it is hard to sit still: 0 = Not at all Becoming easily annoyed or irritable: 0 = Not at all Feeling afraid as if something awful might happen: 0 = Not at all Total REI-7 score (0-4 normal; 5-9 mild; 10-14 moderate; 15-21 severe): 0 Source: Developed by Drs. Brett Bocanegra, Cheryl Elias, Akira Trevino and colleagues, with an educational shiloh from [employer]. Review of Systems Const Denies chills, Denies fatigue, Denies fever(s) and Reports headache(s) (on and off) Eyes Reports itchy eyes and Reports photophobia (with headaches) ENT Denies dysphagia, Denies dizziness, Denies otalgia, Reports headache(s) (on and off), Reports nasal congestion, Reports nasal discharge, Denies neck pain, Denies odynophagia and Denies sore throat Card Denies chest pain, Denies palpitations and Denies dyspnea Resp Denies cough and Denies dyspnea GI Denies abdominal pain, Denies constipation, Denies dysphagia, Denies heartburn, Denies diarrhea, Denies nausea, Denies odynophagia and Denies vomiting Denies difficulty voiding, Denies nocturia, Denies dysuria and Denies urinary urgency Musc Reports back pain (over the lower back, on and off) and Denies neck pain Skin/Breast Denies rash Neuro Denies dizziness and Reports headache(s) (on and off) Endo Denies fatigue and Denies palpitations Aller/Immun Reports itchy eyes and Reports seasonal rhinorrhea Physical exam (Primary Care) Vital Signs: Last Vital Signs Pulse 53 07/09/23 11:13 BP 112/70 07/09/23 11:13 Pulse Ox 98 07/09/23 11:13 Oxygen Delivery Method Room Air 07/09/23 11:13 BMI result Body Mass Index 38.6 Tobacco/Smoking Status: Tobacco use Status Tobacco use date assessed 07/09/23 07/09/23 11:13 Patient Tobacco Use Status Never used Tobacco 07/09/23 11:13 e-Cigarette/Vaping Use Never Used 07/09/23 11:13 PHQ-9: PHQ-9 Score PHQ-9: Total score 0 07/29/23 16:30 Depression Screening Interpretation: Negative Thrive Assessment: Date of Thrive Assessment Date Thrive assessed 07/09/23 07/09/23 11:13 Currently or been in a relationship where the following occur: no concerns reported Const General: no acute distress and alert HENMT Ears: TM's normal bilaterally and EAC's normal Throat: Yes posterior oropharynx normal and Yes tonsils normal (no TP congestion) Eyes Direct Ophthalmoscopy: photophobia (with headaches) Neck Neck: Yes no lymphadenopathy and Yes supple Thyroid: Thyroid normal Resp Auscultation: clear to auscultation bilaterally, no rales and no wheezes Cardio Rate: regular rate Rhythm: regular rhythm Heart sounds: no murmurs GI Palpation (GI): Soft to palpation and nontender Auscultation: normal bowel sounds General: Yes no CVA tenderness Back/Spine/Pelvis Back: no CVA tenderness Thoracic/Lumbar Spine: lumbar spinal tenderness Skin Rashes: no rashes Extrem General: Yes no clubbing, cyanosis or edema Assessment and Plan Assessment & Plan (1) Allergic rhinitis: Comment: Allergy testing done at Dr. Pedraza's office in 2019 revealed that patient is allergic to cats and dust mites Code(s): J30.9 - Allergic rhinitis, unspecified Qualifiers: Allergic rhinitis trigger: unspecified Allergic rhinitis seasonality: unspecified Qualified Code(s): J30.9 - Allergic rhinitis, unspecified Plan: Will start patient back on Cetirizine 10 mg QD PRN and Fluticasone 50 mcg nasal spray QD PRN (2) Migraine: Code(s): G43.909 - Migraine, unspecified, not intractable, without status migrainosus Qualifiers: Migraine type: unspecified Status migrainosus presence: without status migrainosus Intractability: not intractable Qualified Code(s): G43.909 - Migraine, unspecified, not intractable, without status migrainosus Plan: Continue Topiramate 25 mg BID for headache prophylaxis - dose was increased to BID by neurology earlier this year She used to take Propranolol but this was discontinued a few months ago due to persistent bradycardia Continue Fioricet 50-300-40 mg every 8 hours PRN and/or Rizatriptan 10 mg QD PRN (she was on Sumatriptan in the past but states that the Rx stopped helping) She has been tried as well on Nurtec ODT by neurology but patient states that her insurance will not cover the Rx Follow up with neurology as scheduled (3) Pure hypercholesterolemia: Code(s): E78.00 - Pure hypercholesterolemia, unspecified Plan: Reinforced low cholesterol diet Will recheck her labs and fasting lipids in 4 months for follow-up (4) Irritable bowel syndrome with diarrhea: Code(s): K58.0 - Irritable bowel syndrome with diarrhea Plan: Continue Dicyclomine 20 mg QID PRN (Rx refilled), Loperamide 2 mg QID PRN and Fiber Laxative 625 mg QID PRN Follow up with GI as scheduled (5) GERD (gastroesophageal reflux disease): Code(s): K21.9 - Gastro-esophageal reflux disease without esophagitis Qualifiers: Esophagitis presence: without esophagitis Qualified Code(s): K21.9 - Gastro-esophageal reflux disease without esophagitis Plan: Dietary restrictions reinforced Continue Rabeprazole 20 mg QD Follow up with GI as scheduled (6) Lumbar spondylosis: Comment: (+) scoliosis Code(s): M47.816 - Spondylosis without myelopathy or radiculopathy, lumbar region Plan: Have reminded patient that her low back pain is also likely partly related to her scoliosis Reinforced activity and weight-lifting restrictions Continue Meloxicam 15 mg QD with food PRN, Gabapentin 100 mg TID and Methocarbamol 500 mg TID PRN Follow up with pain management as scheduled (7) Carpal tunnel syndrome: Comment: S/P CTS surgery bilaterally Code(s): G56.00 - Carpal tunnel syndrome, unspecified upper limb Qualifiers: Laterality: bilateral Qualified Code(s): G56.03 - Carpal tunnel syndrome, bilateral upper limbs Plan: She is again encouraged to continue wearing her wrist braces as needed to help minimize and manage her symptoms Follow up with orthopedics as scheduled or as needed (8) Vitamin D deficiency: Code(s): E55.9 - Vitamin D deficiency, unspecified Plan: Continue Vitamin D3 1000 units QD (9) Insomnia: Code(s): G47.00 - Insomnia, unspecified Qualifiers: Insomnia type: unspecified Qualified Code(s): G47.00 - Insomnia, unspecified Plan: Sleep hygiene reinforced Continue Trazodone 100 mg once a day at bedtime PRN (10) Anxiety: Code(s): F41.9 - Anxiety disorder, unspecified Plan: Continue Lorazepam 2 mg BID PRN (11) Depression: Code(s): F32.9 - Major depressive disorder, single episode, unspecified Qualifiers: Depression Type: major depressive disorder Major depression recurrence: recurrent Active/Remission status: currently active Major depression episode severity: unspecified Qualified Code(s): F33.9 - Major depressive disorder, recurrent, unspecified Plan: Continue Duloxetine 60 mg QD Follow-up with Psychiatry as scheduled (12) Obesity (BMI 30-39.9): Code(s): E66.9 - Obesity, unspecified Plan: Reinforced diet/exercise as tolerated/lose weight Plan Follow up in 4 months Orders: Orders TSH reflex Free T4 4 Months E78.00 - Pure hypercholesterolemia, unspecified Complete Blood Count Auto Diff 4 Months D64.9 - Anemia, unspecified Comprehensive [place]. Panel Fast 4 Months E78.00 - Pure hypercholesterolemia, unspecified Lipid Panel 4 Months E78.00 - Pure hypercholesterolemia, unspecified Medications: New fluticasone propionate 50 mcg/actuation (Allergy Relief (fluticasone)) administer into each nostril 2 sprays intranasal DAILY PRN 16 grams 5RF allergy symptoms/nasal congestion cetirizine 10 mg PO DAILY PRN 90 tabs 3RF allergy symptoms 90 days Coding Level of Care Code Est Pt Level 4 (04637) Diagnoses Allergic rhinitis, unspecified seasonality, unspecified trigger J30.9 Allergic rhinitis trigger: unspecified Allergic rhinitis seasonality: unspecified Migraine without status migrainosus, not intractable, unspecified migraine type G43.909 Migraine type: unspecified Status migrainosus presence: without status migrainosus Intractability: not intractable Pure hypercholesterolemia E78.00 Irritable bowel syndrome with diarrhea K58.0 Gastroesophageal reflux disease without esophagitis K21.9 Esophagitis presence: without esophagitis Lumbar spondylosis M47.816 Bilateral carpal tunnel syndrome G56.03 Laterality: bilateral Vitamin D deficiency E55.9 Insomnia, unspecified type G47.00 Insomnia type: unspecified Anxiety F41.9 Episode of recurrent major depressive disorder, unspecified depression episode severity F33.9 Depression Type: major depressive disorder Major depression recurrence: recurrent Active/Remission status: currently active Major depression episode severity: unspecified Obesity (BMI 30-39.9) E66.9
[2023-07-09 11:13] VITALS: BP 112/70; PULSE 53; O2SAT 98; BMI 38.6
== END 2023-07-09 12:32 | disposition home or self-care (01) ==
PROVIDERS: PCP Internal Medicine; Visit Provider Internal Medicine
DX: J30.9 Allergic rhinitis, unspecified (principal); G43.909 Migraine, unspecified, not intractable, without status migrainosus; E78.00 Pure hypercholesterolemia, unspecified; K58.0 Irritable bowel syndrome with diarrhea; K21.9 Gastro-esophageal reflux disease without esophagitis; M47.816 Spondylosis without myelopathy or radiculopathy, lumbar region; G56.03 Carpal tunnel syndrome, bilateral upper limbs; E55.9 Vitamin D deficiency, unspecified; G47.00 Insomnia, unspecified; F41.9 Anxiety disorder, unspecified; F33.9 Major depressive disorder, recurrent, unspecified; E66.9 Obesity, unspecified
CPT/HCPCS: 99214

== ENCOUNTER 2023-07-28 11:34 | Outpatient (AMB) | payer OTHER, SELFPAY ==
--- NOTE | 2023-07-28 11:40 | A.OFFVIS_ITS ---
Intake Vital Signs 07/28/23 11:43 Height 5 ft 2 in Weight 210 lb BMI 38.4 BP 110/59 L Blood Pressure Location Lt brachial Position Sitting Pulse 70 Intake Visit Reasons: 6 month follow up GERD, IBS-D Intake Note: Patient follow up for GERD and IBS-D Patient cc: diarrhea and denies any other GI issues. Cooler Operator Required: Yes Cooler Operator Name: Myra surgeon dept Accompanied by: Daughter Allergies morphine [MORPHINE] Allergy (Intermediate, Verified 07/28/23 11:38) TACHYCARDIA codeine [Tylenol-Codeine] Allergy (Unknown, Verified 07/28/23 11:38) Unknown oxycodone [Percocet] Allergy (Unknown, Verified 07/28/23 11:38) unknown HPI 6 month follow up GERD, IBS-D HPI Details Assessment & Plan (1) Irritable bowel syndrome with diarrh ea: Code(s): K58.0 - Irritable bowel syndrome with diarrhea Plan: [place] [facility] [facility] She has had diarrhea since stopping the loperamide. However with conversation it seems that the message was relayed to me incorrectly and she has not taken Lotronex for many months. In fact, she felt like her diarrhea was better controlled on loperamide 2 tablets to 4 tablets a day and since this works for her it is of course fine with me as well. She continues on her AcipHex 20 mg twice a day, her metoclopramide her simethicone and her sucralfate with good control of her GI symptoms. She has her colonoscopy upcoming in April. Return office visit after the colonoscopy and in 6 months. (2) GERD (gastroesophageal reflux diseas e): Code(s): K21.9 - Gastro-esophageal reflux disease without esophagitis Qualifiers: Esophagitis presence: without esophagitis Qualified Code(s): K21.9 - Gastro-esophageal reflux disease without esophagitis (3) Erosive gastritis: Code(s): K29.60 - Other gastritis without bleeding Medications: New loperamide (Imodiu m A-D) 4 mg (2 x 2 mg) PO BID 60 tabs 6RF K58.0 - Irritable bowel syndrome wit h diarrhea Refilled rabeprazole (AcipH ex) 20 mg PO DAILY 90 days 90 tabs 2RF K29.60 - Other gas tritis without ble eding metoclopramide HCl 5 mg PO QIDACHS 3 60 tabs 1RF simethicone aft er meals 180 mg PO TID 90 days 270 caps 1RF sucralfate 2 grams (2 x 1 gra m) PO BEDTIME 180 tabs 0RF Discontinued alosetron (Lotrone x) Discontinued Reason: Doctor's Order 0.5 mg PO BID 60 tabs 3RF K58.0 - Irritable bowel syndrome wit h diarrhea CORRESPONDENCE On 04/28/23 @ 12:20 Myra Gandhi Wrote To Mary pt has been r/s to 09/25/23 On 04/28/23 @ 12:17 Mignon Irwin Wrote To Mary spoke to patient, discussed needing to r/s colonoscopy scheduled on 05/11 - needs to complete cardiac workup - has appt with Lorenzo 05/25. call transferred to Myra. OR notified, f/u appt cancelled. On 04/28/23 @ 09:35 Any Linares Wrote To Mignon Irwin Correct. On 04/27/23 @ 16:25 Mignon Irwin Wrote To Mignon Irwin (2) patient is scheduled for colo 05/11. has cardiology referral for chest pain , bradycardia- appt with cardiology not until 05/25. She should be seen by cardiology prior to colonoscopy correct? TODAY'S VISIT [place] #Myra from gen surg She finds that the tablet form of loperimide is not working she was only taking 1 tab bid - she should take 2 caps up to tid until we can get the capsule form that works better for her. She continues on sucralfate, aciphex and simtheicone. Her diarrhea is also worsened with stress, which is quite common. Her sister recently at age 48 and they are pending an autopsy as she in her sleep. She has her colonoscopy rescheduled for September. ROV 4 weeks to eval. [facility], [facility] Medical History (Updated 07/28/23 @ 11:51 by VASYL Potter) COVID-19 Hx of sleep apnea Migraine Lumbar spondylosis Spondylosis of lumbar spine Daytime somnolence Obesity (BMI 30-39.9) Depression Anxiety Insomnia Vitamin D deficiency Carpal tunnel syndrome Bilateral low back pain without sciatica GERD without esophagitis Allergic rhinitis Pure hypercholesterolemia Surgical History Hx of tubal ligation History of surgery History of dilatation and curettage Hx of hysterectomy History of bunionectomy Hx of carpal tunnel repair History of esophagogastroduodenoscopy History of cholecystectomy Family History Mother No problems noted. Maternal Aunt Breast cancer Social History Housing: Apartment Alcohol intake: never Patient Tobacco Use Status: Never used Tobacco e-Cigarette/Vaping Use: Never Used Second Hand Smoke Exposure: Yes service: No Current occupational status: disabled Cognitive needs: No Hearing needs: No Vision needs: No Female Reproductive History Menstrual Age of Menarche: 16 Review of Systems Const Denies fatigue, Denies fever(s), Denies night sweats, Denies poor appetite and Denies weight loss ENT Reports Normal hearing present, Denies dental pain, Denies dysphagia, Denies hearing loss, Denies mouth pain, Denies odynophagia, Denies throat swelling, Denies tongue swelling and Reports other (Dentition adequate) Card Reports no additional complaints Resp Reports no additional complaints GI Details: Denies abdominal pain, Denies melena, Reports bloating, Denies hematochezia, Denies constipation, Denies GI cramping, Denies dysphagia, Denies excessive flatus, Denies early satiety, Reports heartburn, Reports diarrhea, Denies nausea, Denies odynophagia, Denies vomiting and Denies hematemesis Skin/Breast Denies pruritus, Denies lesions, Denies rash and Denies jaundice Neuro Reports Normal hearing present and Denies Abnormal speech present Endo Denies fatigue Aller/Immun Denies throat swelling and Denies tongue swelling Physical Exam Vital Signs: Last Vital Signs Pulse 70 07/28/23 11:43 BP 110/59 L 07/28/23 11:43 BMI result Body Mass Index 38.4 Const General: cooperative, no acute distress, well developed and well groomed Nutritional Appearance: well nourished and obese Orientation/consciousness: oriented to person, oriented to place and oriented to time Limitations: No language barrier HEENT Head: Yes normocephalic and Yes atraumatic Eyes General: appearance normal, both eyes and all related structures Pupils: Equal, round and reactive pupils present Neck Neck: Yes normal visual inspection and Yes no lymphadenopathy Thyroid: Thyroid normal Resp Effort & Inspection: normal respiratory effort and able to speak in complete sentences Auscultation: clear to auscultation bilaterally Cardio Rate: regular rate Rhythm: regular rhythm Heart sounds: Normal, physiologic split S2 sound present Peripheral pulses: radial pulses present and posterior tibial pulses present GI Inspection: No distended, Yes Abdominal panniculus present and Yes obesity Palpation (GI): Soft to palpation, nontender, no guarding, not rigid and No hepatosplenomegaly present Percussion: Yes normal to percussion Auscultation: normal bowel sounds Rectal Exam - Female: deferred Skin General skin exam: no rashes or lesions noted, turgor normal, skin not dry, no jaundice, No spider nevi and no striae Rashes: no rashes Nails: normal Neuro General: oriented to person, oriented to place and oriented to time Cranial nerves: Yes Equal, round and reactive pupils present and Yes Normal hearing present Speech: No Abnormal speech present Extrem General: Yes normal to inspection, No clubbing, No cyanosis and No edema Psych Appearance: grossly normal and well kempt Mental Status: mental status grossly normal Speech and movement: Normal speech and movement present Affect: normal affect Attitude: cooperative Thought process: Normal thought process present and not confabulating Thought content: Normal thought content present Insight: Limited insight present (Psych) Judgement: Limited judgement present (Psych) Assessment & Plan Assessment & Plan (1) GERD (gastroesophageal reflux disease): Code(s): K21.9 - Gastro-esophageal reflux disease without esophagitis Qualifiers: Esophagitis presence: without esophagitis Qualified Code(s): K21.9 - Gastro-esophageal reflux disease without esophagitis (2) Irritable bowel syndrome with diarrhea: Code(s): K58.0 - Irritable bowel syndrome with diarrhea Plan [place] #Myra from gen surg She finds that the tablet form of loperimide is not working she was only taking 1 tab bid - she should take 2 caps up to tid until we can get the capsule form that works better for her. She continues on sucralfate, aciphex and simtheicone. Her diarrhea is also worsened with stress, which is quite common. Her sister recently at age 48 and they are pending an autopsy as she in her sleep. She has her colonoscopy rescheduled for September. ROV 4 weeks to eval. Medications: New loperamide Please dispense capsule as the patient can not swallow the tablet. 2 mg PO QID 120 caps 3RF loose stool K58.0 - Irritable bowel syndrome with diarrhea loperamide 2 mg PO QID 120 caps 3RF loose stool K58.0 - Irritable bowel syndrome with diarrhea Refilled sucralfate 2 grams (2 x 1 gram) PO BEDTIME 180 tabs 6RF K58.0 - Irritable bowel syndrome with diarrhea metoclopramide HCl 5 mg PO QIDACHS 360 tabs 1RF rabeprazole (AcipHex) 20 mg PO DAILY 90 tabs 2RF 90 days K29.60 - Other gastritis without bleeding Discontinued loperamide (Imodium A-D) Discontinued Reason: Doctor's Order 4 mg (2 x 2 mg) PO BID 60 tabs 6RF K58.0 - Irritable bowel syndrome with diarrhea Coding Level of Care Code Est Pt Level 3 (25963) Diagnoses Gastroesophageal reflux disease without esophagitis K21.9 Esophagitis presence: without esophagitis Irritable bowel syndrome with diarrhea K58.0
[2023-07-28 11:43] VITALS: BP 110/59; PULSE 70; BMI 38.4
== END 2023-07-28 12:03 | disposition home or self-care (01) ==
PROVIDERS: PCP Internal Medicine; Visit Provider Nurse Practitioner
DX: K21.9 Gastro-esophageal reflux disease without esophagitis (principal); K58.0 Irritable bowel syndrome with diarrhea
CPT/HCPCS: 99213

== ENCOUNTER → 2023-07-28 11:34 | Outpatient (BNVA) | payer OTHER, SELFPAY | PROVIDERS: PCP Internal Medicine; Visit Provider Nurse Practitioner | DX: K21.9 Gastro-esophageal reflux disease without esophagitis (principal); K58.0 Irritable bowel syndrome with diarrhea | CPT/HCPCS: 99212 ==

== ENCOUNTER 2023-09-25 08:19 | Day surgery (SDC) | payer OTHER, SELFPAY ==
--- NOTE | 2023-09-23 10:38 | P.CONAN_ITS ---
Documented by User: Any Linares NP 09/23/23 10:39 HPI - Anesthesia Eval Consult details Narrative: 53yo F for Colonoscopy PMFSH Active Problems Active Problems: All Active Problems Migraine without aura (Acute) Chest pressure (Acute) Bradycardia (Acute) Annual physical exam (Acute) Obesity (BMI 35.0-39.9 without comorbidity) (Acute) Urinary retention with incomplete bladder emptying (Acute) Dermatitis associated with moisture from urinary incontinence (Acute) Pre-op examination (Acute) GERD (gastroesophageal reflux disease) (Acute) Irritable bowel syndrome with diarrhea (Acute) Lumbar radiculopathy (Acute) Inflammatory lesion of eyelid (Acute) Epigastric pain (Acute) Pelvic pain (Acute) Problematic vaginal discharge (Acute) Potential exposure to STD (Acute) History of hysterectomy, supracervical (Acute) Bacterial vaginosis (Acute) Vaginal irritation (Acute) Yeast infection involving the vagina and surrounding area (Acute) Sleep disorder, unspecified (Acute) Mild obstructive sleep apnea (Acute) Erosive gastritis (Acute) Potential exposure to STD (Acute) Hx of abnormal cervical Pap smear (Acute) Abdominal pain (Acute) Nausea and vomiting (Acute) Migraine (Acute) Lumbar spondylosis (Acute) Spondylosis of lumbar spine (Acute) Daytime somnolence (Acute) Obesity (BMI 30-39.9) (Acute) Depression (Acute) Anxiety (Acute) Insomnia (Acute) Vitamin D deficiency (Acute) Carpal tunnel syndrome (Acute) Bilateral low back pain without sciatica (Acute) Allergic rhinitis (Acute) Pure hypercholesterolemia (Acute) Past Medical History Medical History (Updated 07/28/23 @ 11:51 by VASYL Potter) COVID-19 Hx of sleep apnea Migraine Lumbar spondylosis Spondylosis of lumbar spine Daytime somnolence Obesity (BMI 30-39.9) Depression Anxiety Insomnia Vitamin D deficiency Carpal tunnel syndrome Bilateral low back pain without sciatica GERD without esophagitis Allergic rhinitis Pure hypercholesterolemia Family History Family History Mother No problems noted. Maternal Aunt Breast cancer Family history of problems with anesthesia: No Surgical History Surgical History Hx of tubal ligation History of surgery History of dilatation and curettage Hx of hysterectomy History of bunionectomy Hx of carpal tunnel repair History of esophagogastroduodenoscopy History of cholecystectomy History of Problems with Anesthesia: No Social History Social History Housing: Apartment Alcohol intake: never Patient Tobacco Use Status: Never used Tobacco e-Cigarette/Vaping Use: Never Used Second Hand Smoke Exposure: Yes Use of substances other than those prescribed or required for medical reasons: No Have you been hit, kicked, punched, or otherwise hurt by someone within the past year? If so, by whom?: No Are you DNR?: No Advance Directives: No Advance Directives Information Provided: Yes service: No Current occupational status: disabled Cognitive needs: No Hearing needs: No Vision needs: No Meds Allergies Allergy/AdvReac Type Severity Reaction Status Date / Time morphine [MORPHINE] Allergy Intermediate TACHYCARDIA Verified 09/25/23 08:44 codeine [Tylenol-Codeine] Allergy Unknown Unknown Verified 09/25/23 08:44 oxycodone [Percocet] Allergy Unknown unknown Verified 09/25/23 08:44 Home Medications ?Medication ?Instructions ?Recorded ?Confirmed ?Last Taken ?Type duloxetine 60 mg capsule,delayed 60 mg PO QAM 04/04/20 07/29/23 Unknown History release gabapentin 100 mg capsule 100 mg PO TID 04/04/20 07/29/23 Unknown History oxybutynin chloride 10 mg 10 mg PO DAILY 04/04/20 07/29/23 Unknown History tablet,extended release 24 hr trazodone 100 mg tablet 100 mg PO BEDTIME 04/04/20 07/29/23 Unknown History rizatriptan 10 mg tablet 10 mg PO ONCE PRN Migraine Headache 08/06/21 07/29/23 Unknown History mirabegron 50 mg tablet,extended 50 mg PO DAILY 03/14/22 07/29/23 Unknown History release 24 hr (Myrbetriq) lorazepam 1 mg tablet 2 mg PO BID PRN Anxiety 04/29/22 07/29/23 Unknown History promethazine 25 mg tablet 25 mg PO DAILY PRN nausea 10/22/22 07/29/23 Unknown History triamcinolone acetonide 55 mcg intranasal 10/22/22 07/29/23 Unknown History nasal spray aerosol Assessment and Plan Assessment Anesthesia Assessment: Chart Reviewed Final Anesthetic Review Family History of Problems with Anesthesia: No History of Problems with Anesthesia: No Documented by User: Faye Crain MD 09/25/23 09:09 [facility] Past Medical History Medical History (Updated 07/28/23 @ 11:51 by VASYL Potter) COVID-19 Hx of sleep apnea Migraine Lumbar spondylosis Spondylosis of lumbar spine Daytime somnolence Obesity (BMI 30-39.9) Depression Anxiety Insomnia Vitamin D deficiency Carpal tunnel syndrome Bilateral low back pain without sciatica GERD without esophagitis Allergic rhinitis Pure hypercholesterolemia Family History Family History Mother No problems noted. Maternal Aunt Breast cancer Surgical History Surgical History Hx of tubal ligation History of surgery History of dilatation and curettage Hx of hysterectomy History of bunionectomy Hx of carpal tunnel repair History of esophagogastroduodenoscopy History of cholecystectomy Social History Social History Housing: Apartment Alcohol intake: never Patient Tobacco Use Status: Never used Tobacco e-Cigarette/Vaping Use: Never Used Second Hand Smoke Exposure: Yes Use of substances other than those prescribed or required for medical reasons: No Have you been hit, kicked, punched, or otherwise hurt by someone within the past year? If so, by whom?: No Are you DNR?: No Advance Directives: No Advance Directives Information Provided: Yes service: No Current occupational status: disabled Cognitive needs: No Hearing needs: No Vision needs: No Meds Allergies Allergy/AdvReac Type Severity Reaction Status Date / Time morphine [MORPHINE] Allergy Intermediate TACHYCARDIA Verified 09/25/23 08:44 codeine [Tylenol-Codeine] Allergy Unknown Unknown Verified 09/25/23 08:44 oxycodone [Percocet] Allergy Unknown unknown Verified 09/25/23 08:44 Home Medications ?Medication ?Instructions ?Recorded ?Confirmed ?Last Taken ?Type duloxetine 60 mg capsule,delayed 60 mg PO QAM 04/04/20 07/29/23 Unknown History release gabapentin 100 mg capsule 100 mg PO TID 04/04/20 07/29/23 Unknown History oxybutynin chloride 10 mg 10 mg PO DAILY 04/04/20 07/29/23 Unknown History tablet,extended release 24 hr trazodone 100 mg tablet 100 mg PO BEDTIME 04/04/20 07/29/23 Unknown History rizatriptan 10 mg tablet 10 mg PO ONCE PRN Migraine Headache 08/06/21 07/29/23 Unknown History mirabegron 50 mg tablet,extended 50 mg PO DAILY 03/14/22 07/29/23 Unknown History release 24 hr (Myrbetriq) lorazepam 1 mg tablet 2 mg PO BID PRN Anxiety 04/29/22 07/29/23 Unknown History promethazine 25 mg tablet 25 mg PO DAILY PRN nausea 10/22/22 07/29/23 Unknown History triamcinolone acetonide 55 mcg intranasal 10/22/22 07/29/23 Unknown History nasal spray aerosol Exam Airway Mallampati Class: II TM Dist: >3cm Neck ROM: Full Denture: Upper and Lower Heart: rrr Lungs: cta Assessment and Plan Assessment Anesthesia Assessment: Anesthesia Plan Discussed Final Anesthetic Review NPO: Yes ASA Class: II Final Preanesthetic Review: No Changes in Pt Med Stat, Meds/Allgs Chart Reviewed and Consent Obtained/Reviewed Patient Risk: Low Procedure Risk: Low Anesthetic Plan Anesthetic Plan: MAC: Disposition: Standard PACU
--- NOTE | 2023-09-25 07:33 | P.HPSUR_ITS ---
Pre-Procedural Eval Section A - 24 Hr Update-Section A only Date of Service: 09/25/23 The patient is an INPATIENT: No The patient has been examined within 24 hours of the surgical procedure. The History & Physical has been completed within 30 days and I have reviewed it.: No Section B - Complete if H&P > 30 days Chief Complaint: Family history of malignant neoplasm of digestive Relevant Family History (Specify if Yes): No Relevant Social History: None Present Medications: see Short Stay Collaborative assessment Medical History: Significant History (COVID-19 Hx of sleep apnea Migraine Lumbar spondylosis Spondylosis of lumbar spine Daytime somnolence Obesity (BMI 30-39.9) Depression Anxiety Insomnia Vitamin D deficiency Carpal tunnel syndrome Bilate ral low back pain without sciatica GERD without esophagitis) History of Previous Operations: Relevant previous surgery/procedure and date(s) (Hx of tubal ligation History of surgery History of dilatation and curettage Hx of hysterectomy History of bunionectomy Hx of carpal tunnel repair History of esophagogastroduodenoscopy History of cholecystectomy) Allergies: Allergies Allergy/AdvReac Type Severity Reaction Status Date / Time morphine [MORPHINE] Allergy Intermediate TACHYCARDIA Verified 07/29/23 16:28 codeine [Tylenol-Codeine] Allergy Unknown Unknown Verified 07/29/23 16:28 oxycodone [Percocet] Allergy Unknown unknown Verified 07/29/23 16:28 Review of Systems Sugical H&P ROS: Negative: Constitution, Cardiovascular, Respiratory and Gastrointestinal Exam Surgical H&P Exam: Normal: Heart, Normal: Lungs, Normal: Extremities and Normal: Abdomen Plan Diagnosis/Plan: Unchanged I have reviewed the history and physical and performed a pertinent physical examination on my patient. No changes have occurred unless specified. Time Spent With Patient Time: Total time managing care of this patient today ____ minutes.
[2023-09-25 08:34] VITALS: BMI 38.0
[2023-09-25 08:58] VITALS: BP 126/75; PULSE 70; RESP 16; TEMP 36.2; O2SAT 97
[2023-09-25] MEDS: Lactated Ringers 1,000 ML 100 ML IVCONT (08:59)
--- NOTE | 2023-09-25 10:45 | P.OPN-COLO_ITS ---
Colonoscopy Operative Note Operative Note Date of Service: 09/25/23 Narrative: COLONOSCOPY TILL CECUM WITH BIOPSIES, SNARE POLYPECTOMY, SUBMUCOSAL INJECTION AND HEMOCLIP PLACEMENT Pre-op diagnosis: Colon cancer screening (First colonoscopy), chronic diarrhea. Post-op diagnosis:? Colon polyps, Diverticulosis, hemorrhoids Endoscopist:? Dedra Guerrier MD Anesthesia:?MAC Consent: Indications for the procedure and potential complications of bleeding, perforation, reaction to medications and missed diagnosis were discussed with the patient and informed consent was obtained. Instrument: Olympus PCF H 190 L variable stiffness pediatric colonoscope Monitoring: Vital signs and clinical assessment, intermittent blood pressure monitoring, continuous EKG monitoring, Pulse oximetry and Carbon Dioxide monitoring were done throughout the procedure. Please see anesthesia flowsheet. Colon withdrawl time was 24 minutes. Procedure: The patient was placed in the left lateral decubitis position and pre-procedure medications were administered. After a digital rectal examination of the ano-rectum, the video colonoscope was inserted into the rectum and advanced through the colon to the cecum. The colonoscope was slowly withdrawn in a retrograde panoramic fashion and the colon mucosa was carefully examined including a retroflexed view of the rectum. Findings and interventions are described below. Procedure Difficulty: Colon was long and tortuous and there was some loop formation Findings: Terminal Ileum: TI was intubated and appeared normal Cecum: Normal Ascending Colon: Normal Transverse Colon: Normal Descending Colon: Normal Sigmoid Colon: A 15 to 18 mm sessile polyp at 50 cms. Polyp was raised with 3 cc of Eleview and removed with a hot snare. Polypectomy site was closed with 1 hemoclip. A 2nd 15 mm sessile polyp at 50 cms - removed with a hot snare. There was some bleeding from the polypectomy site which was controlled with cautery using the snare tip and polypectomy site was closed with 1 hemoclip. A 12-15 mm sessile polyp at 40 cms - removed with a hot snare. Moderate diverticulosis Rectum: Normal Ano-rectum: Moderate internal hemorrhoids Colon preparation: Excellent, after some irrigation. [place] Bowel Preparation Scale Right colon; 3 Transverse colon: 3 Left colon; 3 (0 = Unprepared colon segment with mucosa not seen due to solid stool that cannot be cleared. 1 = Portion of mucosa of the colon segment seen, but other areas of the colon segment not well seen due to staining, residual stool and/or opaque liquid. 2 = Minor amount of residual staining, small fragments of stool and/or opaque liquid, but mucosa of colon segment seen well. 3 = Entire mucosa of colon segment seen well with no residual staining, small fragments of stool or opaque liquid) Impression and Post Procedure Diagnosis: Colonoscopy Findings: Three medium sized polyps were removed Random biopsies were obtained from the right and left colon to check for microscopic colitis Moderate diverticulosis seen in the sigmoid colon Moderate hemorrhoids on retroflexed exam. Plan: Pt has a FU appointment on 10/09/23 with Chayito Hernandez NP. Repeat Colonoscopy in 3 years if polyps are adenomatous and 10 year if polyps are hyperplastic. Above findings were reviewed with the patient and relevant handouts were given and the discharge area.
[2023-09-25 10:46] VITALS: BP 141/93; PULSE 72; RESP 16; TEMP 36.1; O2SAT 99
[2023-09-25 11:01] VITALS: BP 128/84; PULSE 62; RESP 16; O2SAT 97
[2023-09-25 11:16] VITALS: BP 139/91; PULSE 65; RESP 21; TEMP 36.1; O2SAT 97
== END 2023-09-25 12:30 | disposition home or self-care (01) ==
PROVIDERS: PCP Internal Medicine; Visit Provider Internal Medicine Gastroenterology
PROC: 0DJD8ZZ Inspection of Lower Intestinal Tract, Via Natural or Artificial Opening Endoscopic (ICD-10-PCS; CPT 45378; principal; 2023-09-25 10:10)
DX: Z12.11 Encounter for screening for malignant neoplasm of colon (principal); D12.5 Benign neoplasm of sigmoid colon; K57.30 Diverticulosis of large intestine without perforation or abscess without bleeding; K56.2 Volvulus; K64.8 Other hemorrhoids; K58.0 Irritable bowel syndrome with diarrhea; Z88.5 Allergy status to narcotic agent
CPT/HCPCS: 45385; 45381; 45380; 88305; J2704

== ENCOUNTER → 2023-09-25 08:19 | Outpatient (BNV) | payer OTHER, SELFPAY | PROVIDERS: PCP Internal Medicine; Visit Provider Internal Medicine Gastroenterology | DX: Z12.11 Encounter for screening for malignant neoplasm of colon (principal); R19.7 Diarrhea, unspecified; K63.5 Polyp of colon; K57.30 Diverticulosis of large intestine without perforation or abscess without bleeding; K64.8 Other hemorrhoids | CPT/HCPCS: 45380; 45381; 45385 ==

== ENCOUNTER 2023-10-09 10:57 | Outpatient (AMB) | payer OTHER, SELFPAY ==
--- NOTE | 2023-10-09 10:58 | A.OFFVIS_ITS ---
Vital Signs 10/09/23 11:02 Height 5 ft 2 in Weight 213 lb 6.519 oz BMI 39.0 BP 124/80 Blood Pressure Location Lt brachial Position Sitting Pulse 48 L Pulse Source Pulse Oximeter Pulse Oximetry (%) 99 Oxygen Delivery Method Room Air Intake Visit Reasons: s/p colon Intake Note: Duyen presents to the office today for a scheduled post colo FUV. CC; Pt reports that they have remained stable since their s/p, pt denies any complications. Manager Target Required: Yes Allergies morphine [MORPHINE] Allergy (Intermediate, Verified 11/05/23 11:56) TACHYCARDIA codeine [Tylenol-Codeine] Allergy (Unknown, Verified 11/05/23 11:56) Unknown oxycodone [Percocet] Allergy (Unknown, Verified 11/05/23 11:56) unknown HPI HPI s/p colon: Details: Assessment & Plan (1) GERD (gastroesophageal reflux disease): Code(s): K21.9 - Gastro-esophageal reflux disease without esophagitis Qualifiers: Esophagitis presence: without esophagitis Qualified Code(s): K21.9 - Gastro-esophageal reflux disease without esophagitis (2) Irritable bowel syndrome with diarrhea: Code(s): K58.0 - Irritable bowel syndrome with diarrhea Plan [place] #Myra from gen surg She finds that the tablet form of loperimide is not working she was only taking 1 tab bid - she should take 2 caps up to tid until we can get the capsule form that works better for her. She continues on sucralfate, aciphex and simtheicone. Her diarrhea is also worsened with stress, which is quite common. Her sister recently at age 48 and they are pending an autopsy as she in her sleep. She has her colonoscopy rescheduled for September. ROV 4 weeks to eval. Medications: New loperamide Please dispense capsule as the patient can not swallow the tablet. 2 mg PO QID 120 caps 3RF loose stool K58.0 - Irritable bowel syndrome with diarrhea loperamide 2 mg PO QID 120 caps 3RF loose stool K58.0 - Irritable bowel syndrome with diarrhea Refilled sucralfate 2 grams (2 x 1 gram) PO BEDTIME 180 tabs 6RF K58.0 - Irritable bowel syndrome with diarrhea metoclopramide HCl 5 mg PO QIDACHS 360 tabs 1RF rabeprazole (AcipHex) 20 mg PO DAILY 90 tabs 2RF 90 days K29.60 - Other gastritis without bleeding Discontinued loperamide (Imodium A-D) Discontinued Reason: Doctor's Order 4 mg (2 x 2 mg) PO BID 60 tabs 6RF K5 8.0 - Irritable bowel syndrome with diarrhea COLONOSCOPY 09/25/23 Findings: Terminal Ileum: TI was intubated and appeared normal Cecum: Normal Ascending Colon: Normal Transverse Colon: Normal Descending Colon: Normal Sigmoid Colon: A 15 to 18 mm sessile polyp at 50 cms. Polyp was raised with 3 cc of Eleview and removed with a hot snare. Polypectomy site was closed with 1 hemoclip. A 2nd 15 mm sessile polyp at 50 cms - removed with a hot snare. There was some bleeding from the polypectomy site which was controlled with cautery using the snare tip and polypectomy site was closed with 1 hemoclip. A 12-15 mm sessile polyp at 40 cms - removed with a hot snare. Moderate diverticulosis Rectum: Normal Ano-rectum: Moderate internal hemorrhoids Impression and Post Procedure Diagnosis: Colonoscopy Findings: Three medium sized polyps were removed Random biopsies were obtained from the right and left colon to check for m icroscopic colitis Moderate diverticulosis seen in the sigmoid colon Moderate hemorrhoids on retroflexed exam. Plan: Pt has a FU appointment on 10/09/23 with Chayito Hernandez NP. Repeat Colonoscopy in 3 years if polyps are adenomatous and 10 year if polyps are hyperplastic. BIOPSY Received: 09/25/23 Diagnosis A. Colon, random right, biopsy: Colonic mucosa within normal limits; negative for active, chronic or microscopic colitis. B. Colon, sigmoid at 50 cm, polypectomy x2: Tubular adenoma (2); negative for high-grade dysplasia. C. Colon, random left, biopsy: Colonic mucosa within normal limits; negative for active, chronic or microscopic colitis. D. Colon, sigmoid at 40 cm, polypectomy: Tubular adenoma; negative for high- grade dysplasi TODAY'S VISIT [place] #Narciso lIVE The she has agreeable to a 3 year follow-up. The procedure was well tolerated. The results were explained and the patient is agreeable to the follow-up interval as stated. The bowel pattern has returned to normal. Education was provided to tell any 1st degree relatives about their findings to be sure that they are screened by age 45. Educated that they will be put on a recall list when it is time for their repeat scope but should they move out of state or away from the hospital they will need to remember along with their primary to repeat the procedure in a timely fashion to avoid any adverse complications. She is doing much better with her diarrhea now that we switched her from the tablet form of Imodium to the capsule form. She continues on sucralfate, aciphex and simtheicone. With this she is satisfied with her GI regimen. Return office visit in 6 months [facility] Medical History (Updated 11/06/23 @ 04:04 by Dc Bennett MD) Insomnia Obesity (BMI 30-39.9) Migraine without aura Bilateral low back pain without sciatica Carpal tunnel syndrome Daytime somnolence Lumbar spondylosis Hx of abnormal cervical Pap smear Erosive gastritis Sleep disorder, unspecified Yeast infection involving the vagina and surrounding area Bacterial vaginosis Problematic vaginal discharge COVID-19 Hx of sleep apnea Depression Anxiety Vitamin D deficiency GERD without esophagitis Allergic rhinitis Pure hypercholesterolemia Surgical History H/O colonoscopy History of hysterectomy, supracervical Hx of tubal ligation History of surgery History of dilatation and curettage Hx of hysterectomy History of bunionectomy Hx of carpal tunnel repair History of esophagogastroduodenoscopy History of cholecystectomy Family History Mother No problems noted. Maternal Aunt Breast cancer Social History Housing: Apartment Alcohol intake: never Patient Tobacco Use Status: Never used Tobacco e-Cigarette/Vaping Use: Never Used Second Hand Smoke Exposure: Yes service: No Current occupational status: disabled Cognitive needs: No Hearing needs: No Vision needs: No Female Reproductive History Menstrual Age of Menarche: 16 Review of Systems Const Denies fatigue, Denies fever(s), Denies night sweats, Denies poor appetite and Denies weight loss ENT Reports Normal hearing present, Denies dental pain, Denies dysphagia, Denies hearing loss, Denies mouth pain, Denies odynophagia, Denies throat swelling, Denies tongue swelling and Reports other (Dentition adequate) Card Reports no additional complaints Resp Reports no additional complaints GI Details: Denies abdominal pain, Denies melena, Reports bloating, Denies hematochezia, Denies constipation, Denies GI cramping, Denies dysphagia, Denies excessive flatus, Denies early satiety, Reports heartburn, Reports diarrhea, Denies nausea, Denies odynophagia, Denies vomiting and Denies hematemesis Skin/Breast Denies pruritus, Denies lesions, Denies rash and Denies jaundice Neuro Reports Normal hearing present and Denies Abnormal speech present Endo Denies fatigue Aller/Immun Denies throat swelling and Denies tongue swelling Physical Exam Vital Signs: Last Vital Signs Pulse 48 L 10/09/23 11:02 BP 124/80 10/09/23 11:02 Pulse Ox 99 10/09/23 11:02 Oxygen Delivery Method Room Air 10/09/23 11:02 BMI result Body Mass Index 39.0 Const General: cooperative, no acute distress, well developed and well groomed Nutritional Appearance: well nourished and obese Orientation/consciousness: oriented to person, oriented to place and oriented to time Limitations: language barrier HEENT Head: Yes normocephalic and Yes atraumatic Eyes General: appearance normal, both eyes and all related structures Pupils: Equal, round and reactive pupils present Neck Neck: Yes normal visual inspection and Yes no lymphadenopathy Thyroid: Thyroid normal Resp Effort & Inspection: normal respiratory effort and able to speak in complete sentences Auscultation: clear to auscultation bilaterally Cardio Rate: regular rate Rhythm: regular rhythm Heart sounds: Normal, physiologic split S2 sound present Peripheral pulses: radial pulses present and posterior tibial pulses present GI Inspection: No distended, Yes Abdominal panniculus present and Yes obesity Palpation (GI): Soft to palpation, nontender, no guarding, not rigid and No hepatosplenomegaly present Percussion: Yes normal to percussion Auscultation: normal bowel sounds Rectal Exam - Female: deferred Skin General skin exam: no rashes or lesions noted, turgor normal, skin not dry, no jaundice, No spider nevi and no striae Rashes: no rashes Nails: normal Neuro General: oriented to person, oriented to place and oriented to time Cranial nerves: Yes Equal, round and reactive pupils present and Yes Normal hearing present Speech: No Abnormal speech present Extrem General: Yes normal to inspection, No clubbing, No cyanosis and No edema Psych Appearance: grossly normal and well kempt Mental Status: mental status grossly normal Speech and movement: Normal speech and movement present Affect: normal affect Attitude: cooperative Thought process: Normal thought process present and not confabulating Thought content: Normal thought content present Insight: Limited insight present (Psych) Judgement: Limited judgement present (Psych) Results Reviewed Results Reviewed: COLONOSCOPY 09/25/23 Findings: Terminal Ileum: TI was intubated and appeared normal Cecum: Normal Ascending Colon: Normal Transverse Colon: Normal Descending Colon: Normal Sigmoid Colon: A 15 to 18 mm sessile polyp at 50 cms. Polyp was raised with 3 cc of Eleview and removed with a hot snare. Polypectomy site was closed with 1 hemoclip. A 2nd 15 mm sessile polyp at 50 cms - removed with a hot snare. There was some bleeding from the polypectomy site which was controlled with cautery using the snare tip and polypectomy site was closed with 1 hemoclip. A 12-15 mm sessile polyp at 40 cms - removed with a hot snare. Moderate diverticulosis Rectum: Normal Ano-rectum: Moderate internal hemorrhoids Impression and Post Procedure Diagnosis: Colonoscopy Findings: Three medium sized polyps were removed Random biopsies were obtained from the right and left colon to check for microscopic colitis Moderate diverticulosis seen in the sigmoid colon Moderate hemorrhoids on retroflexed exam. Plan: Pt has a FU appointment on 10/09/23 with Chayito Hernandez NP. Repeat Colonoscopy in 3 years if polyps are adenomatous and 10 year if polyps are hyperplastic. BIOPSY Received: 09/25/23 Diagnosis A. Colon, random right, biopsy: Colonic mucosa within normal limits; negative for active, chronic or microscopic colitis. B. Colon, sigmoid at 50 cm, polypectomy x2: Tubular adenoma (2); negative for high-grade dysplasia. C. Colon, random left, biopsy: Colonic mucosa within normal limits; negative for active, chronic or microscopic colitis. D. Colon, sigmoid at 40 cm, polypectomy: Tubular adenoma; negative for high- grade dysplasi Assessment & Plan Assessment & Plan (1) Irritable bowel syndrome with diarrhea: Code(s): K58.0 - Irritable bowel syndrome with diarrhea Category: Medical Plan: [place] #Narciso lIVE The she has agreeable to a 3 year follow-up. The procedure was well tolerated. The results were explained and the patient is agreeable to the follow-up interval as stated. The bowel pattern has returned to normal. Education was provided to tell any 1st degree relatives about their findings to be sure that they are screened by age 45. Educated that they will be put on a recall list when it is time for their repeat scope but should they move out of state or away from the hospital they will need to remember along with their primary to repeat the procedure in a timely fashion to avoid any adverse complications. She is doing much better with her diarrhea now that we switched her from the tablet form of Imodium to the capsule form. She continues on sucralfate, aciphex and simtheicone. With this she is satisfied with her GI regimen. Return office visit in 6 months (2) GERD (gastroesophageal reflux disease): Code(s): K21.9 - Gastro-esophageal reflux disease without esophagitis Category: Medical Qualifiers: Esophagitis presence: without esophagitis Qualified Code(s): K21.9 - Gastro-esophageal reflux disease without esophagitis (3) Tubular adenoma of colon: Comment: 09/2023 scope= 3 TA is repeat in 3 years Code(s): D12.6 - Benign neoplasm of colon, unspecified Category: Medical Plan [place] #Narciso lIVE The she has agreeable to a 3 year follow-up. The procedure was well tolerated. The results were explained and the patient is agreeable to the follow-up interval as stated. The bowel pattern has returned to normal. Education was provided to tell any 1st degree relatives about their findings to be sure that they are screened by age 45. Educated that they will be put on a recall list when it is time for their repeat scope but should they move out of state or away from the hospital they will need to remember along with their primary to repeat the procedure in a timely fashion to avoid any adverse complications. She is doing much better with her diarrhea now that we switched her from the tablet form of Imodium to the capsule form. She continues on sucralfate, aciphex and simtheicone. With this she is satisfied with her GI regimen. Return office visit in 6 months Medications: Changed From sucralfate 2 grams (2 x 1 gram) PO BEDTIME 180 tabs 6RF K58.0 - Irritable bowel syndrome with diarrhea To sucralfate 2 grams (2 x 1 gram) PO BEDTIME 180 tabs 6RF K58.0 - Irritable bowel syndrome with diarrhea Refilled metoclopramide HCl 5 mg PO QIDACHS 360 tabs 1RF simethicone (Anti-Gas Ultra Strength) 180 mg PO QID 120 caps 3RF rabeprazole (AcipHex) 20 mg PO DAILY 90 tabs 2RF 90 days K29.60 - Other gastritis without bleeding loperamide Please dispense capsule as the patient can not swallow the tablet. 2 mg PO QID 120 caps 3RF loose stool K58.0 - Irritable bowel syndrome with diarrhea Discontinued famotidine Discontinued Reason: Doctor's Order 40 mg PO BID 180 tabs 2RF K21.9 - Gastro-esophageal reflux disease without esophagitis, R10.13 - Epigastric pain Coding Level of Care Code Est Pt Level 4 (08312) Diagnoses Irritable bowel syndrome with diarrhea K58.0 Gastroesophageal reflux disease without esophagitis K21.9 Esophagitis presence: without esophagitis Tubular adenoma of colon D12.6
[2023-10-09 11:02] VITALS: BP 124/80; PULSE 48; O2SAT 99; BMI 39.0
== END 2023-10-09 11:23 | disposition home or self-care (01) ==
PROVIDERS: PCP Internal Medicine; Visit Provider Nurse Practitioner
DX: K58.0 Irritable bowel syndrome with diarrhea (principal); K21.9 Gastro-esophageal reflux disease without esophagitis; D12.6 Benign neoplasm of colon, unspecified
CPT/HCPCS: 99214

== ENCOUNTER → 2023-10-09 10:57 | Outpatient (BNVA) | payer OTHER, SELFPAY | PROVIDERS: PCP Internal Medicine; Visit Provider Nurse Practitioner | DX: K21.9 Gastro-esophageal reflux disease without esophagitis (principal); D12.6 Benign neoplasm of colon, unspecified; Z98.890 Other specified postprocedural states | CPT/HCPCS: 99212 ==

== ENCOUNTER 2023-10-29 09:24 | Outpatient (REF) | payer OTHER, SELFPAY ==
[2023-10-29 09:34] LABS: MANUAL DIFF FLAG NO
[2023-10-29 10:29] LABS: Basophils Absolute Auto 0.1 X10*3/uL (0.0-0.2); Basophils Percent Auto 0.5 % (0-2); Eosinophils Absolute Auto 0.2 X10*3/uL (0.0-0.4); Eosinophils Percent Auto 1.7 % (0-4); Hematocrit 38.4 % (37.0-47.0); Hemoglobin 12.6 g/dl (12.0-16.0); Imm Gran Abs Auto 0.04 X10*3/uL (0.00-0.03); Imm Gran Pct Auto 0.4 % (0.0-0.4); Lymphocytes Absolute Auto 4.8 X10*3/uL (1.2-4.9); Lymphocytes Percent Auto 43.6 % (20-40); Mean Corpuscular HGB Conc 32.8 g/dl (31.0-35.0); Mean Corpuscular Hemoglobin 30.8 pg (27.0-33.0); Mean Corpuscular Volume 93.9 fL (80.0-98.0); Mean Platelet Volume 11.4 fL (9.4-12.3); Monocytes Absolute Auto 0.9 X10*3/uL (0.1-1.2); Monocytes Percent Auto 8.2 % (2-11); Neutrophils Percent Auto 45.6 % (45-73); Platelet Count 277 X10*3/uL (160-400); Red Blood Count 4.09 X10*6/uL (4.20-5.50); Red Cell Distribution Width 12.7 % (11.0-16.0)
[2023-10-29 10:57] LABS: Alanine Aminotransferase 17 U/L (0-31); Albumin Level 4.2 g/dL (3.5-5.0); Alkaline Phosphatase 62 U/L (39-117); Anion Gap 16 (12-20); Aspartate Amino Transferase 18 U/L (5-31); Bilirubin Total 0.4 mg/dL (0.0-1.0); Blood Urea Nitrogen 8 mg/dL (9-16); Calcium 9.7 mg/dL (8.4-10.2); Carbon Dioxide 23 mmol/L (22-29); Chloride 107 mmol/L (96-108); Cholesterol 204 mg/dL (<200); Estimated Glomerular Filt Rate > 60; Glucose Fasting 93 mg/dL (60-99); HDL Cholesterol 43 mg/dL (>40); LDL Cholesterol Calculated 103 mg/dL (<100); Potassium 3.8 mmol/L (3.3-5.1); Sodium 142 mmol/L (135-145); Total Protein 7.1 g/dL (6.5-8.0); Triglycerides 292 mg/dL (<150)
[2023-10-29 11:24] LABS: TSH reflex Free T4 5.14 uIU/mL (0.32-4.0)
[2023-10-29 12:00] LABS: Free T4 (Free Thyroxine) 0.79 ng/dL (0.71-1.85)
== END 2023-10-29 09:25 | disposition home or self-care (01) ==
LOC: HO.LAB 09:24
PROVIDERS: PCP Internal Medicine; Visit Provider Internal Medicine
DX: D64.9 Anemia, unspecified (principal); E78.00 Pure hypercholesterolemia, unspecified
CPT/HCPCS: 36415; 80053; 80061; 84439; 84443; 85025

== ENCOUNTER 2023-11-05 11:01 | Outpatient (AMB) | payer OTHER, SELFPAY ==
[2023-11-05 11:04] VITALS: BP 122/80; PULSE 66; O2SAT 98; BMI 38.6
--- NOTE | 2023-11-05 11:04 | A.OFFPC_ITS ---
Vital Signs 11/05/23 11:04 Height 5 ft 2 in Weight 211 lb BMI 38.6 BP 122/80 Blood Pressure Location Lt brachial Position Sitting Pulse 66 Pulse Source Pulse Oximeter Pulse Oximetry (%) 98 Oxygen Delivery Method Room Air Intake Visit Reasons: 4 Month F/U [employer] Required: No Allergies morphine [MORPHINE] Allergy (Intermediate, Verified 11/05/23 11:56) TACHYCARDIA codeine [Tylenol-Codeine] Allergy (Unknown, Verified 11/05/23 11:56) Unknown oxycodone [Percocet] Allergy (Unknown, Verified 11/05/23 11:56) unknown Medication List - Last Reconciled 11/05/23 by Dc Bennett MD acetaminophen (Tylenol Extra Strength) 500 mg PO Q6H PRN amitriptyline 10 mg PO BEDTIME calcium polycarbophil (Fiber Laxative (calcium polycarbophil)) 1,250 mg (2 x 625 mg) PO BID 30 days cetirizine 10 mg PO DAILY PRN 90 days cholecalciferol (vitamin D3) 25 mcg PO DAILY 90 days clotrimazole-betamethasone 1-0.05 % 1 appl topical BID 2 weeks duloxetine 60 mg PO QAM fluticasone propionate 50 mcg/actuation (Allergy Relief (fluticasone)) 2 sprays intranasal DAILY PRN gabapentin 100 mg PO TID ibuprofen 800 mg PO TID PRN lidocaine 5% (Lidoderm) 1 patch topical DAILY PRN MDD remove after 12 hours loperamide 2 mg PO QID lorazepam 2 mg PO BID PRN magnesium oxide 400 mg PO DAILY 30 days methocarbamol 500 mg PO TID PRN metoclopramide HCl 5 mg PO QIDACHS mirabegron ER (Myrbetriq) 50 mg PO DAILY naproxen 500 mg PO BID PRN 10 days ondansetron 4 mg PO TID PRN 5 days oxybutynin chloride ER 10 mg PO DAILY promethazine 25 mg PO DAILY PRN rabeprazole (AcipHex) 20 mg PO DAILY 90 days riboflavin (vitamin B2) 400 mg PO DAILY 30 days rimegepant (Nurtec ODT) 75 mg PO ONCE PRN 30 days MDD 1 tab rizatriptan 10 mg PO ONCE PRN simethicone (Anti-Gas Ultra Strength) 180 mg PO QID sucralfate 2 grams (2 x 1 gram) PO BEDTIME topiramate 25 mg PO BEDTIME 30 days trazodone 100 mg PO BEDTIME triamcinolone acetonide intranasal Tobacco use date assessed: 07/09/23 Dental Screening Dental Screen Date: 07/09/23 HPI 4 Month F/U HPI0 Details Patient comes in today for her follow up visit States that she feels okay She denies any headaches or dizziness - states that her headaches have improved a lot on her current Rx Denies any chest pains, no SOB No nausea/vomiting, no abdominal pain No change in bowel habits noted Needs a couple of her Rx refilled She also had her colonoscopy done last month - (+) tubular adenoma and moderate diverticulosis and internal hemorrhoids Because of her tubular adenoma, she will need repeat colonoscopy in 3 years She had her follow up labs done last week - to discuss her results COUNTS INCLUDE 234 BEDS AT [facility] Medical History Insomnia Obesity (BMI 30-39.9) Migraine without aura Annual physical exam Pre-op examination Bilateral low back pain without sciatica Carpal tunnel syndrome Daytime somnolence Lumbar spondylosis Nausea and vomiting Abdominal pain Hx of abnormal cervical Pap smear Potential exposure to STD Erosive gastritis Sleep disorder, unspecified Yeast infection involving the vagina and surrounding area Bacterial vaginosis Vaginal irritation Potential exposure to STD Problematic vaginal discharge Epigastric pain COVID-19 Hx of sleep apnea Migraine Spondylosis of lumbar spine Depression Anxiety Vitamin D deficiency GERD without esophagitis Allergic rhinitis Pure hypercholesterolemia Surgical History H/O colonoscopy History of hysterectomy, supracervical Hx of tubal ligation History of surgery History of dilatation and curettage Hx of hysterectomy History of bunionectomy Hx of carpal tunnel repair History of esophagogastroduodenoscopy History of cholecystectomy Family History Mother No problems noted. Maternal Aunt Breast cancer Social History Housing: Apartment Alcohol intake: never Patient Tobacco Use Status: Never used Tobacco e-Cigarette/Vaping Use: Never Used Second Hand Smoke Exposure: Yes service: No Current occupational status: disabled Cognitive needs: No Hearing needs: No Vision needs: No Female Reproductive History Menstrual Age of Menarche: 16 Questionnaire Thrive Questionnaire Date Thrive assessed: 07/09/23 AUDIT C Alcohol Use Questionnaire (AUDIT-C) 1. How often do you have a drink containing alcohol?: Monthly or less 2. How many drinks containing alcohol do you have on a typical day when you are drinking?: 1 or 2 Total Score: 1 Score Reviewed/Action Taken: Yes REI-7 AMB Questionnaire REI-7 Date REI - 7 assessed: 07/09/23 Source: Developed by Drs. Brett Bocanegra, Cheryl Elias, Akira Trevino and colleagues, with an educational shiloh from [employer]. Review of Systems Const Denies chills, Denies fatigue, Denies fever(s) and Denies headache(s) ENT Denies dysphagia, Denies dizziness, Denies otalgia, Denies headache(s), Denies neck pain, Denies odynophagia and Denies sore throat Card Denies chest pain, Denies palpitations and Denies dyspnea Resp Denies cough and Denies dyspnea GI Denies abdominal pain, Denies constipation, Denies dysphagia, Denies heartburn, Denies diarrhea, Denies nausea, Denies odynophagia and Denies vomiting Denies difficulty voiding, Denies nocturia, Denies dysuria and Denies urinary urgency Musc Reports back pain (over the lower back, on and off) and Denies neck pain Skin/Breast Denies rash Neuro Denies dizziness and Denies headache(s) Endo Denies fatigue and Denies palpitations Physical exam (Primary Care) Vital Signs: Last Vital Signs Pulse 66 11/05/23 11:04 BP 122/80 11/05/23 11:04 Pulse Ox 98 11/05/23 11:04 Oxygen Delivery Method Room Air 11/05/23 11:04 BMI result Body Mass Index 38.6 Tobacco/Smoking Status: Tobacco use Status Tobacco use date assessed 07/09/23 11/05/23 11:05 Patient Tobacco Use Status Never used Tobacco 11/05/23 11:05 e-Cigarette/Vaping Use Never Used 11/05/23 11:05 Thrive Assessment: Date of Thrive Assessment Date Thrive assessed 07/09/23 11/05/23 11:05 Const General: no acute distress and alert HENMT Ears: TM's normal bilaterally and EAC's normal Throat: Yes posterior oropharynx normal and Yes tonsils normal (no TP congestion) Neck Neck: Yes no lymphadenopathy and Yes supple Thyroid: Thyroid normal Resp Auscultation: clear to auscultation bilaterally, no rales and no wheezes Cardio Rate: regular rate Rhythm: regular rhythm Heart sounds: no murmurs GI Palpation (GI): Soft to palpation and nontender Auscultation: normal bowel sounds General: Yes no CVA tenderness Back/Spine/Pelvis Back: no CVA tenderness Thoracic/Lumbar Spine: lumbar spinal tenderness Skin Rashes: no rashes Extrem General: Yes no clubbing, cyanosis or edema Results Reviewed Results Reviewed: Laboratory Tests 10/29/23 09:30 WBC 11.0 H Hgb 12.6 Hct 38.4 Plt Count 277 Sodium 142 Potassium 3.8 Creatinine 0.85 Estimated GFR > 60 Fasting Glucose 93 Calcium 9.7 AST 18 ALT 17 Triglycerides 292 H Cholesterol 204 H LDL Cholesterol, Calc 103 H HDL Cholesterol 43 TSH 5.14 H Free T4 0.79 Assessment and Plan Assessment & Plan (1) Migraine: Code(s): G43.909 - Migraine, unspecified, not intractable, without status migrainosus Qualifiers: Migraine type: unspecified Status migrainosus presence: without status migrainosus Intractability: not intractable Qualified Code(s): G43.909 - Migraine, unspecified, not intractable, without status migrainosus Plan: Continue Topiramate 25 mg Q HS for headache prophylaxis Her dose was increased to BID by neurology earlier this year but it appears that patient continued on her QHS dosing, which appears to be helping with her headaches and they now seem to be much better controlled She is also on Amitriptyline 10 mg Q HS so this may be helping with her headaches as well She used to take Propranolol but this was discontinued a few months ago due to persistent bradycardia Continue Fioricet 50-300-40 mg every 8 hours PRN and/or Rizatriptan 10 mg QD PRN (she was on Sumatriptan in the past but states that the Rx stopped helping) She has been tried as well on Nurtec ODT by neurology but patient states that her insurance will not cover the Rx Follow up with neurology as scheduled (2) Pure hypercholesterolemia: Code(s): E78.00 - Pure hypercholesterolemia, unspecified Plan: Results of her labs done last week reviewed and discussed with patient - advised that her serum TG level increased from previous but all others came down Reinforced low cholesterol diet (3) Irritable bowel syndrome with diarrhea: Code(s): K58.0 - Irritable bowel syndrome with diarrhea Plan: Continue Dicyclomine 20 mg QID PRN (Rx refilled), Loperamide 2 mg QID PRN and Fiber Laxative 625 mg QID PRN Follow up with GI as scheduled (4) GERD (gastroesophageal reflux disease): Code(s): K21.9 - Gastro-esophageal reflux disease without esophagitis Qualifiers: Esophagitis presence: without esophagitis Qualified Code(s): K21.9 - Gastro-esophageal reflux disease without esophagitis Plan: Dietary restrictions reinforced Continue Rabeprazole 20 mg QD Follow up with GI as scheduled (5) Allergic rhinitis: Comment: Allergy testing done at Dr. Pedraza's office in 2019 revealed that patient is allergic to cats and dust mites Code(s): J30.9 - Allergic rhinitis, unspecified Qualifiers: Allergic rhinitis trigger: unspecified Allergic rhinitis seasonality: unspecified Qualified Code(s): J30.9 - Allergic rhinitis, unspecified Plan: Continue Cetirizine 10 mg QD PRN and Fluticasone nasal spray QD PRN (6) Lumbar spondylosis: Comment: (+) scoliosis Code(s): M47.816 - Spondylosis without myelopathy or radiculopathy, lumbar region Plan: Her low back pain is also likely partly related to her scoliosis Reinforced activity and weight-lifting restrictions Continue Meloxicam 15 mg QD with food PRN, Gabapentin 100 mg TID and Methocarbamol 500 mg TID PRN Follow up with pain management as scheduled (7) Carpal tunnel syndrome: Comment: S/P CTS surgery bilaterally Code(s): G56.00 - Carpal tunnel syndrome, unspecified upper limb Qualifiers: Laterality: bilateral Qualified Code(s): G56.03 - Carpal tunnel syndrome, bilateral upper limbs Plan: She is again encouraged to continue wearing her wrist braces as needed to help minimize and manage her symptoms Follow up with orthopedics as scheduled or as needed (8) Elevated TSH: Code(s): R79.89 - Other specified abnormal findings of blood chemistry Plan: Her TSH was slightly elevated on her recent labs but free T4 is normal Patient is clinically euthyroid WIll recheck her TFTs in 4 months for follow up (9) Vitamin D deficiency: Code(s): E55.9 - Vitamin D deficiency, unspecified Plan: Continue Vitamin D3 1000 units QD (10) Insomnia: Code(s): G47.00 - Insomnia, unspecified Qualifiers: Insomnia type: unspecified Qualified Code(s): G47.00 - Insomnia, unspecified Plan: Sleep hygiene reinforced Continue Trazodone 100 mg once a day at bedtime PRN (11) Anxiety: Code(s): F41.9 - Anxiety disorder, unspecified Plan: Continue Lorazepam 0.5 mg twice a day PRN (12) Depression: Code(s): F32.9 - Major depressive disorder, single episode, unspecified Qualifiers: Depression Type: major depressive disorder Major depression recurrence: recurrent Active/Remission status: currently active Major depression episode severity: unspecified Qualified Code(s): F33.9 - Major depressive disorder, recurrent, unspecified Plan: Continue Duloxetine 60 mg QD Follow-up with Psychiatry as scheduled (13) Obesity (BMI 30-39.9): Code(s): E66.9 - Obesity, unspecified Plan: Reinforced diet/exercise as tolerated/lose weight Plan Follow up in 4 months Orders: Orders Complete Blood Count Auto Diff 4 Months D64.9 - Anemia, unspecified Comprehensive Arion. Panel Fast 4 Months E78.00 - Pure hypercholesterolemia, unspecified Lipid Panel 4 Months E78.00 - Pure hypercholesterolemia, unspecified Free T4 (Free Thyroxine) 4 Months R79.89 - Other specified abnormal findings of blood chemistry UA CC w/rflx Micro + Cult 4 Months R30.0 - Dysuria Vitamin D 25-OH Total 4 Months E55.9 - Vitamin D deficiency, unspecified TSH reflex Free T4 4 Months R79.89 - Other specified abnormal findings of blood chemistry Medications: Changed From topiramate 25 mg PO BID 30 days 60 tabs 3RF To topiramate 25 mg PO BEDTIME 30 days 30 tabs 3RF Refilled methocarbamol 500 mg PO TID PRN 90 tabs 3RF muscle spasms / pain Discontinued cyclobenzaprine Discontinued Reason: Patient no longer taking 5 mg PO Q8H 5 days PRN 14 tabs 0RF pain (scale score 7-10) Coding Level of Care Code Est Pt Level 4 (18654) Complex EM visit Add On G2211 Diagnoses Migraine without status migrainosus, not intractable, unspecified migraine type G43.909 Migraine type: unspecified Status migrainosus presence: without status migrainosus Intractability: not intractable Pure hypercholesterolemia E78.00 Irritable bowel syndrome with diarrhea K58.0 Gastroesophageal reflux disease without esophagitis K21.9 Esophagitis presence: without esophagitis Allergic rhinitis, unspecified seasonality, unspecified trigger J30.9 Allergic rhinitis trigger: unspecified Allergic rhinitis seasonality: unspecified Lumbar spondylosis M47.816 Bilateral carpal tunnel syndrome G56.03 Laterality: bilateral Elevated TSH R79.89 Vitamin D deficiency E55.9 Insomnia, unspecified type G47.00 Insomnia type: unspecified Anxiety F41.9 Episode of recurrent major depressive disorder, unspecified depression episode severity F33.9 Depression Type: major depressive disorder Major depression recurrence: recurrent Active/Remission status: currently active Major depression episode severity: unspecified Obesity (BMI 30-39.9) E66.9
== END 2023-11-05 11:55 | disposition home or self-care (01) ==
PROVIDERS: PCP Internal Medicine; Visit Provider Internal Medicine
DX: G43.909 Migraine, unspecified, not intractable, without status migrainosus (principal); F33.9 Major depressive disorder, recurrent, unspecified; E78.00 Pure hypercholesterolemia, unspecified; K58.0 Irritable bowel syndrome with diarrhea; K21.9 Gastro-esophageal reflux disease without esophagitis; J30.9 Allergic rhinitis, unspecified; M47.816 Spondylosis without myelopathy or radiculopathy, lumbar region; G56.03 Carpal tunnel syndrome, bilateral upper limbs; R79.89 Other specified abnormal findings of blood chemistry; E55.9 Vitamin D deficiency, unspecified; G47.00 Insomnia, unspecified; F41.9 Anxiety disorder, unspecified
CPT/HCPCS: 99214; G2211

== ENCOUNTER 2023-11-27 12:58 | Outpatient (AMB) | payer OTHER, SELFPAY ==
--- NOTE | 2023-11-27 13:55 | A.OFFVIS_ITS ---
Vital Signs 11/27/23 13:56 Height 5 ft 2 in Weight 210 lb BMI 38.4 BP 120/76 Intake Visit Reasons: annual Information Interpreted: clinical only Process Designer: Process Designer Present Allergies morphine [MORPHINE] Allergy (Intermediate, Verified 11/27/23 13:56) TACHYCARDIA codeine [Tylenol-Codeine] Allergy (Unknown, Verified 11/27/23 13:56) Unknown oxycodone [Percocet] Allergy (Unknown, Verified 11/27/23 13:56) unknown Medication List - Last Reconciled 11/27/23 by Elva Shipley CNM acetaminophen (Tylenol Extra Strength) 500 mg PO Q6H PRN amitriptyline 10 mg PO BEDTIME calcium polycarbophil (Fiber Laxative (calcium polycarbophil)) 1,250 mg (2 x 625 mg) PO BID 30 days cetirizine 10 mg PO DAILY PRN 90 days cholecalciferol (vitamin D3) 25 mcg PO DAILY 90 days clotrimazole-betamethasone 1-0.05 % 1 appl topical BID 2 weeks duloxetine 60 mg PO QAM fluticasone propionate 50 mcg/actuation (Allergy Relief (fluticasone)) 2 sprays intranasal DAILY PRN gabapentin 100 mg PO TID ibuprofen 800 mg PO TID PRN loperamide 2 mg PO QID lorazepam 2 mg PO BID PRN magnesium oxide 400 mg PO DAILY 30 days methocarbamol 500 mg PO TID PRN metoclopramide HCl 5 mg PO QIDACHS mirabegron ER (Myrbetriq) 50 mg PO DAILY naproxen 500 mg PO BID PRN 10 days ondansetron 4 mg PO TID PRN 5 days oxybutynin chloride ER 10 mg PO DAILY promethazine 25 mg PO DAILY PRN rabeprazole (AcipHex) 20 mg PO DAILY 90 days riboflavin (vitamin B2) 400 mg PO DAILY 30 days rimegepant (Nurtec ODT) 75 mg PO ONCE PRN 30 days MDD 1 tab rizatriptan 10 mg PO ONCE PRN simethicone (Anti-Gas Ultra Strength) 180 mg PO QID sucralfate 2 grams (2 x 1 gram) PO BEDTIME topiramate 25 mg PO BEDTIME 30 days trazodone 100 mg PO BEDTIME triamcinolone acetonide intranasal Is last menstrual period known: No Post menopausal: Yes HPI HPI annual: Details: 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 She says she is seeing the doctor for her bladder who gives her a pill that helps with bladder control and she is not having any negative side effects that she reports. She is a little bit short goods drier this year she still has a little vaginal itching and would like refills on the cream that I gave her last year which did help. She has been enjoying time at [employer]. [facility] Medical History Insomnia Obesity (BMI 30-39.9) Migraine without aura Bilateral low back pain without sciatica Carpal tunnel syndrome Daytime somnolence Lumbar spondylosis Hx of abnormal cervical Pap smear Erosive gastritis Sleep disorder, unspecified Yeast infection involving the vagina and surrounding area Bacterial vaginosis Problematic vaginal discharge COVID-19 Hx of sleep apnea Depression Anxiety Vitamin D deficiency GERD without esophagitis Allergic rhinitis Pure hypercholesterolemia Surgical History H/O colonoscopy History of hysterectomy, supracervical Hx of tubal ligation History of surgery History of dilatation and curettage Hx of hysterectomy History of bunionectomy Hx of carpal tunnel repair History of esophagogastroduodenoscopy History of cholecystectomy Family History Mother No problems noted. Maternal Aunt Breast cancer Social History Housing: Apartment Alcohol intake: never Patient Tobacco Use Status: Never used Tobacco e-Cigarette/Vaping Use: Never Used Second Hand Smoke Exposure: Yes service: No Current occupational status: disabled Cognitive needs: No Hearing needs: No Vision needs: No Female Reproductive History Menstrual Age of Menarche: 16 Duration of menses: <3 days control method: permanent sterilization Total pregnancies: 3 Full term: 3 Date of last pap smear: 11/19/21 (negative,2016 neg.) History of abnormal pap smear: Yes (2009,ASCUS) Physical Exam Vital Signs: Last Vital Signs BP 120/76 11/27/23 13:56 BMI result Body Mass Index 38.4 Const General: healthy appearing, comfortable, no acute distress, well developed and alert Nutritional Appearance: average body habitus Orientation/consciousness: patient oriented x3 Limitations: no limitations HEENT Head: Yes normocephalic Neck Neck: Yes normal visual inspection Chest Chest palpation & inspection: normal inspection of the chest Breast/axilla inspection: normal inspection of the breasts and normal inspection of the axillae Breast/axilla palpation: normal palpation of the breasts and normal palpation of the axillae Resp Effort & Inspection: normal respiratory effort GI Inspection: Yes normal to inspection, No Abdominal wall edema and No distended Palpation (GI): Soft to palpation and nontender General: Yes bladder normal to palpation External Female Exam: normal external appearance and normal appearance of the urethra Speculum Exam - Vagina: normal appearance of the vagina, normal palpation and normal vaginal discharge Speculum Exam - Cervix: normal appearance of the cervix, normal palpation and nontender Bimanual exam- vagina & uterus: normal bimanual exam, normal palpation, uterine size normal, bladder normal to palpation, consistency normal, normal palpation, uterine mobility normal, uterine shape normal, No Cervical tenderness present, non-tender and no cervical motion tenderness Bimanual Exam- Adnexa, other: normal adnexae, no masses, normal and No adnexal tenderness Neuro General: patient oriented x3 Results Reviewed Results Reviewed: Name: Duyen Jimenez Age/Sex: 53/F Attending: Dedra Guerrier MD : 1970 Submitted by: Dedra Guerrier MD Copies to: Dc Bennett MD MR #: [id number] Status: [facility] Collected: 09/25/23 Location: [facility] Received: 09/25/23 Diagnosis A. Colon, random right, biopsy: Colonic mucosa within normal limits; negative for active, chronic or microscopic colitis. B. Colon, sigmoid at 50 cm, polypectomy x2: Tubular adenoma (2); negative for high-grade dysplasia. C. Colon, random left, biopsy: Colonic mucosa within normal limits; negative for active, chronic or microscopic colitis. D. Colon, sigmoid at 40 cm, polypectomy: Tubular adenoma; negative for high- grade dysplasia. Clinical History Pre-Op Dx: Colon cancer screening, diarrhea Post-Op Dx: Colon polyps, diverticulosis, hemorrhoids Microscopic Description Microscopic sections reviewed. Material Received A. Random right colon bx's, r/o microscopic colitis B. Sigmoid colon polyps (2) @ 50 cm C. Random left colon bx's, r/o microscopic colitis D. Sigmoid colon polyp @ 40 cm Gross Description A. Received in formalin are 2 dunn 2 mm soft tissue fragments, totally submitted in A1. B. Received in formalin are 2 dunn 5 mm polypoid soft tissues, differentially inked, bisected, totally submitted in B1. C. Received in formalin are 2 dunn 2 mm soft tissue fragments, totally submitted in C1. D. Received in formalin is 1 dunn 3 mm soft tissue fragment, totally submitted in D1. (RJD) Copies To Dc Bennett MD [address] [address] Patient: Duyen Jimenez Age/Sex: 53/F MR#: [id number] Page 1 of 2 Surgical Pathology [id number] Dedra Guerrier MD [address] [place] [address] [place] [address] NOTE: Unless otherwise stated, all tissue is formalin-fixed and paraffin- embedded. Some or all of the immunohistochemical tests reported herein may have been developed and their performance characteristics determined by [facility]. They have not been cleared or approved by the U.S. Food and Drug Administration (FDA). However, the FDA has determined that such clearance or approval is not necessary. This laboratory is certified under the Clinical Laboratory Improvement Amendments of 1988 (CLIA) as qualified to perform high complexity clinical laboratory testing. Electronically Signed By: Dena Antonio MD 09/29/23 1037 Patient: Duyen Jimenez Age/Sex: 53/F MR#: [id number] Name: Duyen Jimenez Age/Sex: 51/F Attending: Elva Shipley CNM : 1970 Submitted by: Elva Shipley CNM Copies to: MR #: [id number] Status: DEP REF Collected: 11/19/21 Location: [facility] Received: 11/21/21 Interpretation Satisfactory for evaluation. Negative for intraepithelial lesion or malignancy. Moderate inflammation. HPV mRNA E6/E7: NOT DETECTED This assay detects E6/E7 viral messenger RNA (mRNA) from 14 high-risk HPV types (16, 18, 31, 33, 35, 39, 45, 51, 52, 56, 58, 59, 66, 68) HPV testing performed by [facility], [place], [place]. See reference laboratory portion of the EMR for entire report. Clinical Information LMP: Patient doesn't get mense Previous PAP test: 07/23/15 Material Received ThinPrep-Cervical Electronically Signed By: Natalia Dangelo 11/29/21 9651 The Pap Test is a screening procedure with the inherent possibility of both false negative and false positive results. Results should be interpreted in the context of historic and current clinical findings. Reliability of the Pap Test is enhanced by performing the test on a regular repetitive basis. Patient: Duyen Jimenez Age/Sex: 51/F MR#: [id number] Page 1 of 1 Assessment & Plan Assessment & Plan (1) Obesity (BMI 35.0-39.9 without comorbidity): Code(s): E66.9 - Obesity, unspecified Category: Medical (2) Urinary retention with incomplete bladder emptying: Code(s): R33.9 - Retention of urine, unspecified Category: Medical (3) Dermatitis associated with moisture from urinary incontinence: Comment: Much improved this year patient says she has less incontinence with urology treatment/medication. Code(s): L25.8 - Unspecified contact dermatitis due to other agents; R32 - Unspecified urinary incontinence Category: Medical (4) Potential exposure to STD: Code(s): Z20.2 - Contact with and (suspected) exposure to infections with a predominantly sexual mode of transmission Category: Medical (5) Vaginal irritation: Code(s): N89.8 - Other specified noninflammatory disorders of vagina Category: Medical Plan -----Discussed in this visit the following: healthy balanced diet, regular and consistent exercise, getting recommended health screens, doing the best she can for her particular health concerns, kegel exercises, pap smear screening and followup recommendations, mammography screening and SBE, normal changes in cycles in her life stage--- . She is planning to call tomorrow to schedule her mammogram which she she gets yearly at this point and the order was placed other years She would like a refill on the cream that I gave her for external use only to use sparingly last year I am sending a refill to her pharmacy. Good tone with Kegel noted She reports being much short goods drier with less incontinence of urine this year and her external vulva is showing much improvement. Discussed with patient. No recent abnormal Pap smears since the 1 abnormal prior to her supracervical hysterectomy. Consideration to repeating her Pap smear next year could be given.. RTC 1 year. Medications: Refilled clotrimazole-betamethasone 1-0.05 % 1 appl topical BID 2 weeks 45 grams 1RF Coding Level of Care Code Est Pt Prev Care 40-64y(73311) Diagnoses Obesity (BMI 35.0-39.9 without comorbidity) E66.9 Urinary retention with incomplete bladder emptying R33.9 Dermatitis associated with moisture from urinary incontinence L25.8; R32 Potential exposure to STD Z20.2 Vaginal irritation N89.8
[2023-11-27 13:56] VITALS: BP 120/76; BMI 38.4
== END 2023-11-27 14:25 | disposition home or self-care (01) ==
LOC: HO.HWSM 12:58
PROVIDERS: PCP Internal Medicine; Visit Provider Advanced Practice Midwife
DX: Z01.419 Encounter for gynecological examination (general) (routine) without abnormal findings (principal); E66.9 Obesity, unspecified; R33.9 Retention of urine, unspecified; L25.8 Unspecified contact dermatitis due to other agents; R32 Unspecified urinary incontinence; Z20.2 Contact with and (suspected) exposure to infections with a predominantly sexual mode of transmission; N89.8 Other specified noninflammatory disorders of vagina
CPT/HCPCS: 99396

== ENCOUNTER 2023-11-27 12:58 | Outpatient (REF) | payer OTHER, SELFPAY ==
[2023-11-28 06:44] LABS: CT PCR NOT DETECTED (Not Detect.); NG PCR NOT DETECTED (Not Detect.)
[2023-11-28 11:28] LABS: Bacterial Vaginosis PCR POSITIVE (Negative); Candida Group PCR NOT DETECTED (Not Detect); Candida glab krusei PCR NOT DETECTED (Not Detect); Trichomonas vaginalis PCR NOT DETECTED (Not Detect)
== END 2023-11-27 12:59 | disposition home or self-care (01) ==
LOC: HO.LAB 12:58
PROVIDERS: PCP Internal Medicine; Visit Provider Advanced Practice Midwife
DX: N89.8 Other specified noninflammatory disorders of vagina (principal); Z20.2 Contact with and (suspected) exposure to infections with a predominantly sexual mode of transmission; E66.9 Obesity, unspecified; R33.9 Retention of urine, unspecified; L25.8 Unspecified contact dermatitis due to other agents; R32 Unspecified urinary incontinence
CPT/HCPCS: 0352U; 87491; 87591; 99396

== ENCOUNTER 2023-12-25 12:44 | Outpatient (AMB) | payer OTHER, SELFPAY ==
[2023-12-25 12:57] VITALS: BP 120/86; PULSE 67; O2SAT 98; BMI 38.4
--- NOTE | 2023-12-25 12:57 | A.OFFPC_ITS ---
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: No Accompanied by: Self / Same As Patient Allergies morphine [MORPHINE] Allergy (Intermediate, Verified 12/25/23 13:38) TACHYCARDIA codeine [Tylenol-Codeine] Allergy (Unknown, Verified 12/25/23 13:38) Unknown oxycodone [Percocet] Allergy (Unknown, Verified 12/25/23 13:38) unknown Medication List - Last Reconciled 12/25/23 by Dc Bennett MD acetaminophen (Tylenol Extra Strength) 500 mg PO Q6H PRN amitriptyline 10 mg PO BEDTIME calcium polycarbophil (Fiber Laxative (calcium polycarbophil)) 1,250 mg (2 x 625 mg) PO BID 30 days cetirizine 10 mg PO DAILY PRN 90 days cholecalciferol (vitamin D3) 25 mcg PO DAILY 90 days clotrimazole-betamethasone 1-0.05 % 1 appl topical BID 2 weeks duloxetine 60 mg PO QAM fluticasone propionate 50 mcg/actuation (Allergy Relief (fluticasone)) 2 sprays intranasal DAILY PRN gabapentin 100 mg PO TID ibuprofen 800 mg PO TID PRN loperamide 2 mg PO QID lorazepam 2 mg PO BID PRN magnesium oxide 400 mg PO DAILY 30 days methocarbamol 500 mg PO TID PRN metoclopramide HCl 5 mg PO QIDACHS metronidazole 500 mg PO BID 7 days mirabegron ER (Myrbetriq) 50 mg PO DAILY naproxen 500 mg PO BID PRN 10 days ondansetron 4 mg PO TID PRN 5 days oxybutynin chloride ER 10 mg PO DAILY promethazine 25 mg PO DAILY PRN rabeprazole (AcipHex) 20 mg PO DAILY 90 days riboflavin (vitamin B2) 400 mg PO DAILY 30 days rimegepant (Nurtec ODT) 75 mg PO ONCE PRN 30 days MDD 1 tab rizatriptan 10 mg PO ONCE PRN simethicone (Anti-Gas Ultra Strength) 180 mg PO QID sucralfate 2 grams (2 x 1 gram) PO BEDTIME topiramate 25 mg PO BEDTIME 30 days trazodone 100 mg PO BEDTIME triamcinolone acetonide intranasal Tobacco use date assessed: 12/25/23 Dental Screening Dental Screen Date: 12/25/23 Did you have a dental visit in the last 12 months?: No Did you have a dental problem in the last 6 months where you did not have access to dental care?: No Was dental information given to patient?: No HPI Annual HPI Details Patient comes in today for her annual physical examination States that she has been experiencing increased pain again in both of her wrists as well as recurrent tingling sensation and numbness in both hands lately Relates that she underwent carpal tunnel surgery of both of her wrists years ago and is concerned that this is again recurring after all these years States that she feels okay otherwise She denies any headaches or dizziness - states that her headaches have improved a lot on her current Rx Denies any chest pains, no SOB No nausea/vomiting, no abdominal pain No change in bowel habits noted She denies any acute urinary symptoms She had her screening colonoscopy done a few months ago in September 2023 - (+) tubular adenoma and moderate diverticulosis and internal hemorrhoids Because of her tubular adenoma, she will need repeat colonoscopy in 3 years She was seen for her annual gynecology exam last month (November 2023) but did not have a pap smear done - was advised that her pap smear is again due next year She is currently due for her annual mammogram [facility] Medical History (Updated 12/27/23 @ 01:59 by Dc Bennett MD) Insomnia Obesity (BMI 30-39.9) Migraine without aura Bilateral low back pain without sciatica Carpal tunnel syndrome Daytime somnolence Lumbar spondylosis Hx of abnormal cervical Pap smear Erosive gastritis Sleep disorder, unspecified Yeast infection involving the vagina and surrounding area Bacterial vaginosis Problematic vaginal discharge COVID-19 Hx of sleep apnea Depression Anxiety Vitamin D deficiency GERD without esophagitis Allergic rhinitis Pure hypercholesterolemia Surgical History (Updated 12/25/23 @ 19:34 by Dc Bennett MD) H/O colonoscopy History of hysterectomy, supracervical Hx of tubal ligation History of surgery History of dilatation and curettage Hx of hysterectomy History of bunionectomy Hx of carpal tunnel repair History of esophagogastroduodenoscopy History of cholecystectomy Family History Mother No problems noted. Maternal Aunt Breast cancer Social History Housing: Apartment Alcohol intake: never Patient Tobacco Use Status: Never used Tobacco e-Cigarette/Vaping Use: Never Used Second Hand Smoke Exposure: Yes service: No Current occupational status: disabled Cognitive needs: No Hearing needs: No Vision needs: No Female Reproductive History Menstrual Age of Menarche: 16 Questionnaire PHQ-9 Over the last 2 weeks, how often have you been bothered by any of the following problems? 1. Little interest or pleasure in doing things: not at all 2. Feeling down, depressed, or hopeless: not at all 3. Trouble falling or staying asleep, or sleeping too much: not at all 4. Feeling tired or having little energy: several days 5. Poor appetite or overeating: not at all 6. Feeling bad about yourself - or that you are a failure or have let yourself or your family down: not at all 7. Trouble concentrating on things, such as reading the newspaper or watching television: not at all 8. Moving or speaking so slowly that other people could have noticed. Or the opposite - being so fidgety or restless that you have been moving around a lot more than usual: not at all 9. Thoughts that you would be better off or of hurting yourself in some way: not at all Total score: 1 Depression Screening Interpretation: Negative Depression Screening Done: Yes 13679 - PHQ-9 Billing: Yes Source: Developed by Drs. Brett Bocanegra, Cheryl Elias, Akira Trevino and colleagues, with an educational shiloh from [employer]. Thrive Questionnaire Date Thrive assessed: 12/25/23 I am a: Patient What is your living situation today?: I have a steady place to live Within the past 12 months, did the food you bought not last and you didn't have the money to get more?: Never true Within the past 12 months, did you worry whether your food would run out before you got money to buy more?: Never true Do you have trouble paying for medicines?: No Do you have trouble getting transportation to medical appointments?: No Do you have trouble paying your heating and electricity bill?: No Do you have trouble taking care of your child, family member or friend?: No Do you have trouble with day-to-day activities such as bathing, preparing meals, shopping, managing finances, etc.?: Yes Are you currently unemployed and looking for a job?: I choose not to answer this question Are you interested in more education?: No Please select the resources that you would like help with: None Currently or been in a relationship where the following occur: No concerns reported THRIVE Score: 0 AUDIT C Alcohol Use Questionnaire (AUDIT-C) 1. How often do you have a drink containing alcohol?: Never 2. How many drinks containing alcohol do you have on a typical day when you are drinking?: 1 or 2 3. How often do you have six or more drinks on one occasion?: Never Total Score: 0 Score Reviewed/Action Taken: Yes REI-7 AMB Questionnaire REI-7 Date REI - 7 assessed: 12/25/23 Feeling nervous, anxious, or on edge: 0 = Not at all Not being able to stop or control worryin = Not at all Worrying too much about different things: 0 = Not at all Trouble relaxin = Not at all Being so restless that it is hard to sit still: 0 = Not at all Becoming easily annoyed or irritable: 0 = Not at all Feeling afraid as if something awful might happen: 0 = Not at all Total REI-7 score (0-4 normal; 5-9 mild; 10-14 moderate; 15-21 severe): 0 Source: Developed by Drs. Brett Bocanegra, Cheryl Elias, Akira Trevino and colleagues, with an educational shiloh from [employer]. Review of Systems Const Denies chills, Denies fatigue, Denies fever(s), Denies headache(s) and Denies malaise Eyes Denies blurry vision, Denies change in vision, Denies irritation and Denies itchy eyes ENT Denies dysphagia, Denies dizziness, Denies headache(s), Denies neck pain and Denies odynophagia Card Denies chest pain, Denies rapid heart rate, Denies irregular heart rhythm, Denies palpitations and Denies dyspnea Resp Denies chest congestion, Denies cough, Denies dyspnea and Denies wheezing GI Denies abdominal pain, Denies bloating, Denies constipation, Denies dysphagia, Denies heartburn, Denies diarrhea, Denies nausea, Denies odynophagia and Denies vomiting Denies hematuria, Denies urinary frequency, Denies dysuria, Denies urinary incontinence and Denies urinary urgency Musc Reports back pain (over the lower back, on and off), Reports arthralgias (in both wrists, increasing lately), Denies neck pain, Reports numbness (on and off in both hands) and Reports tingling (on and off in both hands) Skin/Breast Denies breast pain, Denies breast mass, Denies change in pigmentation, Denies lesions, Denies rash and Denies unusual bruising Neuro Denies dizziness, Denies headache(s), Reports numbness (on and off in both hands), Reports tingling (on and off in both hands) and Denies paresthesias Psych Denies anxiety and Denies depression Endo Denies fatigue and Denies palpitations Jorge/Lymph Denies easy bruising Aller/Immun Denies itchy eyes and Denies wheezing Physical exam (Primary Care) Vital Signs: Last Vital Signs Pulse 67 12/25/23 12:57 BP 120/86 12/25/23 12:57 Pulse Ox 98 12/25/23 12:57 Oxygen Delivery Method Room Air 12/25/23 12:57 BMI result Body Mass Index 38.4 Tobacco/Smoking Status: Tobacco use Status Tobacco use date assessed 12/25/23 12/25/23 13:01 Patient Tobacco Use Status Never used Tobacco 12/25/23 13:01 e-Cigarette/Vaping Use Never Used 12/25/23 13:01 PHQ-9: PHQ-9 Score PHQ-9: Total score 1 12/25/23 19:35 Depression Screening Interpretation: Negative Thrive Assessment: Date of Thrive Assessment Date Thrive assessed 12/25/23 12/25/23 13:01 Currently or been in a relationship where the following occur: No concerns reported Const General: no acute distress, alert and awake Orientation/consciousness: patient oriented x3 HENMT Head: Yes normocephalic and Yes atraumatic Ears: external ears normal, TM's normal bilaterally and EAC's normal General nose exam: No nasal discharge present Face and sinus: Yes normal facial exam and Yes sinuses nontender Teeth and gingiva: dentition normal Throat: Yes posterior oropharynx normal and Yes tonsils normal (no TP congestion) Eyes Eyelids: Yes eyelids normal Conjunctivae: conjunctivae normal Pupils: Equal, round and reactive pupils present EOM: EOMs intact bilaterally Neck Neck: Yes no lymphadenopathy and Yes supple Thyroid: Thyroid normal Resp Auscultation: clear to auscultation bilaterally, no rales and no wheezes Cardio Rate: regular rate Rhythm: regular rhythm Heart sounds: no murmurs GI Palpation (GI): Soft to palpation, nontender and No hepatosplenomegaly present Auscultation: normal bowel sounds General: Yes no CVA tenderness Back/Spine/Pelvis Back: no CVA tenderness Thoracic/Lumbar Spine: lumbar spinal tenderness (mild) Skin Lesions: no lesions Rashes: no rashes Neuro General: patient oriented x3, moves all extremities, no focal motor deficits and CN's II-XI intact bilaterally Cranial nerves: Yes Equal, round and reactive pupils present Cognition (Neuro): normal cognition Gait exam (Neuro): Normal gait present Extrem General: Yes no clubbing, cyanosis or edema Right upper extremity: wrist Details: tenderness Location: of the volar wrist; Tinel's positive Left upper extremity: wrist ((+) tenderness over the volar aspect of the wrist) Results Reviewed Results Reviewed: Laboratory Tests 10/29/23 09:30 WBC 11.0 H Hgb 12.6 Hct 38.4 Plt Count 277 Sodium 142 Potassium 3.8 Creatinine 0.85 Estimated GFR > 60 Fasting Glucose 93 Calcium 9.7 AST 18 ALT 17 Assessment and Plan Assessment & Plan (1) Annual physical exam: Code(s): Z00.00 - Encounter for general adult medical examination without abnormal findings Plan: She had her follow up labs done a few weeks ago and they have been discussed with her at her previous follow up appointment She had her screening colonoscopy done a few months ago in September 2023 - (+) tubular adenoma and moderate diverticulosis and internal hemorrhoids Because of her tubular adenoma, she will need repeat colonoscopy in 3 years She was seen for her annual gynecology exam last month (November 2023) but did not have a pap smear done - was advised that her pap smear is again due next year She is currently due for her annual mammogram (2) Bilateral carpal tunnel syndrome: Code(s): G56.03 - Carpal tunnel syndrome, bilateral upper limbs Plan: Will send patient for EMG and NCV of both wrists for further evaluation She is advised that if her tests show (+) CTS in both hands, then she will need to see orthopedics again for further management (3) Migraine: Code(s): G43.909 - Migraine, unspecified, not intractable, without status migrainosus Qualifiers: Migraine type: unspecified Status migrainosus presence: without status migrainosus Intractability: not intractable Qualified Code(s): G43.909 - Migraine, unspecified, not intractable, without status migrainosus Plan: Controlled Continue Topiramate 25 mg Q HS for headache prophylaxis She is also on Amitriptyline 10 mg Q HS so this may be helping with her headaches as well Propranolol caused her to develop persistent bradycardia Continue Fioricet 50-300-40 mg every 8 hours PRN and/or Rizatriptan 10 mg QD PRN (she was on Sumatriptan in the past but states that the Rx stopped helping) She has been tried as well on Nurtec ODT by neurology but patient states that her insurance will not cover the Rx Follow up with neurology as scheduled (4) Pure hypercholesterolemia: Code(s): E78.00 - Pure hypercholesterolemia, unspecified Plan: Reinforced low cholesterol diet (5) Irritable bowel syndrome with diarrhea: Code(s): K58.0 - Irritable bowel syndrome with diarrhea Plan: Continue Dicyclomine 20 mg QID PRN (Rx refilled), Loperamide 2 mg QID PRN and Fiber Laxative 625 mg QID PRN Follow up with GI as scheduled (6) GERD (gastroesophageal reflux disease): Code(s): K21.9 - Gastro-esophageal reflux disease without esophagitis Qualifiers: Esophagitis presence: without esophagitis Qualified Code(s): K21.9 - Gastro-esophageal reflux disease without esophagitis Plan: Dietary restrictions reinforced Continue Rabeprazole 20 mg QD Follow up with GI as scheduled (7) Allergic rhinitis: Comment: Allergy testing done at Dr. Pedraza's office in 2019 revealed that patient is allergic to cats and dust mites Code(s): J30.9 - Allergic rhinitis, unspecified Qualifiers: Allergic rhinitis trigger: unspecified Allergic rhinitis seasonality: unspecified Qualified Code(s): J30.9 - Allergic rhinitis, unspecified Plan: Continue Cetirizine 10 mg QD PRN and Fluticasone nasal spray QD PRN (8) Lumbar spondylosis: Comment: (+) scoliosis Code(s): M47.816 - Spondylosis without myelopathy or radiculopathy, lumbar region Plan: Her low back pain is also likely partly related to her scoliosis Reinforced activity and weight-lifting restrictions Continue Meloxicam 15 mg QD with food PRN, Gabapentin 100 mg TID and Methocarbamol 500 mg TID PRN Follow up with pain management as scheduled (9) Elevated TSH: Code(s): R79.89 - Other specified abnormal findings of blood chemistry Plan: Her TSH was slightly elevated on her recent labs but free T4 is normal Patient is clinically euthyroid Will recheck her TFTs in a few months for follow up (10) Vitamin D deficiency: Code(s): E55.9 - Vitamin D deficiency, unspecified Plan: Continue Vitamin D3 1000 units QD (11) Insomnia: Code(s): G47.00 - Insomnia, unspecified Qualifiers: Insomnia type: unspecified Qualified Code(s): G47.00 - Insomnia, unspecified Plan: Sleep hygiene reinforced Continue Trazodone 100 mg once a day at bedtime PRN (12) Anxiety: Code(s): F41.9 - Anxiety disorder, unspecified Plan: Continue Lorazepam 0.5 mg twice a day PRN (13) Depression: Code(s): F32.9 - Major depressive disorder, single episode, unspecified Qualifiers: Depression Type: major depressive disorder Major depression recurrence: recurrent Active/Remission status: currently active Major depression episode severity: unspecified Qualified Code(s): F33.9 - Major depressive disorder, recurrent, unspecified Plan: Continue Duloxetine 60 mg QD Follow-up with Psychiatry as scheduled (14) Obesity (BMI 30-39.9): Code(s): E66.9 - Obesity, unspecified Plan: Reinforced diet/exercise as tolerated/lose weight (15) Breast cancer screening by mammogram: Code(s): Z12.31 - Encounter for screening mammogram for malignant neoplasm of breast Plan: Will send her for her annual mammogram Plan Follow up as scdeduled in February 2024 Orders: Orders NE electromyogram (EMG) 12/25/23 G56.03 - Carpal tunnel syndrome, bilateral upper limbs NE nerve conduction velocity 12/25/23 G56.03 - Carpal tunnel syndrome, bilateral upper limbs MM tomosynthesis screening BI 12/25/23 Z12.31 - Encounter for screening mammogram for malignant neoplasm of breast Coding Level of Care Code New Pt Prev Care 40-64y(62805) Diagnoses Annual physical exam Z00.00 Bilateral carpal tunnel syndrome G56.03 Migraine without status migrainosus, not intractable, unspecified migraine type G43.909 Migraine type: unspecified Status migrainosus presence: without status migrainosus Intractability: not intractable Pure hypercholesterolemia E78.00 Irritable bowel syndrome with diarrhea K58.0 Gastroesophageal reflux disease without esophagitis K21.9 Esophagitis presence: without esophagitis Allergic rhinitis, unspecified seasonality, unspecified trigger J30.9 Allergic rhinitis trigger: unspecified Allergic rhinitis seasonality: unspecified Lumbar spondylosis M47.816 Elevated TSH R79.89 Vitamin D deficiency E55.9 Insomnia, unspecified type G47.00 Insomnia type: unspecified Anxiety F41.9 Episode of recurrent major depressive disorder, unspecified depression episode severity F33.9 Depression Type: major depressive disorder Major depression recurrence: recurrent Active/Remission status: currently active Major depression episode severity: unspecified Obesity (BMI 30-39.9) E66.9 Breast cancer screening by mammogram Z12.
== END 2023-12-25 13:52 | disposition home or self-care (01) ==
PROVIDERS: PCP Internal Medicine; Visit Provider Internal Medicine
DX: Z00.00 Encounter for general adult medical examination without abnormal findings (principal); F33.9 Major depressive disorder, recurrent, unspecified; G56.03 Carpal tunnel syndrome, bilateral upper limbs; G43.909 Migraine, unspecified, not intractable, without status migrainosus; E78.00 Pure hypercholesterolemia, unspecified; K58.0 Irritable bowel syndrome with diarrhea; K21.9 Gastro-esophageal reflux disease without esophagitis; J30.9 Allergic rhinitis, unspecified; M47.816 Spondylosis without myelopathy or radiculopathy, lumbar region; R79.89 Other specified abnormal findings of blood chemistry; E55.9 Vitamin D deficiency, unspecified; G47.00 Insomnia, unspecified
CPT/HCPCS: 99396

== ENCOUNTER 2024-01-12 08:31 | Outpatient (REF) | payer OTHER, SELFPAY ==
--- NOTE | 2024-01-12 08:43 | EMG_ITS ---
Bilateral median and ulnar motor and sensory studies were performed. Bilateral radial and median and lateral antecubital brachial sensory studies were performed, and paraspinal muscles were tested with a needle. IMPRESSION: This is an unremarkable study with no evidence of entrapment neuropathy, plexopathy, or radiculopathy. MD CHANCE Gray/WILBER / [id number]
== END 2024-01-12 08:32 | disposition home or self-care (01) ==
LOC: HO.NEURO 08:31
PROVIDERS: PCP Internal Medicine; Visit Provider Internal Medicine
DX: G56.03 Carpal tunnel syndrome, bilateral upper limbs (principal)
CPT/HCPCS: 95886; 95913

== ENCOUNTER 2024-01-18 10:19 | Outpatient (AMB) | payer OTHER, SELFPAY ==
[2024-01-18 10:38] VITALS: BP 122/84; BMI 38.4
--- NOTE | 2024-01-18 10:38 | MHC.OFFVIS ---
Vital Signs 01/18/24 10:38 Height 5 ft 2 in Weight 210 lb BMI 38.4 BP 122/84 Blood Pressure Location Rt brachial Position Sitting Intake Visit Reasons: 3 mnts f/u Intake Note: Patient presents for 3 month follow up. Allergies morphine [MORPHINE] Allergy (Intermediate, Verified 01/18/24 10:41) TACHYCARDIA codeine [Tylenol-Codeine] Allergy (Unknown, Verified 01/18/24 10:41) Unknown oxycodone [Percocet] Allergy (Unknown, Verified 01/18/24 10:41) unknown Medication List - Last Reconciled 01/18/24 by SOLIS Rubio acetaminophen (Tylenol Extra Strength) 500 mg PO Q6H PRN amitriptyline 10 mg PO BEDTIME calcium polycarbophil (Fiber Laxative (calcium polycarbophil)) 1,250 mg (2 x 625 mg) PO BID 30 days cetirizine 10 mg PO DAILY PRN 90 days cholecalciferol (vitamin D3) 25 mcg PO DAILY 90 days clotrimazole-betamethasone 1-0.05 % 1 appl topical BID 2 weeks duloxetine 60 mg PO QAM fluticasone propionate 50 mcg/actuation (Allergy Relief (fluticasone)) 2 sprays intranasal DAILY PRN gabapentin 100 mg PO TID ibuprofen 800 mg PO TID PRN loperamide 2 mg PO QID lorazepam 2 mg PO BID PRN magnesium oxide 400 mg PO DAILY 30 days methocarbamol 500 mg PO TID PRN metoclopramide HCl 5 mg PO QIDACHS metronidazole 500 mg PO BID 7 days mirabegron ER (Myrbetriq) 50 mg PO DAILY naproxen 500 mg PO BID PRN 10 days ondansetron 4 mg PO TID PRN 5 days oxybutynin chloride ER 10 mg PO DAILY promethazine 25 mg PO DAILY PRN rabeprazole (AcipHex) 20 mg PO DAILY 90 days riboflavin (vitamin B2) 400 mg PO DAILY 30 days rimegepant (Nurtec ODT) 75 mg PO ONCE PRN 30 days MDD 1 tab rizatriptan 10 mg PO ONCE PRN simethicone (Anti-Gas Ultra Strength) 180 mg PO QID sucralfate 2 grams (2 x 1 gram) PO BEDTIME topiramate 25 mg PO BEDTIME 30 days trazodone 100 mg PO BEDTIME triamcinolone acetonide intranasal HPI Comments Details: 52-year-old female presents for f/u visit. Pt reports she is doing well with her CPAP machine. She is sleeping well w/ device, however recently she has been having increased water in her PAP tubing. She has decreased the humidification level, and hung up the tubing when not in use, but the water was still collecting. She has talked w/ the respiratory company and they are going to give her a replacement to try. She is having 1 headache day per, which is less severe. Taking topiramate 25 mg daily. Rizatriptan is more helpful. No longer taking Excedrin. Baseline headache characteristics, The headache is a severe pressure headache in the frontal region and neck, a/w mild photophobia, blurry vision, more phonophobia, N/V, dizziness, tiredness, activity intolerance. PFSH Medical History Insomnia Obesity (BMI 30-39.9) Migraine without aura Bilateral low back pain without sciatica Carpal tunnel syndrome Daytime somnolence Lumbar spondylosis Hx of abnormal cervical Pap smear Erosive gastritis Sleep disorder, unspecified Yeast infection involving the vagina and surrounding area Bacterial vaginosis Problematic vaginal discharge COVID-19 Hx of sleep apnea Depression Anxiety Vitamin D deficiency GERD without esophagitis Allergic rhinitis Pure hypercholesterolemia Surgical History H/O colonoscopy History of hysterectomy, supracervical Hx of tubal ligation History of surgery History of dilatation and curettage Hx of hysterectomy History of bunionectomy Hx of carpal tunnel repair History of esophagogastroduodenoscopy History of cholecystectomy Family History Mother No problems noted. Maternal Aunt Breast cancer Social History Housing: Apartment Alcohol intake: never Patient Tobacco Use Status: Never used Tobacco e-Cigarette/Vaping Use: Never Used Second Hand Smoke Exposure: Yes service: No Current occupational status: disabled Cognitive needs: No Hearing needs: No Vision needs: No Female Reproductive History Menstrual Age of Menarche: 16 Physical Exam Vital Signs: Last Vital Signs BP 122/84 01/18/24 10:38 BMI result Body Mass Index 38.4 Const General: cooperative and no acute distress Orientation/consciousness: patient oriented x3 Resp Effort & Inspection: normal respiratory effort and able to speak in complete sentences Neuro General: patient oriented x3 Cranial nerves: Yes CN's II-XII intact bilaterally Cognition (Neuro): normal cognition Psych Appearance: grossly normal Mental Status: mental status grossly normal Speech and movement: Normal speech and movement present Affect: normal affect Attitude: cooperative Assessment & Plan Assessment & Plan (1) Mild obstructive sleep apnea: Code(s): G47.33 - Obstructive sleep apnea (adult) (pediatric) Category: Medical (2) Migraine without aura: Code(s): G43.009 - Migraine without aura, not intractable, without status migrainosus Category: Medical Plan For FAHAD- Continue Esther APAP 5-20 cmH2O. Xylimelts prn for dry nose/mouth. Hang tubing up in am- to allow any residual water to drain. Clean machine and supplies routinely. Will request updated PAP compliance report. ? For migraines and headaches- Continue Riboflavin and Magnesium Continue Topiramate 25mg qhs. Holdl Nurtec 75 mg- denied and rizatriptan working better. Continue Rizatriptan 10mg prn. Pt has stopped Excedrin use. Previous trials: Sumatriptan- lost effectiveness. Propranolol d/t bradycardia Follow-up in 6 months or sooner as needed. Medications: Changed From rizatriptan 10 mg PO ONCE PRN Migraine Headache To rizatriptan may repeat x's 1 in 2 hrs, max 2 tabs per day r 6 tabs per week. 10 mg PO ONCE PRN 12 tabs 6RF Migraine Headache 30 days Refilled riboflavin (vitamin B2) 400 mg PO DAILY 30 tabs 6RF 30 days topiramate 25 mg PO BEDTIME 30 tabs 6RF 30 days magnesium oxide may hold for loose stools 400 mg PO DAILY 30 tabs 6RF 30 days Discontinued rimegepant (Nurtec ODT) Discontinued Reason: Doctor's Order 75 mg PO ONCE 30 days PRN 16 tabs 3RF migraine headache MDD 1 tab G43.009 - Migraine without aura, not intractable, without status migrainosus Coding Level of Care Code Est Pt Level 4 (07402) Diagnoses Mild obstructive sleep apnea G47.33 Migraine without aura G43.009
== END 2024-01-18 11:26 | disposition home or self-care (01) ==
PROVIDERS: PCP Internal Medicine; Visit Provider Nurse Practitioner Family
DX: G47.33 Obstructive sleep apnea (adult) (pediatric) (principal); G43.009 Migraine without aura, not intractable, without status migrainosus
CPT/HCPCS: 99214

== ENCOUNTER → 2024-01-18 10:19 | Outpatient (BNVA) | payer OTHER, SELFPAY | PROVIDERS: PCP Internal Medicine; Visit Provider Nurse Practitioner Family | DX: G47.33 Obstructive sleep apnea (adult) (pediatric) (principal); G43.009 Migraine without aura, not intractable, without status migrainosus; Z99.89 Dependence on other enabling machines and devices | CPT/HCPCS: 99212 ==

== ENCOUNTER 2024-02-17 09:52 | Outpatient (REF) | payer OTHER, SELFPAY ==
--- NOTE | ~2024-02-17 | MM_ITS ---
EXAMINATION: MM SCREENING DIGITAL BREAST TOMOSYNTHESIS, BILATERAL CLINICAL INFORMATION: Screening. Asymptomatic. COMPARISON: Mammography: Comparison is made with available priors TECHNIQUE: Digital breast mammography with tomosynthesis is performed in both the craniocaudal and mediolateral oblique views along with computer-aided detection (CAD). FINDINGS: The breasts are heterogeneously dense, which may obscure small masses (ACR BI-RADS breast composition Category c). There are no significant masses, abnormal calcifications, or other abnormalities. MM/MM tomosynthesis screening BI IMPRESSION: No mammographic evidence of malignancy. ASSESSMENT: BI-RADS BI-RADS 1 - Negative RECOMMENDATION: Routine annual mammography screening. 1 year F/U This examination should not preclude the clinical evaluation of a suspicious palpable abnormality. This patient's information was entered into a reminder system with a target due date for their next mammogram. Electronically signed by: Yolis Mar DO 02/26/2024 12:59 PM TORSTEN
== END 2024-02-17 09:53 | disposition home or self-care (01) ==
LOC: HO.MAMMO 09:52
PROVIDERS: PCP Internal Medicine; Visit Provider Internal Medicine
DX: Z12.31 Encounter for screening mammogram for malignant neoplasm of breast (principal)
CPT/HCPCS: 77063; 77067

== ENCOUNTER → 2024-02-17 10:15 | Outpatient (BNV) | payer OTHER, SELFPAY | PROVIDERS: PCP Internal Medicine; Visit Provider Internal Medicine | DX: Z12.31 Encounter for screening mammogram for malignant neoplasm of breast (principal) | CPT/HCPCS: 77063; 77067 ==

== ENCOUNTER 2024-03-02 09:25 | Outpatient (REF) | payer OTHER, SELFPAY ==
[2024-03-02 10:19] LABS: Appearance Urine Cloudy; Color Urine Dark Yellow; Glucose Urine UA Negative (Negative); Leukocyte Esterase Urine Moderate (2+) (Negative); Nitrite Urine Negative (Negative); PH 5.5 (5.0-9.0); Specific Gravity - Urine 1.015 (1.005-1.025); UMIC TRIGGER UACC YES; Urine Blood Negative (Negative); Urine Ketones Negative (Negative); Urine Protein Negative (Neg-Trace)
[2024-03-02 10:20] LABS: Basophils Absolute Auto 0.1 X10*3/uL (0.0-0.2); Basophils Percent Auto 0.8 % (0-2); Eosinophils Absolute Auto 0.2 X10*3/uL (0.0-0.4); Eosinophils Percent Auto 1.8 % (0-4); Hematocrit 40.3 % (37.0-47.0); Hemoglobin 13.2 g/dl (12.0-16.0); Imm Gran Abs Auto 0.03 X10*3/uL (0.00-0.03); Imm Gran Pct Auto 0.3 % (0.0-0.4); Lymphocytes Absolute Auto 5.1 X10*3/uL (1.2-4.9); Lymphocytes Percent Auto 43.2 % (20-40); MANUAL DIFF FLAG SCAN; Mean Corpuscular HGB Conc 32.8 g/dl (31.0-35.0); Mean Corpuscular Volume 91.6 fL (80.0-98.0); Mean Platelet Volume 10.3 fL (9.4-12.3); Monocytes Absolute Auto 1.1 X10*3/uL (0.1-1.2); Monocytes Percent Auto 9.3 % (2-11); Neutrophils Absolute Auto 5.3 x10*3/uL (2.0-8.3); Neutrophils Percent Auto 44.6 % (45-73); Platelet Count 291 X10*3/uL (160-400); Red Cell Distribution Width 12.6 % (11.0-16.0); SCAN SMEAR FLAG 1; White Blood Count 11.9 X10*3/uL (4.8-10.8)
[2024-03-02 10:23] LABS: Bacteria Urine 4+ (None Seen); Hyaline Casts Urine 0-2 /LPF (0-2); RBC Urine 0-2 /HPF (0-2); Squamous Epithelial Cell Urine >20 /HPF (0-2); UACC Culture Trigger YES; WBC Urine 21-50 /HPF (0-5)
[2024-03-02 10:47] LABS: SLIDE REVIEW VERIFIED
[2024-03-02 11:02] LABS: Alanine Aminotransferase 27 U/L (0-31); Albumin Level 4.3 g/dL (3.5-5.0); Alkaline Phosphatase 70 U/L (39-117); Anion Gap 12 (12-20); Aspartate Amino Transferase 23 U/L (5-31); Bilirubin Total 0.5 mg/dL (0.0-1.0); Blood Urea Nitrogen 15 mg/dL (9-16); Calcium 9.7 mg/dL (8.4-10.2); Carbon Dioxide 28 mmol/L (22-29); Chloride 105 mmol/L (96-108); Cholesterol 218 mg/dL (<200); Estimated Glomerular Filt Rate > 60; Glucose Fasting 95 mg/dL (60-99); HDL Cholesterol 46 mg/dL (>40); LDL Cholesterol Calculated 126 mg/dL (<100); Potassium 3.9 mmol/L (3.3-5.1); Sodium 141 mmol/L (135-145); Total Protein 7.5 g/dL (6.5-8.0); Triglycerides 232 mg/dL (<150)
[2024-03-02 11:09] LABS: Free T4 (Free Thyroxine) 0.99 ng/dL (0.71-1.85); TSH reflex Free T4 2.41 uIU/mL (0.32-4.0); Vitamin D 25-OH Total 28.8 ng/mL (>30)
== END 2024-03-02 09:26 | disposition home or self-care (01) ==
LOC: HO.LAB 09:25
PROVIDERS: PCP Internal Medicine; Visit Provider Internal Medicine
DX: E78.00 Pure hypercholesterolemia, unspecified (principal); R79.89 Other specified abnormal findings of blood chemistry; D64.9 Anemia, unspecified; E55.9 Vitamin D deficiency, unspecified; R30.0 Dysuria
CPT/HCPCS: 36415; 80053; 80061; 81001; 82306; 84439; 84443; 85025; 87086

== ENCOUNTER 2024-03-08 13:00 | Outpatient (AMB) | payer OTHER, SELFPAY ==
[2024-03-08 13:16] VITALS: BP 116/80; PULSE 77; O2SAT 95; BMI 38.6
--- NOTE | 2024-03-08 13:16 | A.OFFPC_ITS ---
Vital Signs 03/08/24 13:16 Height 5 ft 2 in Weight 211 lb 4 oz BMI 38.6 BP 116/80 Blood Pressure Location Lt brachial Position Sitting Pulse 77 Pulse Source Pulse Oximeter Pulse Oximetry (%) 95 Oxygen Delivery Method Room Air Intake Visit Reasons: hyperlipidemia, asthma Drip Pumper Required: No Accompanied by: Self / Same As Patient Allergies morphine [MORPHINE] Allergy (Intermediate, Verified 03/08/24 14:06) TACHYCARDIA codeine [Tylenol-Codeine] Allergy (Unknown, Verified 03/08/24 14:06) Unknown oxycodone [Percocet] Allergy (Unknown, Verified 03/08/24 14:06) unknown Medication List - Last Reconciled 03/08/24 by Dc Bennett MD acetaminophen (Tylenol Extra Strength) 500 mg PO Q6H PRN amitriptyline 10 mg PO BEDTIME calcium polycarbophil (Fiber Laxative (calcium polycarbophil)) 1,250 mg (2 x 625 mg) PO BID 30 days cetirizine 10 mg PO DAILY PRN 90 days cholecalciferol (vitamin D3) 25 mcg PO DAILY 90 days clotrimazole-betamethasone 1-0.05 % 1 appl topical BID 2 weeks duloxetine 60 mg PO QAM fluticasone propionate 50 mcg/actuation (Allergy Relief (fluticasone)) 2 sprays intranasal DAILY PRN gabapentin 100 mg PO TID ibuprofen 800 mg PO TID PRN loperamide 2 mg PO QID lorazepam 2 mg PO BID PRN magnesium oxide 400 mg PO DAILY 30 days methocarbamol 500 mg PO TID PRN metoclopramide HCl 5 mg PO QIDACHS metronidazole 500 mg PO BID 7 days mirabegron ER (Myrbetriq) 50 mg PO DAILY naproxen 500 mg PO BID PRN 10 days ondansetron 4 mg PO TID PRN 5 days oxybutynin chloride ER 10 mg PO DAILY promethazine 25 mg PO DAILY PRN rabeprazole (AcipHex) 20 mg PO DAILY 90 days riboflavin (vitamin B2) 400 mg PO DAILY 30 days rizatriptan 10 mg PO ONCE PRN 30 days simethicone (Anti-Gas Ultra Strength) 180 mg PO QID sucralfate 2 grams (2 x 1 gram) PO BEDTIME topiramate 25 mg PO BEDTIME 30 days trazodone 100 mg PO BEDTIME triamcinolone acetonide intranasal Tobacco use date assessed: 03/08/24 Dental Screening Dental Screen Date: 03/08/24 Did you have a dental visit in the last 12 months?: No Did you have a dental problem in the last 6 months where you did not have access to dental care?: No Was dental information given to patient?: No HPI hyperlipidemia, asthma HPI Details Patient comes in today for her follow up visit States that she feels okay She denies any headaches or dizziness - states that her headaches have improved a lot on her current Rx Denies any chest pains, no SOB No nausea/vomiting, no abdominal pain No change in bowel habits noted She had her follow up labs done last week - to discuss her results She would also like to know how her EMG and NCV done early last month came out [facility] Medical History (Updated 03/13/24 @ 18:06 by Dc Bennett MD) Obesity (BMI 30-39.9) Insomnia Migraine without aura Bilateral low back pain without sciatica Carpal tunnel syndrome Daytime somnolence Lumbar spondylosis Hx of abnormal cervical Pap smear Erosive gastritis Sleep disorder, unspecified Yeast infection involving the vagina and surrounding area Bacterial vaginosis Problematic vaginal discharge COVID-19 Hx of sleep apnea Depression Anxiety Vitamin D deficiency GERD without esophagitis Allergic rhinitis Pure hypercholesterolemia Surgical History H/O colonoscopy History of hysterectomy, supracervical Hx of tubal ligation History of surgery History of dilatation and curettage Hx of hysterectomy History of bunionectomy Hx of carpal tunnel repair History of esophagogastroduodenoscopy History of cholecystectomy Family History Mother No problems noted. Maternal Aunt Breast cancer Social History Housing: Apartment Alcohol intake: never Patient Tobacco Use Status: Never used Tobacco e-Cigarette/Vaping Use: Never Used Second Hand Smoke Exposure: Yes service: No Current occupational status: disabled Cognitive needs: No Hearing needs: No Vision needs: No Female Reproductive History Menstrual Age of Menarche: 16 Questionnaire PHQ-9 Over the last 2 weeks, how often have you been bothered by any of the following problems? 1. Little interest or pleasure in doing things: not at all 2. Feeling down, depressed, or hopeless: not at all 3. Trouble falling or staying asleep, or sleeping too much: not at all 4. Feeling tired or having little energy: several days 5. Poor appetite or overeating: not at all 6. Feeling bad about yourself - or that you are a failure or have let yourself or your family down: not at all 7. Trouble concentrating on things, such as reading the newspaper or watching television: not at all 8. Moving or speaking so slowly that other people could have noticed. Or the opposite - being so fidgety or restless that you have been moving around a lot more than usual: not at all 9. Thoughts that you would be better off or of hurting yourself in some way: not at all Total score: 1 Depression Screening Interpretation: Negative Depression Screening Done: Yes 79528 - PHQ-9 Billing: Yes Source: Developed by Drs. Brett Bocanegra, Cheryl Elias, Akira Trevino and colleagues, with an educational shiloh from [employer]. Thrive Questionnaire Date Thrive assessed: 03/08/24 I am a: Patient What is your living situation today?: I have a steady place to live Within the past 12 months, did the food you bought not last and you didn't have the money to get more?: Never true Within the past 12 months, did you worry whether your food would run out before you got money to buy more?: Never true Do you have trouble paying for medicines?: No Do you have trouble getting transportation to medical appointments?: No Do you have trouble paying your heating and electricity bill?: No Do you have trouble taking care of your child, family member or friend?: No Do you have trouble with day-to-day activities such as bathing, preparing meals, shopping, managing finances, etc.?: Yes Are you currently unemployed and looking for a job?: I choose not to answer this question Are you interested in more education?: No Please select the resources that you would like help with: None Currently or been in a relationship where the following occur: No concerns reported THRIVE Score: 0 AUDIT C Alcohol Use Questionnaire (AUDIT-C) 1. How often do you have a drink containing alcohol?: Never 2. How many drinks containing alcohol do you have on a typical day when you are drinking?: 1 or 2 3. How often do you have six or more drinks on one occasion?: Never Total Score: 0 Score Reviewed/Action Taken: Yes REI-7 AMB Questionnaire REI-7 Date REI - 7 assessed: 03/08/24 Feeling nervous, anxious, or on edge: 0 = Not at all Not being able to stop or control worryin = Not at all Worrying too much about different things: 0 = Not at all Trouble relaxin = Not at all Being so restless that it is hard to sit still: 0 = Not at all Becoming easily annoyed or irritable: 0 = Not at all Feeling afraid as if something awful might happen: 0 = Not at all Total REI-7 score (0-4 normal; 5-9 mild; 10-14 moderate; 15-21 severe): 0 Source: Developed by Drs. Brett Bocanegra, Cheryl Elias, Akira Trevino and colleagues, with an educational shiloh from [employer]. Review of Systems Const Denies chills, Denies fatigue, Denies fever(s) and Denies headache(s) ENT Denies dysphagia, Denies dizziness, Denies headache(s), Denies neck pain and Denies odynophagia Card Denies chest pain, Denies irregular heart rhythm, Denies palpitations and Denies dyspnea Resp Denies chest congestion, Denies cough and Denies dyspnea GI Denies abdominal pain, Denies constipation, Denies dysphagia, Denies heartburn, Denies diarrhea, Denies nausea, Denies odynophagia and Denies vomiting Denies urinary frequency, Denies dysuria and Denies urinary urgency Musc Reports back pain (over the lower back, on and off), Reports arthralgias (in both wrists, on and off), Denies neck pain, Reports numbness (on and off in both hands) and Reports tingling (on and off in both hands) Skin/Breast Denies rash Neuro Denies dizziness, Denies headache(s), Reports numbness (on and off in both hands), Reports tingling (on and off in both hands) and Denies paresthesias Psych Denies anxiety and Denies depression Endo Denies fatigue and Denies palpitations Jorge/Lymph Denies easy bruising Physical exam (Primary Care) Vital Signs: Last Vital Signs Pulse 77 03/08/24 13:16 BP 116/80 03/08/24 13:16 Pulse Ox 95 03/08/24 13:16 Oxygen Delivery Method Room Air 03/08/24 13:16 BMI result Body Mass Index 38.6 Tobacco/Smoking Status: Tobacco use Status Tobacco use date assessed 03/08/24 03/08/24 13:21 Patient Tobacco Use Status Never used Tobacco 03/08/24 13:21 e-Cigarette/Vaping Use Never Used 03/08/24 13:21 PHQ-9: PHQ-9 Score PHQ-9: Total score 1 03/08/24 14:10 Depression Screening Interpretation: Negative Thrive Assessment: Date of Thrive Assessment Date Thrive assessed 03/08/24 03/08/24 13:21 Currently or been in a relationship where the following occur: No concerns reported Const General: no acute distress and alert HENMT Ears: TM's normal bilaterally and EAC's normal Throat: Yes posterior oropharynx normal and Yes tonsils normal (no TP congestion) Neck Neck: Yes no lymphadenopathy and Yes supple Thyroid: Thyroid normal Resp Auscultation: clear to auscultation bilaterally, no rales and no wheezes Cardio Rate: regular rate Rhythm: regular rhythm Heart sounds: no murmurs GI Palpation (GI): Soft to palpation and nontender Auscultation: normal bowel sounds General: Yes no CVA tenderness Back/Spine/Pelvis Back: no CVA tenderness Thoracic/Lumbar Spine: lumbar spinal tenderness (mild) Skin Rashes: no rashes Extrem General: Yes no clubbing, cyanosis or edema Right upper extremity: wrist Details: tenderness; no swelling Left upper extremity: wrist ((+) mild tenderness over the left wrist) Results Reviewed Results Reviewed: Laboratory Tests 03/02/24 03/02/24 09:46 09:48 WBC 11.9 H Hgb 13.2 Hct 40.3 Plt Count 291 Sodium 141 Potassium 3.9 Creatinine 0.87 Estimated GFR > 60 Fasting Glucose 95 Calcium 9.7 AST 23 ALT 27 Triglycerides 232 H Cholesterol 218 H LDL Cholesterol, Calc 126 H HDL Cholesterol 46 25-OH Vitamin D Total 28.8 L Free T4 0.99 Ur Specific [place] 1.015 Urine Protein Negative Urine Glucose (UA) Negative Urine Blood Negative Urine Nitrite Negative Ur Leukocyte Esterase Moderate (2+) H Laboratory Tests 03/02/24 09:48 TSH 2.41 Coding Level of Care Code Est Pt Level 4 (13775) Diagnoses Migraine without status migrainosus, not intractable, unspecified migraine type G43.909 Migraine type: unspecified Status migrainosus presence: without status migrainosus Intractability: not intractable Bilateral wrist pain M25.531; M25.532 Pure hypercholesterolemia E78.00 Irritable bowel syndrome with diarrhea K58.0 Gastroesophageal reflux disease without esophagitis K21.9 Esophagitis presence: without esophagitis Allergic rhinitis, unspecified seasonality, unspecified trigger J30.9 Allergic rhinitis trigger: unspecified Allergic rhinitis seasonality: unspecified Spondylosis of lumbar spine M47.816 Elevated TSH R79.89 Vitamin D deficiency E55.9 Insomnia, unspecified type G47.00 Insomnia type: unspecified Anxiety F41.9 Episode of recurrent major depressive disorder, unspecified depression episode severity F33.9 Depression Type: major depressive disorder Major depression recurrence: recurrent Active/Remission status: currently active Major depression episode severity: unspecified Obesity (BMI 30-39.9) E66.9 Additional Codes PHQ-9 - 68054 - PHQ-9 Billing: Yes ([id number]) Assessment & Plan Assessment & Plan (1) Migraine: Code(s): G43.909 - Migraine, unspecified, not intractable, without status migrainosus Category: Medical Qualifiers: Migraine type: unspecified Status migrainosus presence: without status migrainosus Intractability: not intractable Qualified Code(s): G43.909 - Migraine, unspecified, not intractable, without status migrainosus Plan: Controlled/stable Continue Topiramate 25 mg Q HS for headache prophylaxis; continue Riboflavin 400 mg QD She is also on Amitriptyline 10 mg Q HS so this may be helping with her headaches as well Propranolol caused her to develop persistent bradycardia Continue Fioricet 50-300-40 mg every 8 hours PRN and/or Rizatriptan 10 mg QD PRN (she was on Sumatriptan in the past but states that the Rx stopped helping) She has been tried as well on Nurtec ODT by neurology but patient states that her insurance will not cover the Rx Follow up with neurology as scheduled (2) Bilateral wrist pain: Code(s): M25.531 - Pain in right wrist; M25.532 - Pain in left wrist Category: Medical Plan: S/P carpal tunnel surgery of both of her wrists years ago EMG and NCV done last month (January 2024) came out normal She has been advised that her recent wrist symptoms may likely just be due to degenerative changes or post-op changes but her recent tests show no evidence of recurrence of her CTS (3) Pure hypercholesterolemia: Code(s): E78.00 - Pure hypercholesterolemia, unspecified Category: Medical Plan: Results of her labs done last week reviewed and discussed with patient Reinforced low cholesterol diet Will recheck her labs and fasting lipids in 4 months for follow-up (4) Irritable bowel syndrome with diarrhea: Code(s): K58.0 - Irritable bowel syndrome with diarrhea Category: Medical Plan: Continue Dicyclomine 20 mg QID PRN, Loperamide 2 mg QID PRN and Fiber Laxative 625 mg QID PRN Follow up with GI as scheduled (5) GERD (gastroesophageal reflux disease): Code(s): K21.9 - Gastro-esophageal reflux disease without esophagitis Category: Medical Qualifiers: Esophagitis presence: without esophagitis Qualified Code(s): K21.9 - Gastro-esophageal reflux disease without esophagitis Plan: Dietary restrictions reinforced Continue Rabeprazole 20 mg QD Follow up with GI as scheduled (6) Allergic rhinitis: Comment: Allergy testing done at Dr. Pedraza's office in 2019 revealed that patient is allergic to cats and dust mites Code(s): J30.9 - Allergic rhinitis, unspecified Category: Medical Qualifiers: Allergic rhinitis trigger: unspecified Allergic rhinitis seasonality: unspecified Qualified Code(s): J30.9 - Allergic rhinitis, unspecified Plan: Continue Cetirizine 10 mg QD PRN and Fluticasone nasal spray QD PRN (7) Spondylosis of lumbar spine: Code(s): M47.816 - Spondylosis without myelopathy or radiculopathy, lumbar region Category: Medical Plan: Her low back pain is also likely partly related to her scoliosis Reinforced activity and weight-lifting restrictions Continue Meloxicam 15 mg QD with food PRN, Gabapentin 100 mg TID and Methocarbamol 500 mg TID PRN Follow up with pain management as scheduled (8) Elevated TSH: Code(s): R79.89 - Other specified abnormal findings of blood chemistry Category: Medical Plan: Her TSH was normal on her recent labs this time; free T4 remained normal Patient is clinically euthyroid Will recheck her TFTs in 4 months for follow up (9) Vitamin D deficiency: Code(s): E55.9 - Vitamin D deficiency, unspecified Category: Medical Plan: Continue Vitamin D3 1000 units QD (10) Insomnia: Code(s): G47.00 - Insomnia, unspecified Category: Medical Qualifiers: Insomnia type: unspecified Qualified Code(s): G47.00 - Insomnia, unspecified Plan: Sleep hygiene reinforced Continue Trazodone 100 mg once a day at bedtime PRN (11) Anxiety: Code(s): F41.9 - Anxiety disorder, unspecified Category: Medical Plan: Continue Lorazepam 0.5 mg twice a day PRN (12) Depression: Code(s): F32.9 - Major depressive disorder, single episode, unspecified Category: Medical Qualifiers: Depression Type: major depressive disorder Major depression recurrence: recurrent Active/Remission status: currently active Major depression episode severity: unspecified Qualified Code(s): F33.9 - Major depressive disorder, recurrent, unspecified Plan: Continue Duloxetine 60 mg QD Follow-up with Psychiatry as scheduled (13) Obesity (BMI 30-39.9): Code(s): E66.9 - Obesity, unspecified Category: Medical Plan: Reinforced diet/exercise as tolerated/lose weight Plan Follow up in 4 months Orders: Orders Comprehensive [place]. Panel Fast 4 Months E78.00 - Pure hypercholesterolemia, unspecified Vitamin D 25-OH Total 4 Months E55.9 - Vitamin D deficiency, unspecified TSH reflex Free T4 4 Months E78.00 - Pure hypercholesterolemia, unspecified Lipid Panel 4 Months E78.00 - Pure hypercholesterolemia, unspecified
== END 2024-03-08 14:11 | disposition home or self-care (01) ==
PROVIDERS: PCP Internal Medicine; Visit Provider Internal Medicine
DX: G43.909 Migraine, unspecified, not intractable, without status migrainosus (principal); M25.531 Pain in right wrist; M25.532 Pain in left wrist; F33.9 Major depressive disorder, recurrent, unspecified; E78.00 Pure hypercholesterolemia, unspecified; K58.0 Irritable bowel syndrome with diarrhea; K21.9 Gastro-esophageal reflux disease without esophagitis; J30.9 Allergic rhinitis, unspecified; M47.816 Spondylosis without myelopathy or radiculopathy, lumbar region; E55.9 Vitamin D deficiency, unspecified; G47.00 Insomnia, unspecified

== ENCOUNTER → 2024-03-08 13:00 | Outpatient (BNVA) | payer OTHER, SELFPAY | PROVIDERS: PCP Internal Medicine; Visit Provider Internal Medicine | DX: G43.909 Migraine, unspecified, not intractable, without status migrainosus (principal); M25.531 Pain in right wrist; M25.532 Pain in left wrist; E78.00 Pure hypercholesterolemia, unspecified; K58.0 Irritable bowel syndrome with diarrhea; K21.9 Gastro-esophageal reflux disease without esophagitis; M47.816 Spondylosis without myelopathy or radiculopathy, lumbar region; R79.89 Other specified abnormal findings of blood chemistry; E55.9 Vitamin D deficiency, unspecified; G47.00 Insomnia, unspecified; F41.9 Anxiety disorder, unspecified; F33.9 Major depressive disorder, recurrent, unspecified; E66.9 Obesity, unspecified; Z68.38 Body mass index [BMI] 38.0-38.9, adult; Z71.3 Dietary counseling and surveillance | CPT/HCPCS: 96127; 99212 ==

== ENCOUNTER 2024-04-01 10:54 | Outpatient (AMB) | payer OTHER, SELFPAY ==
[2024-04-01 11:02] VITALS: BP 142/86; PULSE 79; BMI 39.1
--- NOTE | 2024-04-01 11:02 | MHC.OFFVIS ---
Vital Signs 04/01/24 11:02 Height 5 ft 2 in Weight 214 lb BMI 39.1 BP 142/86 H Blood Pressure Location Rt brachial Position Sitting Pulse 79 Intake Visit Reasons: 6 month follow up Intake Note: Duyen returns to in office 6 months follow up of GERD and IBS. CC: Patient reports doing well and denies having any GI concerns today. Allergies morphine [MORPHINE] Allergy (Intermediate, Verified 04/01/24 11:14) TACHYCARDIA codeine [Tylenol-Codeine] Allergy (Unknown, Verified 04/01/24 11:14) Unknown oxycodone [Percocet] Allergy (Unknown, Verified 04/01/24 11:14) unknown HPI HPI 6 month follow up: Details: Assessment & Plan (1) Irritable bowel syndrome with diarrhea: Code(s): K58.0 - Irritable bowel syndrome with diarrhea Category: Medical Plan: Micronesian #Narciso lIVE The she has agreeable to a 3 year follow-up. The procedure was well tolerated. The results were explained and the patient is agreeable to the follow-up interval as stated. The bowel pattern has returned to normal. Education was provided to tell any 1st degree relatives about their findings to be sure that they are screened by age 45. Educated that they will be put on a recall list when it is time for their repeat scope but should they move out of state or away from the hospital they will need to remember along with their primary to repeat the procedure in a timely fashion to avoid any adverse complications. She is doing much better with her diarrhea now that we switched her from the tablet form of Imodium to the capsule form. She continues on sucralfate, aciphex and simtheicone. With this she is satisfied with her GI regimen. Return office visit in 6 months (2) GERD (gastroesophageal reflux disease): Code(s): K21.9 - Gastro-esophageal reflux disease without esophagitis Category: Medical Qualifiers: Esophagitis presence: without esophagitis Qualified Code(s): K21.9 - Gastro-esophageal reflux disease without esophagitis (3) Tubular adenoma of colon: Comment: 09/2023 scope= 3 TA is repeat in 3 years Code(s): D12.6 - Benign neoplasm of colon, unspecified Category: Medical Plan Micronesian #Narciso lIVE The she has agreeable to a 3 year follow-up. The procedure was well tolerated. The results were explained and the patient is agreeable to the follow-up interval as stated. The bowel pattern has returned to normal. Education was provided to tell any 1st degree relatives about their findings to be sure that they are screened by age 45. Educated that they will be put on a recall list when it is time for their repeat scope but should they move out of state or away from the hospital they will need to remember along with their primary to repeat the procedure in a timely fashion to avoid any adverse complications. She is doing much better with her diarrhea now that we switched her from the tablet form of Imodium to the capsule form. She continues on sucralfate, aciphex and simtheicone. With this she is satisfied with her GI regimen. Return office visit in 6 months Medications: Changed From sucralfate 2 grams (2 x 1 gram) PO BEDTIME 180 tabs 6RF K58.0 - Irritable bowel syndrome with diarrhea To sucralfate 2 grams (2 x 1 gram) PO BEDTIME 180 tabs 6RF K58.0 - Irritable bowel syndrome with diarrhea Refilled metoclopramide HCl 5 mg PO QIDACHS 360 tabs 1RF simethicone (Anti-Gas Ultra Strength) 180 mg PO QID 120 caps 3RF rabeprazole (AcipHex) 20 mg PO DAILY 90 tabs 2RF 90 days K29.60 - Other gastritis without bleeding loperamide Please dispense capsule as the patient can not swallow the tablet. 2 mg PO QID 120 caps 3RF loose stool K58.0 - Irritable bowel syndrome with diarrhea Discontinued famotidine Discontinued Reason: Doctor's Order 40 mg PO BID 180 tabs 2RF K21.9 - Gastro-esophageal reflux disease without esophagitis, R10.13 - Epigastric pain TODAY'S VISIT Micronesian #declines She needs the tablet form of Imodium to the capsule form. She continues on reglan, sucralfate, aciphex and simtheicone. She continues to be stable on her GI regimen and is satisfied. ROV 6 mos. [facility] Medical History (Updated 04/01/24 @ 11:03 by VASYL Potter) Breast cancer screening by mammogram Obesity (BMI 30-39.9) Insomnia Migraine without aura Bilateral low back pain without sciatica Carpal tunnel syndrome Daytime somnolence Lumbar spondylosis Hx of abnormal cervical Pap smear Erosive gastritis Sleep disorder, unspecified Yeast infection involving the vagina and surrounding area Bacterial vaginosis Problematic vaginal discharge COVID-19 Hx of sleep apnea Depression Anxiety Vitamin D deficiency GERD without esophagitis Allergic rhinitis Pure hypercholesterolemia Surgical History H/O colonoscopy History of hysterectomy, supracervical Hx of tubal ligation History of surgery History of dilatation and curettage Hx of hysterectomy History of bunionectomy Hx of carpal tunnel repair History of esophagogastroduodenoscopy History of cholecystectomy Family History Mother No problems noted. Maternal Aunt Breast cancer Social History Housing: Apartment Alcohol intake: never Patient Tobacco Use Status: Never used Tobacco e-Cigarette/Vaping Use: Never Used Second Hand Smoke Exposure: Yes service: No Current occupational status: disabled Cognitive needs: No Hearing needs: No Vision needs: No Female Reproductive History Menstrual Age of Menarche: 16 Review of Systems Const Denies fatigue, Denies fever(s), Denies night sweats, Denies poor appetite and Denies weight loss ENT Reports Normal hearing present, Denies dental pain, Denies dysphagia, Denies hearing loss, Denies mouth pain, Denies odynophagia, Denies throat swelling, Denies tongue swelling and Reports other (Dentition adequate) Card Reports no additional complaints Resp Reports no additional complaints GI Details: Denies abdominal pain, Denies melena, Reports bloating, Denies hematochezia, Denies constipation, Denies GI cramping, Denies dysphagia, Denies excessive flatus, Reports early satiety, Reports heartburn, Denies diarrhea, Denies nausea, Denies odynophagia, Denies vomiting and Denies hematemesis Skin/Breast Denies pruritus, Denies lesions, Denies rash and Denies jaundice Neuro Reports Normal hearing present and Denies Abnormal speech present Endo Denies fatigue Aller/Immun Denies throat swelling and Denies tongue swelling Physical Exam Const General: cooperative, no acute distress, well developed and well groomed Nutritional Appearance: well nourished and obese Orientation/consciousness: oriented to person, oriented to place and oriented to time Limitations: language barrier HEENT Head: Yes normocephalic and Yes atraumatic Eyes General: appearance normal, both eyes and all related structures Pupils: Equal, round and reactive pupils present Neck Neck: Yes normal visual inspection and Yes no lymphadenopathy Thyroid: Thyroid normal Resp Effort & Inspection: normal respiratory effort and able to speak in complete sentences Auscultation: clear to auscultation bilaterally Cardio Rate: regular rate Rhythm: regular rhythm Heart sounds: Normal, physiologic split S2 sound present Peripheral pulses: radial pulses present and posterior tibial pulses present GI Inspection: No distended, Yes Abdominal panniculus present and Yes obesity Palpation (GI): Soft to palpation, nontender, no guarding, not rigid and No hepatosplenomegaly present Percussion: Yes normal to percussion Auscultation: normal bowel sounds Rectal Exam - Female: deferred Skin General skin exam: no rashes or lesions noted, turgor normal, skin not dry, no jaundice, No spider nevi and no striae Rashes: no rashes Nails: normal Neuro General: oriented to person, oriented to place and oriented to time Cranial nerves: Yes Equal, round and reactive pupils present and Yes Normal hearing present Speech: No Abnormal speech present Extrem General: Yes normal to inspection, No clubbing, No cyanosis and No edema Psych Appearance: grossly normal and well kempt Mental Status: mental status grossly normal Speech and movement: Normal speech and movement present Affect: normal affect Attitude: cooperative Thought process: Normal thought process present and not confabulating Thought content: Normal thought content present Insight: Limited insight present (Psych) Judgement: Limited judgement present (Psych) Assessment & Plan Assessment & Plan (1) GERD (gastroesophageal reflux disease): Code(s): K21.9 - Gastro-esophageal reflux disease without esophagitis Category: Medical Qualifiers: Esophagitis presence: without esophagitis Qualified Code(s): K21.9 - Gastro-esophageal reflux disease without esophagitis (2) Irritable bowel syndrome with diarrhea: Code(s): K58.0 - Irritable bowel syndrome with diarrhea Category: Medical Plan Micronesian #declines She needs the tablet form of Imodium to the capsule form. She continues on reglan, sucralfate, aciphex and simtheicone. She continues to be stable on her GI regimen and is satisfied. ROV 6 mos. Medications: Refilled rabeprazole (AcipHex) 20 mg PO DAILY 90 days 90 tabs 2RF K29.60 - Other gastritis without bleeding simethicone (Anti-Gas Ultra Strength) 180 mg PO QID 120 caps 3RF sucralfate 2 grams (2 x 1 gram) PO BEDTIME 180 tabs 6RF K58.0 - Irritable bowel syndrome with diarrhea loperamide Please dispense capsule as the patient can not swallow the tablet. 2 mg PO QID 120 caps 3RF loose stool K58.0 - Irritable bowel syndrome with diarrhea metoclopramide HCl 5 mg PO QIDACHS 360 tabs 1RF Coding Level of Care Code Est Pt Level 3 (96522) Diagnoses Gastroesophageal reflux disease without esophagitis K21.9 Esophagitis presence: without esophagitis Irritable bowel syndrome with diarrhea K58.0
== END 2024-04-01 11:26 | disposition home or self-care (01) ==
PROVIDERS: PCP Internal Medicine; Visit Provider Nurse Practitioner
DX: K21.9 Gastro-esophageal reflux disease without esophagitis (principal); K58.0 Irritable bowel syndrome with diarrhea
CPT/HCPCS: 99213

== ENCOUNTER → 2024-04-01 10:54 | Outpatient (BNVA) | payer OTHER, SELFPAY | PROVIDERS: PCP Internal Medicine; Visit Provider Nurse Practitioner | DX: K21.9 Gastro-esophageal reflux disease without esophagitis (principal); K58.0 Irritable bowel syndrome with diarrhea; K29.60 Other gastritis without bleeding | CPT/HCPCS: 99212 ==

== ENCOUNTER 2024-06-29 10:27 | Outpatient (REF) | payer OTHER, SELFPAY ==
[2024-06-29 11:48] LABS: Appearance Urine Turbid; Color Urine Dark Yellow; Glucose Urine UA Negative (Negative); Leukocyte Esterase Urine Large (3+) (Negative); Nitrite Urine Negative (Negative); PH 7.5 (5.0-9.0); UMIC TRIGGER UACC YES; Urine Blood Negative (Negative); Urine Ketones Negative (Negative); Urine Protein Negative (Neg-Trace)
[2024-06-29 12:02] LABS: Bacteria Urine 4+ (None Seen); Hyaline Casts Urine 0-2 /LPF (0-2); RBC Urine 0-2 /HPF (0-2); Squamous Epithelial Cell Urine >20 /HPF (0-2); UACC Culture Trigger YES
[2024-06-29 12:05] LABS: Alanine Aminotransferase 22 U/L (0-31); Albumin Level 4.2 g/dL (3.5-5.0); Alkaline Phosphatase 67 U/L (39-117); Anion Gap 11 (12-20); Aspartate Amino Transferase 20 U/L (5-31); Bilirubin Total 0.5 mg/dL (0.0-1.0); Blood Urea Nitrogen 11 mg/dL (9-16); Calcium 9.4 mg/dL (8.4-10.2); Carbon Dioxide 25 mmol/L (22-29); Chloride 109 mmol/L (96-108); Cholesterol 213 mg/dL (<200); Estimated Glomerular Filt Rate > 60; Glucose Fasting 93 mg/dL (60-99); HDL Cholesterol 53 mg/dL (>40); LDL Cholesterol Calculated 129 mg/dL (<100); Sodium 141 mmol/L (135-145); Total Protein 7.9 g/dL (6.5-8.0); Triglycerides 158 mg/dL (<150)
[2024-06-29 12:07] LABS: TSH reflex Free T4 2.88 uIU/mL (0.32-4.0)
== END 2024-06-29 10:28 | disposition home or self-care (01) ==
LOC: HO.LAB 10:27
PROVIDERS: PCP Internal Medicine; Visit Provider Internal Medicine
DX: E55.9 Vitamin D deficiency, unspecified (principal); E78.00 Pure hypercholesterolemia, unspecified; R30.0 Dysuria
CPT/HCPCS: 36415; 80053; 80061; 81001; 82306; 84443; 87086

== ENCOUNTER 2024-07-26 11:15 | Outpatient (AMB) | payer OTHER, SELFPAY ==
--- NOTE | 2024-07-26 11:29 | MHC.OFFVIS ---
Vital Signs 07/26/24 11:31 Height 5 ft 2 in Weight 225 lb BMI 41.1 BP 120/78 Blood Pressure Location Rt brachial Position Sitting Pulse 70 Pulse Source Pulse Oximeter Pulse Oximetry (%) 96 Oxygen Delivery Method Room Air Intake Visit Reasons: Follow up Licensed And Certified Midwife Required: No Accompanied by: Self / Same As Patient Allergies morphine [MORPHINE] Allergy (Intermediate, Verified 07/26/24 11:31) TACHYCARDIA codeine [Tylenol-Codeine] Allergy (Unknown, Verified 07/26/24 11:31) Unknown oxycodone [Percocet] Allergy (Unknown, Verified 07/26/24 11:31) unknown Medication List - Last Reconciled 07/26/24 by SOLIS Rubio acetaminophen (Tylenol Extra Strength) 500 mg PO Q6H PRN amitriptyline 10 mg PO BEDTIME calcium polycarbophil (Fiber Laxative (calcium polycarbophil)) 1,250 mg (2 x 625 mg) PO BID 30 days cetirizine 10 mg PO DAILY PRN 90 days cholecalciferol (vitamin D3) 25 mcg PO DAILY 90 days clotrimazole-betamethasone 1-0.05 % 1 appl topical BID 2 weeks duloxetine 60 mg PO QAM famotidine (Pepcid) 40 mg PO BEDTIME fluticasone propionate 50 mcg/actuation (Allergy Relief (fluticasone)) 2 sprays intranasal DAILY PRN gabapentin 100 mg PO TID ibuprofen 800 mg PO TID PRN loperamide 2 mg PO QID lorazepam 2 mg PO BID PRN magnesium oxide 400 mg PO DAILY 30 days methocarbamol 500 mg PO TID PRN metoclopramide HCl 5 mg PO QIDACHS mirabegron ER (Myrbetriq) 50 mg PO DAILY naproxen 500 mg PO BID PRN 10 days ondansetron 4 mg PO TID PRN 5 days oxybutynin chloride ER 10 mg PO DAILY promethazine 25 mg PO DAILY PRN rabeprazole (AcipHex) 20 mg PO DAILY 90 days riboflavin (vitamin B2) 400 mg PO DAILY 30 days riboflavin (vitamin B2) (Vitamin B-2) 200 mg PO BID rizatriptan 10 mg PO ONCE PRN 30 days simethicone (Anti-Gas Ultra Strength) 180 mg PO QID sucralfate 2 grams (2 x 1 gram) PO BEDTIME topiramate 25 mg PO BEDTIME 30 days trazodone 100 mg PO BEDTIME triamcinolone acetonide intranasal HPI Comments Details: 54-year-old female presents for f/u visit of migraine and FAHAD. Pt reports she is doing well with her CPAP machine. She states she has enough CPAP supplies. Reviewed recent CPAP compliance report between 06/16/2023 through 07/15/2023 Overall usage days 63% Usage greater than 4 hours 57% Average usage on days used 8 hours 31 minutes Setting APAP 5-20 cm H2O with EPR set to 2 Average pressure 6.3 cm H2O Average leaks 4.4 L/min Residual AHI 0.6 per hour. She states overall her migraine burden has improved. She is having approximately 4 headache days per month which respond to prn rizatriptan. Taking topiramate 25 mg daily. Rizatriptan is more helpful. No longer taking Excedrin. Baseline headache characteristics, The headache is a severe pressure headache in the frontal region and neck, a/w mild photophobia, blurry vision, more phonophobia, N/V, dizziness, tiredness, activity intolerance. PFSH Medical History Breast cancer screening by mammogram Obesity (BMI 30-39.9) Insomnia Migraine without aura Bilateral low back pain without sciatica Carpal tunnel syndrome Daytime somnolence Lumbar spondylosis Hx of abnormal cervical Pap smear Erosive gastritis Sleep disorder, unspecified Yeast infection involving the vagina and surrounding area Bacterial vaginosis Problematic vaginal discharge COVID-19 Hx of sleep apnea Depression Anxiety Vitamin D deficiency GERD without esophagitis Allergic rhinitis Pure hypercholesterolemia Surgical History H/O colonoscopy History of hysterectomy, supracervical Hx of tubal ligation History of surgery History of dilatation and curettage Hx of hysterectomy History of bunionectomy Hx of carpal tunnel repair History of esophagogastroduodenoscopy History of cholecystectomy Family History Mother No problems noted. Maternal Aunt Breast cancer Social History Housing: Apartment Alcohol intake: never Patient Tobacco Use Status: Never used Tobacco e-Cigarette/Vaping Use: Never Used Second Hand Smoke Exposure: Yes service: No Current occupational status: disabled Cognitive needs: No Hearing needs: No Vision needs: No Female Reproductive History Menstrual Age of Menarche: 16 Physical Exam Vital Signs: Last Vital Signs Pulse 70 07/26/24 11:31 BP 120/78 07/26/24 11:31 Pulse Ox 96 07/26/24 11:31 Oxygen Delivery Method Room Air 07/26/24 11:31 BMI result Body Mass Index 41.1 Const General: cooperative and no acute distress Orientation/consciousness: patient oriented x3 Resp Effort & Inspection: normal respiratory effort and able to speak in complete sentences Neuro General: patient oriented x3 Cranial nerves: Yes CN's II-XII intact bilaterally Cognition (Neuro): normal cognition Psych Appearance: grossly normal Mental Status: mental status grossly normal Speech and movement: Normal speech and movement present Affect: normal affect Attitude: cooperative Assessment & Plan Assessment & Plan (1) Mild obstructive sleep apnea: Code(s): G47.33 - Obstructive sleep apnea (adult) (pediatric) Category: Medical (2) Migraine without aura: Code(s): G43.009 - Migraine without aura, not intractable, without status migrainosus Category: Medical Plan For FAHAD- Continue Esther APAP 5-20 cmH2O with EPR set to 2. A nightly greater than 4 hours, as patient continues to have good clinical effect from use. Xylimelts prn for dry nose/mouth. Hang tubing up in am- to allow any residual water to drain. Clean machine and supplies routinely. Continue to use distilled water in CPAP water reservoir. ? For migraines and headaches- Continue Riboflavin and Magnesium Continue Topiramate 25mg qhs. Continue Rizatriptan 10mg prn. Pt has stopped Excedrin use. Previous trials: Sumatriptan- lost effectiveness. Propranolol caused bradycardia Follow-up in 6 months or sooner as needed. Medications: Changed From magnesium oxide may hold for loose stools 400 mg PO DAILY 30 days 30 tabs 6RF To magnesium oxide may hold for loose stools 400 mg PO DAILY 90 days 90 tabs 3RF From riboflavin (vitamin B2) 400 mg PO DAILY 30 days 30 tabs 6RF To riboflavin (vitamin B2) 400 mg PO DAILY 90 days 90 tabs 3RF Refilled topiramate 25 mg PO BEDTIME 30 days 30 tabs 6RF rizatriptan may repeat x's 1 in 2 hrs, max 2 tabs per day r 6 tabs per week. 10 mg PO ONCE 30 days PRN 12 tabs 6RF Migraine Headache Coding Level of Care Code Est Pt Level 4 (80583) Diagnoses Mild obstructive sleep apnea G47.33 Migraine without aura G43.009
[2024-07-26 11:31] VITALS: BP 120/78; PULSE 70; O2SAT 96; BMI 41.1
== END 2024-07-26 11:55 | disposition home or self-care (01) ==
LOC: HO.HSMS 11:15
PROVIDERS: PCP Internal Medicine; Visit Provider Nurse Practitioner Family
DX: G47.33 Obstructive sleep apnea (adult) (pediatric) (principal); G43.009 Migraine without aura, not intractable, without status migrainosus
CPT/HCPCS: 99214

== ENCOUNTER → 2024-07-26 11:15 | Outpatient (BNVA) | payer OTHER, SELFPAY | PROVIDERS: PCP Internal Medicine; Visit Provider Nurse Practitioner Family | DX: G47.33 Obstructive sleep apnea (adult) (pediatric) (principal); G43.009 Migraine without aura, not intractable, without status migrainosus; Z99.89 Dependence on other enabling machines and devices | CPT/HCPCS: 99212 ==

== ENCOUNTER 2024-09-30 11:30 | Outpatient (AMB) | payer OTHER, SELFPAY ==
--- NOTE | 2024-09-30 11:34 | A.OFFVIS_ITS ---
Vital Signs 09/30/24 11:35 Height 5 ft 2 in Weight 220 lb BMI 40.2 BP 122/74 Blood Pressure Location Rt brachial Position Sitting Pulse 70 Pulse Source Pulse Oximeter Pulse Oximetry (%) 97 Oxygen Delivery Method Room Air Intake Visit Reasons: Follow up 6 months IBS Intake Note: Est pt for mgmt of GERD + IBS. CC; Pt denies any GI sx or concerns at this time. Confirms that Rx are working OK for her. Pt denied [place] virtual digester for intake with MA as she did not feel that it was necessary. Pt does wish to have digester present if possible for their exam with the provider per the understanding of medical terminology. 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 Mechanic Offered & Declined Accompanied by: Self / Same As Patient Allergies morphine (MORPHINE) Allergy (Intermediate, Verified 09/30/24 11:40) TACHYCARDIA codeine (Tylenol-Codeine) Allergy (Unknown, Verified 09/30/24 11:40) Unknown oxycodone (Percocet) Allergy (Unknown, Verified 09/30/24 11:40) unknown HPI HPI Follow up 6 months IBS: Details: Assessment & Plan (1) GERD (gastroesophageal reflux disease): Code(s): K21.9 - Gastro-esophageal reflux disease without esophagitis Category: Medical Qualifiers: Esophagitis presence: without esophagitis Qualified Code(s): K21.9 - Gastro-esophageal reflux disease without esophagitis (2) Irritable bowel syndrome with diarrhea: Code(s): K58.0 - Irritable bowel syndrome with diarrhea Category: Medical Plan [place] #declines She needs the tablet form of Imodium to the capsule form. She continues on reglan, sucralfate, aciphex and simtheicone. She continues to be stable on her GI regimen and is satisfied. ROV 6 mos. Medications: Refilled rabeprazole (AcipHex) 20 mg PO DAILY 90 days 90 tabs 2RF K29.60 - Other gastritis without bleeding simethicone (Anti-Gas Ultra Strength) 180 mg PO QID 120 caps 3RF sucralfate 2 grams (2 x 1 gram) PO BEDTIME 180 tabs 6RF K58.0 - Irritable bowel syndrome with diarrhea loperamide Please dispense capsule as the patient can not swallow the tablet. 2 mg PO QID 120 caps 3RF loose stool K58.0 - Irritable bowel syndrome with diarrhea metoclopramide HCl 5 mg PO QIDACHS 360 tabs 1RF TODAYS VISIT [place] #declines She continues on reglan, sucralfate, aciphex and simtheicone, she has had difficulty getting the simethicone and she seems to think her insurance may not be pain for it. However, we have also had widespread short edges of the 180 mg strength so I will try sending 125 mg to see if it is just a supply problem. I have also written down what the name of the medication is [id number] so she can try to buy it since it is not tremendously expensive. She remains satisfied otherwise with her GI regimen. Return office visit in 6 months. [facility] Medical History Breast cancer screening by mammogram Obesity (BMI 30-39.9) Insomnia Migraine without aura Bilateral low back pain without sciatica Carpal tunnel syndrome Daytime somnolence Lumbar spondylosis Hx of abnormal cervical Pap smear Erosive gastritis Sleep disorder, unspecified Yeast infection involving the vagina and surrounding area Bacterial vaginosis Problematic vaginal discharge COVID-19 Hx of sleep apnea Depression Anxiety Vitamin D deficiency GERD without esophagitis Allergic rhinitis Pure hypercholesterolemia Surgical History H/O colonoscopy History of hysterectomy, supracervical Hx of tubal ligation History of surgery History of dilatation and curettage Hx of hysterectomy History of bunionectomy Hx of carpal tunnel repair History of esophagogastroduodenoscopy History of cholecystectomy Family History Mother No problems noted. Maternal Aunt Breast cancer Social History Housing: Apartment Alcohol intake: never Patient Tobacco Use Status: Never used Tobacco e-Cigarette/Vaping Use: Never Used Second Hand Smoke Exposure: Yes service: No Current occupational status: disabled Cognitive needs: No Hearing needs: No Vision needs: No Female Reproductive History Menstrual Age of Menarche: 16 Review of Systems Const Denies fatigue, Denies fever(s), Denies night sweats, Denies poor appetite and Denies weight loss ENT Reports Normal hearing present, Denies dental pain, Denies dysphagia, Denies hearing loss, Denies mouth pain, Denies odynophagia, Denies throat swelling, Denies tongue swelling and Reports other (Dentition adequate) Card Reports no additional complaints Resp Reports no additional complaints GI Details: Denies abdominal pain, Denies melena, Denies bloating, Denies hematochezia, Denies constipation, Denies GI cramping, Denies dysphagia, Denies excessive flatus, Denies early satiety, Reports heartburn, Reports diarrhea, Denies nausea, Denies odynophagia, Denies vomiting and Denies hematemesis Skin/Breast Denies pruritus, Denies lesions, Denies rash and Denies jaundice Neuro Reports Normal hearing present and Denies Abnormal speech present Endo Denies fatigue Aller/Immun Denies throat swelling and Denies tongue swelling Physical Exam Vital Signs: Last Vital Signs Pulse 70 09/30/24 11:35 BP 122/74 09/30/24 11:35 Pulse Ox 97 09/30/24 11:35 Oxygen Delivery Method Room Air 09/30/24 11:35 BMI result Body Mass Index 40.2 Const General: cooperative, no acute distress, well developed and well groomed Nutritional Appearance: well nourished and obese Orientation/consciousness: oriented to person, oriented to place and oriented to time Limitations: No language barrier HEENT Head: Yes normocephalic and Yes atraumatic Eyes General: appearance normal, both eyes and all related structures Pupils: Equal, round and reactive pupils present Neck Neck: Yes normal visual inspection and Yes no lymphadenopathy Thyroid: Thyroid normal Resp Effort & Inspection: normal respiratory effort and able to speak in complete sentences Auscultation: clear to auscultation bilaterally Cardio Rate: regular rate Rhythm: regular rhythm Heart sounds: Normal, physiologic split S2 sound present Peripheral pulses: radial pulses present and posterior tibial pulses present GI Inspection: No distended, Yes Abdominal panniculus present and Yes obesity Palpation (GI): Soft to palpation, nontender, no guarding, not rigid and No hepatosplenomegaly present Percussion: Yes normal to percussion Auscultation: normal bowel sounds Rectal Exam - Female: deferred Skin General skin exam: no rashes or lesions noted, turgor normal, skin not dry, no jaundice, No spider nevi and no striae Rashes: no rashes Nails: normal Neuro General: oriented to person, oriented to place and oriented to time Cranial nerves: Yes Equal, round and reactive pupils present and Yes Normal hearing present Speech: No Abnormal speech present Extrem General: Yes normal to inspection, No clubbing, No cyanosis and No edema Psych Appearance: grossly normal and well kempt Mental Status: mental status grossly normal Speech and movement: Normal speech and movement present Affect: normal affect Attitude: cooperative Thought process: Normal thought process present and not confabulating Thought content: Normal thought content present Insight: Fair insight present (Psych) Judgement: Fair judgement present (Psych) Assessment & Plan Assessment & Plan (1) GERD (gastroesophageal reflux disease): Code(s): K21.9 - Gastro-esophageal reflux disease without esophagitis Category: Medical Qualifiers: Esophagitis presence: without esophagitis Qualified Code(s): K21.9 - Gastro-esophageal reflux disease without esophagitis (2) Irritable bowel syndrome with diarrhea: Code(s): K58.0 - Irritable bowel syndrome with diarrhea Category: Medical Plan [place] #declines She continues on reglan, sucralfate, aciphex and simtheicone, she has had difficulty getting the simethicone and she seems to think her insurance may not be pain for it. However, we have also had widespread short edges of the 180 mg strength so I will try sending 125 mg to see if it is just a supply problem. I have also written down what the name of the medication is [id number] so she can try to buy it since it is not tremendously expensive. She remains satisfied otherwise with her GI regimen. Return office visit in 6 months. Medications: New simethicone (Gas Relief (simethicone)) 125 mg PO QID 120 tabs 6RF abdominal distention Refilled sucralfate 2 grams (2 x 1 gram) PO BEDTIME 180 tabs 6RF K58.0 - Irritable bowel syndrome with diarrhea rabeprazole (AcipHex) 20 mg PO DAILY 90 tabs 2RF 90 days K29.60 - Other gastritis without bleeding metoclopramide HCl 5 mg PO QIDACHS 360 tabs 1RF famotidine 40 mg PO BEDTIME 30 tabs 6RF K21.9 - Gastro-esophageal reflux disease without esophagitis Discontinued simethicone (Anti-Gas Ultra Strength) Discontinued Reason: Insurance Denied 180 mg PO QID 120 caps 3RF Coding Level of Care Code Est Pt Level 3 (68857) Diagnoses Gastroesophageal reflux disease without esophagitis K21.9 Esophagitis presence: without esophagitis Irritable bowel syndrome with diarrhea K58.0
[2024-09-30 11:35] VITALS: BP 122/74; PULSE 70; O2SAT 97; BMI 40.2
== END 2024-09-30 11:55 | disposition home or self-care (01) ==
LOC: HO.HGI 11:31
PROVIDERS: PCP Internal Medicine; Visit Provider Nurse Practitioner
DX: K21.9 Gastro-esophageal reflux disease without esophagitis (principal); K58.0 Irritable bowel syndrome with diarrhea
CPT/HCPCS: 99213

== ENCOUNTER → 2024-09-30 11:30 | Outpatient (BNVA) | payer OTHER, SELFPAY | PROVIDERS: PCP Internal Medicine; Visit Provider Nurse Practitioner | DX: K21.9 Gastro-esophageal reflux disease without esophagitis (principal); K58.0 Irritable bowel syndrome with diarrhea | CPT/HCPCS: 99212 ==

== ENCOUNTER 2024-12-28 11:25 | Outpatient (REF) | payer OTHER, SELFPAY | END 2024-12-28 11:26 | disposition home or self-care (01) | LOC: HO.LAB 11:25 | PROVIDERS: PCP Internal Medicine; Visit Provider Internal Medicine | DX: Z11.1 Encounter for screening for respiratory tuberculosis (principal) | CPT/HCPCS: 36415; 86481 ==

== ENCOUNTER 2025-01-04 12:48 | Outpatient (AMB) | payer OTHER, SELFPAY ==
[2025-01-04 12:56] VITALS: BP 114/80; PULSE 72; O2SAT 98; BMI 40.1
--- NOTE | 2025-01-04 12:56 | A.OFFPC_ITS ---
Vital Signs 01/04/25 12:56 Height 5 ft 2 in Weight 219 lb BMI 40.1 BP 114/80 Blood Pressure Location Lt brachial Position Sitting Pulse 72 Pulse Source Pulse Oximeter Pulse Oximetry (%) 98 Oxygen Delivery Method Room Air Intake Visit Reasons: Annual Pe Binder Caser Required: No Accompanied by: Self / Same As Patient Allergies morphine (MORPHINE) Allergy (Intermediate, Verified 01/08/25 22:50) TACHYCARDIA codeine (Tylenol-Codeine) Allergy (Unknown, Verified 01/08/25 22:50) Unknown oxycodone (Percocet) Allergy (Unknown, Verified 01/08/25 22:50) unknown Medication List - Last Reconciled 01/08/25 by Dc Bennett MD acetaminophen (Tylenol Extra Strength) 500 mg PO Q6H PRN amitriptyline 10 mg PO BEDTIME calcium polycarbophil (Fiber Laxative (calcium polycarbophil)) 1,250 mg (2 x 625 mg) PO BID 30 days cetirizine 10 mg PO DAILY PRN 90 days cholecalciferol (vitamin D3) 25 mcg PO DAILY 90 days clotrimazole-betamethasone 1-0.05 % 1 appl topical BID 2 weeks duloxetine 60 mg PO QAM famotidine 40 mg PO BEDTIME fluticasone propionate 50 mcg/actuation (Allergy Relief (fluticasone)) 2 sprays intranasal DAILY PRN gabapentin 100 mg PO TID ibuprofen 800 mg PO TID PRN loperamide 2 mg PO QID lorazepam 2 mg PO BID PRN magnesium oxide 400 mg PO DAILY 90 days methocarbamol 500 mg PO TID PRN metoclopramide HCl 5 mg PO QIDACHS mirabegron ER (Myrbetriq) 50 mg PO DAILY naproxen 500 mg PO BID PRN 10 days ondansetron 4 mg PO TID PRN 5 days oxybutynin chloride ER 10 mg PO DAILY promethazine 25 mg PO DAILY PRN rabeprazole (AcipHex) 20 mg PO DAILY 90 days riboflavin (vitamin B2) 400 mg PO DAILY 90 days rizatriptan 10 mg PO ONCE PRN 30 days simethicone (Gas Relief (simethicone)) 125 mg PO QID sucralfate 2 grams (2 x 1 gram) PO BEDTIME topiramate 25 mg PO BEDTIME 30 days trazodone 100 mg PO BEDTIME triamcinolone acetonide intranasal Tobacco use date assessed: 01/04/25 Dental Screening Dental Screen Date: 01/04/25 Did you have a dental visit in the last 12 months?: Yes Did you have a dental problem in the last 6 months where you did not have access to dental care?: No Was dental information given to patient?: Patient has dentist HPI Annual Pe HPI Details Patient comes in today for her annual physical examination States that she continues to experience increased low back pain - states that she has low back pain everyday and all day and that she takes her Tylenol or Ibuprofen, Gabapentin and muscle relaxants but they only help provide her some partial and temporary relief Would like to request for a referral to go back to pain management next door as she has not been back to see them in a while She denies any headaches or dizziness Denies any chest pains, no increased SOB No nausea/vomiting, no abdominal pain No change in bowel habits noted She denies any acute urinary symptoms Needs a couple of her Rx refilled today She has no follow up labs done recently - her last labs were done back in June 2024 She had her screening colonoscopy done last year with Dr. Guerrier on 09/25/2023 and had about 3 tubular adenoma lesions removed - is recommended for repeat colonoscopy in 3 years (2026) She had her annual mammogram last done on 02/17/2024 and she will be due for repeat mammogram in February 2025 She is scheduled to see Dr. Orr for her yearly gynecology exam at the end of the year on 04/12/2025 [facility] Medical History Breast cancer screening by mammogram Obesity (BMI 30-39.9) Insomnia Migraine without aura Bilateral low back pain without sciatica Carpal tunnel syndrome Daytime somnolence Lumbar spondylosis Hx of abnormal cervical Pap smear Erosive gastritis Sleep disorder, unspecified Yeast infection involving the vagina and surrounding area Bacterial vaginosis Problematic vaginal discharge COVID-19 Hx of sleep apnea Depression Anxiety Vitamin D deficiency GERD without esophagitis Allergic rhinitis Pure hypercholesterolemia Surgical History (Updated 01/04/25 @ 13:23 by Dc Bennett MD) H/O colonoscopy History of hysterectomy, supracervical Hx of tubal ligation History of surgery History of dilatation and curettage Hx of hysterectomy History of bunionectomy Hx of carpal tunnel repair History of esophagogastroduodenoscopy History of cholecystectomy Family History Mother No problems noted. Maternal Aunt Breast cancer Social History Housing: Apartment Alcohol intake: never Patient Tobacco Use Status: Never used Tobacco e-Cigarette/Vaping Use: Never Used Second Hand Smoke Exposure: Yes service: No Current occupational status: disabled Cognitive needs: No Hearing needs: No Vision needs: No Female Reproductive History Menstrual Age of Menarche: 16 Questionnaire PHQ-9 Over the last 2 weeks, how often have you been bothered by any of the following problems? 1. Little interest or pleasure in doing things: not at all 2. Feeling down, depressed, or hopeless: more than half the days 3. Trouble falling or staying asleep, or sleeping too much: nearly every day 4. Feeling tired or having little energy: several days 5. Poor appetite or overeating: not at all 6. Feeling bad about yourself - or that you are a failure or have let yourself or your family down: not at all 7. Trouble concentrating on things, such as reading the newspaper or watching television: not at all 8. Moving or speaking so slowly that other people could have noticed. Or the opposite - being so fidgety or restless that you have been moving around a lot more than usual: not at all 9. Thoughts that you would be better off or of hurting yourself in some way: not at all Total score: 6 Depression Screening Interpretation: Positive Depression Screening Follow-up: Existing condition and In treatment Depression Screening Done: Yes 55756 - PHQ-9 Billing: Yes Source: Developed by Drs. Brett Bocanegra, Cheryl Elias, Akira Trevino and colleagues, with an educational shiloh from [employer]. Thrive Questionnaire Date Thrive assessed: 01/04/25 I am a: Patient What is your living situation today?: I have a steady place to live Within the past 12 months, did the food you bought not last and you didn't have the money to get more?: Never true Within the past 12 months, did you worry whether your food would run out before you got money to buy more?: Never true Do you have trouble paying for medicines?: No Do you have trouble getting transportation to medical appointments?: No Do you have trouble paying your heating and electricity bill?: No Do you have trouble taking care of your child, family member or friend?: No Do you have trouble with day-to-day activities such as bathing, preparing meals, shopping, managing finances, etc.?: Yes Are you currently unemployed and looking for a job?: Yes Are you interested in more education?: No Please select the resources that you would like help with: None Currently or been in a relationship where the following occur: I choose not to answer THRIVE Score: 0 AUDIT C Alcohol Use Questionnaire (AUDIT-C) 1. How often do you have a drink containing alcohol?: Never 3. How often do you have six or more drinks on one occasion?: Never Total Score: 0 Score Reviewed/Action Taken: Yes REI-7 AMB Questionnaire REI-7 Date REI - 7 assessed: 01/04/25 Feeling nervous, anxious, or on edge: 2 = More than half the days Not being able to stop or control worryin = Not at all Worrying too much about different things: 0 = Not at all Trouble relaxin = Not at all Being so restless that it is hard to sit still: 0 = Not at all Becoming easily annoyed or irritable: 0 = Not at all Feeling afraid as if something awful might happen: 0 = Not at all Total REI-7 score (0-4 normal; 5-9 mild; 10-14 moderate; 15-21 severe): 2 Source: Developed by Drs. Brett Bocanegra, Cheryl Elias, Akira Trevino and colleagues, with an educational shiloh from [employer]. Review of Systems Const Denies chills, Denies fatigue, Denies fever(s), Denies headache(s) and Denies malaise Eyes Denies blurry vision, Denies change in vision, Denies irritation and Denies itchy eyes ENT Denies dysphagia, Denies dizziness, Denies otalgia, Denies headache(s), Denies nasal congestion, Denies neck pain, Denies odynophagia, Denies sinus pain and Denies sore throat Card Denies chest pain, Denies rapid heart rate, Denies irregular heart rhythm, Denies palpitations and Denies dyspnea Resp Denies chest congestion, Denies cough, Denies dyspnea and Denies wheezing GI Denies abdominal pain, Denies bloating, Denies constipation, Denies dysphagia, Denies heartburn, Denies diarrhea, Denies nausea, Denies odynophagia and Denies vomiting Denies hematuria, Denies urinary frequency, Denies dysuria, Denies urinary incontinence and Denies urinary urgency Musc Reports back pain (over her lower back - increased lately), Denies arthralgias, Denies joint swelling, Denies muscle weakness and Denies neck pain Skin/Breast Denies breast pain, Denies breast mass, Denies change in pigmentation, Denies lesions, Denies rash and Denies unusual bruising Neuro Denies dizziness, Denies headache(s) and Denies paresthesias Psych Denies anxiety and Denies depression Endo Denies fatigue and Denies palpitations Jorge/Lymph Denies easy bruising Aller/Immun Denies itchy eyes and Denies wheezing Physical exam (Primary Care) Vital Signs: Last Vital Signs Pulse 72 01/04/25 12:56 BP 114/80 01/04/25 12:56 Pulse Ox 98 01/04/25 12:56 Oxygen Delivery Method Room Air 01/04/25 12:56 BMI result Body Mass Index 40.1 Tobacco/Smoking Status: Tobacco use Status Tobacco use date assessed 01/04/25 01/04/25 13:05 Patient Tobacco Use Status Never used Tobacco 01/04/25 13:05 e-Cigarette/Vaping Use Never Used 01/04/25 13:05 PHQ-9: PHQ-9 Score PHQ-9: Total score 6 01/08/25 22:24 Depression Screening Interpretation: Positive Depression Screening Follow-up: Existing condition and In treatment Thrive Assessment: Date of Thrive Assessment Date Thrive assessed 01/04/25 01/04/25 13:05 Currently or been in a relationship where the following occur: I choose not to answer Const General: no acute distress, alert and awake Orientation/consciousness: patient oriented x3 HENMT Head: Yes normocephalic and Yes atraumatic Ears: external ears normal, TM's normal bilaterally and EAC's normal General nose exam: No nasal discharge present Face and sinus: Yes normal facial exam and Yes sinuses nontender Teeth and gingiva: dentition normal Throat: Yes posterior oropharynx normal and Yes tonsils normal (no TP congestion) Eyes Eyelids: Yes eyelids normal Conjunctivae: conjunctivae normal Pupils: Equal, round and reactive pupils present EOM: EOMs intact bilaterally Neck Neck: Yes no lymphadenopathy and Yes supple Thyroid: Thyroid normal Resp Auscultation: clear to auscultation bilaterally, no rales and no wheezes Cardio Rate: regular rate Rhythm: regular rhythm Heart sounds: no murmurs GI Palpation (GI): Soft to palpation, nontender and No hepatosplenomegaly present Auscultation: normal bowel sounds General: Yes no CVA tenderness Back/Spine/Pelvis Back: no CVA tenderness Thoracic/Lumbar Spine: thoracic and lumbar spine normal to inspection Skin Lesions: no lesions Rashes: no rashes Neuro General: patient oriented x3, moves all extremities, no focal motor deficits and CN's II-XI intact bilaterally Cranial nerves: Yes Equal, round and reactive pupils present Cognition (Neuro): normal cognition Gait exam (Neuro): Normal gait present Extrem General: Yes no clubbing, cyanosis or edema Coding Level of Care Code Est Pt Prev Care 40-64y(12883) Diagnoses Annual physical exam Z00.00 Spondylosis of lumbar spine M47.816 Migraine without status migrainosus, not intractable, unspecified migraine type G43.909 Migraine type: unspecified Status migrainosus presence: without status migrainosus Intractability: not intractable Bilateral wrist pain M25.531; M25.532 Pure hypercholesterolemia E78.00 Irritable bowel syndrome with diarrhea K58.0 Gastroesophageal reflux disease without esophagitis K21.9 Esophagitis presence: without esophagitis Allergic rhinitis, unspecified seasonality, unspecified trigger J30.9 Allergic rhinitis trigger: unspecified Allergic rhinitis seasonality: unspecified Elevated TSH R79.89 Vitamin D deficiency E55.9 Insomnia, unspecified type G47.00 Insomnia type: unspecified Anxiety F41.9 Episode of recurrent major depressive disorder, unspecified depression episode severity F33.9 Depression Type: major depressive disorder Major depression recurrence: recurrent Active/Remission status: currently active Major depression episode severity: unspecified Obesity (BMI 30-39.9) E66.9 Additional Codes PHQ-9 - 15409 - PHQ-9 Billing: Yes ([id number]) Assessment & Plan Assessment & Plan (1) Annual physical exam: Code(s): Z00.00 - Encounter for general adult medical examination without abnormal findings Category: Medical Plan: Check labs KALEGIH to complete her annual exam today She had her screening colonoscopy done last year with Dr. Guerrier on 09/25/2023 and had about 3 tubular adenoma lesions removed - is recommended for repeat col onoscopy in 3 years (2026) She had her annual mammogram last done on 02/17/2024 and she will be due for repeat mammogram in February 2025 She is scheduled to see Dr. Orr for her yearly gynecology exam at the end of the year on 04/12/2025 (2) Spondylosis of lumbar spine: Code(s): M47.816 - Spondylosis without myelopathy or radiculopathy, lumbar region Category: Medical Plan: Patient also has scoliosis so her low back pain is likely partly related to her scoliosis as well Reinforced activity and weight-lifting restrictions Continue Meloxicam 15 mg QD with food PRN, Gabapentin 100 mg TID and Methocarbamol 500 mg TID PRN Because of her increasing low back pain lately, will refer her back to pain management for further recommendations and intervention(s) to help manage her low back pain better (3) Migraine: Code(s): G43.909 - Migraine, unspecified, not intractable, without status migrainosus Category: Medical Qualifiers: Migraine type: unspecified Status migrainosus presence: without status migrainosus Intractability: not intractable Qualified Code(s): G43.909 - Migraine, unspecified, not intractable, without status migrainosus Plan: Controlled/stable Continue Topiramate 25 mg Q HS for headache prophylaxis; continue Riboflavin 400 mg QD She is also on Amitriptyline 10 mg Q HS so this may be helping with her heada ches as well Propranolol caused her to develop persistent bradycardia Continue Fioricet 50-300-40 mg every 8 hours PRN and/or Rizatriptan 10 mg QD PRN (she was on Sumatriptan in the past but states that the Rx stopped helping) She has been tried as well on Nurtec ODT by neurology but patient states that her insurance will not cover the Rx Follow up with neurology as scheduled (4) Bilateral wrist pain: Code(s): M25.531 - Pain in right wrist; M25.532 - Pain in left wrist Category: Medical Plan: S/P carpal tunnel surgery of both of her wrists years ago EMG and NCV done back in January 2024 came out normal She has been advised that her wrist symptoms may likely just be due to degenerative changes or post-op changes as her repeat tests show no evidence of recurrence of her CTS (5) Pure hypercholesterolemia: Code(s): E78.00 - Pure hypercholesterolemia, unspecified Category: Medical Plan: She has no follow up labs done recently and will be sent for labs KALEIGH Reinforced low cholesterol diet (6) Irritable bowel syndrome with diarrhea: Code(s): K58.0 - Irritable bowel syndrome with diarrhea Category: Medical Plan: Continue Dicyclomine 20 mg QID PRN, Loperamide 2 mg QID PRN and Fiber Laxative 625 mg QID PRN Follow up with GI as scheduled (7) GERD (gastroesophageal reflux disease): Code(s): K21.9 - Gastro-esophageal reflux disease without esophagitis Category: Medical Qualifiers: Esophagitis presence: without esophagitis Qualified Code(s): K21.9 - Gastro-esophageal reflux disease without esophagitis Plan: Dietary restrictions reinforced Continue Rabeprazole 20 mg QD Follow up with GI as scheduled (8) Allergic rhinitis: Comment: Allergy testing done at Dr. Pedraza's office in 2019 revealed that patient is allergic to cats and dust mites Code(s): J30.9 - Allergic rhinitis, unspecified Category: Medical Qualifiers: Allergic rhinitis trigger: unspecified Allergic rhinitis seasonality: unspecified Qualified Code(s): J30.9 - Allergic rhinitis, unspecified Plan: Continue Cetirizine 10 mg QD PRN and Fluticasone nasal spray QD PRN (9) Elevated TSH: Code(s): R79.89 - Other specified abnormal findings of blood chemistry Category: Medical Plan: Her TSH was normal when last checked in June 2024 Patient is clinically euthyroid Will recheck her TFTs KALEIGH for follow up (10) Vitamin D deficiency: Code(s): E55.9 - Vitamin D deficiency, unspecified Category: Medical Plan: Continue Vitamin D3 1000 units QD (11) Insomnia: Code(s): G47.00 - Insomnia, unspecified Category: Medical Qualifiers: Insomnia type: unspecified Qualified Code(s): G47.00 - Insomnia, unspecified Plan: Sleep hygiene reinforced Continue Trazodone 100 mg once a day at bedtime PRN (12) Anxiety: Code(s): F41.9 - Anxiety disorder, unspecified Category: Medical Plan: Continue Lorazepam 0.5 mg twice a day PRN (13) Depression: Code(s): F32.9 - Major depressive disorder, single episode, unspecified Category: Medical Qualifiers: Depression Type: major depressive disorder Major depression recurrence: recurrent Active/Remission status: currently active Major depression episode severity: unspecified Qualified Code(s): F33.9 - Major depressive disorder, recurrent, unspecified Plan: Continue Duloxetine 60 mg QD Follow-up with Psychiatry as scheduled (14) Obesity (BMI 30-39.9): Code(s): E66.9 - Obesity, unspecified Category: Medical Plan: Reinforced diet; exercise and weight loss are not practical at this time due to her increased low back pain lately Plan Follow up in 4 months Orders: Orders Complete Blood Count Auto Diff 01/04/25 D64.9 - Anemia, unspecified Lipid Panel 01/04/25 E78.00 - Pure hypercholesterolemia, unspecified TSH reflex Free T4 01/04/25 E78.00 - Pure hypercholesterolemia, unspecified Vitamin D 25-OH Total 01/04/25 E55.9 - Vitamin D deficiency, unspecified Comprehensive [place]. Panel Fast 01/04/25 E78.00 - Pure hypercholesterolemia, uns pecified UA CC w/rflx Micro + Cult 01/04/25 R30.0 - Dysuria Vitamin B12 and Folate 01/04/25 E53.8 - Deficiency of other specified B group vitamins Referrals Pain Management Referral M54.50 - Low back pain, unspecified Medications: Refilled cetirizine 10 mg PO DAILY PRN 90 tabs 3RF allergy symptoms 90 days methocarbamol 500 mg PO TID PRN 90 tabs 3RF muscle spasms / pain
== END 2025-01-04 13:31 | disposition home or self-care (01) ==
LOC: HO.HMCH 12:49
PROVIDERS: PCP Internal Medicine; Visit Provider Internal Medicine
DX: Z00.00 Encounter for general adult medical examination without abnormal findings (principal); G43.909 Migraine, unspecified, not intractable, without status migrainosus; Z68.41 Body mass index [BMI] 40.0-44.9, adult; E66.9 Obesity, unspecified; M47.816 Spondylosis without myelopathy or radiculopathy, lumbar region; M25.531 Pain in right wrist; M25.532 Pain in left wrist; K58.0 Irritable bowel syndrome with diarrhea; K21.9 Gastro-esophageal reflux disease without esophagitis; J30.9 Allergic rhinitis, unspecified; G47.00 Insomnia, unspecified; F41.9 Anxiety disorder, unspecified

== ENCOUNTER → 2025-01-04 12:48 | Outpatient (BNVA) | payer OTHER, SELFPAY | PROVIDERS: PCP Internal Medicine; Visit Provider Internal Medicine | DX: Z00.00 Encounter for general adult medical examination without abnormal findings (principal); M47.816 Spondylosis without myelopathy or radiculopathy, lumbar region; G43.909 Migraine, unspecified, not intractable, without status migrainosus; M25.531 Pain in right wrist; M25.532 Pain in left wrist; E78.00 Pure hypercholesterolemia, unspecified; K58.0 Irritable bowel syndrome with diarrhea; K21.9 Gastro-esophageal reflux disease without esophagitis; J30.9 Allergic rhinitis, unspecified; R94.6 Abnormal results of thyroid function studies; E55.9 Vitamin D deficiency, unspecified; G47.00 Insomnia, unspecified; F41.9 Anxiety disorder, unspecified; F33.9 Major depressive disorder, recurrent, unspecified; E66.9 Obesity, unspecified; Z68.41 Body mass index [BMI] 40.0-44.9, adult; Z86.0101 Personal history of adenomatous and serrated colon polyps; Z79.899 Other long term (current) drug therapy; Z13.31 Encounter for screening for depression; Z13.39 Encounter for screening examination for other mental health and behavioral disorders | CPT/HCPCS: 96127; 99396 ==

== ENCOUNTER 2025-01-25 10:32 | Outpatient (AMB) | payer OTHER, SELFPAY ==
--- NOTE | 2025-01-25 10:58 | MHC.OFFVIS ---
Vital Signs 01/25/25 11:04 Height 5 ft 2 in Weight 220 lb BMI 40.2 BP 141/74 H Blood Pressure Location Rt brachial Position Sitting Respiration 16 Pulse 60 Pulse Source Pulse Oximeter Pulse Oximetry (%) 96 Oxygen Delivery Method Room Air Intake Visit Reasons: Low back pain, unspecified Assistant Speech Language Pathologist Required: No Accompanied by: Self / Same As Patient Allergies morphine (MORPHINE) Allergy (Intermediate, Verified 01/25/25 11:04) TACHYCARDIA codeine (Tylenol-Codeine) Allergy (Unknown, Verified 01/25/25 11:04) Unknown oxycodone (Percocet) Allergy (Unknown, Verified 01/25/25 11:04) unknown HPI Comments Details: Duyen is very pleasant 54 years old female who is back in my office after 2 years of absence. She reported 2 years ago complains on pain with prolonged standing and walking, pain was aggravated by flexing forward. She was given medial branch blocks with 100% pain relief after the injection. We tried sprint PNS for her however she lost her electrode and it was not effective for her, after that she was scheduled for radiofrequency ablation of medial branches of L3, L4, dorsal ramus L5 however patient did not show up for the procedure because she did not experience much of the discomfort at that time. Today she is in my office complaining on pain with prolonged sitting and pain in the lower back in great severity with laying down. She is unable to flex herself forward she experiences severe pain. She is unable to lift objects from the floor. Her last MRI was performed in 2020 however now I suspect that this patient have vertebra genic low back pain. I will schedule this patient for repeat MRI as soon as possible. I will assess Modic type changes on that MRI and we will discuss things further. [facility] Medical History Breast cancer screening by mammogram Obesity (BMI 30-39.9) Insomnia Migraine without aura Bilateral low back pain without sciatica Carpal tunnel syndrome Daytime somnolence Lumbar spondylosis Hx of abnormal cervical Pap smear Erosive gastritis Sleep disorder, unspecified Yeast infection involving the vagina and surrounding area Bacterial vaginosis Problematic vaginal discharge COVID-19 Hx of sleep apnea Depression Anxiety Vitamin D deficiency GERD without esophagitis Allergic rhinitis Pure hypercholesterolemia Surgical History (Updated 01/04/25 @ 13:23 by Dc Bennett MD) H/O colonoscopy History of hysterectomy, supracervical Hx of tubal ligation History of surgery History of dilatation and curettage Hx of hysterectomy History of bunionectomy Hx of carpal tunnel repair History of esophagogastroduodenoscopy History of cholecystectomy Family History Mother No problems noted. Maternal Aunt Breast cancer Social History Housing: Apartment Alcohol intake: never Patient Tobacco Use Status: Never used Tobacco e-Cigarette/Vaping Use: Never Used Second Hand Smoke Exposure: Yes service: No Current occupational status: disabled Cognitive needs: No Hearing needs: No Vision needs: No Female Reproductive History Menstrual Age of Menarche: 16 Review of Systems Const All systems reviewed & are unremarkable except as noted in HPI and below ENT Reports Normal hearing present Neuro Reports Normal hearing present and Denies Abnormal speech present Physical Exam Vital Signs: Last Vital Signs Pulse 60 01/25/25 11:04 Resp 16 01/25/25 11:04 BP 141/74 H 01/25/25 11:04 Pulse Ox 96 01/25/25 11:04 Oxygen Delivery Method Room Air 01/25/25 11:04 BMI result Body Mass Index 40.2 Const General: cooperative, no acute distress, well developed and well groomed Nutritional Appearance: well nourished and obese Orientation/consciousness: oriented to person, oriented to place and oriented to time Limitations: language barrier HEENT Head: Yes normocephalic and Yes atraumatic Eyes General: appearance normal, both eyes and all related structures Pupils: Equal, round and reactive pupils present Neck Neck: Yes normal visual inspection and Yes no lymphadenopathy Thyroid: Thyroid normal Resp Effort & Inspection: normal respiratory effort and able to speak in complete sentences Auscultation: clear to auscultation bilaterally Cardio Rate: regular rate Rhythm: regular rhythm Heart sounds: Normal, physiologic split S2 sound present Peripheral pulses: radial pulses present and posterior tibial pulses present GI Inspection: No distended, Yes Abdominal panniculus present and Yes obesity Palpation (GI): Soft to palpation, nontender, no guarding, not rigid and No hepatosplenomegaly present Percussion: Yes normal to percussion Auscultation: normal bowel sounds Rectal Exam - Female: deferred Back/Spine/Pelvis Other: Flexing forward and flexing backwards aggravate pain however flexing forward aggravate pain much more than flexing backwards. Valsalva maneuver aggravates pain. Prolonged sitting aggravates pain. Prolonged positioning in bed flat aggravates pain. Skin General skin exam: no rashes or lesions noted, turgor normal, skin not dry, no jaundice, No spider nevi and no striae Rashes: no rashes Nails: normal Neuro General: oriented to person, oriented to place and oriented to time Cranial nerves: Yes Equal, round and reactive pupils present and Yes Normal hearing present Speech: No Abnormal speech present Extrem General: Yes normal to inspection, No clubbing, No cyanosis and No edema Psych Appearance: grossly normal and well kempt Mental Status: mental status grossly normal Speech and movement: Normal speech and movement present Affect: normal affect Attitude: cooperative Thought process: Normal thought process present and not confabulating Thought content: Normal thought content present Insight: Limited insight present (Psych) Judgement: Limited judgement present (Psych) Assessment & Plan Assessment & Plan (1) Vertebrogenic low back pain: Code(s): M54.51 - Vertebrogenic low back pain Category: Medical Plan To rule out vertebra genic low back pain I will send this patient for fresh MRI. I will see this patient after the MRI. If there are Modic type changes on the MRI we will discuss possibility of treatment of this patient with BVN radiofrequency ablation Arisoko. Orders: Orders MR lumbar spine wo con Today M54.51 - Vertebrogenic low back pain Patient Instructions: I here by testify that I spent 30 minutes in conversation with this patient as well as evaluating her prior records and prior diagnostic studies as well as planning her care and organizing this note. Coding Level of Care Code Est Pt Level 4 (58836) Diagnoses Vertebrogenic low back pain M54.51
[2025-01-25 11:04] VITALS: BP 141/74; PULSE 60; RESP 16; O2SAT 96; BMI 40.2
== END 2025-01-25 11:33 | disposition home or self-care (01) ==
LOC: HO.PMC 10:32
PROVIDERS: PCP Internal Medicine; Visit Provider Anesthesiology
DX: M54.51 Vertebrogenic low back pain (principal)
CPT/HCPCS: 99214

== ENCOUNTER → 2025-01-25 10:32 | Outpatient (BNVA) | payer OTHER, SELFPAY | PROVIDERS: PCP Internal Medicine; Visit Provider Anesthesiology | DX: M54.51 Vertebrogenic low back pain (principal) | CPT/HCPCS: 99212 ==

== ENCOUNTER 2025-01-27 11:30 | Emergency (ER) | payer OTHER, SELFPAY ==
[2025-01-27 11:48] VITALS: BP 142/72; PULSE 61; RESP 16; TEMP 36.6; O2SAT 98; BMI 40.0
--- NOTE | 2025-01-27 11:52 | ED_ITS ---
HPI - General Adult General Chief complaint: General Medical Stated complaint: High Blood Pressure Time Seen by Provider: 01/27/25 12:00 History of Present Illness ED Provider: Armando Vizcaino MD HPI narrative: 54-year-old female with a history of chronic recurrent migraine under the care of a neurologist. She has had a headache for about a week constant relatively unchanged but refractory to typical management including NSAIDs and PRN sumatriptan. Typical character and location of her pain however mostly frontal and somewhat diffuse. Patient has decreased p.o. intake nausea. No abdominal pain denies fever Related Data Home Medications ?Medication ?Instructions ?Recorded ?Confirmed duloxetine 60 mg capsule,delayed 60 mg PO QAM 04/04/20 01/08/25 release gabapentin 100 mg capsule 100 mg PO TID 04/04/2001/08 oxybutynin chloride 10 mg 10 mg PO DAILY 04/04/2012/13 tablet,extended release 24 hr trazodone 100 mg tablet 100 mg PO BEDTIME 04/04/20 0 01/08/25 mirabegron 50 mg tablet,extended 50 mg PO DAILY 01/08/25 release 24 hr (Myrbetriq) lorazepam 1 mg tablet 2 mg PO BID PRN Anxiety 04/1301/08/25 promethazine 25 mg tablet 25 mg PO DAILY PRN nausea 01/08/25 triamcinolone acetonide 55 mcg intranasal 10/22/22 nasal spray aerosol Previous Rx's ?Medication ?Instructions ?Recorded calcium polycarbophil 625 mg 1,250 mg (2 x 625 mg) PO BID 30 11/07/22 tablet (Fiber Laxative (calcium days #120 tabs polycarbophil)) acetaminophen 500 mg tablet 500 mg PO Q6H PRN fever or pain 11/18/22 (Tylenol Extra Strength) #14 tabs naproxen 500 mg tablet 500 mg PO BID PRN pain 10 da ys #20 11/18/22 tabs ondansetron 4 mg disintegrating 4 mg PO TID PRN nausea and 12/20/22 tablet vomiting 5 days #10 tabs ibuprofen 800 mg tablet 800 mg PO TID PRN for pain # 90 tabs 04/04/23 clotrimazole-betamethasone 1 1 appl topical BID 2 week s #45 11/27/23 %-0.05 % topical cream grams fluticasone propionate 50 2 spray intranasal DAILY PRN 04/01/24 mcg/actuation nasal allergy symptoms/nasal conge stion spray,suspension (Allergy Relief #16 grams (fluticasone)) magnesium oxide 400 mg (241.3 mg 400 mg PO DAILY 90 da ys #90 tabs 07/26/24 magnesium) tablet rizatriptan 10 mg tablet 10 mg PO ONCE PRN Migraine 0 07/26/24 Headache 30 days #12 tabs topiramate 25 mg tablet 25 mg PO BEDTIME 30 days #30 tabs 07/26/24 famotidine 40 mg tablet 40 mg PO BEDTIME #30 tabs metoclopramide HCl 5 mg tablet 5 mg PO QIDACHS #360 ta bs 09/30/24 rabeprazole 20 mg tablet,delayed 20 mg PO DAILY 90 day s #90 tabs 09/30/24 release (AcipHex) simethicone 125 mg chewable tablet 125 mg PO QID abdom inal distention 09/30/24 (Gas Relief (simethicone)) #120 tabs sucralfate 1 gram tablet 2 g (2 x 1 gram) PO BEDTIME #180 09/30/24 tabs cholecalciferol (vitamin D3) 25 25 mcg PO DAILY 90 day s #90 caps 10/30/24 mcg (1,000 unit) capsule riboflavin (vitamin B2) 400 mg 400 mg PO DAILY 90 days #90 tabs 11/01/24 tablet amitriptyline 10 mg tablet 10 mg PO BEDTIME #90 tabs 0 11/16/24 loperamide 2 mg capsule 2 mg PO QID for indigestion #120 12/05/24 caps cetirizine 10 mg tablet 10 mg PO DAILY PRN allergy 0 01/04/25 symptoms 90 days #90 tabs methocarbamol 500 mg tablet 500 mg PO TID PRN muscle s pasms / 01/04/25 pain #90 tabs Allergies Allergy/AdvReac Type Severity Reaction Status Date / Time morphine (MORPHINE) Allergy Intermediate TACHYCARDIA Verified 01/27/25 11:50 codeine (Tylenol-Codeine) Allergy Unknown Unknown Verified 01/27/25 11:50 oxycodone (Percocet) Allergy Unknown unknown Verified 01/27/25 11:50 [facility] Past Medical History Medical History Breast cancer screening by mammogram Obesity (BMI 30-39.9) Insomnia Migraine without aura Bilateral low back pain without sciatica Carpal tunnel syndrome Daytime somnolence Lumbar spondylosis Hx of abnormal cervical Pap smear Erosive gastritis Sleep disorder, unspecified Yeast infection involving the vagina and surrounding area Bacterial vaginosis Problematic vaginal discharge COVID-19 Hx of sleep apnea Depression Anxiety Vitamin D deficiency GERD without esophagitis Allergic rhinitis Pure hypercholesterolemia Surgical History (Updated 01/04/25 @ 13:23 by Dc Bennett MD) H/O colonoscopy History of hysterectomy, supracervical Hx of tubal ligation History of surgery History of dilatation and curettage Hx of hysterectomy History of bunionectomy Hx of carpal tunnel repair History of esophagogastroduodenoscopy History of cholecystectomy Family History Family History Mother No problems noted. Maternal Aunt Breast cancer Social History Social History Housing: Apartment Alcohol intake: never Patient Tobacco Use Status: Never used Tobacco Smoked in Last 30 Days: No e-Cigarette/Vaping Use: Never Used Second Hand Smoke Exposure: Yes Use of substances other than those prescribed or required for medical reasons: No Advance Directives: No Advance Directives Information Provided: Yes service: No Current occupational status: disabled Cognitive needs: No Hearing needs: No Vision needs: No Physical Exam ED Exam Exam: GENERAL: Well appearing. No apparent distress. Alert. HEAD/NECK: Normal to inspection. Neck supple. No cervical lymphadenopathy. EYES: Normal to inspection. Sclera non-icteric. ENMT: External nose normal. RESPIRATORY: Respiratory effort normal. Lungs clear to auscultation bilaterally. CARDIOVASCULAR: Regular rate. Normal rhythm. No murmur. No rubs. GI: Soft, non-tender, non-distended. No rebound or guarding. No masses palpable. No hepatosplenomegaly. SKIN: No jaundice. NEUROLOGICAL: Alert. PSYCHIATRIC: Alert. Appearance appropriate for situation. Attitude cooperative. OTHER: Comprehensive Neuro exam: Face symmetric, tongue midline, strong symmetric eye closure, pupils symmetric and reactive to light, intact sensation to the face throughout, intact strong face deviation and shoulder shrug. Sensation intact to light touch throughout * 5 out of 5 strength in bilateral upper extremities, 5 and 5 strength in lower extremities Vital Signs: Vital Signs - 24 hr 01/27/25 11:48 01/27/25 12:28 Temperature 97.9 F Pulse Rate 61 72 Respiratory Rate 16 17 Blood Pressure 142/72 H 129/63 Pulse Oximetry 98 100 Oxygen Delivery Method Room Air Room Air BMI result Body Mass Index 40.0 Course Course Course Narrative: RME: 54-year-old female history of migraines and high blood pressure presents to ED for headache for 1 week elevated blood pressure for the past 2 days. Patient denies any slurred speech facial droop or paralysis of extremities. Patient denies any chest pain or shortness of breath. Patient has no relief with migraine meds Medications Administered Discontinued Medications Generic Name Dose Route Start Last Admin Trade Name Freq PRN Reason Stop Dose Admin Dexamethasone Sodium Phosphate 6 mg 01/27/25 13:41 01/27/25 15:36 Dexamethasone Sod Phosphate 4 Mg/Ml Vial IVPUSH 01/27/25 13:42 6 mg ONCE ONE Administration Lactated Ringer's 1,000 mls @ 999 mls/hr 01/27/25 13:45 01/27/25 16:32 Lr IV 01/27/25 14:45 Infused .Q1H1M TITO Infusion Ketorolac Tromethamine 15 mg 01/27/25 13:41 01/27/25 15:36 Ketorolac Tromethamine 15 Mg/Ml Vial IVPUSH 01/27/25 13:42 15 mg ONCE ONE Administration Metoclopramide HCl 10 mg 01/27/25 13:41 01/27/25 15:32 Metoclopramide Hcl 10 Mg/2 Ml Vial IVPUSH 01/27/25 13:42 10 mg ONCE ONE Administration Medical Decision Making Medical Decision Making MDM Narrative: Medical Decision Makin-year-old female with chronic recurrent migraine. History physical examination suggestive of recurrent migraine though refractory to typical outpatient therapy. IV fluids and analgesia including low-dose dexamethasone, metoclopramide ketorolac with significant relief in the ED. 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 No head trauma to suggest ICH. Preliminary Favored Differential Diagnosis: Migraine, tension, dehydration a breanne additional considered etiologies Testing Interpreted Independently: ?See below for details Radiology or Lab testing Results Reviewed: ?See below for details Consults: ?See below for details Independent Historians/External Chart Reviews: ?See below for details Social Determinants of Health Impacting MDM/Planning: ?See below for details Lab Data 01/27/25 12:14 01/27/25 12:14 Labs: Lab Results 01/27/25 01/27/25 Range/Units 12:14 12:18 WBC 13.9 H (4.8-10.8) X10*3/uL RBC 4.34 (4.20-5.50) X10*6/uL Hgb 12.9 (12.0-16.0) g/dl Hct 40.0 (37.0-47.0) % MCV 92.2 (80.0-98.0) fL MCH 29.7 (27.0-33.0) pg MCHC 32.3 (31.0-35.0) g/dl RDW 12.8 (11.0-16.0) % Plt Count 272 (160-400) X10*3/uL MPV 10.8 (9.4-12.3) fL Immature Gran % (Auto) 0.3 (0.0-0.4) % Neut % (Auto) 40.8 L (45-73) % Lymph % (Auto) 47.3 H (20-40) % [place] % (Auto) 9.4 (2-11) % Eos % (Auto) 1.6 (0-4) % Baso % (Auto) 0.6 (0-2) % Lymph # (Auto) 6.6 H (1.2-4.9) X10*3/uL [place] # (Auto) 1.3 H (0.1-1.2) X10*3/uL Eos # (Auto) 0.2 (0.0-0.4) X10*3/uL Baso # (Auto) 0.1 (0.0-0.2) X10*3/uL Abs Immat Gran (auto) 0.04 H (0.00-0.03) X10*3/uL Absolute Neuts (auto) 5.7 (2.0-8.3) x10*3/uL Absolute Nucleated RBC 0.000 (0.0-0.012) X10*3/uL Nucleated RBC % (auto) 0.0 (0.0-0.2) /100WBC Smear Tech's Comments VERIFIED Sodium 141 (135-145) mmol/L Potassium 4.0 (3.3-5.1) mmol/L Chloride 109 H (96-108) mmol/L Carbon Dioxide 27 (22-29) mmol/L Anion Gap 9 L (12-20) BUN 9 (9-16) mg/dL Creatinine 0.88 (0.5-1.4) mg/dL Estim Creat Clear Calc 82.3 Estimated GFR > 60 Random Glucose 92 (60-115) mg/dL Calcium 9.0 (8.4-10.2) mg/dL Total Bilirubin 0.4 (0.0-1.0) mg/dL AST 25 (5-31) U/L ALT 28 (0-31) U/L Alkaline Phosphatase 79 (39-117) U/L Troponin I High Sens < 2.7 (<3.5-17.0) ng/L Total Protein 7.1 (6.5-8.0) g/dL Albumin 4.3 (3.5-5.0) g/dL Beta HCG, Quant < 2 mIU/mL Urine Color Dark Yellow Urine Appearance Clear Urine pH 6.5 (5.0-9.0) Ur Specific [place] 1.015 (1.005-1.025) Urine Protein Negative (Neg-Trace) mg/dL Urine Glucose (UA) Negative (Negative) mg/dL Urine Ketones Negative (Negative) mg/dL Urine Blood Negative (Negative) Urine Nitrite Negative (Negative) Ur Leukocyte Esterase Trace H (Negative) Urine RBC 0-2 (0-2) /HPF Urine WBC 6-10 H (0-5) /HPF Ur Squamous Epith Cells 3-5 (0-2) /HPF Urine Bacteria 3+ (None Seen) Hyaline Casts 0-2 (0-2) /LPF COVID-19 (RADHA) Negative (Negative) COVID-19 Clin Com See Note Influenza Type A (SRAVANTHI) Negative (Negative) Influenza Type B (SRAVANTHI) Negative (Negative) Influenza A & B Note See Note Discharge Plan Discharge Clinical Impression: Migraine Qualifiers: Migraine type: unspecified Status migrainosus presence: without status migrainosus Intractability: not intractable Qualified Code(s): G43.909 - Migraine, unspecified, not intractable, without status migrainosus Patient Disposition: Home, Self-Care Instructions: Migraine Headache (ED) Additional Instructions: Instrucciones walter migra?a Instrucciones de walter para la recurrencia de migra?a 1. Tratamiento de los episodios agudos: Al inicio de un dolor de morales tipo migra?a, tome el medicamento indicado por sandoval m?dico lo antes posible. Los medicamentos m?s usados son los antiinflamatorios no esteroideos (AINEs) zoe ibuprofeno, naproxeno o diclofenaco, y los triptanes si los AINEs no son suficientes. Si el dolor regresa en las siguientes 24 horas, puede repetir la dosis de tript?n seg?n indicaci?n m?dica.[1] https://doi.org/10.1111/head.77701 [2] https://www.nejm.org/doi/full/10.1056/MPNOgm3860607 [3] ht tps://pubmed.ncbi.nlm.nih.gov/70403750 2. Prevenci?n y control: Si johny migra?as son frecuentes o el tratamiento trixie no es suficiente, sandoval m?dico puede recomendarle medicamentos preventivos zoe propranolol, metoprolol, topiramato, divalproex, o amitriptilina. No suspenda ni cambie estos medicamentos sin consultar chelsea.[4] https://www.ncbi.nlm.nih.gov/pmc/articles/CVD6933793/ [5] https://pubmed.ncbi.nlm.nih.gov/61866098 [6] https://pubmed.ncbi.nlm.nih.gov/13605518 [3] https://pubmed.ncbi.nlm.nih.gov/09598959 3. Evite el sobreuso de medicaci?n: No use medicamentos para el dolor de morales m?s de 10-15 d?as al mes, ya que esto puede empeorar johny s?ntomas y causar cefalea por sobreuso de medicaci?n.[7] https://doi.org/10.7326/FCNIUC-25-16104 [2] https://www.nej.org/doi/full/10.1056/DZRJaa1695882 4. Identifique y controle desencadenantes: Algunos factores que pueden provocar migra?a son: estr?s, falta de swati?o, ayuno, deshidrataci?n, consumo excesivo de cafe?na, alcohol, y exposici?n a pantallas. Mantenga un diario de johny jose de morales para identificar patrones y desencadenantes.[8] https://pubmed.ncbi.nlm.nih.gov/03996755 [5] https://pubmed.ncbi.nlm.nih.gov/53098410 [7] https:/ /doi.org/10.7326/HPAIXD-73-80503 [3] https://pubmed.ncbi.nlm.nih.gov/42954295 5. Modifique h?bitos de wing: - Mantenga horarios regulares de swati?o y alimentaci?n. - Kelli suficiente agua. - Realice ejercicio f?sico moderado regularmente. - Practique t?cnicas de relajaci?n, zoe respiraci?n profunda o mindfulness.[9] https://jamanetwork.com/journals/kandis/fullarticle/10.1001/kandis.2021.1640?utm_sou rce=openevidence&utm_medium=referral [7] https://doi.org/10.7326/FPNRFD-73-28902 [6] https://pubmed.ncbi.nlm.nih.gov/94272657 6. Cu?ndo consultar de nuevo: Acuda a urgencias si presenta dolor de morales intenso y repentino, fiebre, confusi?n, debilidad, dificultad para hablar, visi?n doble o p?rdida de conciencia. Consulte a sandoval m?dico si los episodios aumentan en frecuencia o intensidad, o si los medicamentos no son efectivos. 7. Seguimiento: Programe pastora kirk de seguimiento para evaluar la respuesta al tratamiento y ajustar el plan seg?n sea necesario. Recuerde: No suspenda ni cambie johny medicamentos sin consultar a sandoval m?dico. Lleve sandoval diario de migra?a a cada consulta. Prescriptions: No Action calcium polycarbophil [Fiber Laxative (ca polycarbo)] 625 mg tablet 1,250 mg PO BID 30 Days Qty: 120 6RF ibuprofen 800 mg tablet 800 mg PO TID PRN (Reason: for pain) Qty: 90 3RF fluticasone propionate [Allergy Relief (fluticasone)] 50 mcg/actuation spray,suspension 2 spray intranasal DAILY PRN (Reason: allergy symptoms/nasal congestion) Qty: 16 1RF Rx Instructions: administer into each nostril cholecalciferol (vitamin D3) 25 mcg (1,000 unit) capsule 25 mcg PO DAILY 90 Days Qty: 90 3RF riboflavin (vitamin B2) 400 mg tablet 400 mg PO DAILY 90 Days Qty: 90 3RF amitriptyline 10 mg tablet 10 mg PO BEDTIME Qty: 90 0RF loperamide 2 mg capsule 2 mg PO QID Qty: 120 3RF acetaminophen [Tylenol Extra Strength] 500 mg tablet 500 mg PO Q6H PRN (Reason: fever or pain) Qty: 14 0RF naproxen 500 mg tablet 500 mg PO BID PRN (Reason: pain) 10 Days Qty: 20 0RF ondansetron 4 mg tablet,disintegrating 4 mg PO TID PRN (Reason: nausea and vomiting) 5 Days Qty: 10 0RF duloxetine 60 mg capsule,delayed release(DR/EC) 60 mg PO QAM gabapentin 100 mg capsule 100 mg PO TID trazodone 100 mg tablet 100 mg PO BEDTIME oxybutynin chloride 10 mg tablet extended release 24hr 10 mg PO DAILY lorazepam 1 mg tablet 2 mg PO BID PRN (Reason: Anxiety) Myrbetriq 50 mg tablet extended release 24 hr 50 mg PO DAILY promethazine 25 mg tablet 25 mg PO DAILY PRN (Reason: nausea) triamcinolone acetonide 55 mcg aerosol,spray intranasal clotrimazole-betamethasone 1-0.05 % cream 1 appl topical BID 14 Days Qty: 45 1RF magnesium oxide 400 mg (241.3 mg magnesium) tablet 400 mg PO DAILY 90 Days Qty: 90 3RF Rx Instructions: may hold for loose stools topiramate 25 mg tablet 25 mg PO BEDTIME 30 Days Qty: 30 6RF rizatriptan 10 mg tablet 10 mg PO ONCE PRN (Reason: Migraine Headache) 30 Days Qty: 12 6RF Rx Instructions: may repeat x's 1 in 2 hrs, max 2 tabs per day r 6 tabs per week. simethicone [Gas Relief (simethicone)] 125 mg tablet,chewable 125 mg PO QID Qty: 120 6RF sucralfate 1 gram tablet 2 g PO BEDTIME Qty: 180 6RF rabeprazole [AcipHex] 20 mg tablet,delayed release (DR/EC) 20 mg PO DAILY 90 Days Qty: 90 2RF metoclopramide HCl 5 mg tablet 5 mg PO QIDACHS Qty: 360 1RF famotidine 40 mg tablet 40 mg PO BEDTIME Qty: 30 6RF cetirizine 10 mg tablet 10 mg PO DAILY PRN (Reason: allergy symptoms) 90 Days Qty: 90 3RF methocarbamol 500 mg tablet 500 mg PO TID PRN (Reason: muscle spasms / pain) Qty: 90 3RF Interventions: ED Discharge Assessment Last Done: 01/27/25 17:48 Discharge Date/Time: 01/27/25 17:49 Print Language: Upper Sorbian
--- NOTE | 2025-01-27 11:54 | ECG_ITS ---
Test Reason : high bp Blood Pressure : */* mmHG Vent. Rate : 71 BPM Atrial Rate : 71 BPM P-R Int : 126 ms QRS Dur : 76 ms QT Int : 394 ms P-R-T Axes : 39 14 23 degrees QTcB Int : 428 ms Normal sinus rhythm Normal ECG When compared with ECG of 20-Dec-2022 19:48, Vent. rate has increased by 28 bpm Referred By: Yao Castillo Electronically Signed By: Pablo Miller
[2025-01-27 12:25] LABS: Appearance Urine Clear; Glucose Urine UA Negative (Negative); PH 6.5 (5.0-9.0); Specific Gravity - Urine 1.015 (1.005-1.025); UMIC TRIGGER UACC YES
[2025-01-27 12:28] VITALS: BP 129/63; PULSE 72; RESP 17; O2SAT 100
[2025-01-27 12:29] LABS: UACC Culture Trigger YES
[2025-01-27 12:35] LABS: Alanine Aminotransferase 28 U/L (0-31); Albumin Level 4.3 g/dL (3.5-5.0); Alkaline Phosphatase 79 U/L (39-117); Anion Gap 9 (12-20); Aspartate Amino Transferase 25 U/L (5-31); Blood Urea Nitrogen 9 mg/dL (9-16); Calcium 9.0 mg/dL (8.4-10.2); Carbon Dioxide 27 mmol/L (22-29); Chloride 109 mmol/L (96-108); Creatinine Clr Calc Pharmacy 82.3; Estimated Glomerular Filt Rate > 60; Potassium 4.0 mmol/L (3.3-5.1); Sodium 141 mmol/L (135-145); Total Protein 7.1 g/dL (6.5-8.0)
[2025-01-27 12:43] LABS: Hematocrit 40.0 % (37.0-47.0); Hemoglobin 12.9 g/dl (12.0-16.0); Imm Gran Abs Auto 0.04 X10*3/uL (0.00-0.03); Imm Gran Pct Auto 0.3 % (0.0-0.4); MANUAL DIFF FLAG SCAN; Mean Corpuscular HGB Conc 32.3 g/dl (31.0-35.0); Mean Corpuscular Hemoglobin 29.7 pg (27.0-33.0); Mean Corpuscular Volume 92.2 fL (80.0-98.0); NRBC Abs Auto 0.000 X10*3/uL (0.0-0.012); NRBC Pct Auto 0.0 /100WBC (0.0-0.2); Platelet Count 272 X10*3/uL (160-400); Red Blood Count 4.34 X10*6/uL (4.20-5.50); SCAN SMEAR FLAG 1; White Blood Count 13.9 X10*3/uL (4.8-10.8)
[2025-01-27 12:44] LABS: COVID-19 Test Negative (Negative); IDNOW Serial# 55D5AD1C; IDNOW Serial# 58CA691E; Influenza B2 Negative (Negative); Lymphocytes Absolute Auto 6.6 X10*3/uL (1.2-4.9)
[2025-01-27 12:45] LABS: Troponin-I High Sensitivity < 2.7 ng/L (<3.5-17.0)
[2025-01-27] MEDS: Lactated Ringers 1,000 ML 999 ML IV (15:31)
[2025-01-27 17:28] VITALS: BP 138/66; PULSE 57; RESP 16; TEMP 36.9; O2SAT 97
[2025-01-27 17:48] VITALS: BP 138/66; PULSE 57; RESP 16; TEMP 36.9; O2SAT 97
== END 2025-01-27 17:49 | disposition home or self-care (01) ==
PROVIDERS: Physician Assistant; Emergency Provider Emergency Medicine; PCP Internal Medicine
DX: G43.909 Migraine, unspecified, not intractable, without status migrainosus (principal); R03.0 Elevated blood-pressure reading, without diagnosis of hypertension; R11.0 Nausea; Z79.899 Other long term (current) drug therapy; Z11.52 Encounter for screening for COVID-19
CPT/HCPCS: 36415; 80053; 81001; 84484; 84702; 85025; 87086; 87502; 87635; 93005; 96361; 96374; 96375; 99284; 99285; J1100; J1885; J2765; J7120

== ENCOUNTER → 2025-01-27 11:54 | Outpatient (BNV) | payer OTHER, SELFPAY | PROVIDERS: Emergency Provider Emergency Medicine; PCP Internal Medicine; Visit Provider Internal Medicine Cardiovascular Disease | DX: I10 Essential (primary) hypertension (principal) | CPT/HCPCS: 93010 ==

== ENCOUNTER 2025-02-03 13:43 | Outpatient (AMB) | payer OTHER, SELFPAY ==
--- NOTE | 2025-02-03 14:10 | MHC.OFFVIS ---
Vital Signs 02/03/25 14:16 Height 5 ft 2 in Weight 218 lb BMI 39.9 BP 131/80 Blood Pressure Location Lt brachial Position Sitting Respiration 16 Pulse 51 Pulse Source Pulse Oximeter Pulse Oximetry (%) 97 Oxygen Delivery Method Room Air Intake Visit Reasons: Follow Up Migraine Chip Mixing Machine Operator Required: Yes Chip Mixing Machine Operator Services: Chip Mixing Machine Operator Present Chip Mixing Machine Operator Name: Kaden ID [id number] Information Interpreted: non-clinical & clinical Allergies morphine (MORPHINE) Allergy (Intermediate, Verified 01/27/25 11:50) TACHYCARDIA codeine (Tylenol-Codeine) Allergy (Unknown, Verified 01/27/25 11:50) Unknown oxycodone (Percocet) Allergy (Unknown, Verified 01/27/25 11:50) unknown HPI Comments Details: Duyen is a 54-year-old female patient with a past medical history of IBS, insomnia, depression and panic disorder following in the clinic for intractable migraine without aura. She was last seen in June of [address] Maradiaga. Notes from this office visit reflect that she has been on rizatriptan 10 mg every day as needed for headache acute therapy and she was also continued on amitriptyline 10 mg at bedtime for headache prevention. She tells me today, that since the time of her last visit, she has not had any changes to the frequency or severity of her migraines. She does report that she has daily headaches and that they are present all day long. She rates them at a 7/10. She does have accompanying nausea but denies light and sound sensitivity. Her headaches are retroorbital and frontal to both sides. She denies any vision changes. She denies tinnitus. She denies any positional component. She reports that he sleep is okay. She cannot identify any aggravating factors. She is not having any side effects from her current medications that she is aware of. Past medication trials: Topiramate -currently taking 25mg at bedtime Amitriptyline -Currently taking 10mg at bedtime Sumatriptan Propranolol Rizatriptan-currently taking as needed Prior workup: MRI of the brain with and without contrast January 2021: Minimal microvascular disease, bilateral maxillary sinus disease MRI of the brain without contrast 2022: Punctate right parietal hyperintensity (nonspecific). Nodular lesion in the lateral wall of the left ventricle that is also slightly larger than the right one. PFSH Medical History Breast cancer screening by mammogram Obesity (BMI 30-39.9) Insomnia Migraine without aura Bilateral low back pain without sciatica Carpal tunnel syndrome Daytime somnolence Lumbar spondylosis Hx of abnormal cervical Pap smear Erosive gastritis Sleep disorder, unspecified Yeast infection involving the vagina and surrounding area Bacterial vaginosis Problematic vaginal discharge COVID-19 Hx of sleep apnea Depression Anxiety Vitamin D deficiency GERD without esophagitis Allergic rhinitis Pure hypercholesterolemia Surgical History (Updated 01/04/25 @ 13:23 by Dc Bennett MD) H/O colonoscopy History of hysterectomy, supracervical Hx of tubal ligation History of surgery History of dilatation and curettage Hx of hysterectomy History of bunionectomy Hx of carpal tunnel repair History of esophagogastroduodenoscopy History of cholecystectomy Family History Mother No problems noted. Maternal Aunt Breast cancer Social History Housing: Apartment Alcohol intake: never Patient Tobacco Use Status: Never used Tobacco e-Cigarette/Vaping Use: Never Used Second Hand Smoke Exposure: Yes service: No Current occupational status: disabled Cognitive needs: No Hearing needs: No Vision needs: No Female Reproductive History Menstrual Age of Menarche: 16 Review of Systems Const All systems reviewed & are unremarkable except as noted in HPI and below Physical Exam Vital Signs: Last Vital Signs Pulse 51 02/03/25 14:16 Resp 16 02/03/25 14:16 BP 131/80 02/03/25 14:16 Pulse Ox 97 02/03/25 14:16 Oxygen Delivery Method Room Air 02/03/25 14:16 BMI result Body Mass Index 39.9 Const General: cooperative, healthy appearing, comfortable and no acute distress Nutritional Appearance: well nourished Orientation/consciousness: patient oriented x3 Limitations: no limitations HEENT Head: Yes normal to inspection and Yes normocephalic Eyes General: appearance normal, both eyes and all related structures Visual Thrasher: normal visual thrasher by confrontation Alignment and Position: alignment normal Periorbital: periorbital findings normal Eyelids: Yes eyelids normal Conjunctivae: conjunctivae normal Sclerae: sclerae normal Neuro General: patient oriented x3 Cranial nerves: Yes CN's II-XII intact bilaterally and Yes Facial sensation intact/muscles of mastication intact Cognition (Neuro): normal cognition Gait exam (Neuro): Normal gait present Motor exam (neuro): no tremor noted Sensory Exam: double simultaneous stimulation for sensation normal Romberg Test: Negative Pupils: Normal pupillary reactivity/response: bilateral Psych Appearance: well kempt Mental Status: mental status grossly normal Speech and movement: Clear speech present Affect: Indifferent affect present and Blunted affect present Attitude: cooperative and Guarded attititude/behavior present Thought content: Normal thought content present Insight: Fair insight present (Psych) Judgement: Fair judgement present (Psych) Assessment & Plan Assessment & Plan (1) Migraine: Code(s): G43.909 - Migraine, unspecified, not intractable, without status migrainosus Category: Medical Qualifiers: Migraine type: unspecified Status migrainosus presence: without status migrainosus Intractability: not intractable Qualified Code(s): G43.909 - Migraine, unspecified, not intractable, without status migrainosus (2) Migraine without aura and without status migrainosus, not intractable: Code(s): G43.009 - Migraine without aura, not intractable, without status migrainosus Category: Medical Plan Duyen is a 54-year-old female patient with a past medical history of IBS, insomnia, depression and panic disorder following in the clinic for intractable migraine without aura. She is currently on combination therapy with amitriptyline 10 mg at bedtime and topiramate 25 mg at bedtime with rizatriptan for as-needed therapy. Although she reports that her headaches are ?regular? and the same. She does report they are daily and constant at a level of 7/10. She is agreeable to increasing the dose of topiramate to see if we can better control her headaches. I will send in a higher dose of topiramate and see how she does with this. She denies any side effects from any of her medications as she is aware of. We will start there and make adjustments accordingly. I will see her back in 3 months. -Increase topiramate to 50mg -Contineu amitriptyline 10mg at bedtiem -Continue on rizatriptan 10 mg as needed -Follow up in 3 months Medications: Changed From topiramate 25 mg PO BEDTIME 30 days 30 tabs 6RF To topiramate 50 mg (2 x 25 mg) PO BEDTIME 60 tabs 5RF 30 days Coding Level of Care Code Est Pt Level 4 (42643) Diagnoses Migraine without status migrainosus, not intractable, unspecified migraine type G43.909 Migraine type: unspecified Status migrainosus presence: without status migrainosus Intractability: not intractable Migraine without aura and without status migrainosus, not intractable G43.009
[2025-02-03 14:16] VITALS: BP 131/80; PULSE 51; RESP 16; O2SAT 97; BMI 39.9
== END 2025-02-03 14:34 | disposition home or self-care (01) ==
LOC: HO.HSM 13:44
PROVIDERS: PCP Internal Medicine; Visit Provider Nurse Practitioner
DX: G43.909 Migraine, unspecified, not intractable, without status migrainosus (principal); G43.009 Migraine without aura, not intractable, without status migrainosus
CPT/HCPCS: 99214

== ENCOUNTER → 2025-02-03 13:43 | Outpatient (BNVA) | payer OTHER, SELFPAY | PROVIDERS: PCP Internal Medicine; Visit Provider Nurse Practitioner | DX: G43.019 Migraine without aura, intractable, without status migrainosus (principal) | CPT/HCPCS: 99212 ==

== ENCOUNTER → 2025-03-28 09:31 | Outpatient (BNV) | payer OTHER, SELFPAY | PROVIDERS: PCP Internal Medicine; Visit Provider Radiology Diagnostic Radiology | DX: M54.51 Vertebrogenic low back pain (principal) | CPT/HCPCS: 72148 ==

== ENCOUNTER 2025-03-28 09:32 | Outpatient (REF) | payer OTHER, SELFPAY ==
--- NOTE | ~2025-03-28 | MR_ITS ---
EXAMINATION: MR LUMBAR SPINE WITHOUT CONTRAST CLINICAL INFORMATION: Vertebral echogenic low back pain. Chronic low back pain in right knee pain as per patient questionnaire. COMPARISON: MR lumbar 02/22/2021. TECHNIQUE: Multiplanar multisequence MR imaging of the lumbar spine was done without IV contrast. Examination was performed on a 1.5 Laura Siemens magnet, utilizing standard sequences. FINDINGS: CORONAL ALIGNMENT: -There is a very mild right convex scoliosis, apex at L2. SAGITTAL ALIGNMENT: - There is a normal lumbar lordosis. There is no subluxation identified. LUMBOSACRAL JUNCTION: -Normal. There are 5 [id number] lumbar-type vertebral bodies. VERTEBRAL BODIES/BONE MARROW: -There is no gross fracture, compression deformity, or suspicious abnormal infiltrating bone marrow signal. -There is no region of gross bone marrow edema. DISCS: -There is mild loss of disc height and signal at T12-L1, L1-2, and L3-4. Intervertebral discs are otherwise grossly preserved in height and signal. SPINAL CANAL: -No abnormal developmental findings. CONUS MEDULLARIS: -Terminates at L1. Morphology and signal is normal. INTRADURAL NERVE ROOTS: - Normal appearance without mass or abnormal nerve root clumping. Axial Disc Space Images: T12-L1: There is a trace concentric annular bulge. Minimal endplate spurring. There is no significant central canal or neural foraminal narrowing. No change. L1-L2: There is a right foraminal disc protrusion of disc material, which results in mild narrowing of the right neural foramen. No definite impingement of the exiting L1 nerve root. There is otherwise a minimal disc bulge, mild facet arthropathy, with no significant central canal or left neural foraminal narrowing. No significant change. L2-L3: Mild facet arthropathy. No disc pathology. No significant central canal or neural foraminal narrowing. No change. L3-L4: There is a minimal concentric disc bulge present, mild bilateral facet arthropathy, however there is no significant central canal narrowing or neural foraminal encroachment. No change. L4-L5: Mild right greater than left facet hypertrophy and degeneration. No disc pathology. There is no significant central canal or neural foraminal narrowing. No change. L5-S1: Mild bilateral facet arthropathy bilaterally, however there is no significant central canal or neural foraminal narrowing. No change. IMAGED SI JOINTS: -Mild degenerative arthritis bilaterally. PARAVERTEBRAL AND INCLUDED EXTRASPINAL SOFT TISSUES: -Aorta is nonaneurysmal. Imaged kidneys appear normal. Common bile duct is patent. No abnormal lymphadenopathy. Paraspinous and paravertebral soft tissues normal. MR/MR lumbar spine wo con IMPRESSION: 1. Very mild right convex scoliosis, unchanged. 2. Very mild spondylosis of the lumbar spine. There is no evidence of significant central canal or neural foraminal narrowing or evidence of nerve root impingement. Essentially there has been no significant change from 02/22/2021. Electronically signed by: Don Harris MD 03/28/2025 10:33 AM [facility]
== END 2025-03-28 09:33 | disposition home or self-care (01) ==
LOC: HO.MRI 09:32
PROVIDERS: PCP Internal Medicine; Visit Provider Anesthesiology
DX: G89.29 Other chronic pain (principal); M54.51 Vertebrogenic low back pain; M25.561 Pain in right knee
CPT/HCPCS: 72148